=== PATIENT | female | born 1980 | race Caucasian/White ===

== ENCOUNTER 2017-12-20 14:21 | Emergency (ER) | payer MEDICARE, MEDICAID, SELFPAY ==
[2017-12-20 14:23] VITALS: BP 113/95; PULSE 20; RESP 62; TEMP 36.4; O2SAT 98; BMI 21.9
[2017-12-20 14:53] LABS: Amorphous Sediment Urine 1+; RBC Urine 1-5/HPF (0-5/HPF); Squamous Epithelial Cell Urine 5-10 /HPF; WBC Urine 5-10/HPF (0-5/HPF)
[2017-12-20 14:54] LABS: Bacteria Urine Many (>30); Culture Indicated Urine Specimen Cultured; Mucus Urine 1+ (Negative)
[2017-12-20 15:10] LABS: Add Manual Diff / Slide Review NO; Basophils Percent Auto 0.6 % (0-2); Eosinophils Percent Auto 1.8 % (2-4); Hematocrit 37.1 % (36-46); Hemoglobin 12.3 g/dL (12.0-16.0); Lymphocytes Percent Auto 19.1 % (25-40); Mean Corpuscular HGB Conc 33.2 % (30-36); Mean Corpuscular Hemoglobin 31.4 PG (26-34); Mean Corpuscular Volume 94.6 fL (80-100); Monocytes Percent Auto 8.2 % (3-14); Neutrophils Absolute Auto 4400 /uL (3000-5900); Neutrophils Percent Auto 70.3 % (50-75); Platelet Count 296 X10^3/uL (150-400); Red Blood Cell Count 3.93 X10^6/uL (4.0-5.2); Red Cell Distribution Width 12.7 % (11.6-14.8); White Blood Cell Count 6.2 X10^3/uL (4.5-11.0)
[2017-12-20 15:37] LABS: HCG Quantitative /Beta subunit 26.14 mIU/mL
[2017-12-20 15:48] LABS: Free T4, Direct Thyroxine 1.07 ng/dL (0.78-2.19)
[2017-12-20 16:02] LABS: Thyroid Stimulating Hormone 0.43 uIU/mL (0.47-4.68)
[2017-12-20 16:14] VITALS: BP 116/63; PULSE 66; RESP 16; O2SAT 100
--- NOTE | 2017-12-20 16:30 | ED.WEAKNESS ---
HPI - Weakness General Chief complaint: Weakness Stated complaint: MS RELAPSE History of Present Illness HPI Narrative: HPI 37-year-old female with a history of MS (DX age 19) presents for evaluation of poorly characterized weakness and mild subtle changes in cognition that have been taking place over 1+ weeks; notes recent dysuria and urinary frequency, had a miscarriage ~2 weeks ago. Patient denies cough, fevers, chills, chest pain, shortness of breath, headache, changes in vision or hearing, and had appropriate follow-up with the RN INFORMATICS regarding her miscarriage and is without any apparent complications. Patient's had no vaginal discharge or discomfort since her miscarriage. M/S/F/SocHx notable for: please see HPI; remainder reviewed with patient and in chart. ROS: Negative constitutional, eye, cardiovascular, pulmonary, GI, , MSK, skin, neurologic, psychiatric, endocrine unless noted in the HPI. Exam Gen: Pleasant, non-toxic appearing, resting comfortably. HEENT: NC, AT, PEERL, EOMI. Resp: Clear to auscultation bilaterally, normal work of breathing, no accessory muscle usage. Card: Regular rate and rhythm with no murmurs, rubs, or gallops, extremities warm and well perfused. GI: Non-tender to palpation throughout all quadrants, no focal tenderness at McBurney's point, negative Vallejo's sign, non-distended, no rebound or guarding. : No suprapubic tenderness to palpation. MSK: No visible deformities, strength and tone without visually appreciable deficit. Skin: Normal color with no visible lesions. Neuro: AO x 3, no facial asymmetry, vision and hearing WNL. Psych: Mood and affect appropriate. Labs / Imaging: UA - many bacteria, 5-10 squamous epithelial cells, 5-10 WBCs WBC 6.2, Hb 12.3, Na 139, K 3.6, TSH 0.43, free T4 1.07, hCG 26.14 MDM Previous chart, nursing note, labs, imaging, and vitals reviewed. A: 37-year-old female with a history of MS (DX age 19) presents for evaluation of poorly characterized weakness and mild subtle changes in cognition that have been taking place over 1+ weeks; notes recent dysuria and urinary frequency, had a miscarriage ~2 weeks ago. Evaluation: history is notable for dysuria increased urinary frequency with the onset and generally consistent with the patient's new mild subjective weakness and subjective subtle cognitive changes, patient notes a history of prior UTIs cousin similar symptoms. UA consistent with UTI. Keflex prescribed. Patient instructed to follow up with her PCP and/or neurologist in 2-3 days for further evaluation care as appropriate. History, exam, and labs without evidence of alternate concurrent medical process - specifically thyroid studies are within acceptable limits, hCG is appropriately down trended, the patient is without vaginal discharge, discomfort, suprapubic tenderness, she continues to take PO well, pass flatus and stool baseline, has no cough, recent infectious symptoms, chest pain, or other abnormalities. Impression: UTI (please reference below for remainder of encounter information) Related Data Previous Rx's Medication Instructions Recorded zolpidem 5 mg PO HS #5 tab 06/20/17 prednisone 10 mg PO SEE INSTRUCTIONS #24 tab 06/21/17 Allergies Allergy/AdvReac Type Severity Reaction Status Date / Time pomegranate [POMEGRANATE] Allergy Unknown Unverified 08/26/17 12:27 [facility] Social History Smoking Status: Never smoker Exam Initial Vital Signs Initial Vital Signs: Vital Signs Temperature 97.6 F 12/20/17 14:23 Pulse Rate 20 L 12/20/17 14:23 Respiratory Rate 62 H 12/20/17 14:23 Blood Pressure 113/95 H 12/20/17 14:23 Pulse Oximetry 98 12/20/17 14:23 Course Orders Ordered: ED Orders 12/20/17 14:30 Urine Culture Stat Urine Microscopic Stat 12/20/17 15:00 Complete Blood Count AUTO DIFF Stat Free T4 Free Thyroxine Stat HCG Quantitative Stat Thyroid Stimulating Hormone Stat 12/20/17 15:17 Urinalysis and Microscopic Stat Vital Signs - 8 hr 12/20/17 14:23 12/20/17 16:14 Temperature 97.6 F Pulse Rate 20 L 66 Respiratory Rate 62 H 16 Blood Pressure 113/95 H Blood Pressure [Left Arm] 116/63 Pulse Oximetry 98 100 MDM - Weakness Lab Data Result diagrams: 12/20/17 15:00 Lab Results 12/20/17 12/20/17 12/20/17 Range/Units 14:30 15:00 15:00 WBC 6.2 (4.5-11.0) X10^3/uL RBC 3.93 L (4.0-5.2) X10^6/uL Hgb 12.3 (12.0-16.0) g/dL Hct 37.1 (36-46) % MCV 94.6 (80-100) fL MCH 31.4 (26-34) PG MCHC 33.2 (30-36) % RDW 12.7 (11.6-14.8) % Plt Count 296 (150-400) X10^3/uL Neut % (Auto) 70.3 (50-75) % Lymph % (Auto) 19.1 L (25-40) % [place] % (Auto) 8.2 (3-14) % Eos % (Auto) 1.8 L (2-4) % Baso % (Auto) 0.6 (0-2) % Neut # (Auto) 4400 (5616-7916) /uL TSH (0.47-4.68) uIU/mL Free T4 (0.78-2.19) ng/dL HCG, Quant 26.14 mIU/mL Urine RBC 1-5/hpf (0-5/HPF) Urine WBC 5-10/hpf H (0-5/HPF) Ur Squamous Epith Cells 5-10 /hpf H Amorphous Sediment 1+ Urine Bacteria Many (>30) H (None) Urine Mucus 1+ H (Negative) Ur Culture Indicated? Specimen cultured Micro UA Comment Not Reportable 12/20/17 Range/Units 15:00 WBC (4.5-11.0) X10^3/uL RBC (4.0-5.2) X10^6/uL Hgb (12.0-16.0) g/dL Hct (36-46) % MCV (80-100) fL MCH (26-34) PG MCHC (30-36) % RDW (11.6-14.8) % Plt Count (150-400) X10^3/uL Neut % (Auto) (50-75) % Lymph % (Auto) (25-40) % [place] % (Auto) (3-14) % Eos % (Auto) (2-4) % Baso % (Auto) (0-2) % Neut # (Auto) (2273-1393) /uL TSH 0.43 L (0.47-4.68) uIU/mL Free T4 1.07 (0.78-2.19) ng/dL HCG, Quant mIU/mL Urine RBC (0-5/HPF) Urine WBC (0-5/HPF) Ur Squamous Epith Cells Amorphous Sediment Urine Bacteria (None) Urine Mucus (Negative) Ur Culture Indicated? Micro UA Comment Discharge Plan Departure Prescriptions: No Action zolpidem 5 MG tablet 5 mg PO HS Qty: 5 RF: 0 prednisone 10 MG tablet 10 mg PO SEE INSTRUCTIONS Qty: 24 RF: 0
[2017-12-20] MEDS: cephALEXin 250 MG CAPSULE 500 MG PO (16:40)
== END 2017-12-20 17:00 | disposition home or self-care (01) ==
PROVIDERS: Emergency Provider Emergency Medicine; PCP Nurse Practitioner Gerontology
DX: N39.0 Urinary tract infection, site not specified (principal)
CPT/HCPCS: 36591; 81003; 81015; 84439; 84443; 84702; 85025; 87077; 87086; 87186; 99282; 99283

== ENCOUNTER → 2018-01-12 08:47 | Outpatient (CLI) | payer MEDICARE, MEDICAID, SELFPAY ==
--- NOTE | 2018-01-12 | DI.MRI.S_ITS ---
PROCEDURE: MR CERVICAL SPINE WO/W CON INDICATIONS: MULTIPLE SCLEROSIS TECHNIQUE: Noncontrast sagittal T1 spin echo and T2 fast spin echo, sagittal STIR, sagittal PD fast spin echo, foraminal oblique sagittal T2 fast spin echo, axial gradient echo or T2 fast spin echo through the cervical spine. After the administration of contrast, sagittal and axial T1 spin echo with fat saturation through the cervical spine. COMPARISON: [facility], MR, MR THORACIC SPINE WO/W CON, 01/12/2018, 9:49. [facility], MR, MR HEAD/BRAIN WO/W CON, 01/12/2018, 9:09. [facility], MR, C-SPINE W&WO CONTRAST, 06/21/2013, 19:14. FINDINGS: Image quality: Excellent. Alignment and curvature: There is normal bony alignment. Marrow: Marrow demonstrates normal overall signal. Spinal cord: Visualized spinal cord is normal in size, without white matter lesions. However, there is a prominent lesion seen within the jayjay, as on series 3 image 8. No suspicious intramedullary enhancement. No cerebellar tonsillar herniation. Paraspinous soft tissues: No paravertebral masses or suspicious enhancement. C2-C3: Normal appearance. C3-C4: Normal appearance. C4-C5: Normal appearance. C5-C6: Minimal disc osteophyte complex can be seen. No significant neural foraminal or central canal narrowing are seen. C6-C7: No significant abnormality is seen. C7-T1: Normal appearance. IMPRESSION: No cervical spinal cord lesions are seen to suggest involvement with multiple sclerosis. No abnormal enhancement. Dictated by: Mc Grimes M.D. on 01/12/2018 at 11:42 Approved by: Mc Grimes M.D. on 01/12/2018 at 11:44
--- NOTE | 2018-01-12 | DI.MRI.S_ITS ---
PROCEDURE: MR HEAD/BRAIN WO/W CON INDICATIONS: MULTIPLE SCLEROSIS TECHNIQUE: Noncontrast sagittal and axial FLAIR, axial and coronal T2 fast spin echo, axial VIBE, axial gradient echo, axial diffusion and ADC through the brain. After the administration of contrast, axial and coronal VIBE with fat saturation through the brain. COMPARISON: [facility], MR, MR THORACIC SPINE WO/W CON, 01/12/2018, 9:49. [facility], MR, BRAIN W&WO CONTRAST, 06/21/2013, 18:58. [facility], MR, MR CERVICAL SPINE WO/W CON, 01/12/2018, 9:25. FINDINGS: Image quality: Excellent. CSF spaces: Ventricles are normal in size and shape. Basal cisterns are patent. No extra-axial fluid collections. Brain: Several prominent foci of abnormal T2-weighted hyperintensity can be seen within the periventricular and deep white matter. Several of the periventricular lesions demonstrate a perpendicular appearance to the lateral ventricles. There is involvement of the corpus callosum seen, as on series 2 image 16. There is a lesion seen within the left jayjay, as on series 4 image 6 series 2 image 14. These lesions have clearly progressed compared to the 2013 examination. There is enhancement seen of the lesion within the right peritrigonal region, as on series 13 image 13 and on series 14 image 17. No intracranial bleeds or mass effects. Jones-white matter interface appears intact. No abnormal intracranial enhancement. Diffusion weighted images show no acute ischemic insults. Brainstem appears normal. Normal intravascular flow voids are present. Skull and face: Calvarial marrow signal is normal. Orbits appear normal. Sinuses: Sinuses and mastoids are clear. IMPRESSION: Progression of multiple sclerosis lesions compared to 2014. One of these lesions demonstrate enhancement, which is consistent with active demyelination. Dictated by: Mc Grimes M.D. on 01/12/2018 at 11:06 Approved by: Mc Grimes M.D. on 01/12/2018 at 11:25
--- NOTE | 2018-01-12 | DI.MRI.S_ITS ---
PROCEDURE: MR THORACIC SPINE WO/W CON INDICATIONS: MULTIPLE SCLEROSIS TECHNIQUE: Noncontrast sagittal T1 spin echo and T2 fast spin echo, sagittal STIR, axial T1 and T2 fast spin echo through the thoracic spine. After the administration of contrast, axial and sagittal T1 spin echo with fat saturation through the thoracic spine. COMPARISON: [facility], MR, MR CERVICAL SPINE WO/W CON, 01/12/2018, 9:25. [facility], MR, MR HEAD/BRAIN WO/W CON, 01/12/2018, 9:09. [facility], MR, T-SPINE W&WO CONTRAST, 06/21/2013, 19:31. FINDINGS: Image quality: Excellent. Alignment and curvature: There is normal bony alignment. Marrow: Marrow is of normal overall signal. No acute vertebral body compression fractures. Spinal cord: Visualized spinal cord is of normal signal and size, without abnormal enhancement. Paraspinous soft tissues: No paravertebral masses or abnormal enhancement. Miscellaneous: At the T8-T9 level, there is a mild central disc protrusion, as on series 11 image 17 and on series 5 image 8. Minimal central canal narrowing is seen. This is similar to 2013. No significant neural foraminal narrowing. Minimal degenerative changes can be seen at other thoracic levels. IMPRESSION: No thoracic spinal cord white matter lesions are seen to suggest involvement with multiple sclerosis. No abnormal enhancement. Dictated by: Mc Grimes M.D. on 01/12/2018 at 11:44 Approved by: Mc Grimes M.D. on 01/12/2018 at 11:47
== END ==
PROVIDERS: PCP Nurse Practitioner Gerontology; Visit Provider Physician Assistant
DX: G35 Multiple sclerosis (principal)
CPT/HCPCS: 70553; 72156; 72157

== ENCOUNTER 2018-01-15 08:02 | Emergency (ER) | payer MEDICARE, MEDICAID, SELFPAY ==
[2018-01-15 08:08] VITALS: BP 114/63; PULSE 77; RESP 15; TEMP 36.5; O2SAT 99; BMI 21.9
--- NOTE | 2018-01-15 08:46 | ED.RECABL ---
HPI - Recheck/Abnormal Lab/Rx General Chief Complaint: Recheck/Abnormal Lab/Rx Stated Complaint: needs steroids, mri showed a brain lesion Time Seen by Provider: 01/15/18 08:13 Source: patient Mode of arrival: ambulatory Limitations: no limitations History of Present Illness HPI narrative: Patient is a 37-year-old female presenting with need for IV steroids. She has a history of multiple sclerosis she had MRI 01/04/2018 here at this hospital which does show an active lesion. She was instructed by her neurologist come to the ER for dose of IV steroids. She says she is supposed to get 3 days of IV infusions. She has fallen more over the last day she has overall been extremely tired and sleepy. Related Data Previous Rx's Medication Instructions Recorded zolpidem 5 mg PO HS #5 tab 06/20/17 prednisone 10 mg PO SEE INSTRUCTIONS #24 tab 06/21/17 cephalexin [Keflex] 500 mg PO QID #40 cap 12/20/17 Allergies Allergy/AdvReac Type Severity Reaction Status Date / Time pomegranate [POMEGRANATE] Allergy Unknown Verified 01/15/18 08:08 Review of Systems Review of Systems All systems reviewed & are unremarkable except as noted in HPI and below Constitutional Reports body ache(s), Denies chills, Reports fatigue, Denies fever(s), Denies lethargy and Reports weakness Cardiovascular Denies chest pain, Denies irregular heart rhythm, Denies lightheadedness, Denies palpitations, Denies dyspnea, Denies dyspnea on exertion and Denies orthopnea Respiratory Denies cough, Denies dyspnea, Denies dyspnea on exertion and Denies wheezing Gastrointestinal Gastrointestinal: Denies abdominal pain, Denies change in bowel habits, Denies diarrhea, Denies nausea and Denies vomiting Musculoskeletal Denies back pain, Denies muscle weakness, Denies numbness and Denies tingling Neurologic Reports as per HPI, Denies numbness, Denies tingling and Reports weakness Endocrine Reports fatigue and Denies palpitations Allergic/Immunologic Denies wheezing PFSH Medical History Multiple sclerosis (Acute) Social History Smoking Status: Never smoker Exam Initial Vital Signs Initial Vital Signs: Vital Signs Temperature 97.7 F 01/15/18 08:08 Pulse Rate 77 01/15/18 08:08 Respiratory Rate 15 01/15/18 08:08 Blood Pressure 114/63 01/15/18 08:08 Pulse Oximetry 99 01/15/18 08:08 GENERAL: Overall weak appearing female but no acute distress alert and oriented x3 HEENT: Head atraumatic,EOMI, pupils reactive, CARDIOVASCULAR: Regular rate and rhythm without murmurs, rubs or gallops. RESPIRATORY: Breath sounds equal bilaterally, no wheezes rales or rhonchi. ABDOMEN: Soft, nontender. Normoactive bowel sounds all 4 quadrants. No guarding or rebound. EXTREMITIES: Normal range of motion, no clubbing or edema. Neurovascularly intact NEUROLOGICAL: Alert and oriented x4.Normal gait and speech. Cranial nerves II through XII grossly intact. SKIN: Warm, dry, no laceration, no petechiae, no rashes or lesions. Block Machine Operator strength equal bilaterally Course Orders Ordered: ED Orders 01/15/18 09:15 Basic Metabolic Panel Stat Complete Blood Count AUTO DIFF Stat Discontinued Medications Methylprednisolone 1,000 mg/ (Sodium Chloride) 258 mls @ 258 mls/hr IV NOW ONE Stop: 01/15/18 10:14 Last Infusion: 01/15/18 10:36 Dose: 258 mls/hr Admin: 01/15/18 09:11 Dose: 258 mls/hr Vital Signs - 8 hr 01/15/18 08:08 01/15/18 10:27 01/15/18 11:31 Temperature 97.7 F 97.6 F Pulse Rate 77 67 78 Respiratory Rate 15 14 15 Blood Pressure 114/63 Blood Pressure [Right Arm] 102/77 102/77 Pulse Oximetry 99 99 MDM - Recheck/Abnormal Lab/Rx Lab Data Result diagrams: 01/15/18 09:15 01/15/18 09:15 Lab Results 01/15/18 01/15/18 Range/Units 09:15 09:15 WBC 5.8 (4.5-11.0) X10^3/uL RBC 4.24 (4.0-5.2) X10^6/uL Hgb 13.1 (12.0-16.0) g/dL Hct 39.2 (36-46) % MCV 92.5 (80-100) fL MCH 30.9 (26-34) PG MCHC 33.4 (30-36) % RDW 12.9 (11.6-14.8) % Plt Count 248 (150-400) X10^3/uL Neut % (Auto) 74.7 (50-75) % Lymph % (Auto) 16.7 L (25-40) % [place] % (Auto) 7.0 (3-14) % Eos % (Auto) 1.0 L (2-4) % Baso % (Auto) 0.6 (0-2) % Neut # (Auto) 4400 (9238-4709) /uL Sodium 143 (137-145) mmol/L Potassium 4.4 (3.4-5.1) mmol/L Chloride 105 (98-107) mmol/L Carbon Dioxide 28 (22-32) mmol/L BUN 14 (7-17) mg/dL Creatinine 0.80 (0.52-1.04) mg/dL Estimated GFR > 60.0 (>60) mL/min BUN/Creatinine Ratio 17.5 (6-22) Glucose 76 (70-100) mg/dL Calcium 9.5 (8.4-10.2) mg/dL Imaging Data MRI Brain: Radiologist's impression: PROCEDURE: MR HEAD/BRAIN WO/W CON INDICATIONS: MULTIPLE SCLEROSIS TECHNIQUE: Noncontrast sagittal and axial FLAIR, axial and coronal T2 fast spin echo, axial VIBE, axial gradient echo, axial diffusion and ADC through the brain. After the administration of contrast, axial and coronal VIBE with fat saturation through the brain. COMPARISON: [facility], MR, MR THORACIC SPINE WO/W CON, 01/12/2018, 9:49. [facility], MR, BRAIN W&WO CONTRAST, 06/21/2013, 18:58. [facility], MR, MR CERVICAL SPINE WO/W CON, 01/12/2018, 9:25. FINDINGS: Image quality: Excellent. CSF spaces: Ventricles are normal in size and shape. Basal cisterns are patent. No extra-axial fluid collections. Brain: Several prominent foci of abnormal T2-weighted hyperintensity can be seen within the periventricular and deep white matter. Several of the periventricular lesions demonstrate a perpendicular appearance to the lateral ventricles. There is involvement of the corpus callosum seen, as on series 2 image 16. There is a lesion seen within the left jayjay, as on series 4 image 6 series 2 image 14. These lesions have clearly progressed compared to the 2013 examination. There is enhancement seen of the lesion within the right peritrigonal region, as on series 13 image 13 and on series 14 image 17. No intracranial bleeds or mass effects. Jones-white matter interface appears intact. No abnormal intracranial enhancement. Diffusion weighted images show no acute ischemic insults. Brainstem appears normal. Normal intravascular flow voids are present. Skull and face: Calvarial marrow signal is normal. Orbits appear normal. Sinuses: Sinuses and mastoids are clear. IMPRESSION: Progression of multiple sclerosis lesions compared to 2014. One of these lesions demonstrate enhancement, which is consistent with active demyelination. Dictated by: Mc Grimes M.D. on 01/12/2018 at 11:06 [facility] Narrative Medical decision making narrative: Multiple attempts to call patient's neurologist Dr. Kelvin lainez. She is given 1 g of Solu-Medrol. She is strain feel little bit better. She will return tomorrow for repeat infusion. Unable to set out outpatient infusions at this time. Discharge Plan Departure Patient Disposition: Home Clinical Impression: Exacerbation of multiple sclerosis Discharge Date/Time: 01/15/18 11:33 Interventions: ED Discharge Assessment Last Done: 01/15/18 11:32 Instructions: DI for Multiple Sclerosis Activity Restrictions/Additional Instructions: *You have been diagnosed with multiple sclerosis *What to do: I hope to hear from a your neurologist sometime today. For now plan on returning tomorrow for repeat infusion *Continue to take medications as directed *Follow up with your primary care provider in 2-3 days, follow up with Neurology next week. Please call him today for further instructions and these have them call our emergency department *Return to ER if you should have any new, worsening or concerning symptoms Prescriptions: No Action zolpidem 5 MG tablet 5 mg PO HS Qty: 5 RF: 0 prednisone 10 MG tablet 10 mg PO SEE INSTRUCTIONS Qty: 24 RF: 0 cephalexin [Keflex] 500 mg capsule 500 mg PO QID Qty: 40 RF: 0 Referrals: Gayle Carter ARNP [Primary Care Provider] - Kelvin Lainez MD [Family Provider] -
[2018-01-15] MEDS: methylPREDNISolone 1,000 MG in SODIUM CHLORIDE 0.9% 250 ML 258 ML IV (09:11)
[2018-01-15 09:29] LABS: Add Manual Diff / Slide Review NO; Basophils Percent Auto 0.6 % (0-2); Hematocrit 39.2 % (36-46); Hemoglobin 13.1 g/dL (12.0-16.0); Lymphocytes Percent Auto 16.7 % (25-40); Mean Corpuscular HGB Conc 33.4 % (30-36); Mean Corpuscular Hemoglobin 30.9 PG (26-34); Mean Corpuscular Volume 92.5 fL (80-100); Neutrophils Absolute Auto 4400 /uL (3000-5900); Neutrophils Percent Auto 74.7 % (50-75); Platelet Count 248 X10^3/uL (150-400); Red Blood Cell Count 4.24 X10^6/uL (4.0-5.2); Red Cell Distribution Width 12.9 % (11.6-14.8); White Blood Cell Count 5.8 X10^3/uL (4.5-11.0)
[2018-01-15 09:42] LABS: BUN Creatinine Ratio 17.5 (6-22); Blood Urea Nitrogen 14 mg/dL (7-17); Calcium 9.5 mg/dL (8.4-10.2); Carbon Dioxide 28 mmol/L (22-32); Chloride 105 mmol/L (98-107); Estimated Glomerular Filt Rate > 60.0 mL/min (>60); Glucose 76 mg/dL (70-100); HEMOLYSIS 27 (0-50); Potassium 4.4 mmol/L (3.4-5.1); Sodium 143 mmol/L (137-145)
[2018-01-15 10:27] VITALS: BP 102/77; PULSE 67; RESP 14; O2SAT 99
[2018-01-15 11:31] VITALS: BP 102/77; PULSE 78; RESP 15; TEMP 36.4
== END 2018-01-15 11:33 | disposition home or self-care (01) ==
PROVIDERS: Emergency Provider Emergency Medicine; Family Provider Psychiatry & Neurology Neurology; PCP Nurse Practitioner Gerontology
DX: G35 Multiple sclerosis (principal)
CPT/HCPCS: 36591; 80048; 85025; 96365; 96366; 99283; 99284; J2930

== ENCOUNTER 2018-01-16 10:00 | Emergency (ER) | payer MEDICARE, MEDICAID, SELFPAY ==
[2018-01-16 10:06] VITALS: BP 112/73; PULSE 67; RESP 14; TEMP 36.3; O2SAT 100; BMI 22.7
--- NOTE | 2018-01-16 10:28 | ED_ITS ---
HPI - Weakness General Chief complaint: Weakness Stated complaint: NEEDS IV STEROIDS Time Seen by Provider: 01/16/18 10:25 Source: patient Mode of arrival: ambulatory Limitations: no limitations History of Present Illness HPI Narrative: Is a 7-year-old female who presents with overall weakness. She has a history of multiple sclerosis she is here for her 2nd dose of IV steroids. Which were started yesterday. She says that she is feeling better but still weak. She will come back tomorrow for his 3rd dose of IV steroids Complaint: generalized weakness Related Data Home Medications Medication Instructions Recorded Confirmed acyclovir 400 mg PO BID 01/16/18 01/16/18 meclizine 25 mg PO TID PRN 01/16/18 01/16/18 tamsulosin 0.4 mg PO BID 01/16/18 01/16/18 Allergies Allergy/AdvReac Type Severity Reaction Status Date / Time adhesive tape Allergy Mild Blister Verified 01/16/18 10:09 pomegranate [POMEGRANATE] Allergy Unknown Verified 01/16/18 10:09 Review of Systems Review of Systems GENERAL: Denies chills,fever HEENT: Denies throat pain RESPIRATORY: Denies dyspnea, cough, wheezing CARDIOVASCULAR: Denies chest pain, palpitations GASTROINTESTINAL: Denies nausea, vomiting MUSCULOSKELETAL: Denies extremity pain, injury SKIN: No rash, no laceration, no pruritus NEUROLOGIC: See HPI 8 point review of systems is negative except for those stated above and HPI PFSH Medical History Multiple sclerosis (Acute) Social History Smoking Status: Never smoker Exam Initial Vital Signs Initial Vital Signs: Vital Signs Temperature 97.3 F L 01/16/18 10:06 Pulse Rate 67 01/16/18 10:06 Respiratory Rate 14 01/16/18 10:06 Blood Pressure 112/73 01/16/18 10:06 Pulse Oximetry 100 01/16/18 10:06 GENERAL: Well-appearing, well-nourished and in no acute distress. CARDIOVASCULAR: peripheral pulses in tact, cap refill <2 sec RESPIRATORY: No respiratory distress, speaks in full sentences without difficulty EXTREMITIES: Normal range of motion, no clubbing or edema. Neurovascularly intact NEUROLOGICAL: Cranial nerves II through XII grossly intact. Normal gait and speech. SKIN: Warm, dry, no petechiae, no rashes or lesions. Course Orders Ordered: Discontinued Medications Methylprednisolone 1,000 mg/ (Sodium Chloride) 108 mls @ 108 mls/hr IV NOW ONE Stop: 01/16/18 11:59 Last Infusion: 01/16/18 12:23 Dose: 0 mls/hr Admin: 01/16/18 11:25 Dose: 108 mls/hr Vital Signs - 8 hr 01/16/18 11:30 01/16/18 12:24 Pulse Rate 69 67 Respiratory Rate 17 14 Blood Pressure [Right Arm] 118/73 124/70 Pulse Oximetry 100 100 MDM - Weakness Lab Data Urine Dip Bedside Urine Glucose Negative Bedside Urine Bilirubin - Negative Bedside Urine Ketone - Negative Urine Specific [place] 1.010 Bedside Urine Occult Blood - Negative Bedside Urine pH 6.5 Bedside Urine Protein - Negative Bedside Urine Urobilinogen - Negative Bedside Urine Nitrite - Negative Bedside Urine Leukocytes - Negative Esterase MDM Narrative Medical decision making narrative: Will return tomorrow for 3rd dose of IV steroids Discharge Plan Departure Patient Disposition: Home Clinical Impression: Exacerbation of multiple sclerosis Discharge Date/Time: 01/16/18 12:31 Interventions: ED Discharge Assessment Last Done: 01/16/18 12:30 Instructions: Multiple Sclerosis -- Adult Activity Restrictions/Additional Instructions: *You have been diagnosed with multiple sclerosis exacerbation *What to do: Return tomorrow for her 3rd and final dose of Solu-Medrol is come early in the morning (7am-8am) it seems to be busy this week *Continue to take medications as directed *Follow up with your primary care provider in 2-3 days *Return to ER if you should have any new, worsening or concerning symptoms Prescriptions: No Action acyclovir 400 mg tablet 400 mg PO BID RF: 0 tamsulosin 0.4 mg capsule 0.4 mg PO BID RF: 0 meclizine 25 mg tablet 25 mg PO TID PRN (Reason: Vertigo) RF: 0 Referrals: Gayle Carter ARNP [Primary Care Provider] - Kelvin Strickland MD [Family Provider] -
[2018-01-16] MEDS: METHYLPREDNISOLONE IV (11:25)
[2018-01-16] MEDS: SODIUM CHLORIDE 0.9% IV (11:25)
[2018-01-16 11:30] VITALS: BP 118/73; PULSE 69; RESP 17; O2SAT 100
[2018-01-16 12:24] VITALS: BP 124/70; PULSE 67; RESP 14; O2SAT 100
== END 2018-01-16 12:31 | disposition home or self-care (01) ==
PROVIDERS: Emergency Provider Emergency Medicine; Family Provider Psychiatry & Neurology Neurology; PCP Nurse Practitioner Gerontology
DX: G35 Multiple sclerosis (principal)
CPT/HCPCS: 81003; 96365; 99283; 99284; J2930

== ENCOUNTER 2018-01-17 08:01 | Emergency (ER) | payer MEDICARE, MEDICAID, SELFPAY ==
[2018-01-17 08:16] VITALS: BP 136/97; PULSE 68; RESP 18; TEMP 36.9; O2SAT 100; BMI 22.7
--- NOTE | 2018-01-17 08:44 | ED.RECABL ---
HPI - Recheck/Abnormal Lab/Rx General Chief Complaint: Recheck/Abnormal Lab/Rx Stated Complaint: told to come to ER for IV steroids Time Seen by Provider: 01/17/18 08:46 Source: patient, RN notes reviewed and other ( prior ED chart) Mode of arrival: ambulatory Limitations: no limitations History of Present Illness HPI narrative: this is a 37-year-old female comes with MS exacerbation. She was seen here 2 days prior and received a 1000 mg methylprednisolone. Patient states her symptoms are not worsening but not improving as quickly as they often do. She states that sometimes she will do 3 or 5 days of a 1000 mg. She has tried to contact her neurologist but has been unsuccessful over the weekend she states that she is having weakness and did fall yesterday while trying to get up. She is also having some joint pain and discomfort in her hips. She denies any other new exacerbations or other issues. Initial visit (ago): day(s) Initial visit for: other ( MS exacerbation) Related Data Home Medications Medication Instructions Recorded Confirmed acyclovir 400 mg PO BID 01/16/18 01/16/18 meclizine 25 mg PO TID PRN 01/16/18 01/16/18 tamsulosin 0.4 mg PO BID 01/16/18 01/16/18 Previous Rx's Medication Instructions Recorded oxycodone-acetaminophen [Percocet] 1 tab PO Q4-6H PRN #10 tab 01/17/18 Allergies Allergy/AdvReac Type Severity Reaction Status Date / Time adhesive tape Allergy Mild Blister Verified 01/16/18 10:09 pomegranate [POMEGRANATE] Allergy Unknown Verified 01/16/18 10:09 Review of Systems Review of Systems All systems reviewed & are unremarkable except as noted in HPI and below Constitutional Denies chills, Denies fever(s), Reports lethargy and Reports weakness Cardiovascular Denies chest pain and Denies dyspnea Respiratory Denies cough and Denies dyspnea Gastrointestinal Gastrointestinal: Reports diarrhea and Reports vomiting Neurologic Reports weakness [facility] Medical History Multiple sclerosis (Acute) Social History Smoking Status: Never smoker Exam Initial Vital Signs Initial Vital Signs: Vital Signs Temperature 98.5 F 01/17/18 08:16 Pulse Rate 68 01/17/18 08:16 Respiratory Rate 18 01/17/18 08:16 Blood Pressure 136/97 H 01/17/18 08:16 Pulse Oximetry 100 01/17/18 08:16 Const General: cooperative and well developed Nutritional Appearance: well nourished Orientation: alert, awake, oriented x3 and not confused Resp Effort & Inspection: normal respiratory effort, able to speak in complete sentences, no respiratory distress and no use of accessory muscles Auscultation: clear to auscultation bilaterally, no rales, no rhonchi and no wheezes Cardio Rate: regular rate Rhythm: regular rhythm Heart Sounds: no click, no gallops, no murmurs and no rubs Pulses: normal peripheral pulses GI Inspection: non-distended Palpation: soft, no hepatosplenomegaly, No guarding, No pulsatile mass and No tender Auscultation: normal bowel sounds Neuro General: alert, oriented x3, gait normal and no focal motor deficits Speech: speech normal Course Additional Information: plan for a 3rd dose of 1000 mg methylprednisolone. Patient has been able to return neurologist and will call us for consultation and further recommendations for care. Orders Ordered: Discontinued Medications Methylprednisolone 1,000 mg/ (Sodium Chloride) 258 mls @ 258 mls/hr IV NOW ONE Stop: 01/17/18 09:59 Last Infusion: 01/17/18 10:21 Dose: 0 mls/hr Admin: 01/17/18 09:18 Dose: 258 mls/hr Consultations Consultation #1: Spoke with Dr. Kelvin lainez with Neurology. He does recommend patient doing a 1000 mg IV methylprednisolone for 5 days total. Today is day 3. Of 5. Patient does not need to taper of steroids. For pain control if they normally give NSAIDs he does not have any specific recommendations. Patient is to follow up outpatient with the clinic. Time: 10:12 Vital Signs - 8 hr 01/17/18 08:16 Temperature 98.5 F Pulse Rate 68 Respiratory Rate 18 Blood Pressure 136/97 H Pulse Oximetry 100 Discharge Plan Departure Patient Disposition: Home Clinical Impression: Exacerbation of multiple sclerosis Discharge Date/Time: 01/17/18 10:34 Interventions: ED Discharge Assessment Last Done: 01/17/18 10:33 Instructions: Multiple Sclerosis -- Adult Activity Restrictions/Additional Instructions: return tomorrow morning /in 24 hr for recheck and additional doses of methylprednisolone. Will need to return for a total of 5 days infusion. Prescriptions: New oxycodone-acetaminophen [Percocet] 5-325 mg tablet 1 tab PO Q4-6H PRN (Reason: pain) Qty: 10 RF: 0 No Action acyclovir 400 mg tablet 400 mg PO BID RF: 0 tamsulosin 0.4 mg capsule 0.4 mg PO BID RF: 0 meclizine 25 mg tablet 25 mg PO TID PRN (Reason: Vertigo) RF: 0 Referrals: Gayle Carter ARNP [Primary Care Provider] - Kelvin Lainez MD [Family Provider] - (Follow-up with Dr. Lainez this week for recheck. Call Thursday for an appointment.)
[2018-01-17] MEDS: methylPREDNISolone 1,000 MG in SODIUM CHLORIDE 0.9% 250 ML 258 ML IV (09:18)
[2018-01-17 10:33] VITALS: BP 122/70; PULSE 70; RESP 14; O2SAT 99
== END 2018-01-17 10:34 | disposition home or self-care (01) ==
PROVIDERS: Emergency Provider Emergency Medicine; Family Provider Psychiatry & Neurology Neurology; PCP Nurse Practitioner Gerontology
DX: G35 Multiple sclerosis (principal)
CPT/HCPCS: 96365; 99283; 99284; J2930

== ENCOUNTER 2018-01-18 08:54 | Emergency (ER) | payer MEDICARE, MEDICAID, SELFPAY ==
[2018-01-18 09:13] VITALS: BP 122/75; PULSE 48; RESP 14; TEMP 36.6; O2SAT 100
[2018-01-18] MEDS: methylPREDNISolone 1,000 MG in SODIUM CHLORIDE 0.9% 250 ML 258 ML IV (09:45)
--- NOTE | 2018-01-18 10:09 | ED.RECABL ---
HPI - Recheck/Abnormal Lab/Rx General Chief Complaint: Recheck/Abnormal Lab/Rx Stated Complaint: needs to get steroids Time Seen by Provider: 01/18/18 10:09 Source: patient and family Limitations: no limitations History of Present Illness HPI narrative: this is a 37-year-old female who returns for her 4th dose of methylprednisolone 1000 mg for multiple sclerosis exacerbation. patient states she continues to be weak. She is not rapidly worsening. But has not noticed a significant improvement. No fevers. No vomiting. No new GI or urinary symptoms although she is having some urinary frequency. Patient is not having any new or different symptoms from her typical exacerbations. I did speak with her neurologist yesterday and plan is for 5 doses methylprednisolone over 5 days at 1000 mg. Patient will not have a taper afterwards but will follow up with Neurology and call tomorrow for an appointment. Initial visit (ago): day(s) (5) Related Data Home Medications Medication Instructions Recorded Confirmed acyclovir 400 mg PO BID 01/16/18 01/16/18 meclizine 25 mg PO TID PRN 01/16/18 01/16/18 tamsulosin 0.4 mg PO BID 01/16/18 01/16/18 Previous Rx's Medication Instructions Recorded oxycodone-acetaminophen [Percocet] 1 tab PO Q4-6H PRN #10 tab 01/17/18 Allergies Allergy/AdvReac Type Severity Reaction Status Date / Time adhesive tape Allergy Mild Blister Verified 01/18/18 09:18 pomegranate [POMEGRANATE] Allergy Unknown Verified 01/18/18 09:18 Review of Systems Review of Systems All systems reviewed & are unremarkable except as noted in HPI and below Constitutional Reports fatigue, Denies fever(s), Reports frequent falls and Reports weakness Cardiovascular Denies chest pain, Denies irregular heart rhythm, Denies lightheadedness, Denies palpitations, Denies dyspnea, Denies dyspnea on exertion and Denies orthopnea Respiratory Denies cough, Denies dyspnea, Denies dyspnea on exertion and Denies wheezing Gastrointestinal Gastrointestinal: Denies abdominal pain, Denies change in bowel habits, Denies diarrhea, Denies nausea and Denies vomiting Genitourinary Reports urinary urgency Comments: Slight vaginal bleeding. Has not had a menses for about 49 ease after a miscarriage. Musculoskeletal Denies numbness Neurologic Reports as per HPI, Denies confusion, Reports frequent falls, Denies focal weakness, Denies numbness, Denies sensory deficit and Reports weakness Psychiatric Denies confusion Endocrine Reports fatigue and Denies palpitations Allergic/Immunologic Denies wheezing [facility] Medical History Multiple sclerosis (Acute) Social History Smoking Status: Never smoker Exam Initial Vital Signs Initial Vital Signs: Vital Signs Temperature 97.8 F 01/18/18 09:13 Pulse Rate 48 L 01/18/18 09:13 Respiratory Rate 14 01/18/18 09:13 Blood Pressure 122/75 01/18/18 09:13 Pulse Oximetry 100 01/18/18 09:13 Const General: cooperative and well developed Nutritional Appearance: well nourished Orientation: alert, awake, oriented x3 and not confused HENMI Head: normal to inspection, normocephalic and atraumatic Ears: hearing grossly normal bilaterally Nose: external nose normal and nares normal Face and sinus: normal facial exam and face symmetric Mouth: moist mucous membranes Eyes General: appearance normal, both eyes and all related structures Chest Chest: normal inspection of the chest Resp Effort & Inspection: normal respiratory effort, able to speak in complete sentences, no respiratory distress and no use of accessory muscles Auscultation: clear to auscultation bilaterally, no rales, no rhonchi and no wheezes Cardio Rate: regular rate Rhythm: regular rhythm Heart Sounds: no click, no gallops, no murmurs and no rubs Pulses: normal peripheral pulses GI Inspection: non-distended Palpation: soft, no hepatosplenomegaly, No guarding, No pulsatile mass and No tender Auscultation: normal bowel sounds Neuro General: alert, awake, oriented x3, no focal motor deficits and CN's II-XI intact bilaterally Cranial Nerves: CN's II-XI intact bilaterally and PERRL Course Orders Ordered: Discontinued Medications Methylprednisolone 1,000 mg/ (Sodium Chloride) 258 mls @ 258 mls/hr IV NOW ONE Stop: 01/18/18 10:29 Last Infusion: 01/18/18 10:58 Dose: 0 mls/hr Admin: 01/18/18 09:45 Dose: 258 mls/hr Ondansetron HCl (Zofran Odt) 4 mg PO NOW ONE Stop: 01/18/18 10:54 Last Admin: 01/18/18 10:58 Dose: 4 mg Vital Signs - 8 hr 01/18/18 10:59 Pulse Rate 62 Respiratory Rate 14 Blood Pressure [Left Arm] 101/59 L Pulse Oximetry 100 MDM - Recheck/Abnormal Lab/Rx Lab Data Point of Care Testing Test Results Negative Urine Dip Bedside Urine Glucose Negative Bedside Urine Bilirubin - Negative Bedside Urine Ketone - Negative Urine Specific [place] 1.010 Bedside Urine Occult Blood - Negative Bedside Urine pH 7.5 Bedside Urine Protein - Negative Bedside Urine Urobilinogen - Negative Bedside Urine Nitrite - Negative Bedside Urine Leukocytes - Negative Esterase MDM Narrative Medical decision making narrative: patient's symptoms are not worsening but not majorly improving. She states that typically takes a couple days after the medications for her to really seen improvement in her symptoms. She is returning for day 5 of 5 tomorrow of methylprednisolone and has follow-up with Neurology this coming week. Discharge Plan Departure Patient Disposition: Home Clinical Impression: Exacerbation of multiple sclerosis Discharge Date/Time: 01/18/18 11:03 Interventions: ED Discharge Assessment Last Done: 01/18/18 11:00 Instructions: DI for Multiple Sclerosis Activity Restrictions/Additional Instructions: Return to the emergency department tomorrow for your final dose of methylprednisolone. Continue medications as prescribed. Follow up with Dr. Strickland your neurologist this week, call tomorrow for an appointment. Dr. Strickland is expecting to see you for follow up. Prescriptions: No Action oxycodone-acetaminophen [Percocet] 5-325 mg tablet 1 tab PO Q4-6H PRN (Reason: pain) Qty: 10 RF: 0 acyclovir 400 mg tablet 400 mg PO BID RF: 0 tamsulosin 0.4 mg capsule 0.4 mg PO BID RF: 0 meclizine 25 mg tablet 25 mg PO TID PRN (Reason: Vertigo) RF: 0 Referrals: Gayle Carter ARNP [Primary Care Provider] -
[2018-01-18] MEDS: ONDANSETRON 4 MG ODT PO (10:58)
[2018-01-18 10:59] VITALS: BP 101/59; PULSE 62; RESP 14; O2SAT 100
== END 2018-01-18 11:03 | disposition home or self-care (01) ==
PROVIDERS: Emergency Provider Emergency Medicine; Family Provider Psychiatry & Neurology Neurology; PCP Nurse Practitioner Gerontology
DX: G35 Multiple sclerosis (principal)
CPT/HCPCS: 81003; 81025; 96365; 99283; 99284; J2930

== ENCOUNTER 2018-01-19 08:37 | Emergency (ER) | payer MEDICARE, MEDICAID, SELFPAY ==
[2018-01-19 08:50] VITALS: BP 101/62; PULSE 60; RESP 12; TEMP 37.2; O2SAT 98
--- NOTE | 2018-01-19 09:10 | ED.RECABL ---
HPI - Recheck/Abnormal Lab/Rx General Chief Complaint: Recheck/Abnormal Lab/Rx Stated Complaint: STEROID INFUSION Time Seen by Provider: 01/19/18 09:10 Source: patient and old records reviewed Mode of arrival: ambulatory Limitations: no limitations History of Present Illness HPI narrative: Patient is a 37-year-old female presenting for her 5th dose of 1000 mg of methylprednisolone. They are trying to make an appointment at 3 speak with her neurologist they are having difficult time getting through. She overall says that she still extremely fatigued and tired but has more strength and more awake today. Related Data Home Medications Medication Instructions Recorded Confirmed acyclovir 400 mg PO TID 01/16/18 01/19/18 meclizine 25 mg PO TID PRN 01/16/18 01/19/18 tamsulosin 0.4 mg PO BID 01/16/18 01/19/18 ranitidine HCl 75 mg PO DAILY PRN 01/19/18 01/19/18 Previous Rx's Medication Instructions Recorded oxycodone-acetaminophen [Percocet] 1 tab PO Q4-6H PRN #10 tab 01/17/18 Allergies Allergy/AdvReac Type Severity Reaction Status Date / Time adhesive tape Allergy Mild Blister Verified 01/18/18 09:18 pomegranate [POMEGRANATE] Allergy Unknown Verified 01/18/18 09:18 Review of Systems Review of Systems GENERAL: Denies chills, fatigue, malaise, fever, sweats, travel HEENT: Denies sinus pain, ear pain, sore throat, difficulty swallowing, neck pain RESPIRATORY: Denies dyspnea, cough, wheezing, hemoptysis, sputum. CARDIOVASCULAR: Denies chest pain, palpitations, orthopnea, edema GASTROINTESTINAL: Denies nausea, vomiting, abdominal pain, diarrhea, constipation, melena. : Denies dysuria, frequency, incontinence, hematuria, urinary retention, flank pain. MUSCULOSKELETAL: Denies weakness, joint pain, or bony pain SKIN: No rash, no erythema, no pruritus NEUROLOGIC: See HPI PSYCHIATRIC: No concerning psychosocial issues. 12 point review of systems is negative except for those stated above and HPI All systems reviewed & are unremarkable except as noted in HPI and below PFSH Social History Smoking Status: Never smoker Exam Initial Vital Signs Initial Vital Signs: Vital Signs Temperature 98.9 F 01/19/18 08:50 Pulse Rate 60 01/19/18 08:50 Respiratory Rate 12 01/19/18 08:50 Blood Pressure 101/62 01/19/18 08:50 Pulse Oximetry 98 01/19/18 08:50 Const General: cooperative and well developed Nutritional Appearance: well nourished Orientation: alert, awake, oriented x3 and not confused Eyes General: appearance normal, both eyes and all related structures Neck Neck: normal visual inspection, full ROM and no meningeal signs Chest Chest: normal inspection of the chest Resp Effort & Inspection: normal respiratory effort, able to speak in complete sentences, no respiratory distress and no use of accessory muscles Auscultation: clear to auscultation bilaterally, no rales, no rhonchi and no wheezes Cardio Rate: regular rate Rhythm: regular rhythm Heart Sounds: no click, no gallops, no murmurs and no rubs Pulses: normal peripheral pulses Neuro General: alert, oriented x3, gait normal and no focal motor deficits Cranial Nerves: CN's II-XI intact bilaterally Cognition: normal cognition Speech: speech normal Gait: normal gait Course Orders Ordered: Discontinued Medications Methylprednisolone 1,000 mg/ (Sodium Chloride) 258 mls @ 258 mls/hr IV NOW ONE Stop: 01/19/18 10:29 Last Admin: 01/19/18 09:35 Dose: 258 mls/hr Vital Signs - 8 hr 01/19/18 08:50 Temperature 98.9 F Pulse Rate 60 Respiratory Rate 12 Blood Pressure 101/62 Pulse Oximetry 98 MDM - Recheck/Abnormal Lab/Rx MDM Narrative Medical decision making narrative: I have spoken with Dr. lainez when regards to follow-up, he said that they will get patient in this week. He is aware that she had an additional 2 more doses for a total of 5 days methylprednisolone. no discharge medications at this time Discharge Plan Departure Patient Disposition: Home Clinical Impression: Exacerbation of multiple sclerosis Discharge Date/Time: 01/19/18 10:49 Interventions: ED Discharge Assessment Last Done: 01/19/18 10:50 Instructions: DI for Multiple Sclerosis Activity Restrictions/Additional Instructions: *You have been diagnosed with multiple sclerosis *What to do: I have spoken with Dr. lainez who will follow up with you at this week. *Continue to take medications as directed *Follow up with your primary care provider in 2-3 days *Return to ER if you should have any new, worsening or concerning symptoms Prescriptions: No Action oxycodone-acetaminophen [Percocet] 5-325 mg tablet 1 tab PO Q4-6H PRN (Reason: pain) Qty: 10 RF: 0 acyclovir 400 mg tablet 400 mg PO TID RF: 0 tamsulosin 0.4 mg capsule 0.4 mg PO BID RF: 0 meclizine 25 mg tablet 25 mg PO TID PRN (Reason: Vertigo) RF: 0 ranitidine HCl 75 mg Tablet 75 mg PO DAILY PRN (Reason: Indigestion) RF: 0 Referrals: Gayle Carter ARNP [Primary Care Provider] - Kelvin Lainez MD [Family Provider] -
[2018-01-19] MEDS: methylPREDNISolone 1,000 MG in SODIUM CHLORIDE 0.9% 250 ML 258 ML IV (09:35)
[2018-01-19 10:08] VITALS: BP 110/64; PULSE 50; RESP 14; O2SAT 99
== END 2018-01-19 10:49 | disposition home or self-care (01) ==
PROVIDERS: Emergency Provider Emergency Medicine; Family Provider Psychiatry & Neurology Neurology; PCP Nurse Practitioner Gerontology
DX: G35 Multiple sclerosis (principal)
CPT/HCPCS: 96374; 99282; 99284; J2930

== ENCOUNTER 2018-04-04 09:39 | Inpatient (IN) | payer MEDICARE, MEDICAID, SELFPAY ==
[2018-04-04 09:51] VITALS: BP 109/75; PULSE 65; RESP 18; TEMP 36.2; O2SAT 100; BMI 24.3
--- NOTE | 2018-04-04 10:30 | ED.EXTPRO ---
HPI - Extremity Problem General Chief complaint: Extremity Problem,Nontraumatic Stated complaint: Weak legs since Th; unable to walk Time Seen by Provider: 04/04/18 10:29 Source: patient Mode of arrival: ambulatory Limitations: no limitations History of Present Illness HPI Narrative: Patient presents to the emergency department complaining her multiple sclerosis is flaring up. She states that for the last week she has noticed increased weakness in her legs, but it has been steadily progressing to the point that now, although she can move the legs weakly in the bed, she does not have the strength to stand up and walk without assistance. She states that this has happened before, with the last episode back in October, and that she did receive high-dose steroids at that time. Patient states that usually, the steroids have worked, but she states that she feels that she never entirely recovered from that episode. Patient any; no back pain. She states that she is able to control her bowels and bladder, but she feels as though she is not fully evacuating either one. patient is concerned also because she lives at home with her 2 children and no other adults. She does have a significant other who is accompanying her, but he does not live with her. No other complaints at this time. Related Data Home Medications Medication Instructions Recorded Confirmed acyclovir 400 mg PO TID 01/16/18 04/04/18 meclizine 25 mg PO TID PRN 01/16/18 04/04/18 tamsulosin 0.4 mg PO BID 01/16/18 04/04/18 ranitidine HCl 75 mg PO DAILY PRN 01/19/18 04/04/18 dimethyl fumarate [Tecfidera] 240 mg PO BID 04/04/18 04/04/18 paroxetine HCl [Paxil] 10 mg PO DAILY 04/04/18 04/04/18 Previous Rx's Medication Instructions Recorded oxycodone-acetaminophen [Percocet] 1 tab PO Q4-6H PRN #10 tab 01/17/18 Allergies Allergy/AdvReac Type Severity Reaction Status Date / Time adhesive tape Allergy Mild Blister Verified 04/04/18 09:55 pomegranate [POMEGRANATE] Allergy Unknown Verified 04/04/18 09:55 Review of Systems Review of Systems All systems reviewed & are unremarkable except as noted in HPI and below Constitutional Denies chills, Denies fever(s), Denies lethargy and Reports weakness ( Bilateral lower extremity) Eyes Denies change in vision, Denies eye discharge, Denies irritation and Denies loss of vision ENT Ears, Nose, Mouth, and Throat: Denies change in voice, Denies neck pain and Denies sore throat Cardiovascular Denies chest pain, Denies irregular heart rhythm, Denies lightheadedness, Denies palpitations, Denies dyspnea, Denies dyspnea on exertion and Denies orthopnea Respiratory Denies cough, Denies dyspnea, Denies dyspnea on exertion and Denies wheezing Gastrointestinal Gastrointestinal: Denies abdominal pain, Denies change in bowel habits, Denies diarrhea, Denies nausea and Denies vomiting Genitourinary Denies hematuria, Denies flank pain, Denies urinary incontinence and Denies urinary urgency Musculoskeletal Denies neck pain Integumentary/Breasts Denies pruritus, Denies erythema, Denies rash and Denies wounds Neurologic Denies confusion, Denies loss of vision and Reports weakness ( Bilateral lower extremity) Psychiatric Denies anxiety, Denies confusion, Denies depression, Denies homicidal ideation and Denies suicidal ideation Endocrine Denies palpitations Hematologic/Lymphatic Denies easy bruising Allergic/Immunologic Denies wheezing PFSH Medical History Multiple sclerosis (Acute) Family History Mother Hypertension Alcoholism Father Heart abnormality Social History household members: children Smoking Status: Former smoker Exam Initial Vital Signs Initial Vital Signs: Vital Signs Temperature 97.2 F L 04/04/18 09:51 Pulse Rate 65 04/04/18 09:51 Respiratory Rate 18 04/04/18 09:51 Blood Pressure 109/75 04/04/18 09:51 Pulse Oximetry 100 04/04/18 09:51 Const General: cooperative and well developed Nutritional Appearance: well nourished Orientation: alert, awake, oriented x3 and not confused [facility] Head: normocephalic and atraumatic Ears: external ears normal and TM's normal bilaterally Nose: external nose normal and No nasal discharge Face and sinus: sinuses nontender, face symmetric, no sinus tenderness and No dry mucous membranes Mouth: oral mucosae normal and moist mucous membranes Teeth and gingiva: dentition normal Throat: tonsils normal and uvula midline Eyes General: appearance normal, both eyes and all related structures Eyelids: eyelids normal Conjunctivae: conjunctivae normal Sclera: sclerae normal Pupils: PERRL EOM: EOM intact bilaterally Neck Neck: normal visual inspection, trachea midline, No lymphadenopathy, No midline deformity and No JVD Lymphatic: No lymphedema Chest Chest: normal inspection of the chest Resp Effort & Inspection: normal respiratory effort, able to speak in complete sentences, no respiratory distress and no use of accessory muscles Auscultation: clear to auscultation bilaterally, no rales, no rhonchi and no wheezes Cardio Rate: regular rate Rhythm: regular rhythm Heart Sounds: no click, no gallops, no murmurs and no rubs Pulses: normal peripheral pulses GI Inspection: non-distended Palpation: soft, no hepatosplenomegaly, No guarding, No pulsatile mass and No tender Auscultation: normal bowel sounds Back/Spine/Pelvis Back: No CVA tenderness Cervical Spine: cervical ROM normal and No pain with cervical ROM Thoracic/Lumbar Spine: thoracic and lumbar spine normal to inspection Skin General: no rashes or lesions noted, No jaundice and No petechiae Neuro General: alert, oriented x3, gait abnormal (Patient ambulates unsteadily, and requires assistance with ambulation. She is able to walk to the bathroom with assistance. She moves both legs and has equal, 4+ strength bilaterally. She has weakness the proximal muscles of her bilateral lower extremities.) and no focal motor deficits Speech: speech normal Sensory Exam: no sensory deficits noted Extrem General: full ROM, no clubbing, cyanosis or edema, no pedal edema and no calf tenderness Psych Appearance: well kempt Mental Status: mental status grossly normal Attitude: cooperative Thought Content: normal and suicidality Judgment: judgment good Course Course Narrative: Patient was worked up in the emergency department for her symptoms, and was started on high-dose steroids with a 1000 mg of Solu-Medrol. I spoke with Dr. Napeir, is a felt the patient should be admitted to the hospital for her 1st doses of the steroids, to be sure they were working properly. Patient had stated her preference to be admitted rather than go immediately to home dosing the steroids. Dr. Napier did admit the patient to his service. Orders Ordered: ED Orders 04/06/18 12:27 Consult to Speech Therapy Evaluate & Treat Acetaminophen (Tylenol) 650 mg PO Q6HR PRN PRN Reason: As Needed for Fever/Mild Pain Bisacodyl (Dulcolax) 10 mg MS DAILY PRN PRN Reason: Constipation Last Admin: 04/06/18 10:23 Dose: 10 mg Clonazepam (Klonopin) 1 mg PO BID PRN PRN Reason: Anxiety Last Admin: 04/06/18 10:20 Dose: 1 mg Admin: 04/05/18 18:35 Dose: 1 mg Admin: 04/05/18 12:38 Dose: 1 mg Docusate Sodium (Colace) 100 mg PO BID [facility] Last Admin: 04/06/18 10:21 Dose: 100 mg Admin: 04/05/18 20:37 Dose: 100 mg Admin: 04/05/18 12:38 Dose: 100 mg Admin: 04/04/18 20:24 Dose: 100 mg Docusate Sodium (Colace) 200 mg PO BID [facility] Enoxaparin Sodium (Lovenox) 40 mg SUBCUT DAILY [facility] Last Admin: 04/06/18 10:21 Dose: 40 mg Admin: 04/05/18 12:38 Dose: 40 mg Methylprednisolone 1,000 mg/ (Sodium Chloride) 258 mls @ 258 mls/hr IV 0900 [facility] Last Admin: 04/06/18 12:41 Dose: 258 mls/hr Magnesium Hydroxide (Milk Of Magnesia) 30 ml PO DAILY PRN PRN Reason: Constipation Last Admin: 04/04/18 20:24 Dose: 30 ml Magnesium Hydroxide (Milk Of Magnesia) 30 ml PO DAILY PRN PRN Reason: Constipation Meclizine HCl (Antivert) 25 mg PO TID PRN PRN Reason: Vertigo Melatonin (Melatonin) 6 mg PO BEDTIME [facility] Last Admin: 04/06/18 00:05 Dose: Not Given Ondansetron HCl (Zofran) 4 mg IV Q8HR PRN PRN Reason: Nausea And Vomiting Oxycodone/Acetaminophen (Percocet 5/325) 1 tab PO Q4H PRN PRN Reason: pain Paroxetine HCl (Paxil) 10 mg PO DAILY [facility] Last Admin: 04/06/18 10:24 Dose: 10 mg Admin: 04/05/18 12:38 Dose: 10 mg Admin: 04/04/18 21:22 Dose: 10 mg Ranitidine HCl (Zantac) 75 mg PO DAILY PRN PRN Reason: Indigestion Last Admin: 04/06/18 10:21 Dose: 75 mg Admin: 04/05/18 16:13 Dose: 75 mg Sennosides (Senna) 17.2 mg PO BEDTIME [facility] Last Admin: 04/05/18 20:37 Dose: 17.2 mg Admin: 04/04/18 20:24 Dose: 17.2 mg Sennosides (Senna) 17.2 mg PO BID [facility] Sodium Biphosphate/Sodium Phosphate (Fleet Enema) 1 each MS DAILY PRN PRN Reason: Constipation Sodium Chloride (Normal Saline 0.9% Flush) 10 ml IV PRN PRN PRN Reason: Flush Last Admin: 04/05/18 01:15 Dose: 10 ml Sodium Chloride (Normal Saline 0.9% Flush) 10 ml IV BID [facility] Last Admin: 04/06/18 12:26 Dose: 10 ml Admin: 04/05/18 20:37 Dose: 10 ml Admin: 04/05/18 12:38 Dose: 10 ml Zolpidem Tartrate (Ambien) 10 mg PO BEDTIME PRN PRN Reason: Sleep Last Admin: 04/05/18 20:37 Dose: 10 mg Discontinued Medications Sodium Chloride (Normal Saline 0.9%) 1,000 mls @ 1,000 mls/hr IV BOLUS ONE Stop: 04/04/18 11:59 Last Infusion: 04/04/18 13:56 Dose: 0 mls/hr Admin: 04/04/18 12:05 Dose: 1,000 mls/hr Methylprednisolone 1,000 mg/ (Sodium Chloride) 258 mls @ 258 mls/hr IV NOW ONE Stop: 04/04/18 12:44 Last Infusion: 04/04/18 13:56 Dose: 0 mls/hr Admin: 04/04/18 12:05 Dose: 258 mls/hr Methylprednisolone 1,000 mg/ (Sodium Chloride) 258 mls @ 258 mls/hr IV Q24H [facility]IN[facility] Last Infusion: 04/05/18 14:50 Dose: 0 mls/hr Admin: 04/05/18 13:42 Dose: 258 mls/hr Methylprednisolone 1,000 mg/ (Sodium Chloride) 258 mls @ 258 mls/hr IV Q24H [facility] Influenza Virus Vaccine (Flu Vaccine) 0.5 ml IM .ONCE ONE Stop: 04/04/18 15:58 Last Admin: 04/04/18 16:25 Dose: 0.5 ml Lorazepam (Ativan) 1 mg PO NOW ONE Stop: 04/04/18 13:56 Last Admin: 04/04/18 13:56 Dose: 1 mg Lorazepam (Ativan) 0.5 mg IV NOW ONE Stop: 04/05/18 00:36 Last Admin: 04/05/18 01:15 Dose: 0.5 mg Zolpidem Tartrate (Ambien) 5 mg PO BEDTIME PRN PRN Reason: Sleep Last Admin: 04/04/18 20:24 Dose: 5 mg Vital Signs - 8 hr 04/06/18 06:33 04/06/18 07:40 04/06/18 10:10 Temperature 98.2 F 98.5 F Pulse Rate 82 60 Respiratory Rate 16 18 Blood Pressure 138/96 H 146/98 H Pulse Oximetry 97 96 100 04/06/18 11:44 04/06/18 12:22 Temperature 97.7 F Pulse Rate 61 Respiratory Rate 18 Blood Pressure 109/70 Pulse Oximetry 100 100 MDM - Extremity (Nontraumatic) Medical Records Attestation: I reviewed the patient's medical records. Lab Data Attestation: I reviewed the patient's lab results. Result diagrams: 04/04/18 11:20 04/04/18 11:20 Lab Results 04/04/18 04/04/18 04/04/18 Range/Units 11:20 11:20 Unknown WBC 6.1 (4.5-11.0) X10^3/uL RBC 4.34 (4.0-5.2) X10^6/uL Hgb 13.5 (12.0-16.0) g/dL Hct 40.0 (36-46) % MCV 92.1 (80-100) fL MCH 31.2 (26-34) PG MCHC 33.9 (30-36) % RDW 13.7 (11.6-14.8) % Plt Count 262 (150-400) X10^3/uL Neut % (Auto) 65.1 (50-75) % Lymph % (Auto) 24.0 L (25-40) % [place] % (Auto) 9.0 (3-14) % Eos % (Auto) 1.0 L (2-4) % Baso % (Auto) 0.9 (0-2) % Neut # (Auto) 4000 (7627-4696) /uL ESR 7 (0-20) MM/HR Sodium 139 (137-145) mmol/L Potassium 4.2 (3.4-5.1) mmol/L Chloride 103 (98-107) mmol/L Carbon Dioxide 25 (22-32) mmol/L BUN 10 (7-17) mg/dL Creatinine 0.50 L (0.52-1.04) mg/dL Estimated GFR > 60.0 (>60) mL/min BUN/Creatinine Ratio 20.0 (6-22) Glucose 93 (70-100) mg/dL Calcium 9.5 (8.4-10.2) mg/dL Total Bilirubin 0.3 (0.2-1.3) mg/dL AST 24 (14-36) IU/L ALT 22 (9-52) IU/L Alkaline Phosphatase 60 (38-126) U/L C-Reactive Protein < 0.5 (<1.0) mg/dL Total Protein 7.5 (6.3-8.2) g/dL Albumin 4.6 (3.5-5.0) g/dL Globulin 2.9 (1.7-4.1) g/dL Albumin/Globulin Ratio 1.6 (1.0-2.8) Urine Color Yellow Urine Appearance Clear Urine pH 8.0 (4.5-8.0) Ur Specific [place] 1.015 (1.000-1.035) Urine Protein Negative (Negative) Urine Glucose (UA) Negative (Normal) g/dL Urine Ketones Negative (NEGATIVE) Urine Occult Blood Negative (Negative) Urine Nitrate Negative (Negative) Urine Bilirubin Negative (NEGATIVE) Urine Urobilinogen 0.2 (0.2) E.U./dL Ur Leukocyte Esterase Negative (NEGATIVE) Urine RBC 0-1/hpf (0-5/HPF) Urine WBC 0-1/hpf (0-5/HPF) Ur Squamous Epith Cells 5-10 /hpf H Urine Bacteria None seen (None) Ur Culture Indicated? Cult not indicated Micro UA Comment Not Reportable Discharge Plan Departure Patient Disposition: Admitted As Inpatient Clinical Impression: Exacerbation of multiple sclerosis Discharge Date/Time: 04/04/18 14:40 Interventions: ED Discharge Assessment Last Done: 04/04/18 14:38 Admit Date/Time: 04/04/18 14:08 Admit Provider: Ashanti Napier
[2018-04-04 12:04] LABS: Add Manual Diff / Slide Review NO; Basophils Percent Auto 0.9 % (0-2); Hemoglobin 13.5 g/dL (12.0-16.0); Mean Corpuscular HGB Conc 33.9 % (30-36); Mean Corpuscular Hemoglobin 31.2 PG (26-34); Mean Corpuscular Volume 92.1 fL (80-100); Neutrophils Absolute Auto 4000 /uL (3000-5900); Neutrophils Percent Auto 65.1 % (50-75); Platelet Count 262 X10^3/uL (150-400); Red Blood Cell Count 4.34 X10^6/uL (4.0-5.2); Red Cell Distribution Width 13.7 % (11.6-14.8); White Blood Cell Count 6.1 X10^3/uL (4.5-11.0)
[2018-04-04] MEDS: methylPREDNISolone 1,000 MG in SODIUM CHLORIDE 0.9% 250 ML 258 ML IV (12:05)
[2018-04-04] MEDS: SODIUM CHLORIDE 0.9% 1,000 ML 1000 ML IV (12:05)
[2018-04-04 12:11] LABS: Alanine Aminotransferase 22 IU/L (9-52); Albumin 4.6 g/dL (3.5-5.0); Albumin Globulin Ratio 1.6 (1.0-2.8); Alkaline Phosphatase 60 U/L (38-126); Aspartate Aminotransferase 24 IU/L (14-36); Bilirubin Total 0.3 mg/dL (0.2-1.3); Blood Urea Nitrogen 10 mg/dL (7-17); Calcium 9.5 mg/dL (8.4-10.2); Carbon Dioxide 25 mmol/L (22-32); Chloride 103 mmol/L (98-107); Estimated Glomerular Filt Rate > 60.0 mL/min (>60); Globulin 2.9 g/dL (1.7-4.1); Glucose 93 mg/dL (70-100); HEMOLYSIS 22 (0-50); Potassium 4.2 mmol/L (3.4-5.1); Sodium 139 mmol/L (137-145); Total Protein 7.5 g/dL (6.3-8.2)
[2018-04-04 12:19] LABS: C-Reactive Protein Quant < 0.5 mg/dL (<1.0)
[2018-04-04 12:21] LABS: Erythrocyte Sedimentation Rate 7 MM/HR (0-20)
[2018-04-04] MEDS: LORazepam 0.5 MG TABLET 1 MG PO (13:56)
[2018-04-04 14:21] LABS: Bacteria Urine None Seen
[2018-04-04 14:23] LABS: Appearance Urine UA CLEAR; Bilirubin Urine UA NEGATIVE (NEGATIVE); Color Urine UA YELLOW; Glucose Urine UA NEGATIVE (Normal); Ketones Urine UA NEGATIVE (NEGATIVE); Leukocyte Esterase Urine UA NEGATIVE (NEGATIVE); Nitrite Urine UA NEGATIVE (Negative); Occult Blood Urine UA NEGATIVE (Negative); Protein Urine UA NEGATIVE (Negative); Specific Gravity Urine UA 1.015 (1.000-1.035); Urobilinogen Urine UA 0.2 E.U./dL (0.2)
[2018-04-04 14:36] LABS: RBC Urine 0-1/HPF (0-5/HPF); WBC Urine 0-1/HPF (0-5/HPF)
[2018-04-04 14:37] LABS: Culture Indicated Urine Cult Not Indicated; Squamous Epithelial Cell Urine 5-10 /HPF
[2018-04-04 14:38] VITALS: BP 112/84; PULSE 80; RESP 18; O2SAT 100
[2018-04-04 14:45] VITALS: BP 111/79; PULSE 84; RESP 16; TEMP 36.6; O2SAT 98
[2018-04-04 15:42] VITALS: BMI 24.7
[2018-04-04 15:53] VITALS: BMI 24.7
--- NOTE | 2018-04-04 15:53 | PM.HP.1 ---
History of Present Illness Date Patient Seen: 04/04/18 Time Patient Seen: 15:57 Chief complaint: Weak legs since Th; unable to walk Narrative: This is a 36-year-old female who has had multiple sclerosis since the age of 19. An episode of mono seems to have brought it on. She follows with Dr. Strickland in [place]. The last 5 days she has had progressive weakness of both legs and of the right hand. This is similar to her previous flares. The last time she was on IV Solu-Medrol was for a flare back in October, treated with 5 days of Solu-Medrol. She is being admitted as she is not able to care for herself, with this severe leg weakness. She consistently responds to IV Solu-Medrol although the effect has been dropping. She normally takes Tecfidera for the multiple sclerosis. Other than the weakness the only complaint she has is of constipation. She lives at home with her and 2 children ages 9 and 13. Her primary care is with Gayle [facility] on [facility]. She has no past surgical or other past medical history. Patient History Medical History Multiple sclerosis (Acute) Family & Social History Safety & Behavioral: Feels Safe in Current Yes Environment Been Physically Hurt or No Threatened By a Person Tobacco & Substance use: Smoking Status Never smoker alcohol intake frequency holiday/special occasion Substance Use Type marijuana Meds Home Medications Medication Instructions Recorded Confirmed Type acyclovir 400 mg PO TID 01/16/18 01/19/18 History meclizine 25 mg PO TID PRN 01/16/18 01/19/18 History tamsulosin 0.4 mg PO BID 01/16/18 01/19/18 History oxycodone-acetaminophen [Percocet] 1 tab PO Q4-6H PRN #10 tab 01/17/18 01/19/18 Rx ranitidine HCl 75 mg PO DAILY PRN 01/19/18 01/19/18 History dimethyl fumarate [Tecfidera] 240 mg PO BID 04/04/18 04/04/18 History paroxetine HCl [Paxil] 10 mg PO DAILY 04/04/18 04/04/18 History Allergies Allergy/AdvReac Type Severity Reaction Status Date / Time adhesive tape Allergy Mild Blister Verified 04/04/18 09:55 pomegranate [POMEGRANATE] Allergy Unknown Verified 04/04/18 09:55 Review of Systems Review of Systems Positive for weakness and constipation. Negative for chest pain, shortness breath, nausea, vomiting, abdominal pain, coughing, fevers, chills, sweats, muscle aches, joint pain, seizures, rashes, new allergies, headaches, bleeding, dysuria, hematuria. All systems reviewed & are unremarkable except as noted in HPI and below Exam Vital Signs (past 8 hours): - 04/04/18 09:51 04/04/18 14:38 04/04/18 14:45 Temperature 97.2 F L 97.9 F Pulse Rate 65 80 84 Respiratory Rate 18 18 16 Blood Pressure 109/75 112/84 111/79 Pulse Oximetry 100 100 98 Oxygen Delivery Method Room Air Narrative Exam Narrative: She is alert and oriented x3 Pupils are equally round and responsive to light and accommodation. Extraocular muscles are intact without diplopia Throat looks normal, no lymph nodes are felt head, neck, supraclavicular area. There is no thyromegaly JVD is less 6 cm No carotid bruits are heard Heart is regular rate and rhythm without murmur Lungs are clear to auscultation bilaterally Abdomen is soft, bowel sounds positive, nontender, no organomegaly Extremities have no ankle edema Skin no rash or jaundice Neurological exam Babinski's are upgoing on the right and downgoing on the left. There is significant right leg weakness and substantially less left leg weakness. The right hand health companion strength is weak. Sensation is symmetrically intact. There is no tremor. She is not able to stand or walk. Cranial nerves 2-12 tested intact. Objective Labs Result Diagrams: 04/04/18 11:20 04/04/18 11:20 Labs: Laboratory Results - last 24 hr 04/04/18 04/04/18 04/04/18 11:20 11:20 Unknown WBC 6.1 RBC 4.34 Hgb 13.5 Hct 40.0 MCV 92.1 MCH 31.2 MCHC 33.9 RDW 13.7 Plt Count 262 Neut % (Auto) 65.1 Lymph % (Auto) 24.0 L [place] % (Auto) 9.0 Eos % (Auto) 1.0 L Baso % (Auto) 0.9 Neut # (Auto) 4000 ESR 7 Sodium 139 Potassium 4.2 Chloride 103 Carbon Dioxide 25 BUN 10 Creatinine 0.50 L Estimated GFR > 60.0 BUN/Creatinine Ratio 20.0 Glucose 93 Calcium 9.5 Total Bilirubin 0.3 AST 24 ALT 22 Alkaline Phosphatase 60 C-Reactive Protein < 0.5 Total Protein 7.5 Albumin 4.6 Globulin 2.9 Albumin/Globulin Ratio 1.6 Urine Color Yellow Urine Appearance Clear Urine pH 8.0 Ur Specific [place] 1.015 Urine Protein Negative Urine Glucose (UA) Negative Urine Ketones Negative Urine Occult Blood Negative Urine Nitrate Negative Urine Bilirubin Negative Urine Urobilinogen 0.2 Ur Leukocyte Esterase Negative Urine RBC 0-1/hpf Urine WBC 0-1/hpf Ur Squamous Epith Cells 5-10 /hpf H Urine Bacteria None seen Ur Culture Indicated? Cult not indicated Micro UA Comment Not Reportable Assessment & Plan Plan: Assessment/Plan Narrative: 1 - Multiple Sclerosis Flare - resume IV Solu-Medrol 1000 mg Q 24 hr x3 days. She has at times needed up to 5 days. - coordinate with her neurologist, Dr. Strickland. She indicates she is looking for a new neurologist. 2 - Bilateral Upper and Lower Extremity weakness - begin physical therapy and occupational therapy. - she usually responds to the Solu-Medrol and is hopeful that she will be able to go home within a few days. Her usual treatment interval is 3-5 days. 3 - Constipation - begin senna, bisacodyl, Colace as needed. Quality VTE Deep Vein Thrombosis/Pulmonary Embolism Present on Admission: No
[2018-04-04] MEDS: INFLUENZA VACCINE 0.5 ML SYRINGE IM (16:25)
[2018-04-04 16:35] VITALS: RESP 17
[2018-04-04 19:24] VITALS: BP 123/66; PULSE 95; RESP 16; TEMP 36.9; O2SAT 95
--- NOTE | 2018-04-04 19:44 | PC.NURSE ---
Addendum entered by Megan Waddell R.N. 04/04/18 21:30: pt with intermittent coordination issues to BUE. also c/o increased anxiety/restlessness despite PRN ambien. CUSTOMER SERVICER notified and home dose of paxil was started. pt noted to cough with thin liquids but still able to get pills down. states she may be starting to have issues with swallowing (reports history of needing speech therapy in the past). CUSTOMER SERVICER notified, pt to be NPO until speech eval completed tomorrow. Original Note: ADMISSION Ox3, pleasant and cooperative with care. BLE weakness and numbness, R>L. pt ambulating to BSC/BRP with 1PA and FWW, occasionally unsteady. pt reinforced to call staff for assistance for safety. denies pain but states feeling uncomfortable and restless. pt oriented to room. call light within reach. bed alarm for safety.
[2018-04-04] MEDS: DOCUSATE 100 MG CAPSULE PO (20:24)
[2018-04-04] MEDS: MAGNESIUM HYDROXIDE 30 ML UDC PO (20:24)
[2018-04-04] MEDS: ZOLPIDEM 5 MG TABLET PO (20:24)
[2018-04-04] MEDS: SENNOSIDES 8.6 MG TABLET 17.2 MG PO (20:24)
[2018-04-04] MEDS: PARoxetine 10 MG TABLET PO (21:22)
[2018-04-04 23:25] VITALS: BP 122/69; PULSE 88; RESP 16; TEMP 37.1; O2SAT 95
[2018-04-05] VITALS: O2SAT 98
--- NOTE | 2018-04-05 00:36 | PC.NURSE ---
Pt. C/O insomnia & anxiety, states the steroid makes awake & anxious. Hospitalist notified awaiting order, pt. informed that hospitalist aware of her complaint. Will monitor & implement order.
[2018-04-05] MEDS: SODIUM CHLORIDE 0.9% FLUSH 10 ML IV ×3 (01:15→20:37)
[2018-04-05] MEDS: LORazepam 2 MG/ML SYRINGE 0.5 MG IV (01:15)
[2018-04-05 04:20] VITALS: BP 118/77; PULSE 82; RESP 18; TEMP 36.8; O2SAT 97
[2018-04-05 10:45] VITALS: O2SAT 97
[2018-04-05] MEDS: clonazePAM 0.5 MG TABLET 1 MG PO ×2 (12:38→18:35)
[2018-04-05] MEDS: ENOXAPARIN 40 MG/0.4 ML SYRINGE SUBCUT (12:38)
[2018-04-05] MEDS: PARoxetine 10 MG TABLET PO (12:38)
[2018-04-05] MEDS: DOCUSATE 100 MG CAPSULE PO ×2 (12:38→20:37)
--- NOTE | 2018-04-05 13:08 | P.PN_ITS ---
Subjective Date Patient Seen: 04/05/18 Interval history: The patient reports she continues to feel weak. She had a very difficult night in that she was unable to sleep and had difficulty with restless legs. She is feeling somewhat anxious. The patient is hopeful that she will be able to be discharged home at that by Thanksgiving. Patient also wants to know if she can have outpatient infusions. She is still unable to ambulate independently. She does not feel constipated but has not had a bowel movement. Exam Vital Signs (past 8 hours): - 04/05/18 10:45 Pulse Oximetry 97 Oxygen Delivery Method Room Air Narrative Exam Narrative: Pleasant female in NAD Lungs: clear to auscultation CV: RRR nl Sl S2 Abd: soft/ non tender Ext: no edema Neuro: strenght 4+/5 bilateral legs Upper Extremity strength 5+/% Objective Labs Result Diagrams: 04/04/18 11:20 04/04/18 11:20 Labs: Laboratory Results - last 24 hr 04/04/18 Unknown Urine Color Yellow Urine Appearance Clear Urine pH 8.0 Ur Specific [place] 1.015 Urine Protein Negative Urine Glucose (UA) Negative Urine Ketones Negative Urine Occult Blood Negative Urine Nitrate Negative Urine Bilirubin Negative Urine Urobilinogen 0.2 Ur Leukocyte Esterase Negative Urine RBC 0-1/hpf Urine WBC 0-1/hpf Ur Squamous Epith Cells 5-10 /hpf H Urine Bacteria None seen Ur Culture Indicated? Cult not indicated Micro UA Comment Not Reportable Assessment & Plan (1) Exacerbation of multiple sclerosis: Problem details: Continue Solumedrol for five days Current visit: Yes Status: Acute (2) Insomnia: Problem details: increase ambien to 10 mg at night Current visit: No Status: Acute (3) Restless leg syndrome: Current visit: Yes Status: Acute (4) Constipation: Problem details: continue bowel program Current visit: Yes Status: Acute Plan: Assessment/Plan Narrative: PT consult Quality VTE Deep Vein Thrombosis/Pulmonary Embolism Present on Admission: No
--- NOTE | 2018-04-05 13:11 | ST.IPCSEOM ---
Care Team Visit Care Team Role Provider Type KALIE Chaparro Primary Care Provider Non-Staff Specialty: Medical Address: [address] [facility], [place], [address] Phone: Fax: Email: Kelvin Strickland MD Family Provider Non-Staff Specialty: Neurology Address: [address] , [place], [address] Email: Annie Wilson MD Emergency Provider Physician Specialty: Emergency Medicine Address: [address] [place] [address], [id number] Email: Ashanti Napier MD Admit Provider Physician Attending Provider Specialty: Medical Address: [address] [place] [address], [phone] Email: Current Diagnoses Restless legs syndrome (04/04/18) Multiple sclerosis (04/04/18) Insomnia, unspecified (04/04/18) Constipation, unspecified (04/04/18) Past Medical History (Last Reviewed 04/04/18 @ 15:55 by Ashanti Napier MD) Multiple sclerosis (Acute Medical) Speech-Language Pathology Swallow Evaluation SALES ENGAGEMENT MANAGER Clinical Swallow Evaluation Start: 04/05/18 12:53 Freq: Status: Active Protocol: Document 04/05/18 12:56 LNK (Rec: 04/05/18 13:11 [id number]) Clinical Swallow Evaluation Session Time Visit Start Time 11:30 Visit Stop Time 12:10 Total Visit Minutes 40 Visit Type Note Type Initial Evaluation Patient Information Identification Type Name ID Card History Per H&P: Pt is a 36-year-old female who has had multiple sclerosis since the age of 19. An episode of mono seems to have brought it on. She follows with Dr. Strickland in [place]. The last 5 days she has had progressive weakness of both legs and of the right hand. This is similar to her previous flares . The last time she was on IV Solu-Medrol was for a flare back in October, treated with 5 days of Solu-Medrol. She is being admitted as she is not able to care for herself, with this severe leg weakness. She lives at home with her and 2 children ages 9 and 13. Subjective Observations Pt in bed awake and alert. Boyfriend at bedside. Introduced self and explained the need for a swallow evaluation. Pt agrees to reposition for swallow evaluation. Evaluation Liquids Trialed Ice Chips Thin Solids Trialed Puree Dysphagia Advanced Mechanical Soft Regular Administration Type Tea Spoon Cup Single Sip Straw Self-Feeding Dependent Feeding Oral Impairment WFL Oral Strategies Upright at 90 degrees Oral Phase Comments Pt presented with oral structures intact, good dentition and muscle function for mastication WFL.. Diadochokenesis was mildly slower than normal; however, speech was articulate and intelligible at 100%. No s/s dysarthria. Mastication/ bolus formation/ bolus control WFL. Pt safely tolerated regular texture without difficulty or oral residue. Pharyngeal Impairment WFL Pharyngeal Strategies Sitting Upright (90 deg) Pharyngeal Phase Comments Pt presented with a prompt swallow, good hyolaryngeal elevation and forward excursion of hyoid bone. No wet voicing observed, no cough or choke observed. Pt safely tolerated thin liquids without s/sx aspiration with controlled sip and straw. Findings Dysphagia Type No oropharyngeal dysphagia observed at this time. Impressions Pt presented with oral and pharyngeal swallowing WFL. She demonstrated mild diadochokinesis for rapid speech. This did not impact her mastication or bolus formation/control. No cough choke, wet voicing were observed. Diet Recommendations Liquids Order Thin Diet Order Regular Medication Recommendations As Tolerated Comments Pt may need feeding assistance as she notes weakness in her arms Additional Dietary Needs 1:1 Supervision 1:1 Assistance Aspiration Precautions Recommended Precautions Upright at 90 Degrees Treatment Plan Appropriate for Therapy No: Swallowing is WFL at this time. Therapy Recommendations Discussed the effect of MS on swallowing re: roasterman. Noted things to be aware of and to notify her MD if she begins to notice difficulty with swallowing in the future. SALES ENGAGEMENT MANAGER Follow Up Not at this time Referrals/Other Recommended Referrals Primary Care Physician Neurology
--- NOTE | 2018-04-05 13:28 | CM.DANOTE ---
Patient is a 37 year old female who was admitted on 04/04/18 for M.S. leg weakness. Pt has [facility] and [facility] for insurance and her PCP is Dr. Gayle Carter on [facility]. EMR was reviewed. Per MD, pt has had multiple sclerosis since the age of 19 yrs and likely will need another 3-5 days before stable for d/c. Per ALLERGY NURSE, pt may currently need some assist with feeding due to arm weakness. PT/OT ordered and still pending. Per RN, pt did not sleep well last night. SW attempted bedside assessment and pt stated she was not feeling well and requested SW to come back. [facility] with her and two children. Patient has had similar medical needs in the past and typically discharges home with family once medically stable. Plan: SW to follow for PT/OT eval and recommendations and for pt to feel better before bedside assessment for d/c planning. Patient currently quite below baseline. RUFUS Angelo Discharge Planning/Care Management CM Discharge Assessment Start: 04/05/18 13:26 Freq: Status: Active Protocol: Document 04/05/18 13:26 BF (Rec: 04/05/18 13:28 BF [id number]) Discharge Planning Assessment Assigned Cruise Guide RUFUS Garcia Advance Directives? No History Provided By Patient Medical Record Has Patient been admitted in last 30 No days? Prior Living Arrangements Apartment/Condo Household Members spouse children Comment Lives with spouse and two children Independent with ADL's Yes Is patient alert and oriented? Yes Needs Assistance With Managing Medications Home Chores / Shopping Caregiver for Another Yes: 2 children at home Barriers to Discharge No Discharge Plan Home Transportation Arrangement Likely family can provide transport at d/c. Additional Comment Waiting for PT/OT eval and recommendations. Review Status In Process Please Provide Date Initial DC 04/05/18 Assessment Was Performed Next Review Type Continued Stay Review
[2018-04-05] MEDS: methylPREDNISolone 1,000 MG in SODIUM CHLORIDE 0.9% 250 ML 258 ML IV (13:42)
[2018-04-05 15:17] VITALS: BP 143/77; PULSE 88; RESP 18; TEMP 37.2; O2SAT 95
--- NOTE | 2018-04-05 15:56 | OT.IP.TRT ---
Current Diagnoses Restless legs syndrome (04/04/18) Multiple sclerosis (04/04/18) Insomnia, unspecified (04/04/18) Constipation, unspecified (04/04/18) Occupational Therapy Treatment Note M3 OT- IP Subjective and Pain Start: 04/05/18 15:44 Freq: Status: Active Protocol: Document 04/05/18 15:52 [facility] (Rec: 04/05/18 15:56 [facility] [id number]) OT- Subjective Occupational Therapy Visit Type Type Patient Refusal Notes Pt states too tired and wanting to wait to do OT eval tomorrow.
[2018-04-05 16:15] VITALS: O2SAT 98
[2018-04-05 19:35] VITALS: BP 136/76; PULSE 67; RESP 20; TEMP 36.6; O2SAT 95
[2018-04-05] MEDS: ZOLPIDEM 5 MG TABLET 10 MG PO (20:37)
[2018-04-05] MEDS: SENNOSIDES 8.6 MG TABLET 17.2 MG PO (20:37)
--- NOTE | 2018-04-05 22:55 | PC.NURSE ---
04/05 2322 pt alert and oriented, vss on ra, denies need for prn pain meds. Pt states to have some improvement with strength but minimal. Continues to need contact guard assist with FWW and gait belt. Had one episode of urinary incontinence which pt states as abnormal. Pt requested ambien at 2030 to help with sleep and by 2299 pt complaining of continued restlessness and jittery-ness, asking for additional medications to aid with sleep, PIPE INSPECTOR notified and melatonin ordered.
[2018-04-06] VITALS (12 sets, daily range): BP systolic 109–146; BP diastolic 70–98; PULSE 59–82; RESP 16–18; TEMP 36.4–36.9; O2SAT 92–100
--- NOTE | 2018-04-06 07:30 | PC.NURSE ---
Denies any MYERS & other discomfort this morning, was able to sleep since 0200. Reminded pt. to call for assistance., call light w/in reached & alarm activated.
[2018-04-06] MEDS: clonazePAM 0.5 MG TABLET 1 MG PO ×2 (10:20→17:44)
[2018-04-06] MEDS: ENOXAPARIN 40 MG/0.4 ML SYRINGE SUBCUT (10:21)
[2018-04-06] MEDS: DOCUSATE 100 MG CAPSULE PO ×2 (10:21→20:12)
[2018-04-06] MEDS: BISACODYL 10 MG SUPP PR (10:23)
[2018-04-06] MEDS: PARoxetine 10 MG TABLET PO (10:24)
--- NOTE | 2018-04-06 10:50 | PT.IPTN ---
Current Diagnoses Restless legs syndrome (04/04/18) Multiple sclerosis (04/04/18) Insomnia, unspecified (04/04/18) Constipation, unspecified (04/04/18) Physical Therapy Treatment Note M2 PT-IP Current Condition Start: 04/05/18 09:31 Freq: NEEDED Status: Active Protocol: Document 04/05/18 13:50 (Rec: 04/05/18 16:18 [id number]) Physical Therapy Current Condition Current Condition Evaluation Date 04/05/18 Treatment Diagnosis multiple sclerosis weakness; Generalized weakness; difficulty walking M3 PT-IP Subjective Start: 04/05/18 09:31 Freq: NEEDED Status: Active Protocol: Document 04/06/18 10:50 (Rec: 04/06/18 13:19 [id number]) Subjective Physical Therapy Visit Type Type Treatment Note Visit Start Time 10:50 Visit Stop Time 11:19 Total Visit Minutes 29 Number of MOTOR REBUILDER Visits 0 Physical Therapy Visit Comments Patient Comments Pt agreeable to mobilize with PT. Patient Goals Wants to be home with maximum independence. M4 PT-IP Mobility and Gait Start: 04/05/18 09:31 Freq: NEEDED Status: Active Protocol: Document 04/06/18 10:50 (Rec: 04/06/18 13:19 [id number]) PT-Bed Mobility Assessment Supine to Sit Supine to Sit Independent Sit to Supine Sit to Supine Independent Scooting Scooting to Edge of Bed Standby Assistance PT-Transfer Assessment Sit to and From Stand Sit to and from Stand Moderate Assistance Use of Upper Extremities Equipment Transfer Assistive Device Gait Belt Front Wheeled Walker Orthotic/Prosthetic Devices or Brace: No Transfers Transfer Destination Bed Transfer Technique Ambulates to/from bed Comments Mobility Comments Sit <> stand modA with cues and pt has LOB whe standing, requiring modA to recover and to steady walker. Gait Assessment Gait Gait Assistance Required: Moderate Assistance Distance (Feet) 70 Able to Maintain Weight Bearing Status Yes During Gait Assistive Devices Assistive Device Gait Belt Front Wheeled Walker Orthotic/Prosthetic Devices or Brace: No Gait Deviations General Gait Pattern Ataxic Decreased Stride Length Decreased Feet Clearance Flexed Trunk Narrow Based Gait Wide Based Gait Factors Limiting Gait Function Factors Limiting Gait Function Abnormal Tonal Influences Decreased Activity Tolerance Decreased Strength Incoordination Poor Balance Poor Safety Awareness Comments Gait Comments 70 ft. ambulation completed with modAx1 for fww management , steadying pt who is (+) for LOBx1 this session requiring modA to regain balance. She is also requiring PT to block RLE and occasionally assist advancing of RLE. Pt requiring max cues for foot clearance with swing phase RLE . Pt gait demonstrates significant variability in step width, length and foot clearance. She is also noted to have significant R drop foot. PT-Balance Assessment Sitting Balance and Reactions Static Sitting Balance Ability Good Dynamic Sitting Balance Ability Fair Standing Balance and Reactions Static Standing Balance Ability Poor Dynamic Standing Balance Ability Poor Device Used fww Functional Assessments Other Functional Tests Performed R foot DF 1/5. R foot eversion 1/5. (minimal contraction noted). Pt states she does have an orthosis for this. M5 PT-IP Objective Assessments Start: 04/05/18 09:31 Freq: NEEDED Status: Active Protocol: Document 04/05/18 13:50 (Rec: 04/05/18 16:18 [id number]) Orientation Orientation/Cognition Level of Alertness Alert Orientation Name Age Birthday Month Date Year Day of Week Place Situation Language Function Ability No Deficits Noted Safety Awareness Decreased Safety Awareness Strength Lower Extremity Strength Assessment Bilaterally Impaired Comments Strength Comments RLE 3/5. LLE 4/5 Other Assessments Other Other Assessments Post session BP 119/70 HR 93 M6 PT-IP Treatment Start: 04/05/18 09:31 Freq: NEEDED Status: Active Protocol: Document 04/06/18 10:50 (Rec: 04/06/18 13:19 [id number]) Physical Therapy Treatment Other Treatments Other Treatment Performed Pt education in pacing strategies as well as discussion regarding adaptive equipment for home that would improve her independence. M7 PT-IP Assessment and Plan Start: 04/05/18 09:31 Freq: NEEDED Status: Active Protocol: Document 04/06/18 10:50 (Rec: 04/06/18 13:19 [id number]) PT Summary Assessment and Plan Potential Rehabilitation Potential Good Summary Impairments Strength Balance Coordination Tone Bed Mobility Transfers Gait Activity Tolerance Progress Towards Goals Slow Progress due to Medical Issues Slow Progress due to Activity Tolerance Assessment Summary Pt able to ambulate 70 ft. with fww and mod Ax1 to block RLE and assist RLE during swing phase as well as (+) for LOB x3 this session, requiring modA to recover. She demonstrates significant impairments compared to her baseline mobilities and is a high risk for falls. She would benefit greatly from the high intensity rehabilitation offered at an inpatient rehab facility as she has potential to improve to modified independence with mobilities. Goals Bed Mobility Goal Independent Transfer Goal Contact Guard Assistance Cane Front Wheeled Walker Four Wheeled Walker Gait Goal Contact Guard Assistance Cane Front Wheel Walker Four Wheel Walker Gait Distance 150 Other Goals 150 ft ambulation CGA with least restrictive AD. Up/down 20 steps B rails minAx1. Frequency of Treatment Frequency Of Treatment Once a Day Treatment Plan Physical Therapy Treatment Plan Bed Mobility Training Transfer Training Gait Training Therapeutic Exercise Balance Retraining Discharge Planning Neuromuscular Re-ed Coordination Retraining Manual Therapy Recommendations To Nursing Amount of Assist Needed 1 Person Assist Discharge Recommendations PT Discharge Recommendations Acute Rehab Equipment Needed for Home Before fww or 4ww pending pt status Discharge at d/c
--- NOTE | 2018-04-06 11:39 | PM.PN.1 ---
Subjective Date Patient Seen: 04/06/18 Interval history: Patient still feels weak. She had urgency to urinate last night and fell trying to get up to the toilet. She notes the high dose steroids makes her feel anxious. She is still weak in the right arm and right leg. Despite this she would like to go home on Thanksgiving to be with her childrend. She feels like she is making slow but steady progress. She has still had no bm. Exam Vital Signs (past 8 hours): - 04/06/18 06:33 04/06/18 07:40 Temperature 98.2 F 98.5 F Pulse Rate 82 60 Respiratory Rate 16 18 Blood Pressure 138/96 H 146/98 H Pulse Oximetry 97 96 Oxygen Delivery Method Room Air Oxygen Flow Rate 0 Narrative Exam Narrative: Pleasant female in no acute distress Lungs: clear to auscultation CV: RRR nl Sl S2 Abd: mildly distended, non tender, no HSM, no palpable masses Ext: no edema Neuro: awake and alert, strenght is decreased in right arm /hand/leg Objective Labs Result Diagrams: 04/04/18 11:20 04/04/18 11:20 Assessment & Plan (1) Constipation: Problem details: continue bowel program Current visit: Yes Status: Acute (2) Restless leg syndrome: Problem details: consider requip Current visit: Yes Status: Acute (3) Exacerbation of multiple sclerosis: Problem details: Continue Solumedrol for five days Current visit: Yes Status: Acute (4) Insomnia: Problem details: increase ambien to 10 mg at night Current visit: No Status: Acute Quality VTE Deep Vein Thrombosis/Pulmonary Embolism Present on Admission: No
--- NOTE | 2018-04-06 12:16 | PT.IIE ---
Addendum entered and electronically signed by Ely Hyde PT 04/06/18 13:37: This session took place on 04/05/18. Original Note: Addendum entered and electronically signed by Ely Hyde, PT 04/06/18 12:38: I certify I directly supervised and guided this session. Mario Alberto Hyde, DPT Original Note: Current Diagnoses Restless legs syndrome (04/04/18) Multiple sclerosis (04/04/18) Insomnia, unspecified (04/04/18) Constipation, unspecified (04/04/18) Medical History (Last Reviewed 04/04/18 @ 15:55 by Ashanti Napier MD) Multiple sclerosis (Acute) Physical Therapy Inpatient Evaluation/Re-Eval M1 PT/OT-IP Prior Functional Status Start: 04/05/18 15:44 Freq: NEEDED Status: Active Protocol: Document 04/05/18 13:50 (Rec: 04/05/18 16:18 [id number]) Medical Review Prior Functional Status Medical History Reviewed Yes Communication No deficits noted. Mobility and Gait Pt previously modified independent with ambulation, using furniture occasionally to cruise along. She has caregivers 5X/wk for risk control officer, laundry and meals. Activities of Daily Living and IADL's She states able to bathe herself independently, but this is getting progressively more difficulty. Prior Functional Level (Other details) Has had a few near falls in the past few months. Social History Household Members children Living Arrangements Apartment/Condo Number of Floors (Floors) One Floor Number of Stairs To Enter/Railing? 20 steps B rails to enter 2nd floor apartment. Once inside apartment is all one floor. Home Environment Standard Height Toilet Tub/Shower Home Equipment Straight Cane Employment Status Unemployed Additional Social History Comment Pt is on disability and living in income based housing. Her fiance does not plan to move in with her until June. Daughter 13 y/o and son 9 y/o. No 24/7 assist avaliable at this time. M2 PT-IP Current Condition Start: 04/05/18 09:31 Freq: NEEDED Status: Active Protocol: Document 04/05/18 13:50 (Rec: 04/05/18 16:18 [id number]) Physical Therapy Current Condition Current Condition Evaluation Date 04/05/18 Treatment Diagnosis multiple sclerosis weakness; Generalized weakness; difficulty walking M3 PT-IP Subjective Start: 04/05/18 09:31 Freq: NEEDED Status: Active Protocol: Document 04/05/18 13:50 (Rec: 04/05/18 16:18 [id number]) Subjective Physical Therapy Visit Type Type Initial Evaluation Visit Start Time 13:50 Visit Stop Time 14:29 Total Visit Minutes 49 Number of GEOINT ANALYST Visits 0 Physical Therapy Visit Comments Patient Comments Pt agreeable to mobilize with PT. Patient Goals Plans to d/c home as independently as possible. M4 PT-IP Mobility and Gait Start: 04/05/18 09:31 Freq: NEEDED Status: Active Protocol: Document 04/05/18 13:50 (Rec: 04/05/18 16:18 [id number]) PT-Bed Mobility Assessment Supine to Sit Supine to Sit Independent Sit to Supine Sit to Supine Independent Scooting Scooting to Edge of Bed Standby Assistance PT-Transfer Assessment Sit to and From Stand Sit to and from Stand Minimal Assistance Use of Upper Extremities Equipment Transfer Assistive Device Gait Belt Front Wheeled Walker Orthotic/Prosthetic Devices or Brace: No Transfers Transfer Destination Bed Transfer Technique Ambulates to/from bed Comments Mobility Comments Supine <> sit indep with no cues. Sit <> stand with fww is minAx1 for steadying. Gait Assessment Gait Gait Assistance Required: Minimum Assistance Distance (Feet) 60 Able to Maintain Weight Bearing Status Yes During Gait Assistive Devices Assistive Device Gait Belt Front Wheeled Walker Orthotic/Prosthetic Devices or Brace: No Gait Deviations General Gait Pattern Ataxic Decreased Stride Length Decreased Feet Clearance Flexed Trunk Narrow Based Gait Wide Based Gait Factors Limiting Gait Function Factors Limiting Gait Function Abnormal Tonal Influences Decreased Activity Tolerance Decreased Strength Incoordination Poor Balance Poor Safety Awareness Comments Gait Comments 60 ft ambulation completed with fww and Golden for steadying as well as occasional need to block RLE and occasional fww management. Gait demonstrates significant variability in step length, step width and foot clearance. Pt able to increase foot clearance with cues. PT-Balance Assessment Sitting Balance and Reactions Static Sitting Balance Ability Good Dynamic Sitting Balance Ability Fair Standing Balance and Reactions Static Standing Balance Ability Fair Dynamic Standing Balance Ability Poor Device Used fww M5 PT-IP Objective Assessments Start: 04/05/18 09:31 Freq: NEEDED Status: Active Protocol: Document 04/05/18 13:50 (Rec: 04/05/18 16:18 [id number]) Orientation Orientation/Cognition Level of Alertness Alert Orientation Name Age Birthday Month Date Year Day of Week Place Situation Language Function Ability No Deficits Noted Safety Awareness Decreased Safety Awareness Strength Lower Extremity Strength Assessment Bilaterally Impaired Comments Strength Comments RLE 3/5. LLE 4/5 Other Assessments Other Other Assessments Post session BP 119/70 HR 93 M6 PT-IP Treatment Start: 04/05/18 09:31 Freq: NEEDED Status: Active Protocol: Document 04/05/18 13:50 (Rec: 04/05/18 16:18 [id number]) Physical Therapy Treatment Exercises Exercises Ankle Pumps Quad Sets Heel Slides Other Treatments Other Treatment Performed Ankle pumps X20 Quad sets X10 5 sec holds Heel slides X10 Supine bridges X5, 5 sec holds . M7 PT-IP Assessment and Plan Start: 04/05/18 09:31 Freq: NEEDED Status: Active Protocol: Document 04/05/18 13:50 (Rec: 04/05/18 16:18 [id number]) PT Summary Assessment and Plan Potential Rehabilitation Potential Fair Status of Condition at Evaluation Evolving Summary Impairments Strength Balance Coordination Tone Bed Mobility Transfers Gait Activity Tolerance Progress Towards Goals Slow Progress due to Medical Issues Slow Progress due to Activity Tolerance Assessment Summary Pt with multiple sclerosis weakness episode presents today with decreased activity tolerance and difficulty walking. She was able to walk 60 ft. with fww minAx1. She is a high risk for falls evidenced by significant variability in step width, low clearance foot steps and R leg buckling. At this time she is not safe for d/c home due to high level of need for assist, decreased functional status and mobilities compared to PLOF, high risk for falls and lack of 24/7 assist. She would benefit from inpatient rehabilitation; it is my opinion that she would tolerate 3hrs or greater per day of intensive rehab to maximize her mobilities and regain independent status needed to go home safely. Goals Bed Mobility Goal Independent Transfer Goal Contact Guard Assistance Cane Front Wheeled Walker Four Wheeled Walker Gait Goal Contact Guard Assistance Cane Front Wheel Walker Four Wheel Walker Gait Distance 150 Other Goals 150 ft ambulation CGA with least restrictive AD. Up/down 20 steps B rails minAx1. Frequency of Treatment Frequency Of Treatment Once a Day Treatment Plan Physical Therapy Treatment Plan Bed Mobility Training Transfer Training Gait Training Therapeutic Exercise Balance Retraining Discharge Planning Neuromuscular Re-ed Coordination Retraining Manual Therapy Recommendations To Nursing Amount of Assist Needed 1 Person Assist Discharge Recommendations PT Discharge Recommendations Acute Rehab Equipment Needed for Home Before fww or 4ww pending pt status Discharge at d/c
--- NOTE | 2018-04-06 12:20 | OT.IP.EVAL ---
Current Diagnoses Restless legs syndrome (04/04/18) Multiple sclerosis (04/04/18) Insomnia, unspecified (04/04/18) Constipation, unspecified (04/04/18) Past Medical History (Last Reviewed 04/06/18 @ 13:46 by Annie Wilson MD) Multiple sclerosis (Acute) Occupational Therapy Inpatient Evaluation/Re-Eval M1 PT/OT-IP Prior Functional Status Start: 04/05/18 15:44 Freq: NEEDED Status: Active Protocol: Document 04/06/18 12:20 PJM (Rec: 04/06/18 14:36 PJM [id number]) Medical Review Prior Functional Status Medical History Reviewed Yes Diet/Fluid Consistency Regular Communication Mother reports occasional word substitutions that pt is unaware of. Mobility and Gait Pt previously modified independent with ambulation, using furniture occasionally to cruise along. She has caregivers 5X/wk, 3 hrs/day for flagger, laundry and meals. Activities of Daily Living and IADL's Pt states she is independent in all self care. She bathes sitting in bottom of bathtub, but this is getting progressively more difficult, especially to transfer out of tub. Prior Functional Level (Other details) Has had a few near falls in the past few months. Pt's s.o. does not live with her, but has been staying with her for last several days to help due to increasing weakness. Pt's caregiver is there when 13 yr old daughter gets home from school at 1430 and s.o there at 1600 when 9 yr old gets home. Pt's parents live 1 mile away and mother can assist with children PRN before and after school. Mother also assists with many meals. Social History Household Members children Living Arrangements Apartment/Condo Number of Floors (Floors) One Floor Number of Stairs To Enter/Railing? 20 steps B rails to enter 2nd floor apartment. Once inside apartment is all one floor. Home Environment Standard Height Toilet Tub/Shower Home Equipment Straight Cane Employment Status Unemployed Additional Social History Comment Pt is on disability and living in income based housing. Her fiance does not plan to move in with her until June. Daughter 13 y/o and son 9 y/o. No 24/7 assist available at this time. M2 OT-IP Current Condition Start: 11/19/18 15:44 Freq: Status: Active Protocol: Document 04/06/18 12:20 PJM (Rec: 04/06/18 14:36 PJ [id number]) Occupational Therapy Current Condition Current Condition Evaluation Date 04/06/18 Treatment Diagnosis decreased self care/mobility due to second MS exacerbation in 2 months Post Operative Precautions Other Precautions fall risk, pt fell last night trying to get up to bathroom; avoid over fatigue, pt on high dose steroids x 5 days M3 OT- IP Subjective and Pain Start: 04/05/18 15:44 Freq: Status: Active Protocol: Document 04/06/18 12:20 PJM (Rec: 04/06/18 14:36 [facility] [id number]) OT- Subjective Occupational Therapy Visit Type Type Initial Evaluation Visit Start Time 11:30 Visit Stop Time 12:20 Total Visit Minutes 50 Occupational Therapy Visit Comments Patient Comments I feel like I have dementia, I have been trouble figuring out how to pay my bills at home. I can't think straight even when I am off the steroids. Patient/Caregiver Goals to get strong enough to do 20 stairs as needed to access her apartment and be able to do some cooking OT Pain Assessment Pain When Pain Assessed After Treatment Pain Present Pain Present Denied Pain M4 OT- IP ADL's Start: 04/05/18 15:44 Freq: Status: Active Protocol: Document 04/06/18 12:20 PJM (Rec: 04/06/18 14:36 [facility] [id number]) OT [id number] General Evaluation Self-Feeding Ability Minimal Assistance Areas Needing Assistance Cutting Food Opening Containers Comments OT Self-Feeding Comments Pt/mother educated to use weaker, uncoordinated R (dominant) hand for finger foods, but use L hand for drinks and utensil use at present until RUE improves. Encouraged pt to feed self as much as possible rather than having mother feed her. OT ADL-Grooming General Evaluation Grooming Ability Standby Assistance Areas Needing Assistance Face Washing OT ADL-Oral Care Comments Oral Care Comments did not occur this session OT ADL-Dressing General Eval Upper Body Dressing Ability Moderate Assistance Lower Body Dressing Ability Maximum Assistance Areas Needing Assistance Pull-Over Shirt Underpants/Brief Pants/Shorts Socks Shoes Comments OT Dressing Comments Provided education to pt/ mother re: best clothing options for rehab. Mother will bring in pt's R AFO and shoes tomorrow. OT ADL-Toileting Comments OT Toileting Comments did not occur this session OT ADL-Bathing Bathing Type Bathing Type Sponge Bath Comments OT Bathing Comments to be assessed as activity tolerance improves, max assist with sponge bath at present M5 OT- IP IADL's Start: 04/05/18 15:44 Freq: Status: Active Protocol: Document 04/06/18 12:20 PJM (Rec: 04/06/18 14:36 [facility] [id number]) OT-Instrumental Activities of Daily Living Deficits IADL Deficits Identified Deficits Home Safety Awareness Awareness of Need for Assistance at Home Good Awareness Medication Management Medication Management Comments to be assessed Money Management Money Management Caregiver Provides Assistance Money Management Comments pt reports difficulty recalling methods/sequence for bill paying at home Meal Preparation Meal Preparation Caregiver Provides Assist Meal Preparation Comments mother reports that she frequently brings meals to pt/ children Reducing Machine Operator Reducing Machine Operator Caregiver Provides Assist Reducing Machine Operator Comments Pt has caregiver assist with laundry, cleaning, grocery shopping. Driving Driving Caregiver Provides Assist M6 OT- IP Functional Cognition Start: 04/05/18 15:44 Freq: Status: Active Protocol: Document 04/06/18 12:20 PJM (Rec: 04/06/18 14:36 [facility] NR) Cognitive Factors Limiting Selfcare Function Cognitive Ability Level of Alertness Alert Patient Orientation Name Place Situation Attention Span Ability Capable of Focused Attention Capable of Sustained Attention Ability to Follow Commands Able to Follow One Step Commands Problem Solving Ability Needs Assist to Identify Solutions Cognitive Comments Cognitive Assessment Comments Pt reporting deficits in attention/concentration, problem solving at home even when off steroids. Requested S.T. consult from and will further assess functional cognition as it relates to IADLS. OT- Vision and Hearing OT- Hearing Assessment OT- Hearing Assessment WFL OT- Vision Assessment Visual Acuity WFL Glasses All The Time Visual Attentiveness WFL M7 OT- IP Mobility and Balance Start: 04/05/18 15:44 Freq: Status: Active Protocol: Document 04/06/18 12:20 PJM (Rec: 04/06/18 14:36 [facility] [id number]) OT-Transfer Assessment Comments Mobility Comments did not occur this session due to fatigue as pt just completed P.T. OT- Gait Assessment Comments Gait Ability Comments see P.T. notes OT- Balance Assessment Comments Other Balance Tests/Deviations/Treatment see P.T. notes : M8 OT- IP Objective Assessments Start: 04/05/18 15:44 Freq: Status: Active Protocol: Document 04/06/18 12:20 PJM (Rec: 04/06/18 14:36 PJ [id number]) OT Gross Range of Motion Upper Extremity Range of Motion Assessment Right Impaired ROM Impairments RUE end ranges of shoulder AROM limited by weakness and instability with min ataxia noted. OT Strength Upper Extremity Strength Assessment Right Impaired Shoulder R 3-/5 L 4+/5 WFL Elbow R 3+/5 L 4+/5 WFL Wrist R 3+/5 L 5/5 Hand R 3+/5 L 4+/5 WFL Hand Communications Clerk Strength Hand Dominance Right Comments Strength Comments Pt using L hand dominantly ~ 75% of the time due R side weakness. OT- Coordination Assessment Upper Extremity Finger to Nose Test Bilateral UE Impaired Finger Tapping Test Bilateral UE Impaired Comments Coordination Comments LUE has mildly slowed gross and fine motor RORY's. RUE has significantly slowed gross and fine fine motor RORY's with min ataxia noted OT-Muscle Tone Assessment Muscle Tone WNL No Muscle Tone Location Right Type of Tone Hypotonicity Severity of Tone Mild Manifestation of Tone Ataxia OT Sensation Assessment Comments Summary Comments RUE has impaired light touch sensation in forearm and absent light sensation in hand. Pt does detect deep pressure in hand. LUE has impaired light touch in hand only. M9 OT- IP Assessment and Plan Start: 04/05/18 15:44 Freq: Status: Active Protocol: Document 04/06/18 12:20 PJM (Rec: 04/06/18 14:36 PJ [id number]) OT Summary Assessment and Plan Potential Rehabilitation Potential Good Analytic Complexity at Evaluation Moderate Summary OT Impairments Strength Balance Coordination Sensation Tone Functional Cognition Functional Mobility Self-Feeding Grooming Dressing Toileting Bathing Toilet Transfers Shower Transfers Assessment Summary Pt seen for moderate complexity evaluation due to current medical condition. Pt is far below her baseline level of function after second MS exacerbation in 2 months and pt states she did not fully recover from last episode. Pt currently has significant performance deficits in all functional mobility and self care care including eating , grooming, dressing, bathing and toileting. She is using her dominant R hand for functional tasks only 25 % of the time due to RUE/hand weakness, sensory deficits and incoordination. She also reports cognitive deficits since her last exacerbation which have not resolved and are interfering with functional IADLS such as bill paying. Note pt needs to be able to do 20 stairs to return to her 2nd floor apartment and is the single parent of 2 children ages 9 and 13. Strongly recommend acute in pt rehab facility at discharge. Goals Self-Feeding Goal Independent Grooming Goal Standby Assistance Dressing Goal Minimal Assistance Toileting Goal Standby Assistance Bathing Goal Minimal Assistance Toilet Transfer Goal Standby Assistance Shower Transfer Goal Contact Guard Assistance Patient/Caregiver Education Goal Demonstrate Energy Conservation and Pacing Caregiver Independent Assisting Patient OT-Other Goals -Eating to be done with dominant R hand. -Grooming to be done standing or seated at sink. -Pt to use R hand 75+% of the time for self care tasks. -Pt to verbalize understanding of 3 energy conservation and pacing techniques she can use at home. Days to Meet Goals 10 Frequency of Treatment Frequency Of Treatment Once a Day Treatment Plan OT Treatment Plan ADL Training Functional Cognition Training Functional Mobility Therapeutic Exercises Patient/Family Education Discharge Planning Discharge Recommendations OT Discharge Recommendations Acute Rehab Home Equipment Needs transfer tub seat, toilet safety frame
[2018-04-06] MEDS: SODIUM CHLORIDE 0.9% FLUSH 10 ML IV ×2 (12:26→20:13)
[2018-04-06] MEDS: methylPREDNISolone 1,000 MG in SODIUM CHLORIDE 0.9% 250 ML 258 ML IV (12:41)
--- NOTE | 2018-04-06 13:43 | ED_ITS ---
HPI - Extremity Problem General Chief complaint: Extremity Problem,Nontraumatic Stated complaint: Weak legs since Th; unable to walk Time Seen by Provider: 04/04/18 10:29 Source: patient Mode of arrival: ambulatory Limitations: no limitations History of Present Illness HPI Narrative: Patient presents to the emergency department complaining her multiple sclerosis is flaring up. She states that for the last week she has noticed increased weakness in her legs, but it has been steadily progressing to the point that now, although she can move the legs weakly in the bed, she does not have the strength to stand up and walk without assistance. She states that this has happened before, with the last episode back in October, and that she did receive high-dose steroids at that time. Patient states that usually, the steroids have worked, but she states that she feels that she never entirely recovered from that episode. Patient any; no back pain. She states that she is able to control her bowels and bladder, but she feels as though she is not fully evacuating either one. patient is concerned also because she lives at home with her 2 children and no other adults. She does have a significant other who is accompanying her, but he does not live with her. No other complaints at this time. Related Data Home Medications Medication Instructions Recorded Confirmed acyclovir 400 mg PO TID 01/16/18 04/04/18 meclizine 25 mg PO TID PRN 01/16/18 04/04/18 tamsulosin 0.4 mg PO BID 01/16/18 04/04/18 ranitidine HCl 75 mg PO DAILY PRN 01/19/18 04/04/18 dimethyl fumarate [Tecfidera] 240 mg PO BID 04/04/18 04/04/18 paroxetine HCl [Paxil] 10 mg PO DAILY 04/04/18 04/04/18 Previous Rx's Medication Instructions Recorded oxycodone-acetaminophen [Percocet] 1 tab PO Q4-6H PRN #10 tab 01/17/18 Allergies Allergy/AdvReac Type Severity Reaction Status Date / Time adhesive tape Allergy Mild Blister Verified 04/04/18 09:55 pomegranate [POMEGRANATE] Allergy Unknown Verified 04/04/18 09:55 Review of Systems Review of Systems All systems reviewed & are unremarkable except as noted in HPI and below Constitutional Denies chills, Denies fever(s), Denies lethargy and Reports weakness ( Bilateral lower extremity) Eyes Denies change in vision, Denies eye discharge, Denies irritation and Denies loss of vision ENT Ears, Nose, Mouth, and Throat: Denies change in voice, Denies neck pain and Denies sore throat Cardiovascular Denies chest pain, Denies irregular heart rhythm, Denies lightheadedness, Denies palpitations, Denies dyspnea, Denies dyspnea on exertion and Denies orthopnea Respiratory Denies cough, Denies dyspnea, Denies dyspnea on exertion and Denies wheezing Gastrointestinal Gastrointestinal: Denies abdominal pain, Denies change in bowel habits, Denies diarrhea, Denies nausea and Denies vomiting Genitourinary Denies hematuria, Denies flank pain, Denies urinary incontinence and Denies urinary urgency Musculoskeletal Denies neck pain Integumentary/Breasts Denies pruritus, Denies erythema, Denies rash and Denies wounds Neurologic Denies confusion, Denies loss of vision and Reports weakness ( Bilateral lower extremity) Psychiatric Denies anxiety, Denies confusion, Denies depression, Denies homicidal ideation and Denies suicidal ideation Endocrine Denies palpitations Hematologic/Lymphatic Denies easy bruising Allergic/Immunologic Denies wheezing PFSH Medical History Multiple sclerosis (Acute) Family History Mother Hypertension Alcoholism Father Heart abnormality Social History household members: children Smoking Status: Former smoker Exam Initial Vital Signs Initial Vital Signs: Vital Signs Temperature 97.2 F L 04/04/18 09:51 Pulse Rate 65 04/04/18 09:51 Respiratory Rate 18 04/04/18 09:51 Blood Pressure 109/75 04/04/18 09:51 Pulse Oximetry 100 04/04/18 09:51 Const General: cooperative and well developed Nutritional Appearance: well nourished Orientation: alert, awake, oriented x3 and not confused [facility] Head: normocephalic and atraumatic Ears: external ears normal and TM's normal bilaterally Nose: external nose normal and No nasal discharge Face and sinus: sinuses nontender, face symmetric, no sinus tenderness and No dry mucous membranes Mouth: oral mucosae normal and moist mucous membranes Teeth and gingiva: dentition normal Throat: tonsils normal and uvula midline Eyes General: appearance normal, both eyes and all related structures Eyelids: eyelids normal Conjunctivae: conjunctivae normal Sclera: sclerae normal Pupils: PERRL EOM: EOM intact bilaterally Neck Neck: normal visual inspection, trachea midline, No lymphadenopathy, No midline deformity and No JVD Lymphatic: No lymphedema Chest Chest: normal inspection of the chest Resp Effort & Inspection: normal respiratory effort, able to speak in complete sentences, no respiratory distress and no use of accessory muscles Auscultation: clear to auscultation bilaterally, no rales, no rhonchi and no wheezes Cardio Rate: regular rate Rhythm: regular rhythm Heart Sounds: no click, no gallops, no murmurs and no rubs Pulses: normal peripheral pulses GI Inspection: non-distended Palpation: soft, no hepatosplenomegaly, No guarding, No pulsatile mass and No tender Auscultation: normal bowel sounds Back/Spine/Pelvis Back: No CVA tenderness Cervical Spine: cervical ROM normal and No pain with cervical ROM Thoracic/Lumbar Spine: thoracic and lumbar spine normal to inspection Skin General: no rashes or lesions noted, No jaundice and No petechiae Neuro General: alert, oriented x3, gait abnormal (Patient ambulates unsteadily, and requires assistance with ambulation. She is able to walk to the bathroom with assistance. She moves both legs and has equal, 4+ strength bilaterally. She has weakness the proximal muscles of her bilateral lower extremities.) and no focal motor deficits Speech: speech normal Sensory Exam: no sensory deficits noted Extrem General: full ROM, no clubbing, cyanosis or edema, no pedal edema and no calf tenderness Psych Appearance: well kempt Mental Status: mental status grossly normal Attitude: cooperative Thought Content: normal and suicidality Judgment: judgment good Course Course Narrative: Patient was worked up in the emergency department for her symptoms, and was started on high-dose steroids with a 1000 mg of Solu-Medrol. I spoke with Dr. Napier, is a felt the patient should be admitted to the hospital for her 1st doses of the steroids, to be sure they were working properly. Patient had stated her preference to be admitted rather than go immediately to home dosing the steroids. Dr. Napier did admit the patient to his service. Orders Ordered: ED Orders 04/06/18 12:27 Consult to Speech Therapy Evaluate & Treat Acetaminophen (Tylenol) 650 mg PO Q6HR PRN PRN Reason: As Needed for Fever/Mild Pain Bisacodyl (Dulcolax) 10 mg SD DAILY PRN PRN Reason: Constipation Last Admin: 04/06/18 10:23 Dose: 10 mg Clonazepam (Klonopin) 1 mg PO BID PRN PRN Reason: Anxiety Last Admin: 04/06/18 10:20 Dose: 1 mg Admin: 04/05/18 18:35 Dose: 1 mg Admin: 04/05/18 12:38 Dose: 1 mg Docusate Sodium (Colace) 100 mg PO BID [facility] Last Admin: 04/06/18 10:21 Dose: 100 mg Admin: 04/05/18 20:37 Dose: 100 mg Admin: 04/05/18 12:38 Dose: 100 mg Admin: 04/04/18 20:24 Dose: 100 mg Docusate Sodium (Colace) 200 mg PO BID [facility] Enoxaparin Sodium (Lovenox) 40 mg SUBCUT DAILY [facility] Last Admin: 04/06/18 10:21 Dose: 40 mg Admin: 04/05/18 12:38 Dose: 40 mg Methylprednisolone 1,000 mg/ (Sodium Chloride) 258 mls @ 258 mls/hr IV 0900 [facility] Last Admin: 04/06/18 12:41 Dose: 258 mls/hr Magnesium Hydroxide (Milk Of Magnesia) 30 ml PO DAILY PRN PRN Reason: Constipation Last Admin: 04/04/18 20:24 Dose: 30 ml Magnesium Hydroxide (Milk Of Magnesia) 30 ml PO DAILY PRN PRN Reason: Constipation Meclizine HCl (Antivert) 25 mg PO TID PRN PRN Reason: Vertigo Melatonin (Melatonin) 6 mg PO BEDTIME [facility] Last Admin: 04/06/18 00:05 Dose: Not Given Ondansetron HCl (Zofran) 4 mg IV Q8HR PRN PRN Reason: Nausea And Vomiting Oxycodone/Acetaminophen (Percocet 5/325) 1 tab PO Q4H PRN PRN Reason: pain Paroxetine HCl (Paxil) 10 mg PO DAILY [facility] Last Admin: 04/06/18 10:24 Dose: 10 mg Admin: 04/05/18 12:38 Dose: 10 mg Admin: 04/04/18 21:22 Dose: 10 mg Ranitidine HCl (Zantac) 75 mg PO DAILY PRN PRN Reason: Indigestion Last Admin: 04/06/18 10:21 Dose: 75 mg Admin: 04/05/18 16:13 Dose: 75 mg Sennosides (Senna) 17.2 mg PO BEDTIME [facility] Last Admin: 04/05/18 20:37 Dose: 17.2 mg Admin: 04/04/18 20:24 Dose: 17.2 mg Sennosides (Senna) 17.2 mg PO BID [facility] Sodium Biphosphate/Sodium Phosphate (Fleet Enema) 1 each SD DAILY PRN PRN Reason: Constipation Sodium Chloride (Normal Saline 0.9% Flush) 10 ml IV PRN PRN PRN Reason: Flush Last Admin: 04/05/18 01:15 Dose: 10 ml Sodium Chloride (Normal Saline 0.9% Flush) 10 ml IV BID [facility] Last Admin: 04/06/18 12:26 Dose: 10 ml Admin: 04/05/18 20:37 Dose: 10 ml Admin: 04/05/18 12:38 Dose: 10 ml Zolpidem Tartrate (Ambien) 10 mg PO BEDTIME PRN PRN Reason: Sleep Last Admin: 04/05/18 20:37 Dose: 10 mg Discontinued Medications Sodium Chloride (Normal Saline 0.9%) 1,000 mls @ 1,000 mls/hr IV BOLUS ONE Stop: 04/04/18 11:59 Last Infusion: 04/04/18 13:56 Dose: 0 mls/hr Admin: 04/04/18 12:05 Dose: 1,000 mls/hr Methylprednisolone 1,000 mg/ (Sodium Chloride) 258 mls @ 258 mls/hr IV NOW ONE Stop: 04/04/18 12:44 Last Infusion: 04/04/18 13:56 Dose: 0 mls/hr Admin: 04/04/18 12:05 Dose: 258 mls/hr Methylprednisolone 1,000 mg/ (Sodium Chloride) 258 mls @ 258 mls/hr IV Q24H [facility] Last Infusion: 04/05/18 14:50 Dose: 0 mls/hr Admin: 04/05/18 13:42 Dose: 258 mls/hr Methylprednisolone 1,000 mg/ (Sodium Chloride) 258 mls @ 258 mls/hr IV Q24H [facility] Influenza Virus Vaccine (Flu Vaccine) 0.5 ml IM .ONCE ONE Stop: 04/04/18 15:58 Last Admin: 04/04/18 16:25 Dose: 0.5 ml Lorazepam (Ativan) 1 mg PO NOW ONE Stop: 04/04/18 13:56 Last Admin: 04/04/18 13:56 Dose: 1 mg Lorazepam (Ativan) 0.5 mg IV NOW ONE Stop: 04/05/18 00:36 Last Admin: 04/05/18 01:15 Dose: 0.5 mg Zolpidem Tartrate (Ambien) 5 mg PO BEDTIME PRN PRN Reason: Sleep Last Admin: 04/04/18 20:24 Dose: 5 mg Vital Signs - 8 hr 04/06/18 06:33 04/06/18 07:40 04/06/18 10:10 Temperature 98.2 F 98.5 F Pulse Rate 82 60 Respiratory Rate 16 18 Blood Pressure 138/96 H 146/98 H Pulse Oximetry 97 96 100 04/06/18 11:44 04/06/18 12:22 Temperature 97.7 F Pulse Rate 61 Respiratory Rate 18 Blood Pressure 109/70 Pulse Oximetry 100 100 MDM - Extremity (Nontraumatic) Medical Records Attestation: I reviewed the patient's medical records. Lab Data Attestation: I reviewed the patient's lab results. Result diagrams: 04/04/18 11:20 04/04/18 11:20 Lab Results 04/04/18 04/04/18 04/04/18 Range/Units 11:20 11:20 Unknown WBC 6.1 (4.5-11.0) X10^3/uL RBC 4.34 (4.0-5.2) X10^6/uL Hgb 13.5 (12.0-16.0) g/dL Hct 40.0 (36-46) % MCV 92.1 (80-100) fL MCH 31.2 (26-34) PG MCHC 33.9 (30-36) % RDW 13.7 (11.6-14.8) % Plt Count 262 (150-400) X10^3/uL Neut % (Auto) 65.1 (50-75) % Lymph % (Auto) 24.0 L (25-40) % [place]anner % (Auto) 9.0 (3-14) % Eos % (Auto) 1.0 L (2-4) % Baso % (Auto) 0.9 (0-2) % Neut # (Auto) 4000 (6513-8201) /uL ESR 7 (0-20) MM/HR Sodium 139 (137-145) mmol/L Potassium 4.2 (3.4-5.1) mmol/L Chloride 103 (98-107) mmol/L Carbon Dioxide 25 (22-32) mmol/L BUN 10 (7-17) mg/dL Creatinine 0.50 L (0.52-1.04) mg/dL Estimated GFR > 60.0 (>60) mL/min BUN/Creatinine Ratio 20.0 (6-22) Glucose 93 (70-100) mg/dL Calcium 9.5 (8.4-10.2) mg/dL Total Bilirubin 0.3 (0.2-1.3) mg/dL AST 24 (14-36) IU/L ALT 22 (9-52) IU/L Alkaline Phosphatase 60 (38-126) U/L C-Reactive Protein < 0.5 (<1.0) mg/dL Total Protein 7.5 (6.3-8.2) g/dL Albumin 4.6 (3.5-5.0) g/dL Globulin 2.9 (1.7-4.1) g/dL Albumin/Globulin Ratio 1.6 (1.0-2.8) Urine Color Yellow Urine Appearance Clear Urine pH 8.0 (4.5-8.0) Ur Specific [place] 1.015 (1.000-1.035) Urine Protein Negative (Negative) Urine Glucose (UA) Negative (Normal) g/dL Urine Ketones Negative (NEGATIVE) Urine Occult Blood Negative (Negative) Urine Nitrate Negative (Negative) Urine Bilirubin Negative (NEGATIVE) Urine Urobilinogen 0.2 (0.2) E.U./dL Ur Leukocyte Esterase Negative (NEGATIVE) Urine RBC 0-1/hpf (0-5/HPF) Urine WBC 0-1/hpf (0-5/HPF) Ur Squamous Epith Cells 5-10 /hpf H Urine Bacteria None seen (None) Ur Culture Indicated? Cult not indicated Micro UA Comment Not Reportable Discharge Plan Departure Patient Disposition: Admitted As Inpatient Clinical Impression: Exacerbation of multiple sclerosis Discharge Date/Time: 04/04/18 14:40 Interventions: ED Discharge Assessment Last Done: 04/04/18 14:38 Admit Date/Time: 04/04/18 14:08 Admit Provider: Ashanti Napier
[2018-04-06] MEDS: OXYCODONE/ACETAMINOPHEN 5/325 TABLET 1 TAB PO (16:06)
--- NOTE | 2018-04-06 16:41 | ST.IPIE ---
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 An episode of mono seems to have brought it on. She follows with Dr. Strickland in [place]. The last 5 days she has had progressive weakness of both legs and of the right hand. This is similar to her previous flares . The last time she was on IV Solu-Medrol was for a flare back in October, treated with 5 days of Solu-Medrol. She is being admitted as she is not able to care for herself, with this severe leg weakness. She lives at home with her 2 children ages 9 and 13. She no longer works or drives. She has a in-home caregiver Thursday - Thursday from -12 to assist with laundry, dishes, food prep and house cleaning. She also receives outpatient PT at [facility] in [place]. She complains of mild word-finding, forgetfulness and occasional slurred speech . - Informal Assessment Receptive Language Normal Yes Expressive Language Normal Yes Articulation Normal Yes Recommendations Further speech evaluation is warranted. Evaluation today limited to cognition only due to time constraints. Formal Assessment Standardized Test Cognitive Linguistic Quick Test + Administration Complete Results Attention - Mild impairment Memory - Within normal limits Executive functions - Mild impairment Language - Within normal limits Visuospatial skills - Mild impairment Composite Severity rating - Mild impairment - Cognition Cognitive Assessment Cognitive Assessment Adilene presents with a mild cognitive impairment in the areas of attention, executive functions and visuospatial skills which makes it difficult for her to complete ADLs efficiently and effectively. In addition to this, she has difficulty with fine motor skills for writing and cooking. For example, it takes her 3 days to pay her bills each month (by phone) due to cognitive and physical impairments which results in increased frustration. She also has difficulty following a recipe when cooking for her family. She would benefit from intensive cognitive skills training in an inpatient rehab setting to improve her ability to plan and follow steps during bill pay and cooking to reduce frustration. If inpatient rehab is not a viable option, outpatient or home health speech therapy is recommended to address cognitive impairments. - Memory - Treatment Goals Short Term Goals Adilene will complete mental manipulation tasks with 80% accuracy. Adilene will participate in a speech evaluation. Adilene will complete divided attention tasks requiring only one redirection. Total Time Full Evaluation Time 45
[2018-04-06] MEDS: ZOLPIDEM 5 MG TABLET 10 MG PO (20:12)
[2018-04-06] MEDS: SENNOSIDES 8.6 MG TABLET 17.2 MG PO (20:12)
[2018-04-06] MEDS: MELATONIN 3 MG TABLET 6 MG PO (20:57)
--- NOTE | 2018-04-06 21:32 | PC.NURSE ---
Patient is alert and oriented x3, vitals stable, and pain was down to a 3 after last dose of percacet at 1600. Next dose of clonazapam can be given tomorrow at 10am. Patient wants to be up by 10am tomorrow morning to get ready for her kids and boyfriend to visit. Patient also walked for a short distance today using a walker and stopped early because of exhaustion. Sleeping soundly now.
--- NOTE | 2018-04-06 22:52 | PC.NURSE ---
04/06 2253; pt continues with weakness to BLE and RUE, despite having strength in LUE states to have some deficits to spacial awareness as when she tries to pour sugar into cup unable keep hand above cup and spills out of cup unintentionally. Otherwise treatment plan continues of IV steroids, PT/OT, bed alarm present and pt reminded of safety precautions.
[2018-04-07] VITALS (7 sets, daily range): BP systolic 126–142; BP diastolic 78–90; PULSE 52–66; RESP 16–20; TEMP 36.4–37.1; O2SAT 94–100
[2018-04-07] MEDS: clonazePAM 0.5 MG TABLET 1 MG PO ×2 (08:52→21:27)
[2018-04-07] MEDS: DOCUSATE 100 MG CAPSULE 200 MG PO ×2 (09:54→21:28)
[2018-04-07] MEDS: ENOXAPARIN 40 MG/0.4 ML SYRINGE SUBCUT (09:55)
[2018-04-07] MEDS: methylPREDNISolone 1,000 MG in SODIUM CHLORIDE 0.9% 250 ML 258 ML IV (09:55)
[2018-04-07] MEDS: SENNOSIDES 8.6 MG TABLET 17.2 MG PO ×2 (09:56→21:28)
[2018-04-07] MEDS: PARoxetine 10 MG TABLET PO (09:56)
[2018-04-07] MEDS: SODIUM CHLORIDE 0.9% FLUSH 10 ML IV ×2 (09:57→21:28)
--- NOTE | 2018-04-07 10:29 | CM.DPC ---
Referral faxed to [facility] rehab per Miriam
--- NOTE | 2018-04-07 11:17 | CM.DANOTE ---
DCP/continued: Received verbal referral from therapy that acute care rehab is current d/c recommendation. Patient evaluated by all 3 therapies and all are in agreement that more aggressive treatment would be best option for this 37yr old female with h/o MS. Met with patient and patient's mother/Luiza at bedside explained role. Patient in agreement that acute inpatient rehab is the best option for her if she is accepted. Patient in agreement for CM team to make referral to [facility]. MD updated. Patient requiring 5 more days of IV steriods as well as therapy. VENETIAN BLIND ASSEMBLER asked CHERY/Milana to fax clinicals to [facility] attn: Julius # [phone]. Left vm with Julius requesting review for as soon as possible. P: Pending. Awaiting call back from [facility] on whether or not they can accept. If not additional options include home with HH vs. SNF. Patient does not feel like she is strong enough to go home. RUFUS Mancia Discharge Planning/Care Management CM Discharge Assessment Start: 04/05/18 13:26 Freq: Status: Active Protocol: Document 04/05/18 13:26 BF (Rec: 04/05/18 13:28 BF [id number]) Discharge Planning Assessment Assigned Sales Training Representative Brooke, MSW Advance Directives? No History Provided By Patient Medical Record Has Patient been admitted in last 30 No days? Prior Living Arrangements Apartment/Condo Household Members spouse children Comment Lives with spouse and two children Independent with ADL's Yes Is patient alert and oriented? Yes Needs Assistance With Managing Medications Home Chores / Shopping Caregiver for Another Yes: 2 children at home Barriers to Discharge No Discharge Plan Home Transportation Arrangement Likely family can provide transport at d/c. Additional Comment Waiting for PT/OT eval and recommendations. Review Status In Process Please Provide Date Initial DC 04/05/18 Assessment Was Performed Next Review Type Continued Stay Review Document 04/07/18 11:16 KJS (Rec: 04/07/18 11:16 KJS [id number]) Discharge Planning Assessment Assigned Sales Training RepresentativeRUFUS Galarza Advance Directives? No History Provided By Patient Medical Record Has Patient been admitted in last 30 No days? Prior Living Arrangements Apartment/Condo Household Members children Comment Lives with spouse and two children Independent with ADL's Yes Is patient alert and oriented? Yes Needs Assistance With Managing Medications Home Chores / Shopping Caregiver for Another Yes: 2 children at home Barriers to Discharge No Discharge Plan Home Transportation Arrangement Likely family can provide transport at d/c. Additional Comment Waiting for PT/OT eval and recommendations. Review Status In Process Please Provide Date Initial DC 04/05/18 Assessment Was Performed Next Review Type Continued Stay Review
--- NOTE | 2018-04-07 11:34 | CM.DPC ---
Clinicals faxed to Rayna @ [facility] [phone] maria teresa Pineda
--- NOTE | 2018-04-07 12:21 | PT.IPTN ---
Current Diagnoses Restless legs syndrome (04/04/18) Multiple sclerosis (04/04/18) Insomnia, unspecified (04/04/18) Constipation, unspecified (04/04/18) Physical Therapy Treatment Note M2 PT-IP Current Condition Start: 04/05/18 09:31 Freq: NEEDED Status: Active Protocol: Document 04/05/18 13:50 (Rec: 04/05/18 16:18 [id number]) Physical Therapy Current Condition Current Condition Evaluation Date 04/05/18 Treatment Diagnosis multiple sclerosis weakness; Generalized weakness; difficulty walking M3 PT-IP Subjective Start: 04/05/18 09:31 Freq: NEEDED Status: Active Protocol: Document 04/07/18 12:08 SA (Rec: 04/07/18 12:21 SA [id number]) Subjective Physical Therapy Visit Type Type Treatment Note Visit Start Time 11:34 Visit Stop Time 12:01 Total Visit Minutes 27 Number of HEEL ATTACHER Visits 1 Physical Therapy Visit Comments Patient Comments Pt with family present and agreeable to have PT in late morning prior to shower with OT. Patient Goals Wants to be home with maximum independence. Therapy Pain Assessment Pain When Pain Assessed At Rest Pain Present Pain Present Denied Pain M4 PT-IP Mobility and Gait Start: 04/05/18 09:31 Freq: NEEDED Status: Active Protocol: Document 04/07/18 12:08 SA (Rec: 04/07/18 12:21 SA [id number]) PT-Bed Mobility Assessment Supine to Sit Supine to Sit Independent Sit to Supine Sit to Supine Independent Scooting Scooting to Edge of Bed Standby Assistance PT-Transfer Assessment Sit to and From Stand Sit to and from Stand Minimal Assistance Use of Upper Extremities Equipment Transfer Assistive Device Gait Belt Front Wheeled Walker Orthotic/Prosthetic Devices or Brace: No Transfers Transfer Destination Chair Transfer Technique Stand Step Pivot Transfer Ability Level of Assist Minimal Assistance Comments Mobility Comments Pt presents with poor awareness and control of RLE, cues for UE use/support during mobility and safety with use of FWW. Gait Assessment Gait Gait Assistance Required: Minimum Assistance Distance (Feet) 53 Able to Maintain Weight Bearing Status Yes During Gait Assistive Devices Assistive Device Gait Belt Front Wheeled Walker Orthotic/Prosthetic Devices or Brace: Yes Gait Deviations General Gait Pattern Ataxic Decreased Stride Length Decreased Feet Clearance Flexed Trunk Narrow Based Gait Wide Based Gait Factors Limiting Gait Function Factors Limiting Gait Function Abnormal Tonal Influences Decreased Activity Tolerance Decreased Strength Incoordination Poor Balance Poor Safety Awareness Comments Gait Comments Pt with improved WBing ability when usng R AFO. Education regarding the regular use of AFO for increased safety and quality of gait. Pt admits to being hesitant to use AFO as it looks weird PT-Balance Assessment Balance Tests Austin Balance Test Score Query Text:Score Comments Other Balance Tests/Deviations/Treatment 2 minute walk test at 53 feet : with use of FWW and WC follow, R AFO donned suring test. Functional Assessments Functional Tests 2 Minute Walk Test 53 feet Other Functional Tests Performed Continue to use AFO for WBing activity. M5 PT-IP Objective Assessments Start: 04/05/18 09:31 Freq: NEEDED Status: Active Protocol: Document 04/05/18 13:50 (Rec: 04/05/18 16:18 [id number]) Orientation Orientation/Cognition Level of Alertness Alert Orientation Name Age Birthday Month Date Year Day of Week Place Situation Language Function Ability No Deficits Noted Safety Awareness Decreased Safety Awareness Strength Lower Extremity Strength Assessment Bilaterally Impaired Comments Strength Comments RLE 3/5. LLE 4/5 Other Assessments Other Other Assessments Post session BP 119/70 HR 93 M6 PT-IP Treatment Start: 04/05/18 09:31 Freq: NEEDED Status: Active Protocol: Document 04/07/18 12:08 (Rec: 04/07/18 12:21 [id number]) Physical Therapy Treatment Other Treatments Other Treatment Performed Pt educated on safety with ambulation and use of FWW and UEs during transfers to reduce risk of falls. Pt easily distracted during mobility tasks. M7 PT-IP Assessment and Plan Start: 04/05/18 09:31 Freq: NEEDED Status: Active Protocol: Document 04/07/18 12:08 (Rec: 04/07/18 12:21 [id number]) PT Summary Assessment and Plan Potential Rehabilitation Potential Good Summary Impairments Strength Balance Coordination Tone Bed Mobility Transfers Gait Activity Tolerance Goals Bed Mobility Goal Independent Frequency of Treatment Frequency Of Treatment Once a Day Recommendations To Nursing Amount of Assist Needed 1 Person Assist Discharge Recommendations PT Discharge Recommendations Acute Rehab Equipment Needed for Home Before FWW Discharge
--- NOTE | 2018-04-07 12:40 | OT.IP.TRT ---
Current Diagnoses Restless legs syndrome (04/04/18) Multiple sclerosis (04/04/18) Insomnia, unspecified (04/04/18) Constipation, unspecified (04/04/18) Occupational Therapy Treatment Note M2 OT-IP Current Condition Start: 04/05/18 15:44 Freq: Status: Active Protocol: Document 04/06/18 12:20 PJM (Rec: 04/06/18 14:36 PJM [id number]) Occupational Therapy Current Condition Current Condition Evaluation Date 04/06/18 Treatment Diagnosis decreased self care/mobility due to second MS exacerbation in 2 months Post Operative Precautions Other Precautions fall risk, pt fell last night trying to get up to bathroom; avoid over fatigue, pt on high dose steroids x 5 days M3 OT- IP Subjective and Pain Start: 04/05/18 15:44 Freq: Status: Active Protocol: Document 04/07/18 12:40 PJM (Rec: 04/07/18 16:29 PJM [id number]) OT- Subjective Occupational Therapy Visit Type Type Treatment Note Visit Start Time 11:30 Visit Stop Time 12:40 Total Visit Minutes 70 Notes Pt's mother, toby, 2 children here this session. Occupational Therapy Visit Comments Patient Comments I feel like I am weaker today . Patient/Caregiver Goals get stronger and be independent at home OT Pain Assessment Pain When Pain Assessed After Treatment Pain Present Pain Present Denied Pain M4 OT- IP ADL's Start: 04/05/18 15:44 Freq: Status: Active Protocol: Document 04/07/18 12:40 PJM (Rec: 04/07/18 16:29 PJM [id number]) OT [id number] General Evaluation Self-Feeding Ability Standby Assistance Comments OT Self-Feeding Comments Pt needs assistance with set up. Pt using L non dominant hand to feed self today. Rue/ hand too weak to use functional for eating this session. OT ADL-Grooming General Evaluation Grooming Ability Standby Assistance Moderate Assistance Areas Needing Assistance Combing/Brushing Hair Face Washing Comments OT Grooming Comments SBA for face washing, mod assist to reach back and R side of head for hair care OT ADL-Oral Care Comments Oral Care Comments did not occur this session OT ADL-Dressing General Eval Upper Body Dressing Ability Moderate Assistance Lower Body Dressing Ability Moderate Assistance Areas Needing Assistance Retrieving/Set-up of Clothing Pull-Over Shirt Underpants/Brief Pants/Shorts Socks Shoes Comments OT Dressing Comments total assist with R AFO OT ADL-Toileting General Evaluation Toileting Ability Standby Assistance Moderate Assistance Areas Needing Assistance Manage Clothing Perform Perineal Hygiene Devices Toileting Assistive Devices Commode Comments OT Toileting Comments SBA for pericare with L hand seated on BSC, mod assist with clothing management to get brief and pants up and down OT ADL-Bathing General Evaluation Bathing Ability Maximal Assistance Areas Needing Assistance Retrieving/Setting Up Items Wash/Dry Back Wash/Dry Perineal Area Wash/Dry Lower Extremities Devices Bathing Equipment Hand Held Shower Sprayer Shower Chair with Arms Grab Bars Comments OT Bathing Comments Pt needs total assist to wash hair, then max assist with bathing due to decreased RUE function and decreased balance wwith heavy use of grab bars when standing for lucinda area bathing. M6 OT- IP Functional Cognition Start: 04/05/18 15:44 Freq: Status: Active Protocol: Document 04/07/18 12:40 PJM (Rec: 04/07/18 16:29 PJM [id number]) Cognitive Factors Limiting Selfcare Function Cognitive Ability Level of Alertness Alert Patient Orientation Name Age Birthday Month Date Year Day of Week Place Situation Attention Span Ability Capable of Focused Attention Ability to Follow Commands Able to Follow One Step Commands Problem Solving Ability Needs Assist to Identify Solutions Executive Function Ability Unable to Filter Distractions Unable to Organize Plans Cognitive Comments Cognitive Assessment Comments Pt presents with decreased attention/concentration with significant difficulty filtering distractions. OT- Vision and Hearing OT- Vision Assessment Visual Acuity WFL Glasses All The Time Vision Assessment Comments Pt denies any blurred or double vision with this exacerbation. M7 OT- IP Mobility and Balance Start: 04/05/18 15:44 Freq: Status: Active Protocol: Document 04/07/18 12:40 PJM (Rec: 04/07/18 16:29 PJM [id number]) OT- Bed Mobility Assessment Rolling Type of Rolling Roll to Right Level of Assistance Standby Assistance Supine to Sit Supine to Sit Assist Standby Assistance Head of Bed Elevated Bedrails Sit to Supine Sit to Supine Assist Standby Assistance Scooting Scooting to Edge of Bed Standby Assistance OT-Transfer Assessment Sit to and From Stand Sit to and from Stand Minimal Assistance Transfers Transfer Ability Minimal Assistance Moderate Assistance Technique Transfer Destination Bedside Commode Shower Stall Transfer Technique Stand Step Pivot Devices Transfer Assistive Devices Gait Belt Front Wheeled Walker Comments Mobility Comments Pt needs min assist for transfer, mod assist to step over 1 threshold on shower stall with max verbal cues for technique with FWW. OT- Gait Assessment Gait Gait Assistance Required: Minimum Assistance Distance (Feet) 53 Assistive Devices Assistive Device Gait Belt Front Wheeled Walker Comments Gait Ability Comments see P.T. notes for details OT- Balance Assessment Sitting Balance and Reactions Static Sitting Balance Ability Good Dynamic Sitting Balance Ability Fair Standing Balance and Reactions Static Standing Balance Ability Fair Dynamic Standing Balance Ability Poor M8 OT- IP Objective Assessments Start: 04/05/18 15:44 Freq: Status: Active Protocol: Document 04/07/18 12:40 PJM (Rec: 04/07/18 16:29 PJM [id number]) OT Gross Range of Motion Upper Extremity Range of Motion Assessment Right Impaired OT Strength Upper Extremity Strength Assessment Right Impaired Shoulder R 2+/5 Elbow R 3-/5 Wrist R 3-/5 Hand R 3/5 Hand Crate Builder Strength Hand Dominance Right Comments Strength Comments RUE weaker today with pt having more trouble keeping it on handle of FWW. Pt unable to push off arm of chair with RUE today. OT- Coordination Assessment Comments Coordination Comments Pt not using R hand functionally today due to increased proximal weakness in shoulder and elbow. OT-Muscle Tone Assessment Muscle Tone WNL No Muscle Tone Location Right Type of Tone Hypotonicity Comments Muscle Tone Comments RUE remains hypotonic M9 OT- IP Assessment and Plan Start: 04/05/18 15:44 Freq: Status: Active Protocol: Document 04/07/18 12:40 PJM (Rec: 04/07/18 16:29 PJM [id number]) OT Summary Assessment and Plan Potential Rehabilitation Potential Good Summary OT Impairments Strength Balance Coordination Sensation Tone Functional Cognition Functional Mobility Self-Feeding Grooming Dressing Toileting Bathing Toilet Transfers Shower Transfers Progress Towards Goals Progressing Toward Goals Assessment Summary Despite RUE being weaker today, pt demonstrating increased participation in functional mobility, showering, dressing, grooming and toileting. Pt using non dominant L hand for all functional tasks. Good effort and participation with all tasks and pt very motivated to increase independence. Pt remains highly distractable and benefits from quieter environment. Will provide cognitive screening test. Pt is excellent candidate for acute in pt rehab services from OT standpoint. Goals Self-Feeding Goal Independent Grooming Goal Standby Assistance Dressing Goal Minimal Assistance Toileting Goal Standby Assistance Bathing Goal Minimal Assistance Toilet Transfer Goal Standby Assistance Shower Transfer Goal Contact Guard Assistance Patient/Caregiver Education Goal Demonstrate Energy Conservation and Pacing Caregiver Independent Assisting Patient OT-Other Goals Eating to be done with dominant R hand. Grooming to be done standing or seated at sink. Pt to use R hand 75+% of the time for self care tasks. Pt to verbalize understanding of 3 energy conservation and pacing techniques she can use at home. Days to Meet Goals 10 Frequency of Treatment Frequency Of Treatment Once a Day Treatment Plan OT Treatment Plan ADL Training Functional Cognition Training Functional Mobility Therapeutic Exercises Patient/Family Education Discharge Planning Discharge Recommendations OT Discharge Recommendations Acute Rehab Home Equipment Needs to be determined in next rehab setting pending progress
--- NOTE | 2018-04-07 14:15 | P.PN_ITS ---
Subjective Date Patient Seen: 04/07/18 Time Patient Seen: 14:07 Interval history: Follow-up on multiple sclerosis flare up Patient seen at bedside. States that steroid IV helps her throughout the day, however in the morning patient feels very weak and sleepy. No overnight events , no fevers/chills/nausea/vomiting. Patient is agreeable to acute rehab services, as recommended by therapy. Exam Vital Signs (past 8 hours): - 04/07/18 07:00 04/07/18 09:12 04/07/18 11:00 Temperature 97.9 F 98.7 F Pulse Rate 61 66 Respiratory Rate 16 17 Blood Pressure 142/88 H 126/78 Pulse Oximetry 97 97 100 Oxygen Delivery Method Room Air Oxygen Flow Rate 0 Narrative Exam Narrative: General: No acute distress, AAO x3 HEENT: PERRLA bilaterally Neck: Supple, no LAD CV: Regular rate rhythm, no murmurs or gallops Respiratory: CTA bilaterally no wheezing or crackles GI: Positive bowel sounds, no tenderness to palpation, no organomegaly Musculoskeletal: Normal range of motion Neuro: Right-sided weakness, stable Skin: No bruising or lesions Psych: Mood is appropriate Objective Labs Result Diagrams: 04/04/18 11:20 04/04/18 11:20 Assessment & Plan Plan: Assessment/Plan Narrative: 1. Exacerbation of multiple sclerosis -slightly improving -continue methylprednisolone 1000 mg daily today and tomorrow -PT/OT on board, recommend acute rehab, to which patient is amenable to. Pending placement to rehab -will switch clonazepam 2 bedtime only, as patient is too sleepy in the morning -will start patient on Dextroamphetamine 5 mg p.o. q.a.m. -will continue patient's home medications Tecfidera 2. Constipation -continue bowel regimen docusate, Bisocodyl and Senna 3. Restless leg syndrome - Stable - Monitor for now 4. Insomnia - Continue Clonazepam at Bedtime PRN Quality VTE Deep Vein Thrombosis/Pulmonary Embolism Present on Admission: No
--- NOTE | 2018-04-07 15:42 | PT.IPTN ---
Current Diagnoses Restless legs syndrome (04/04/18) Multiple sclerosis (04/04/18) Insomnia, unspecified (04/04/18) Constipation, unspecified (04/04/18) Physical Therapy Treatment Note M2 PT-IP Current Condition Start: 04/05/18 09:31 Freq: NEEDED Status: Active Protocol: Document 04/05/18 13:50 (Rec: 04/05/18 16:18 [id number]) Physical Therapy Current Condition Current Condition Evaluation Date 04/05/18 Treatment Diagnosis multiple sclerosis weakness; Generalized weakness; difficulty walking M3 PT-IP Subjective Start: 04/05/18 09:31 Freq: NEEDED Status: Active Protocol: Document 04/07/18 12:08 SA (Rec: 04/07/18 12:21 SA [id number]) Subjective Physical Therapy Visit Type Type Treatment Note Visit Start Time 11:34 Visit Stop Time 12:01 Total Visit Minutes 27 Number of ROLL OVER LOADER Visits 1 Physical Therapy Visit Comments Patient Comments Pt with family present and agreeable to have PT in late morning prior to shower with OT. Patient Goals Wants to be home with maximum independence. Therapy Pain Assessment Pain When Pain Assessed At Rest Pain Present Pain Present Denied Pain M4 PT-IP Mobility and Gait Start: 04/05/18 09:31 Freq: NEEDED Status: Active Protocol: Document 04/07/18 12:08 SA (Rec: 04/07/18 12:21 SA [id number]) PT-Bed Mobility Assessment Supine to Sit Supine to Sit Independent Sit to Supine Sit to Supine Independent Scooting Scooting to Edge of Bed Standby Assistance PT-Transfer Assessment Sit to and From Stand Sit to and from Stand Minimal Assistance Use of Upper Extremities Equipment Transfer Assistive Device Gait Belt Front Wheeled Walker Orthotic/Prosthetic Devices or Brace: No Transfers Transfer Destination Chair Transfer Technique Stand Step Pivot Transfer Ability Level of Assist Minimal Assistance Comments Mobility Comments Pt presents with poor awareness and control of RLE, cues for UE use/support during mobility and safety with use of FWW. Pt easily distracted, needs cues to focus on task and for safety awareness. Gait Assessment Gait Gait Assistance Required: Moderate Assistance Distance (Feet) 53 Able to Maintain Weight Bearing Status Yes During Gait Assistive Devices Assistive Device Gait Belt Front Wheeled Walker Orthotic/Prosthetic Devices or Brace: Yes Gait Deviations General Gait Pattern Ataxic Decreased Stride Length Decreased Feet Clearance Flexed Trunk Narrow Based Gait Wide Based Gait Factors Limiting Gait Function Factors Limiting Gait Function Abnormal Tonal Influences Decreased Activity Tolerance Decreased Strength Incoordination Poor Balance Poor Safety Awareness Comments Gait Comments Pt with improved WBing ability when usng R AFO. Education regarding the regular use of AFO for increased safety and quality of gait. Pt admits to being hesitant to use AFO as it looks wierd PT-Balance Assessment Balance Tests Austin Balance Test Score 56 which relates to a high Query Text:Score risk of fall. Comments Other Balance Tests/Deviations/Treatment 2 minute walk test at 53 feet : with use of FWW and WC follow, R AFO donned during test. Mean score for her age group for this test is 182 feet. Pt demonstrated fatigue and decreased R foot clearance by end of test. Functional Assessments Functional Tests 2 Minute Walk Test 53 feet Other Functional Tests Performed Continue to use AFO for WBing activity. M5 PT-IP Objective Assessments Start: 04/05/18 09:31 Freq: NEEDED Status: Active Protocol: Document 04/05/18 13:50 (Rec: 04/05/18 16:18 [id number]) Orientation Orientation/Cognition Level of Alertness Alert Orientation Name Age Birthday Month Date Year Day of Week Place Situation Language Function Ability No Deficits Noted Safety Awareness Decreased Safety Awareness Strength Lower Extremity Strength Assessment Bilaterally Impaired Comments Strength Comments RLE 3/5. LLE 4/5 Other Assessments Other Other Assessments Post session BP 119/70 HR 93 M6 PT-IP Treatment Start: 04/05/18 09:31 Freq: NEEDED Status: Active Protocol: Document 04/07/18 12:08 (Rec: 04/07/18 12:21 [id number]) Physical Therapy Treatment Other Treatments Other Treatment Performed Pt educated on safety with ambualtion and use of FWW and UEs during transfers to reduce risk of falls. Pt easily distracted during mobility tasks. M7 PT-IP Assessment and Plan Start: 04/05/18 09:31 Freq: NEEDED Status: Active Protocol: Document 04/07/18 12:08 (Rec: 04/07/18 12:21 [id number]) PT Summary Assessment and Plan Potential Rehabilitation Potential Good Summary Impairments Strength Balance Coordination Tone Bed Mobility Transfers Gait Activity Tolerance Goals Bed Mobility Goal Independent Frequency of Treatment Frequency Of Treatment Once a Day Recommendations To Nursing Amount of Assist Needed 1 Person Assist Discharge Recommendations PT Discharge Recommendations Acute Rehab Equipment Needed for Home Before FWW Discharge
--- NOTE | 2018-04-07 15:47 | CM.DPC ---
DCP/continued: Reviewed chart. discussed case in AM rounds. Per MD, patient requiring approximately 2-3 more days of IV steroids prior to d/c. notified that referral made to [facility] in [place]. Per MD, patient accepted at inpatient rehab she can discharge anytime. Multiple attempts today to reach someone at [facility]. Finally, spoke with Pricilla chris# [phone] she reports that they have received fax and are currently reviewing information. Currently, [facility] inpatient [facility]hab does not have bed on or Thursday of this week. Possible earliest bed available on 04-10. Met with patient to update her on plan. Patient aware that [facility] currently reviewing for admit, HEAD PUMPER requested [facility] call HEAD PUMPER line with whether or not patient candidate for their facility. Patient provided with Medicare SNF list for second choice. P: Pending. Anticipate SNF vs. Inpatient Acute Rehab. RUFUS Mancia Discharge Planning/Care Management CM Discharge Assessment Start: 04/05/18 13:26 Freq: Status: Active Protocol: Document 04/05/18 13:26 BF (Rec: 04/05/18 13:28 BF [id number]) Discharge Planning Assessment Assigned Tile Classifier Brooke, MSW Advance Directives? No History Provided By Patient Medical Record Has Patient been admitted in last 30 No days? Prior Living Arrangements Apartment/Condo Household Members spouse children Comment Lives with spouse and two children Independent with ADL's Yes Is patient alert and oriented? Yes Needs Assistance With Managing Medications Home Chores / Shopping Caregiver for Another Yes: 2 children at home Barriers to Discharge No Discharge Plan Home Transportation Arrangement Likely family can provide transport at d/c. Additional Comment Waiting for PT/OT eval and recommendations. Review Status In Process Please Provide Date Initial DC 04/05/18 Assessment Was Performed Next Review Type Continued Stay Review Document 04/07/18 11:16 KJS (Rec: 04/07/18 11:16 KJS [id number]) Discharge Planning Assessment Assigned Tile ClassifierRUFUS Galarza Advance Directives? No History Provided By Patient Medical Record Has Patient been admitted in last 30 No days? Prior Living Arrangements Apartment/Condo Household Members children Comment Lives with spouse and two children Independent with ADL's Yes Is patient alert and oriented? Yes Needs Assistance With Managing Medications Home Chores / Shopping Caregiver for Another Yes: 2 children at home Barriers to Discharge No Discharge Plan Home Transportation Arrangement Likely family can provide transport at d/c. Additional Comment Waiting for PT/OT eval and recommendations. Review Status In Process Please Provide Date Initial DC 04/05/18 Assessment Was Performed Next Review Type Continued Stay Review Document 04/07/18 15:45 KJS (Rec: 04/07/18 15:46 KJS [id number]) Discharge Planning Assessment Assigned Tile Classifier RUFUS Garcia Advance Directives? No History Provided By Patient Medical Record Has Patient been admitted in last 30 No days? Prior Living Arrangements Apartment/Condo Household Members children Comment Lives with spouse and two children Independent with ADL's Yes Is patient alert and oriented? Yes Needs Assistance With Managing Medications Home Chores / Shopping Caregiver for Another Yes: 2 children at home Barriers to Discharge No Discharge Plan Home Transportation Arrangement Likely family can provide transport at d/c. Additional Comment Waiting for PT/OT eval and recommendations. Review Status In Process Please Provide Date Initial DC 04/05/18 Assessment Was Performed Next Review Type Continued Stay Review
[2018-04-07] MEDS: OXYCODONE/ACETAMINOPHEN 5/325 TABLET 1 TAB PO (16:11)
--- NOTE | 2018-04-07 17:10 | ST.IPTN ---
Care Team Visit Care Team Role Provider Type KALIE Chaparro Primary Care Provider Non-Staff Address: [address] [facility], [place], [address] Phone: Fax: Kelvin Strickland MD Family Provider Non-Staff Address: [address] , [place], [address] Annie Wilson MD Emergency Provider Physician Address: [address] [place] [address], [id number] [address] Matty Napier MD Admit Provider Physician Attending Provider Address: [address] [place] [address], [phone] ASSISTANT PROFESSOR OF FORESTRY Treatment Note ASSISTANT PROFESSOR OF FORESTRY Treatment Note Start: 04/05/18 12:53 Freq: Status: Active Protocol: Document 04/07/18 16:47 KENNETH (Rec: 04/07/18 17:08 [id number]) Speech Pathology Treatment Note Session Time Visit Start Time 16:00 Visit Stop Time 16:45 Total Visit Minutes 45 Setting Treatment Setting Acute Care Visit Type Note Type Treatment Note Next Note Type Next Note Type Treatment Note General Information General Information 36-year-old female with MS recently exaccerbated and being treated with steroids. Pt is anticipating dc preferably to inpatient rehab, otherwise SNF. Pt passed bedside swallow evaluation yesterday and is tolerating regular diet and thin liquids. Cognitive evaluation was also administered yesterday with results indicating mild impairment in areas of attention, executive function, and visuospatial skills. Per pt report, family sometimes has difficulty understanding the pt's speech, which they describe as sounding slurred, as if she were drunk. Subjective Identification Type Name ID Card Identification Reconciled With Medical Record Observations/Patient Presentation The pt was awake sitting up in bed. She had just received steroid medication prior to start of session. She c/o soreness at a tooth on her upper left side, which she thought may be abscessed. She stated that she avoids chewing on the left side but is able to choose soft foods from the hospital menu and declined offer to modify diet to mechanical soft to ease mastication. The pt exhibited clear speech without symptoms of dysarthria . She reported symptoms typically occur in the morning or evening when she is most tired, as noted by her family and boyfriend. She stated that she is unaware of symptoms that others notice. The pt also expressed concern that she is unable to sing as she used to, impacted by difficulty with respiratory endurance. She stated that she doesn't have the gumption to sing. She expressed an interest in possibly resuming singing lessons that she has had in past, which was encouraged by this ASSISTANT PROFESSOR OF FORESTRY. Chief Complaint(s) Speech Cognitive Rehab Expectation/Goals: Patient Goals To improve cognitive function, speech articulation, and breath support Patient Knowledge/Awareness of ASSISTANT PROFESSOR OF FORESTRY Role Excellent in Treatment Objective Short Term Goals Adilene will complete mental manipulation tasks with 80% accuracy. Adilene will participate in a speech evaluation. Adilene will complete divided attention tasks requiring only one redirection. Principal Investigator Goals Adilene will use speech strategies when exhibiting symptoms of dysarthria to increase speech intelligibility. Adilene will demonstrate understanding of HEP tasks to increase cognitive communication skills. Treatment Activities Education provided to pt RE role of Speech Pathology in rehabilitation process. HEP tasks were provided to her in form of written information ( dysarthria communication strategies) and cognitive exercises (mental manipulation , attention, etc.). The pt verbalized understanding and completed examples of each task with 100% accuracy. She exhibited greatest challenge in repeating word lists of 4 items in an alternative sequence. Feedback was provided in strategies to aid in task completion. Trained pt in oral motor and respiratory muscle stregth exercises. The pt returned demonstration and verbalized understanding. Exercise instructions were provided in writing. Assessment Patient Response to Treatment Good Rehab Potential Excellent Impairments Identified Cognitive-Linguistic Skills Dysarthria Dysphagia Assessment of Improvement During the session, the pt presented with motor speech WNL. She was responsive to recommended strategies to increase speech intelligibility at times when she is fatigued and dysarthria symptoms may appear. She was also receptive to training in oral motor exercises and cognitive linguistic exercises and demonstrated ability to perform all. She completed mental manipulation tasks of 3 components with ease but required extended time and occasional repetition with tasks of 4 components. The pt is an excellent candidate for inpatient rehab, which is highly recommended. Reviewed with Patient Goals Progress Being Made Home Exercise Program Patient/Caregiver Understanding Excellent Plan Therapeutic Contents Client Education Cognitive-Linguistic Training Home Exercise Program Intelligibility Oral Motor Training Swallowing/Feeding Provided Patient/Caregiver Instruction Home Exercise Program Plan of Care Questions/Concerns Therapy Recommendations Continue with Current Program Recommended Exercises/ Activities
[2018-04-07] MEDS: TECFIDERA 240MG 1 EACH PO (21:27)
[2018-04-07] MEDS: MELATONIN 3 MG TABLET 6 MG PO (21:28)
[2018-04-08] VITALS (8 sets, daily range): BP systolic 126–149; BP diastolic 64–84; PULSE 45–58; RESP 15–18; TEMP 36.7–37.2; O2SAT 93–98
[2018-04-08 05:51] LABS: Add Manual Diff / Slide Review NO; Basophils Percent Auto 0.4 % (0-2); Hemoglobin 13.3 g/dL (12.0-16.0); Lymphocytes Percent Auto 13.9 % (25-40); Mean Corpuscular HGB Conc 33.2 % (30-36); Mean Corpuscular Volume 93.4 fL (80-100); Monocytes Percent Auto 10.2 % (3-14); Neutrophils Absolute Auto 11200 /uL (3000-5900); Neutrophils Percent Auto 75.5 % (50-75); Platelet Count 313 X10^3/uL (150-400); Red Blood Cell Count 4.28 X10^6/uL (4.0-5.2); Red Cell Distribution Width 13.7 % (11.6-14.8); White Blood Cell Count 14.8 X10^3/uL (4.5-11.0)
[2018-04-08 06:00] LABS: Blood Urea Nitrogen 14 mg/dL (7-17); Calcium 9.4 mg/dL (8.4-10.2); Carbon Dioxide 28 mmol/L (22-32); Chloride 102 mmol/L (98-107); Estimated Glomerular Filt Rate > 60.0 mL/min (>60); Glucose 93 mg/dL (70-100); HEMOLYSIS < 15 (0-50); Potassium 4.3 mmol/L (3.4-5.1); Sodium 142 mmol/L (137-145)
[2018-04-08] MEDS: SENNOSIDES 8.6 MG TABLET 17.2 MG PO (09:35)
[2018-04-08] MEDS: PARoxetine 10 MG TABLET PO (09:35)
[2018-04-08] MEDS: DOCUSATE 100 MG CAPSULE 200 MG PO ×2 (09:35→20:27)
[2018-04-08] MEDS: TECFIDERA 240MG 1 EACH PO ×2 (09:35→20:28)
[2018-04-08] MEDS: ENOXAPARIN 40 MG/0.4 ML SYRINGE SUBCUT (09:35)
[2018-04-08] MEDS: DEXTROAMPHETAMINE 5 MG TABLET PO (09:42)
[2018-04-08] MEDS: SODIUM CHLORIDE 0.9% FLUSH 10 ML IV ×2 (09:42→20:28)
[2018-04-08] MEDS: methylPREDNISolone 1,000 MG in SODIUM CHLORIDE 0.9% 250 ML 258 ML IV (09:54)
--- NOTE | 2018-04-08 11:29 | PM.PN.1 ---
Subjective Date Patient Seen: 04/08/18 Time Patient Seen: 11:30 Interval history: Follow-up on multiple sclerosis exacerbation Patient seen at bedside. She says she is feeling weak today still. This morning she is complaining of gum swelling and pain in the left upper region. Patient states she has had multiple episodes of abscess formation in that region, treated with antibiotics in the past. No other overnight events. Patient is more alert with initiation of dextroamphetamine 5 mg p.o. daily. Exam Vital Signs (past 8 hours): - 04/08/18 05:56 04/08/18 07:30 Temperature 98.5 F 98.0 F Pulse Rate 48 L 45 L Respiratory Rate 18 16 Blood Pressure 134/82 134/74 Pulse Oximetry 97 98 Oxygen Delivery Method Room Air Oxygen Flow Rate 0 Narrative Exam Narrative: General: No acute distress, AAO x3 HEENT: PERRLA bilaterally. Swelling noted near L upper 2nd molar tooth, but no erythema or drainage Neck: Supple, no LAD CV: Regular rate rhythm, no murmurs or gallops Respiratory: CTA bilaterally no wheezing or crackles GI: Positive bowel sounds, no tenderness to palpation, no organomegaly Musculoskeletal: Normal range of motion Neuro: Right-sided weakness, stable Skin: No bruising or lesions Psych: Mood is appropriate Objective Labs Result Diagrams: 04/08/18 05:24 04/08/18 05:24 Labs: Laboratory Results - last 24 hr 04/08/18 04/08/18 05:24 05:24 WBC 14.8 H RBC 4.28 Hgb 13.3 Hct 40.0 MCV 93.4 MCH 31.0 MCHC 33.2 RDW 13.7 Plt Count 313 Neut % (Auto) 75.5 H Lymph % (Auto) 13.9 L [place] % (Auto) 10.2 Eos % (Auto) 0.0 L Baso % (Auto) 0.4 Neut # (Auto) 03900 H Sodium 142 Potassium 4.3 Chloride 102 Carbon Dioxide 28 BUN 14 Creatinine 0.70 Estimated GFR > 60.0 BUN/Creatinine Ratio 20.0 Glucose 93 Calcium 9.4 Assessment & Plan Plan: Assessment/Plan Narrative: 1. Exacerbation of multiple sclerosis -slightly improving -continue methylprednisolone 1000 mg daily. Last dose today -PT/OT on board, recommend acute rehab, to which patient is amenable to. Pending placement to rehab -will continue patient's home medications Tecfidera 2. L upper gum abscess - Will start Augmentin 875-125mg PO BID x7 days - Monitor for improvment 3. Constipation -continue bowel regimen docusate, Bisocodyl and Senna 4. Restless leg syndrome - Stable - Monitor for now 5. Insomnia - Continue Clonazepam at Bedtime PRN Quality VTE Deep Vein Thrombosis/Pulmonary Embolism Present on Admission: No
[2018-04-08] MEDS: AMOXICILLIN/CLAV 875/125 MG 1 TAB PO ×2 (11:33→20:27)
--- NOTE | 2018-04-08 11:35 | P.PN_ITS ---
Subjective Date Patient Seen: 04/08/18 Time Patient Seen: 11:30 Interval history: Follow-up on multiple sclerosis exacerbation Patient seen at bedside. She says she is feeling weak today still. This morning she is complaining of gum swelling and pain in the left upper region. Patient states she has had multiple episodes of abscess formation in that region , treated with antibiotics in the past. No other overnight events. Patient is more alert with initiation of dextroamphetamine 5 mg p.o. daily. Exam Vital Signs (past 8 hours): - 04/08/18 05:56 04/08/18 07:30 Temperature 98.5 F 98.0 F Pulse Rate 48 L 45 L Respiratory Rate 18 16 Blood Pressure 134/82 134/74 Pulse Oximetry 97 98 Oxygen Delivery Method Room Air Oxygen Flow Rate 0 Narrative Exam Narrative: General: No acute distress, AAO x3 HEENT: PERRLA bilaterally. Swelling noted near L upper 2nd molar tooth, but no erythema or drainage Neck: Supple, no LAD CV: Regular rate rhythm, no murmurs or gallops Respiratory: CTA bilaterally no wheezing or crackles GI: Positive bowel sounds, no tenderness to palpation, no organomegaly Musculoskeletal: Normal range of motion Neuro: Right-sided weakness, stable Skin: No bruising or lesions Psych: Mood is appropriate Objective Labs Result Diagrams: 04/08/18 05:24 04/08/18 05:24 Labs: Laboratory Results - last 24 hr 04/08/18 04/08/18 05:24 05:24 WBC 14.8 H RBC 4.28 Hgb 13.3 Hct 40.0 MCV 93.4 MCH 31.0 MCHC 33.2 RDW 13.7 Plt Count 313 Neut % (Auto) 75.5 H Lymph % (Auto) 13.9 L [place] % (Auto) 10.2 Eos % (Auto) 0.0 L Baso % (Auto) 0.4 Neut # (Auto) 77604 H Sodium 142 Potassium 4.3 Chloride 102 Carbon Dioxide 28 BUN 14 Creatinine 0.70 Estimated GFR > 60.0 BUN/Creatinine Ratio 20.0 Glucose 93 Calcium 9.4 Assessment & Plan Plan: Assessment/Plan Narrative: 1. Exacerbation of multiple sclerosis -slightly improving -continue methylprednisolone 1000 mg daily. Last dose today -PT/OT on board, recommend acute rehab, to which patient is amenable to. Pending placement to rehab -will continue patient's home medications Tecfidera 2. L upper gum abscess - Will start Augmentin 875-125mg PO BID x7 days - Monitor for improvment 3. Constipation -continue bowel regimen docusate, Bisocodyl and Senna 4. Restless leg syndrome - Stable - Monitor for now 5. Insomnia - Continue Clonazepam at Bedtime PRN Quality VTE Deep Vein Thrombosis/Pulmonary Embolism Present on Admission: No
--- NOTE | 2018-04-08 12:03 | PT.IPTN ---
Current Diagnoses Restless legs syndrome (04/04/18) Multiple sclerosis (04/04/18) Insomnia, unspecified (04/04/18) Constipation, unspecified (04/04/18) Physical Therapy Treatment Note M2 PT-IP Current Condition Start: 04/05/18 09:31 Freq: NEEDED Status: Active Protocol: Document 04/05/18 13:50 (Rec: 04/05/18 16:18 [id number]) Physical Therapy Current Condition Current Condition Evaluation Date 04/05/18 Treatment Diagnosis multiple sclerosis weakness; Generalized weakness; difficulty walking M3 PT-IP Subjective Start: 04/05/18 09:31 Freq: NEEDED Status: Active Protocol: Document 04/08/18 10:30 AMB (Rec: 04/08/18 12:03 AMB [id number]) Subjective Physical Therapy Visit Type Type Treatment Note Visit Start Time 10:30 Visit Stop Time 11:05 Total Visit Minutes 35 Number of SYSTEMS SOFTWARE ENGINEER Visits 0 Physical Therapy Visit Comments Patient Comments Pt with fiance present. States she feels weaker today. Worried that she is getting worse. Therapy Pain Assessment Pain When Pain Assessed At Rest Pain Present Pain Present Denied Pain M4 PT-IP Mobility and Gait Start: 04/05/18 09:31 Freq: NEEDED Status: Active Protocol: Document 04/08/18 10:30 AMB (Rec: 04/08/18 12:03 AMB [id number]) PT-Bed Mobility Assessment Supine to Sit Supine to Sit Independent Sit to Supine Sit to Supine Independent PT-Transfer Assessment Sit to and From Stand Sit to and from Stand Contact Guard Assistance Use of Upper Extremities Equipment Transfer Assistive Device Gait Belt Front Wheeled Walker Orthotic/Prosthetic Devices or Brace: No Transfers Transfer Destination Bedside Commode Transfer Technique Stand Pivot Transfer Ability Level of Assist Contact Guard Assistance Gait Assessment Gait Gait Assistance Required: Minimum Assistance Distance (Feet) 30 Able to Maintain Weight Bearing Status Yes During Gait Gait Deviations General Gait Pattern Ataxic Decreased Stride Length Decreased Feet Clearance Flexed Trunk Narrow Based Gait Wide Based Gait Factors Limiting Gait Function Factors Limiting Gait Function Abnormal Tonal Influences Decreased Activity Tolerance Decreased Strength Incoordination Poor Balance Poor Safety Awareness Comments Gait Comments Continues to need R AFO, but even with AFO has difficulty advancing R LE with fatigue. Reduced light tight sensation in feet bilaterally, although pt reports reduced proprioception only in the left. M5 PT-IP Objective Assessments Start: 04/05/18 09:31 Freq: NEEDED Status: Active Protocol: Document 04/05/18 13:50 (Rec: 04/05/18 16:18 [id number]) Orientation Orientation/Cognition Level of Alertness Alert Orientation Name Age Birthday Month Date Year Day of Week Place Situation Language Function Ability No Deficits Noted Safety Awareness Decreased Safety Awareness Strength Lower Extremity Strength Assessment Bilaterally Impaired Comments Strength Comments RLE 3/5. LLE 4/5 Other Assessments Other Other Assessments Post session BP 119/70 HR 93 M6 PT-IP Treatment Start: 04/05/18 09:31 Freq: NEEDED Status: Active Protocol: Document 04/08/18 10:30 AMB (Rec: 04/08/18 12:03 AMB [id number]) Physical Therapy Treatment Exercises Exercises Ankle Pumps Quad Sets Heel Slides Other Treatments Other Treatment Performed Pt educated in options for exercise if she is getting more fatigue. M7 PT-IP Assessment and Plan Start: 04/05/18 09:31 Freq: NEEDED Status: Active Protocol: Document 04/08/18 10:30 AMB (Rec: 04/08/18 12:03 AMB [id number]) PT Summary Assessment and Plan Summary Assessment Summary Pt with more fatigue today, but was able to tolerate gait without a LOB (did not walk as far). Continue to encourage to wear AFO. Also encouraged pt in energy conservation as needed. Goals Bed Mobility Goal Independent Transfer Goal Contact Guard Assistance Cane Front Wheeled Walker Four Wheeled Walker Gait Goal Contact Guard Assistance Cane Front Wheel Walker Four Wheel Walker Gait Distance 150 Other Goals 150 ft ambulation CGA with least restrictive AD. Up/down 20 steps B rails minAx1. Frequency of Treatment Frequency Of Treatment Once a Day Treatment Plan Physical Therapy Treatment Plan Bed Mobility Training Transfer Training Gait Training Therapeutic Exercise Balance Retraining Discharge Planning Neuromuscular Re-ed Coordination Retraining Manual Therapy Other Recommendations and Next Treatment Progress gait/ balance/ HEP Focus Recommendations To Nursing Amount of Assist Needed 1 Person Assist Discharge Recommendations PT Discharge Recommendations Acute Rehab Equipment Needed for Home Before FWW Discharge
[2018-04-08] MEDS: BISACODYL 10 MG SUPP PR (14:10)
--- NOTE | 2018-04-08 14:35 | PC.NURSE ---
CAREER DEVELOPMENT COUNSELOR note: pt had small white round mucus like sediment in BSC.
[2018-04-08] MEDS: OXYCODONE/ACETAMINOPHEN 5/325 TABLET 1 TAB PO (17:42)
[2018-04-08] MEDS: clonazePAM 0.5 MG TABLET 1 MG PO (20:27)
[2018-04-08] MEDS: MELATONIN 3 MG TABLET 6 MG PO (20:28)
[2018-04-09 00:16] VITALS: BP 143/82; PULSE 51; RESP 16; TEMP 36.6; O2SAT 97
[2018-04-09 00:17] VITALS: O2SAT 97
[2018-04-09 05:41] LABS: Add Manual Diff / Slide Review NO; Basophils Percent Auto 0.1 % (0-2); Hemoglobin 13.8 g/dL (12.0-16.0); Lymphocytes Percent Auto 16.7 % (25-40); Mean Corpuscular HGB Conc 32.9 % (30-36); Mean Corpuscular Hemoglobin 30.5 PG (26-34); Mean Corpuscular Volume 92.8 fL (80-100); Monocytes Percent Auto 12.6 % (3-14); Neutrophils Absolute Auto 10000 /uL (3000-5900); Neutrophils Percent Auto 70.6 % (50-75); Platelet Count 324 X10^3/uL (150-400); Red Blood Cell Count 4.53 X10^6/uL (4.0-5.2); Red Cell Distribution Width 13.8 % (11.6-14.8); White Blood Cell Count 14.2 X10^3/uL (4.5-11.0)
[2018-04-09 05:47] LABS: BUN Creatinine Ratio 22.9 (6-22); Blood Urea Nitrogen 16 mg/dL (7-17); Calcium 9.2 mg/dL (8.4-10.2); Carbon Dioxide 29 mmol/L (22-32); Chloride 101 mmol/L (98-107); Estimated Glomerular Filt Rate > 60.0 mL/min (>60); Glucose 97 mg/dL (70-100); HEMOLYSIS < 15 (0-50); Potassium 3.8 mmol/L (3.4-5.1); Sodium 140 mmol/L (137-145)
[2018-04-09 05:57] VITALS: BP 144/75; PULSE 55; RESP 16; TEMP 37.1; O2SAT 97
[2018-04-09 09:00] VITALS: BP 127/72; PULSE 54; RESP 16; TEMP 36.7; O2SAT 96
[2018-04-09] MEDS: TECFIDERA 240MG 1 EACH PO (09:28)
[2018-04-09] MEDS: DEXTROAMPHETAMINE 5 MG TABLET PO (09:28)
[2018-04-09] MEDS: PARoxetine 10 MG TABLET PO (09:28)
[2018-04-09] MEDS: DOCUSATE 100 MG CAPSULE 200 MG PO (09:29)
[2018-04-09] MEDS: ENOXAPARIN 40 MG/0.4 ML SYRINGE SUBCUT (09:29)
[2018-04-09] MEDS: AMOXICILLIN/CLAV 875/125 MG 1 TAB PO (09:29)
[2018-04-09] MEDS: SENNOSIDES 8.6 MG TABLET 17.2 MG PO (09:31)
[2018-04-09] MEDS: SODIUM CHLORIDE 0.9% FLUSH 10 ML IV (09:32)
--- NOTE | 2018-04-09 11:22 | OT.IP.TRT ---
Current Diagnoses Restless legs syndrome (04/04/18) Multiple sclerosis (04/04/18) Insomnia, unspecified (04/04/18) Constipation, unspecified (04/04/18) Occupational Therapy Treatment Note M2 OT-IP Current Condition Start: 04/05/18 15:44 Freq: Status: Active Protocol: Document 04/06/18 12:20 PJM (Rec: 04/06/18 14:36 PJM [id number]) Occupational Therapy Current Condition Current Condition Evaluation Date 04/06/18 Treatment Diagnosis decreased self care/mobility due to second MS exacerbation in 2 months Post Operative Precautions Other Precautions fall risk, pt fell last night trying to get up to bathroom; avoid over fatigue, pt on high dose steroids x 5 days M3 OT- IP Subjective and Pain Start: 04/05/18 15:44 Freq: Status: Active Protocol: Document 04/09/18 11:22 PJM (Rec: 04/09/18 11:43 PJ [id number]) OT- Subjective Occupational Therapy Visit Type Type Treatment Note Visit Start Time 10:41 Visit Stop Time 11:20 Total Visit Minutes 39 Notes Pt's mother observing this session. Occupational Therapy Visit Comments Patient Comments I really need to have a bowel movement. Patient/Caregiver Goals to get back to being independent in her own apartment OT Pain Assessment Pain When Pain Assessed After Treatment Pain Present Pain Present Denied Pain M4 OT- IP ADL's Start: 04/05/18 15:44 Freq: Status: Active Protocol: Document 04/09/18 11:22 PJM (Rec: 04/09/18 11:43 PJ [id number]) OT ADL-Grooming General Evaluation Grooming Ability Minimal Assistance Areas Needing Assistance Applying Deodorant Combing/Brushing Hair Comments OT Grooming Comments Pt min assist applying deodorant under L arm with weaker R hand. Min assist to brush hair on R side seated in chair. OT ADL-Dressing General Eval Upper Body Dressing Ability Moderate Assistance Lower Body Dressing Ability Moderate Assistance Areas Needing Assistance Retrieving/Set-up of Clothing Pull-Over Shirt Underpants/Brief Pants/Shorts Socks Shoes Comments OT Dressing Comments Pt needs mod assist to don shirt to pull down front and back, and to pull on L sleeve with weaker R hand, due to tight fit. Pt needs mod assist with socks to start over toe, and total assist with R AFO. Pt SBA to get pants over feet today, then mod assist to pull them over hips while standing with FWW. OT ADL-Bathing Bathing Type Bathing Type Shower General Evaluation Bathing Ability Moderate Assistance Areas Needing Assistance Retrieving/Setting Up Items Wash/Dry Back Wash/Dry Perineal Area Wash/Dry Lower Extremities Devices Bathing Equipment Hand Held Shower Sprayer Shower Chair without Arms Grab Bars Comments OT Bathing Comments Pt able to to wash hair today, but still needs assist to rinse.Pt able to do more bathing and beginning to use R hand to assist with bathing L UE. M6 OT- IP Functional Cognition Start: 04/05/18 15:44 Freq: Status: Active Protocol: Document 04/09/18 11:22 PJ (Rec: 04/09/18 11:43 [facility] [id number]) Cognitive Factors Limiting Selfcare Function Cognitive Ability Level of Alertness Drowsy Patient Orientation Name Age Birthday Month Date Year Day of Week Place Situation Attention Span Ability Capable of Focused Attention Ability to Follow Commands Able to Follow One Step Commands Problem Solving Ability Needs Assist to Identify Solutions Executive Function Ability Unable to Filter Distractions Unable to Organize Plans Cognitive Comments Cognitive Assessment Comments Pt still distractable and does better in lower stim environment. M7 OT- IP Mobility and Balance Start: 04/05/18 15:44 Freq: Status: Active Protocol: Document 04/09/18 11:22 PJ (Rec: 04/09/18 11:43 [facility] [id number]) OT-Transfer Assessment Sit to and From Stand Sit to and from Stand Contact Guard Assistance Transfers Transfer Ability Minimal Assistance Technique Transfer Destination Chair Shower Stall Devices Transfer Assistive Devices Gait Belt Front Wheeled Walker Comments Mobility Comments Pt still needs close CGA to min assist with mobility and transfers with mod verbal cues for technique. Pt does best pushing off chair ar with stronger LUE and needs verbal cuses and min assist to control descent to chair when fatigued. OT- Gait Assessment Gait Gait Assistance Required: Contact Guard Assist Distance (Feet) 20 Assistive Devices Assistive Device Gait Belt Front Wheeled Walker Comments Gait Ability Comments Pt needs CGA, does much better with R AFO in place. OT- Balance Assessment Sitting Balance and Reactions Static Sitting Balance Ability Good Dynamic Sitting Balance Ability Fair Standing Balance and Reactions Static Standing Balance Ability Fair Dynamic Standing Balance Ability Poor M8 OT- IP Objective Assessments Start: 04/05/18 15:44 Freq: Status: Active Protocol: Document 04/09/18 11:22 PJ (Rec: 04/09/18 11:43 [facility] [id number]) OT Strength Upper Extremity Strength Shoulder R 3-/5 Elbow R 3/5 Wrist R 3+/5 Hand R 3+/5 Hand Health And Wellness Coordinator Strength Hand Dominance Right Comments Strength Comments Pt making good daily progress with better strength in RUE today compared to last session on 04/07. OT- Coordination Assessment Upper Extremity Finger to Nose Test Right UE Impaired Finger Tapping Test Right UE Impaired Comments Coordination Comments Pt able to use R hand as assist with self care tasks about 20% of the time with mod verbal cues to initiate this. Mild RUE gross motor ataxia noted. OT-Muscle Tone Assessment Muscle Tone WNL No Muscle Tone Location Right Type of Tone Hypotonicity Manifestation of Tone Ataxia Comments Muscle Tone Comments above comments re: RUE OT Sensation Assessment Comments Summary Comments Pt continues to have numbness in R hand in glove distribution and in L fingertips. Edema Edema Absent M9 OT- IP Assessment and Plan Start: 04/05/18 15:44 Freq: Status: Active Protocol: Document 04/09/18 11:22 PJ (Rec: 04/09/18 11:43 [facility] [id number]) OT Summary Assessment and Plan Potential Rehabilitation Potential Excellent Summary Assessment Summary Pt making good daily progress with increasing independence today with seated shower and upper/lower body dressing. Pt able to use R hand as assist with self care tasks about 20% of the time with mod verbal cues to initiate this. Mild RUE gross motor ataxia noted. Pt continues to have decreased attention/concentration and needs verbal cues to redirect to task at times. Per S.T. evjohn pt does had min cog deficits and would benefit from further speech therapy. Frequency of Treatment Frequency Of Treatment Once a Day Treatment Plan OT Treatment Plan ADL Training Functional Cognition Training Functional Mobility Therapeutic Exercises Patient/Family Education Discharge Planning Discharge Recommendations OT Discharge Recommendations Acute Rehab Home Equipment Needs to be determined in next rehab setting pending progress
--- NOTE | 2018-04-09 11:46 | P.DS_ITS ---
History of Present Illness Date Patient Seen: 04/09/18 Time Patient Seen: 11:45 Chief complaint: Weak legs since Th; unable to walk Narrative: 36-year-old female who has had multiple sclerosis since the age of 19. An episode of mono seems to have brought it on. She follows with Dr. Strickland in [place]. The last 5 days she has had progressive weakness of both legs and of the right hand. This is similar to her previous flares. The last time she was on IV Solu-Medrol was for a flare back in October, treated with 5 days of Solu-Medrol. She is being admitted as she is not able to care for herself, with this severe leg weakness. She consistently responds to IV Solu- Medrol although the effect has been dropping. She normally takes Tecfidera for the multiple sclerosis. Other than the weakness the only complaint she has is of constipation. She lives at home with her and 2 children ages 9 and 13. Her primary care is with [facility]. She has no past surgical or other past medical history. Discharge Providers Date of admission: 04/04/18 14:08 Primary care physician: KALIE Chaparro Consults: 04/04/18 15:46 Consult to Occupational Therapy Evaluate & Treat Comment: Physician Instructions: Evaluate and treat Consult to Physical Therapy Evaluate & Treat Comment: Physician Instructions: Evaluate and Treat 04/04/18 16:12 Consult to Plant Maintenance Worker Routine Comment: Would like to be set up with a walker for home 04/04/18 22:50 Consult to Speech Therapy Evaluate & Treat Comment: concern for dysphagia Physician Instructions: Evaluate and treat 04/05/18 13:08 Consult to Physical Therapy Evaluate & Treat Comment: Physician Instructions: Evaluate and Treat 04/06/18 12:27 Consult to Speech Therapy Evaluate & Treat Comment: Physician Instructions: Evaluate and treat Discharge provider: Stacie Deleon MD Discharge Date: 04/09/18 Summary Hospital Course: Patient was admitted for acute exacerbation of multiple sclerosis. She was started on IV Solu-Medrol 1000 mg Q 24 hr, and received total of 5 doses. After every infusion, patient weakness would improve and she would get stronger, however on the next day prior to 2nd dose of infusion patient was back to being very weak. Nevertheless, over the 5 day course she did note mild improvement in her symptoms. Patient also complained of constipation on admission, for which she was started on senna by socket ill and Colace regimen. Patient was seen by PT/OT who recommended acute inpatient rehab , and patient was accepted at [facility] rehab. On 07/07/2017 patient brought to my attention of swelling and tenderness near her left upper molar tooth region. Patient was started on Augmentin p.o. b.i.d. 7 day course for a tooth abscess. Patient will be going to [facility] acute rehab today, with instructions to follow up with her neurologist regarding continuation of her multiple sclerosis home medication regimen as well as addition other therapy, given patient's weak response to steroids. She is also to follow up with her dentist regarding the tooth abscess. Status at Discharge Functional status at discharge: wheelchair bound Overall status at discharge: patient is not back to baseline Time Spent with Patient Less than 30 minutes Exam Vital Signs (past 8 hours): - 04/09/18 05:57 04/09/18 09:00 Temperature 98.8 F 98.1 F Pulse Rate 55 L 54 L Respiratory Rate 16 16 Blood Pressure 144/75 H 127/72 Pulse Oximetry 97 96 Oxygen Delivery Method Room Air Oxygen Flow Rate 0 Narrative Exam Narrative: General: No acute distress, AAO x3 HEENT: PERRLA bilaterally. Swelling noted near L upper 2nd molar tooth, but no erythema or drainage Neck: Supple, no LAD CV: Regular rate rhythm, no murmurs or gallops Respiratory: CTA bilaterally no wheezing or crackles GI: Positive bowel sounds, no tenderness to palpation, no organomegaly Musculoskeletal: Normal range of motion Neuro: Right-sided weakness, stable Skin: No bruising or lesions Psych: Mood is appropriate Objective Labs Result Diagrams: 04/09/18 05:18 04/09/18 05:18 Labs: Laboratory Results - last 24 hr 04/09/18 04/09/18 05:18 05:18 WBC 14.2 H RBC 4.53 Hgb 13.8 Hct 42.0 MCV 92.8 MCH 30.5 MCHC 32.9 RDW 13.8 Plt Count 324 Neut % (Auto) 70.6 Lymph % (Auto) 16.7 L [place] % (Auto) 12.6 Eos % (Auto) 0.0 L Baso % (Auto) 0.1 Neut # (Auto) 52446 H Sodium 140 Potassium 3.8 Chloride 101 Carbon Dioxide 29 BUN 16 Creatinine 0.70 Estimated GFR > 60.0 BUN/Creatinine Ratio 22.9 H Glucose 97 Calcium 9.2 Discharge Plan Discharge Plan Other facility: [facility] Transportation: Private vehicle Discharge comment: Follow up with Dentist within 7 days of discharge from [facility] Follow up with Neurology within 7 days of discharge from [facility] I certify the postop hospital fpc care is medically necessary on a continuing basis for any conditions for which he/ she received care during this hospitalization.: Yes The receiving facility has agreed to accept transfer and provide medical treatment.: Yes Discharge Med Rec/Prescriptions Prescriptions: New sennosides [senna] 8.6 mg Tablet 17.2 mg PO BID Qty: 30 RF: 0 dextroamphetamine 5 mg Tablet 5 mg PO DAILY Qty: 30 RF: 0 clonazepam 0.5 mg Tablet 1 mg PO BEDTIME Qty: 30 RF: 0 melatonin 3 mg Tablet 6 mg PO BEDTIME Qty: 10 RF: 0 bisacodyl 10 mg Suppository 10 mg MO DAILY PRN (Reason: Constipation) Qty: 2 RF: 0 docusate sodium 100 mg Capsule 200 mg PO BID Qty: 30 RF: 0 zolpidem 5 mg Tablet 10 mg PO BEDTIME PRN (Reason: Sleep) Qty: 10 RF: 0 amoxicillin-pot clavulanate [Augmentin] 875-125 mg Tablet 1 tab PO BID Qty: 13 RF: 0 Continue tamsulosin 0.4 mg capsule 0.4 mg PO BID RF: 0 meclizine 25 mg tablet 25 mg PO TID PRN (Reason: Vertigo) RF: 0 ranitidine HCl 75 mg Tablet 75 mg PO DAILY PRN (Reason: Indigestion) RF: 0 paroxetine HCl [Paxil] 10 mg Tablet 10 mg PO DAILY RF: 0 dimethyl fumarate [Tecfidera] 240 mg Capsule,Delayed Release(Dr/Ec) 240 mg PO BID RF: 0 oxycodone-acetaminophen [Percocet] 5-325 mg tablet 1 tab PO Q4-6H PRN (Reason: pain) Qty: 10 RF: 0 Discontinued acyclovir 400 mg tablet 400 mg PO TID RF: 0 Discharge Orders: Discharge (Order); Ordered 11/23/18 Ordered By: Stacie Deleon Provider Discharge Instructions Diet: Diet as Tolerated and Regular Liquid consistency: Normal/Thin Food texture: Regular [facility] Rehab type: Physical therapy and Occupational therapy Discharge Data Primary Care Provider: [facility] Attending Provider: Ashanti Napier Admit Date/Time: 04/04/18 14:08 Quality VTE Deep Vein Thrombosis/Pulmonary Embolism Present on Admission: No
--- NOTE | 2018-04-09 12:03 | CM.DPC ---
Addendum entered by RUFUS Angelo 04/09/18 15:02: ADD: SW received a call from [facility] admissions stating that they had mistakenly received the pt's d/c packet rather than another patient's correct packet that they were accepting and [facility] returned Adilene Pierce's d/c packet to [facility] motor vehicle clerk. IBETH called pt and her mother who were enroute to [facility] and SW updated them on the mix up of discharge packets and apologized profusely and pt's mother stated that she would be willing to return the d/c packet in their possession to [facility] this evening on her way home to [place]. SW called [facility] and updated that the correct d/c packet would arrive this evening and they were agreeable to [facility] staff dropping off the packet to their facility this evening. IBETH called [facility] admissions and updated on the unfortunately mix up and they confirmed that they can still accept the pt to their facility and already had the faxed documents that they need and requested though that [facility] send the correct d/c packet to their facility at [address] [place] [id number] via expedited mail on Thursday04/12/18. IBETH updated motor vehicle clerk who confirms that she has the pt's packet in her possession and will help ensure that the packet is mailed expedited on Thursday and will complete a QMM. IBETH left message for CM Life Skills Coordinator Katy to follow up to confirm d/c packet gets mailed if help is needed. RUFUS Angelo Original Note: DCP Discharge to Inpt Rehab Per MD, pt is medically stable to d/c to Acute Inpt Rehab for intensive therapy today without the need for further IV steroid treatment and can d/c on oral abx. IBETH called [facility] ([phone]) admissions and confirmed that they reviewed the previously faxed clinicals and they are requesting updated clinicals from yesterday and today if available for final Physician review. [facility] called back stating they can accept the pt and have an opening today that they were not anticipating. IBETH met bedside with pt, mom, and PT and discussed [facility] acceptance for [facility] and both pt and mom very appreciative and glad and agreeable to d/c to Inpt Rehab today. Per PT, pt would be safe for transfer into private vehicle for transport and pt and mom very agreeable with this mode of transport and do not have concerns. CC Milana faxed requested d/c summary, med rec, and scripts to [facility] to both the admissions fax ([phone]) and the RN fax ([phone]) to review. No PASRR needed since not SNF. SW provided RN with updated information on d/c and RN to RN line #[phone] to call report. RN calling hospital pharmacy to request pt's MS med to be brought up to the pt's room for discharge. PT to be available to assist with transfer to pt's mom's vehicle. IBETH called [facility] and left message for admissions updating on pt d/c to Inpt Rehab now and that SNF bed not needed at this time. Plan: Patient to d/c to [facility] today via mom POV around 1330. Radha Rajput MSW
--- NOTE | 2018-04-09 12:15 | CM.DPC ---
D/C packet faxed to [facility] per Radha
[2018-04-09 12:30] VITALS: O2SAT 97
[2018-04-09 12:46] VITALS: BP 118/74; PULSE 84; RESP 16; TEMP 36.9; O2SAT 98
--- NOTE | 2018-04-09 12:52 | PC.NURSE ---
Pt up in hallway with PT. Arrangements made for her to transfer today to Rehab facilty. Report called to RN at facility. Pt will be assisted into private vehicle and her mother will drive her there.IV has been removed.
--- NOTE | 2018-04-09 12:59 | PT.IPTN ---
Current Diagnoses Restless legs syndrome (04/04/18) Multiple sclerosis (04/04/18) Insomnia, unspecified (04/04/18) Constipation, unspecified (04/04/18) Physical Therapy Treatment Note M2 PT-IP Current Condition Start: 04/05/18 09:31 Freq: NEEDED Status: Active Protocol: Document 04/05/18 13:50 (Rec: 04/05/18 16:18 [id number]) Physical Therapy Current Condition Current Condition Evaluation Date 04/05/18 Treatment Diagnosis multiple sclerosis weakness; Generalized weakness; difficulty walking M3 PT-IP Subjective Start: 04/05/18 09:31 Freq: NEEDED Status: Active Protocol: Document 04/09/18 11:12 LJ (Rec: 04/09/18 12:59 LJ [id number]) Subjective Physical Therapy Visit Type Type Treatment Note Visit Start Time 11:12 Visit Stop Time 11:54 Total Visit Minutes 42 Notes Pt finishing personal care with OT after showering. Physical Therapy Visit Comments Patient Comments Pt states she is fatigued but willing to try to ambulate in hallway. M4 PT-IP Mobility and Gait Start: 04/05/18 09:31 Freq: NEEDED Status: Active Protocol: Document 04/09/18 11:12 LJ (Rec: 04/09/18 12:59 LJ [id number]) PT-Transfer Assessment Sit to and From Stand Sit to and from Stand Contact Guard Assistance Use of Upper Extremities Equipment Transfer Assistive Device Gait Belt Front Wheeled Walker Transfers Transfer Destination Chair Wheelchair Transfer Technique Forward/Backward Scoot Transfer Ability Level of Assist Contact Guard Assistance Comments Mobility Comments Pt able to perform sit<>stand with min cues from WC to chair . Lacks control with descent into chair. Poor awareness of RUE,RLE. Uses LUE for transfers. RLE unable to contract glutes. Gait Assessment Gait Gait Assistance Required: Contact Guard Assist Distance (Feet) 70 Able to Maintain Weight Bearing Status Yes During Gait Assistive Devices Assistive Device Gait Belt Front Wheeled Walker Orthotic/Prosthetic Devices or Brace: No Gait Deviations General Gait Pattern Ataxic Decreased Stride Length Decreased Feet Clearance Flexed Trunk Narrow Based Gait Wide Based Gait Factors Limiting Gait Function Factors Limiting Gait Function Abnormal Tonal Influences Decreased Activity Tolerance Decreased Strength Incoordination Poor Balance Poor Safety Awareness Comments Gait Comments Pt using AFO RLE during ambulation. Mother following with WC. Pt requires CGA. M5 PT-IP Objective Assessments Start: 04/05/18 09:31 Freq: NEEDED Status: Active Protocol: Document 04/05/18 13:50 (Rec: 04/05/18 16:18 [id number]) Orientation Orientation/Cognition Level of Alertness Alert Orientation Name Age Birthday Month Date Year Day of Week Place Situation Language Function Ability No Deficits Noted Safety Awareness Decreased Safety Awareness Strength Lower Extremity Strength Assessment Bilaterally Impaired Comments Strength Comments RLE 3/5. LLE 4/5 Other Assessments Other Other Assessments Post session BP 119/70 HR 93 M6 PT-IP Treatment Start: 04/05/18 09:31 Freq: NEEDED Status: Active Protocol: Document 04/09/18 11:12 LJ (Rec: 04/09/18 12:59 LJ [id number]) Physical Therapy Treatment Education Education Provided Safety Other Treatments Other Treatment Performed Pt educated in muscle sequencing for transfers. Practiced sit<>stand x 2 using mm sequencing pattern. Seated partial sit ups, TKEs, HS curls, glute squeezes. M7 PT-IP Assessment and Plan Start: 04/05/18 09:31 Freq: NEEDED Status: Active Protocol: Document 04/09/18 11:12 LJ (Rec: 04/09/18 12:59 LJ [id number]) PT Summary Assessment and Plan Summary Impairments Strength Balance Coordination Tone Bed Mobility Transfers Gait Activity Tolerance Assessment Summary Pt less fatigued than yesterday even after having shower. Able to increase ambulation distance. Demonstrated better transfers with implementing muscle sequencing. CM in room discussing pt d/c to acute rehab. PT will assist with car transfer when needed. Goals Bed Mobility Goal Independent Transfer Goal Contact Guard Assistance Cane Front Wheeled Walker Four Wheeled Walker Gait Goal Contact Guard Assistance Cane Front Wheel Walker Four Wheel Walker Gait Distance 150 Other Goals 150 ft ambulation CGA with least restrictive AD. Up/down 20 steps B rails minAx1. Frequency of Treatment Frequency Of Treatment Once a Day Treatment Plan Physical Therapy Treatment Plan Bed Mobility Training Transfer Training Gait Training Therapeutic Exercise Balance Retraining Discharge Planning Neuromuscular Re-ed Coordination Retraining Manual Therapy Other Recommendations and Next Treatment Progress gait/ balance/ HEP Focus Recommendations To Nursing Amount of Assist Needed 2 Person Assist Discharge Recommendations PT Discharge Recommendations Acute Rehab Equipment Needed for Home Before FWW Discharge
== END 2018-04-09 13:35 | disposition other institution (70) | DRG 60 ==
LOC: ED 09:51 → AC 14:09
PROVIDERS: Internal Medicine; Admitting Provider Family Medicine; Emergency Provider Emergency Medicine; Family Provider Psychiatry & Neurology Neurology; PCP Nurse Practitioner Gerontology; Visit Provider Family Medicine
DX: G35 Multiple sclerosis (principal); R53.1 Weakness; K59.00 Constipation, unspecified; G25.81 Restless legs syndrome; G47.00 Insomnia, unspecified; K04.7 Periapical abscess without sinus
CPT/HCPCS: 36415; 36591; 80048; 80053; 81001; 85025; 85651; 86140; 90471; 90656; 92610; 96125; 96365; 96367; 96375; 97110; 97112; 97116; 97162; 97166; 97530; 97535; 99283; 99284; J1650; J2060; J2930; Q2038

== ENCOUNTER → 2018-06-08 18:56 | Outpatient (CLI) | payer MEDICARE, MEDICAID, SELFPAY ==
--- NOTE | 2018-06-08 19:12 | DI.MRI.S_ITS ---
PROCEDURE: MR HEAD/BRAIN WO/W CON INDICATIONS: MS TECHNIQUE: Noncontrast sagittal and axial FLAIR, axial and coronal T2 fast spin echo, axial VIBE, axial gradient echo, axial diffusion and ADC through the brain. After the administration of contrast, axial and coronal VIBE with fat saturation through the brain. COMPARISON: [facility], , MR HEAD/BRAIN WO/W CON, 01/12/2018, 9:09. FINDINGS: Image quality: Excellent. CSF spaces: Ventricles are normal in size and shape. Basal cisterns are patent. No extra-axial fluid collections. Brain: No intracranial bleeds or mass effects. Jones-white matter interface appears intact. Since 01/12/18, there is redemonstration of multiple bilateral severe white matter lesions and signal changes. There is interval development of left periventricular lesion measuring 2.3 x 1.0 cm on image 15 series 7. Additional right jayjay lesion is again noted, grossly unchanged One of the right periventricular lesions adjacent to the atrium appears decreased in size (image 15 series 7) and is less conspicuous. No associated enhancement. Diffusion weighted images show no acute ischemic insults. Normal intravascular flow voids are present. Skull and face: Calvarial marrow signal is normal. Orbits appear normal. Sinuses: Sinuses and mastoids are clear. IMPRESSION: Progressive demyelination since 01/12/18, in particular involving the left periventricular white matter. However, no associated enhancement is identified. Remaining lesions appear grossly unchanged except for less conspicuous appearance of right periventricular demyelination as above Dictated by: Julius Lindo M.D. on 06/09/2018 at 8:13 Approved by: Julius Lindo M.D. on 06/09/2018 at 8:19
--- NOTE | 2018-06-08 19:12 | DI.MRI.S_ITS ---
PROCEDURE: MR THORACIC SPINE WO/W CON INDICATIONS: Multiple sclerosis TECHNIQUE: Noncontrast sagittal T1 spin echo and T2 fast spin echo, sagittal STIR, axial T1 and T2 fast spin echo through the thoracic spine. After the administration of contrast, axial and sagittal T1 spin echo with fat saturation through the thoracic spine. COMPARISON: [facility], MR, MR THORACIC SPINE WO/W CON, 01/12/2018, 9:49. [facility], MR, THORACIC SPINE W&W/O CONTRAS, 02/09/2014, 14:59. FINDINGS: Image quality: Excellent. Alignment and curvature: There is normal bony alignment. Marrow: Marrow is of normal overall signal. No acute vertebral body compression fractures. Minimal degenerative changes of the thoracic spine have not significantly progressed. Scattered small posterior disc bulges are evident. No disc protrusions or extrusions are evident. Spinal cord: Visualized spinal cord is of normal signal and size, without abnormal enhancement. Paraspinous soft tissues: No paravertebral masses or abnormal enhancement. Miscellaneous: Central canal and foramina appear widely patent at all scanned levels. IMPRESSION: 1. No thoracic cord lesions are evident. 2. Mild degenerative changes of the thoracic spine. No disc protrusions or extrusions. Dictated by: Pelon De Oliveira M.D. on 06/09/2018 at 9:57 Approved by: Pelon De Oliveira M.D. on 06/09/2018 at 10:00
--- NOTE | 2018-06-08 19:12 | DI.MRI.S_ITS ---
PROCEDURE: MR CERVICAL SPINE WO/W CON INDICATIONS: MS TECHNIQUE: Noncontrast sagittal T1 spin echo and T2 fast spin echo, sagittal STIR, sagittal PD fast spin echo, foraminal oblique sagittal T2 fast spin echo, axial gradient echo or T2 fast spin echo through the cervical spine. After the administration of contrast, sagittal and axial T1 spin echo with fat saturation through the cervical spine. COMPARISON: [facility], MR, MR HEAD/BRAIN WO/W CON, 06/08/2018, 19:36. [facility], MR, CERVICAL SPINE W&W/O CONTRAST, 02/09/2014, 14:59. [facility], MR, MR CERVICAL SPINE WO/W CON, 01/12/2018, 9:25. FINDINGS: Image quality: Motion is present on multiple sequences, limiting areas of evaluation. Alignment and curvature: There is normal bony alignment. Marrow: Marrow demonstrates normal overall signal. Spinal cord: Visualized spinal cord is normal in size, without white matter lesions. No suspicious intramedullary enhancement. No cerebellar tonsillar herniation. Paraspinous soft tissues: No paravertebral masses or suspicious enhancement. C2-C5: No disc bulge, spinal stenosis or foraminal narrowing. C5-C6: Minimal disc bulge without spinal stenosis or foraminal narrowing. C6-T1: No disc bulge, spinal stenosis or foraminal narrowing. IMPRESSION: 1. Stable interval exam demonstrating no visualized abnormal signal within the cervical cord. Dictated by: Nuzhat Mauro M.D. on 06/09/2018 at 12:59 Approved by: Nuzhat Mauro M.D. on 06/09/2018 at 13:02
== END ==
PROVIDERS: Family Provider Psychiatry & Neurology Neurology; PCP Nurse Practitioner Gerontology; Visit Provider Physician Assistant
DX: G35 Multiple sclerosis (principal); M51.34 Other intervertebral disc degeneration, thoracic region
CPT/HCPCS: 70553; 72156; 72157; A9579

== ENCOUNTER 2018-06-10 01:54 | Emergency (ER) | payer MEDICARE, MEDICAID, SELFPAY ==
[2018-06-10 02:00] VITALS: BP 147/90; PULSE 84; RESP 18; TEMP 36.2; O2SAT 98; BMI 24.1
--- NOTE | 2018-06-10 02:08 | ED.PSYCH ---
HPI - Psych General Chief Complaint: Psychiatric Symptoms Stated Complaint: mom states delusional x five days Time Seen by Provider: 06/10/18 02:08 Source: family (Her Mother) Mode of arrival: ambulatory Limitations: altered mental status History of Present Illness HPI Narrative: The patient has MS and is managed by Neurology, Dr. Strickland, in [place], [place]. About a month ago she was admitted here with an MS evaluation, she received high doses of Solu-Medrol. Following hospitalization, motor deficits seem to improve. Over the past 4 days she has developed insomnia. She has urinary incontinence. She has been talking to her mom about , she is convinced she is . She talks about her . She talks about wanting to have a baby. She is coherent knows she is in this town, she cannot define the hospital. She cannot defined date, month or year. She is verbal, she is compliant to a degree. She is not aggressive and is not angry. She is somewhat demanding on the way she thinks, what she wants. She has no fever, no cough or congestion. Appetite is normal. There is no nausea or vomiting. She has no diarrhea. She was seen in clinic 2 days ago a urine sample was checked. There is no call back that would indicate a UTI. She is wearing a diaper due to incontinence now. She is verbally intact, but not her memory. She moves all extremities on command, there is no focal motor deficits. She has no psychiatric history. Although not on the med list after she arrived, her mom did mention Adderall. Multiple conversations revealed that the patient carries Adderall in her purse, all other medications are capped at home. She is apparently obtained an Adderall dose from a friend or someone else. Her mom has no clue of how much Adderall she has used. She apparently does have another prescription. The behavior of her caring this 1 medication and self administering it is concerning. She is obtained at least 1 additional dose. With the neurologic changes, and now psychiatric changes, MRIs of the brain, C-spine and T-spine were obtained. MRI of the brain revealed progressive demyelination since 01/12/18, in particular involving the left periventricular white matter. There were no acute findings in the C-spine or T-spine. Related Data Home Medications Medication Instructions Recorded Confirmed meclizine 25 mg PO TID PRN 01/16/18 04/04/18 tamsulosin 0.4 mg PO BID 01/16/18 04/04/18 ranitidine HCl 75 mg PO DAILY PRN 01/19/18 04/04/18 dimethyl fumarate [Tecfidera] 240 mg PO BID 04/04/18 04/04/18 paroxetine HCl [Paxil] 10 mg PO DAILY 04/04/18 04/04/18 Previous Rx's Medication Instructions Recorded amoxicillin-pot clavulanate 1 tab PO BID #13 tab 04/09/18 [Augmentin] bisacodyl 10 mg MI DAILY PRN #2 ea 04/09/18 clonazepam 1 mg PO BEDTIME #30 tab 04/09/18 dextroamphetamine 5 mg PO DAILY #30 tab 04/09/18 docusate sodium 200 mg PO BID #30 cap 04/09/18 melatonin 6 mg PO BEDTIME #10 tab 04/09/18 oxycodone-acetaminophen [Percocet] 1 tab PO Q4-6H PRN #10 tab 04/09/18 sennosides [senna] 17.2 mg PO BID #30 tab 04/09/18 zolpidem 10 mg PO BEDTIME PRN #10 tab 04/09/18 divalproex [Depakote] 250 mg PO BID #60 tab 06/10/18 quetiapine [Seroquel] 12.5 mg PO BID #30 tab 06/10/18 Allergies Allergy/AdvReac Type Severity Reaction Status Date / Time adhesive tape Allergy Mild Blister Verified 04/04/18 09:55 pomegranate [POMEGRANATE] Allergy Unknown Verified 04/04/18 09:55 Review of Systems Review of Systems ROS Unobtainable: All systems reviewed & are unremarkable except as noted in HPI and below Constitutional Denies chills, Denies fever(s), Denies lethargy and Denies weakness ENT Ears, Nose, Mouth, and Throat: Denies change in voice, Denies vertigo, Denies dizziness, Denies neck pain and Denies sore throat Cardiovascular Denies chest pain and Denies lightheadedness Respiratory Denies cough and Denies wheezing Gastrointestinal Gastrointestinal: Denies abdominal pain, Reports change in bowel habits, Denies diarrhea, Denies nausea and Denies vomiting Genitourinary Denies hematuria (She is on her menstrual cycle), Denies flank pain, Reports urinary incontinence and Denies urinary urgency Musculoskeletal Denies back pain, Denies myalgias and Denies neck pain Integumentary/Breasts Denies pruritus, Denies erythema, Denies rash and Denies wounds Neurologic Denies confusion, Denies vertigo, Denies dizziness and Denies weakness Psychiatric Denies confusion, Denies auditory hallucinations, Reports mood swings, Reports paranoia, Denies visual hallucinations, Reports hallucinations, Denies homicidal ideation and Denies suicidal ideation Hematologic/Lymphatic Denies easy bleeding Allergic/Immunologic Denies wheezing [facility] Medical History Multiple sclerosis (Acute) Surgical History No pertinent past surgical history (Acute) Family History Mother Hypertension Alcoholism Father Heart abnormality Social History household members: children Smoking Status: Former smoker Exam Initial Vital Signs Initial Vital Signs: Vital Signs Temperature 97.2 F L 06/10/18 02:00 Pulse Rate 84 06/10/18 02:00 Respiratory Rate 18 06/10/18 02:00 Blood Pressure 147/90 H 06/10/18 02:00 Pulse Oximetry 98 06/10/18 02:00 Const General: cooperative and well developed Nutritional Appearance: well nourished Orientation: alert, awake, oriented x3 and confused Limitations: no physical limitations [facility] Head: normal to inspection, normocephalic and atraumatic Face and sinus: face symmetric Mouth: oral mucosae normal and moist mucous membranes Throat: posterior oropharynx normal, tonsils normal and uvula midline Eyes Conjunctivae: conjunctivae normal Sclera: sclerae normal Pupils: PERRL EOM: EOM intact bilaterally Neck Neck: supple and No anterior neck swelling Resp Effort & Inspection: normal respiratory effort, able to speak in complete sentences, no respiratory distress and no use of accessory muscles Auscultation: clear to auscultation bilaterally, no rales, no rhonchi and no wheezes Cardio Rate: regular rate Rhythm: regular rhythm Heart Sounds: no click, no gallops, no murmurs and no rubs Pulses: normal peripheral pulses GI Inspection: non-distended Palpation: soft, no hepatosplenomegaly, No guarding, No pulsatile mass and No tender Auscultation: normal bowel sounds Back/Spine/Pelvis Back: No CVA tenderness Skin General: no rashes or lesions noted Neuro General: alert, awake, oriented (Person. Disoriented to time and place.), confused and other (Verbal and compliant with management. Normal gait.) Motor: muscle tone normal throughout and strength 5/5 throughout Extrem General: full ROM and no pedal edema Psych Appearance: disheveled Speech and Movement: speech and movement normal Mood: manic mood and paranoid Affect: labile affect, No hostile and euphoric affect Attitude: establishes eye contact and answers questions Thought Process: flight of ideas Thought Content: hallucinations, no homicidality and obsessions (With ) Judgment: poor Course Orders Ordered: ED Orders 06/10/18 03:00 C-Reactive Protein Quant Stat Complete Blood Count AUTO DIFF Stat Comprehensive Metabolic Panel Stat Lactate (Lactic Acid) Stat 06/10/18 03:05 Urinalysis and Microscopic Stat Discontinued Medications Divalproex Sodium (Depakote) 250 mg PO NOW ONE Stop: 06/10/18 04:26 Last Admin: 06/10/18 04:35 Dose: 250 mg Valproic Acid 500 mg/ Dextrose 55 mls @ 55 mls/hr IV NOW ONE Stop: 06/10/18 04:42 Last Admin: 06/10/18 05:29 Dose: 55 mls/hr Olanzapine (Zyprexa Zydis) 10 mg PO NOW ONE Stop: 06/10/18 02:45 Last Admin: 06/10/18 02:48 Dose: 10 mg Olanzapine (Zyprexa Zydis) 10 mg PO BEDTIME [facility] Last Admin: 06/10/18 04:33 Dose: 10 mg Vital Signs - 8 hr 06/10/18 02:00 06/10/18 03:25 06/10/18 05:40 Temperature 97.2 F L Pulse Rate 84 88 90 Respiratory Rate 18 20 20 Blood Pressure 147/90 H Blood Pressure [Left Arm] 122/78 129/73 Pulse Oximetry 98 98 06/10/18 06:49 Temperature Pulse Rate 80 Respiratory Rate 18 Blood Pressure 130/80 Blood Pressure [Left Arm] Pulse Oximetry 98 MDM - Psych Lab Data Result diagrams: 06/10/18 03:00 06/10/18 03:00 Lab Results 06/10/18 06/10/18 06/10/18 Range/Units 03:00 03:00 03:00 WBC 7.0 (4.5-11.0) X10^3/uL RBC 4.09 (4.0-5.2) X10^6/uL Hgb 12.7 (12.0-16.0) g/dL Hct 38.1 (36-46) % MCV 93.2 (80-100) fL MCH 31.1 (26-34) PG MCHC 33.4 (30-36) % RDW 13.2 (11.6-14.8) % Plt Count 277 (150-400) X10^3/uL Neut % (Auto) 70.1 (50-75) % Lymph % (Auto) 18.9 L (25-40) % [place] % (Auto) 9.2 (3-14) % Eos % (Auto) 1.0 L (2-4) % Baso % (Auto) 0.8 (0-2) % Neut # (Auto) 4900 (1966-9978) /uL Lymph # (Auto) 1300 (8468-7528) /uL [place] # (Auto) 600 (0-900) /uL Eos # (Auto) 100 (0-450) /uL Baso # (Auto) 100 (0-100) /uL Sodium 141 (137-145) mmol/L Potassium 4.3 (3.4-5.1) mmol/L Chloride 104 (98-107) mmol/L Carbon Dioxide 24 (22-32) mmol/L BUN 16 (7-17) mg/dL Creatinine 0.60 (0.52-1.04) mg/dL Estimated GFR > 60.0 (>60) mL/min BUN/Creatinine Ratio 26.7 H (6-22) Glucose 94 (70-100) mg/dL Lactate 1.5 (0.7-2.1) mmol/L Calcium 9.0 (8.4-10.2) mg/dL Total Bilirubin < 0.1 L (0.2-1.3) mg/dL AST 17 (14-36) IU/L ALT 22 (9-52) IU/L Alkaline Phosphatase 73 (38-126) U/L C-Reactive Protein 1.6 H (<1.0) mg/dL Total Protein 7.6 (6.3-8.2) g/dL Albumin 4.6 (3.5-5.0) g/dL Globulin 3.0 (1.7-4.1) g/dL Albumin/Globulin Ratio 1.5 (1.0-2.8) Urine Color Urine Appearance Urine pH (4.5-8.0) Ur Specific [place] (1.000-1.035) Urine Protein (Negative) Urine Glucose (UA) (Negative) g/dL Urine Ketones (NEGATIVE) Urine Occult Blood (Negative) Urine Nitrate (Negative) Urine Bilirubin (NEGATIVE) Urine Urobilinogen (0.2) E.U./dL Ur Leukocyte Esterase (NEGATIVE) Urine RBC (0-5/HPF) Urine WBC (0-5/HPF) Ur Squamous Epith Cells Urine Bacteria (None) Ur Culture Indicated? 06/10/18 Range/Units 03:05 WBC (4.5-11.0) X10^3/uL RBC (4.0-5.2) X10^6/uL Hgb (12.0-16.0) g/dL Hct (36-46) % MCV (80-100) fL MCH (26-34) PG MCHC (30-36) % RDW (11.6-14.8) % Plt Count (150-400) X10^3/uL Neut % (Auto) (50-75) % Lymph % (Auto) (25-40) % [place] % (Auto) (3-14) % Eos % (Auto) (2-4) % Baso % (Auto) (0-2) % Neut # (Auto) (3271-4811) /uL Lymph # (Auto) (9020-0851) /uL [place] # (Auto) (0-900) /uL Eos # (Auto) (0-450) /uL Baso # (Auto) (0-100) /uL Sodium (137-145) mmol/L Potassium (3.4-5.1) mmol/L Chloride (98-107) mmol/L Carbon Dioxide (22-32) mmol/L BUN (7-17) mg/dL Creatinine (0.52-1.04) mg/dL Estimated GFR (>60) mL/min BUN/Creatinine Ratio (6-22) Glucose (70-100) mg/dL Lactate (0.7-2.1) mmol/L Calcium (8.4-10.2) mg/dL Total Bilirubin (0.2-1.3) mg/dL AST (14-36) IU/L ALT (9-52) IU/L Alkaline Phosphatase (38-126) U/L C-Reactive Protein (<1.0) mg/dL Total Protein (6.3-8.2) g/dL Albumin (3.5-5.0) g/dL Globulin (1.7-4.1) g/dL Albumin/Globulin Ratio (1.0-2.8) Urine Color Yellow Urine Appearance Clear Urine pH 7.0 (4.5-8.0) Ur Specific [place] <=1.005 (1.000-1.035) Urine Protein Negative (Negative) Urine Glucose (UA) Negative (Negative) g/dL Urine Ketones Negative (NEGATIVE) Urine Occult Blood 2+ H (Negative) Urine Nitrate Negative (Negative) Urine Bilirubin Negative (NEGATIVE) Urine Urobilinogen 0.2 (0.2) E.U./dL Ur Leukocyte Esterase Negative (NEGATIVE) Urine RBC None seen (0-5/HPF) Urine WBC None seen (0-5/HPF) Ur Squamous Epith Cells 0-1 /hpf Urine Bacteria None seen (None) Ur Culture Indicated? Cult not indicated MDM Narrative Medical decision making narrative: I discussed the patient with Neurology, Dr. Strickland. He is the patient's neurologist. Patient's presentation was reviewed. She has no acute illness. Her medications were discussed. Her MRI finding was discussed. He is aware of her Adderall use. He was concerned about her manic behavior, in conjunction with the use of an amphetamine. He recommend the combination use of an antipsychotic medication like Seroquel, as well as Depakote. INR is started on Zyprexa for the night. She will be prescribed Zyprexa in follow-up. After an initial dose of Depakote was ordered, Dr. Strickland called back requesting IV Valproic acid, 1000 mg. The patient already received the initial dose of Depakote. Instead of the 1000 mg bolus she was given 500 mg. With the combination medications she has become sleepy, she remains compliant with care. Interestingly, incontinence of urine has ceased. She is clearly improved. Additional conversation occurred between myself and the patient's mother as noted in HPI regarding the patient's use of Adderall. Laterally are the current Roth suggestive of louise and psychosis that could be associated with a stimulant, the patient's behavior of caring the medication with her at all time is concerning for abuse potential. Again, she did obtain a dose of medication from someone else, the medication was not prescribed to her. She will be discharged on Seroquel and Depakote. Discharge Plan Departure Patient Disposition: Home Clinical Impression: Acute psychosis, Multiple sclerosis Discharge Date/Time: 06/10/18 06:50 Interventions: ED Discharge Assessment Last Done: 06/10/18 06:49 Instructions: Psychosis Activity Restrictions/Additional Instructions: I discussed the situation with Dr. Strickland, her neurologist. He is recommend that the Adderall be stopped. Instead Seroquel 2 times daily as prescribed and Depakote 2 times daily as prescribed. Would recommend following up with Dr. Strickland. Call for an appointment. Prescriptions: New quetiapine [Seroquel] 25 mg tablet 12.5 mg PO BID Qty: 30 RF: 0 divalproex [Depakote] 250 mg tablet,delayed release (DR/EC) 250 mg PO BID Qty: 60 RF: 0 No Action tamsulosin 0.4 mg capsule 0.4 mg PO BID RF: 0 meclizine 25 mg tablet 25 mg PO TID PRN (Reason: Vertigo) RF: 0 ranitidine HCl 75 mg Tablet 75 mg PO DAILY PRN (Reason: Indigestion) RF: 0 paroxetine HCl [Paxil] 10 mg Tablet 10 mg PO DAILY RF: 0 dimethyl fumarate [Tecfidera] 240 mg Capsule,Delayed Release(Dr/Ec) 240 mg PO BID RF: 0 sennosides [senna] 8.6 mg Tablet 17.2 mg PO BID Qty: 30 RF: 0 dextroamphetamine 5 mg Tablet 5 mg PO DAILY Qty: 30 RF: 0 clonazepam 0.5 mg Tablet 1 mg PO BEDTIME Qty: 30 RF: 0 melatonin 3 mg Tablet 6 mg PO BEDTIME Qty: 10 RF: 0 bisacodyl 10 mg Suppository 10 mg MI DAILY PRN (Reason: Constipation) Qty: 2 RF: 0 docusate sodium 100 mg Capsule 200 mg PO BID Qty: 30 RF: 0 zolpidem 5 mg Tablet 10 mg PO BEDTIME PRN (Reason: Sleep) Qty: 10 RF: 0 amoxicillin-pot clavulanate [Augmentin] 875-125 mg Tablet 1 tab PO BID Qty: 13 RF: 0 oxycodone-acetaminophen [Percocet] 5-325 mg tablet 1 tab PO Q4-6H PRN (Reason: pain) Qty: 10 RF: 0 Referrals: Gayle Carter ARNP [Primary Care Provider] - Kelvin Strickland MD [Family Provider] -
[2018-06-10] MEDS: OLANZapine ODT 10 MG TAB PO ×2 (02:48→04:33)
[2018-06-10 03:19] LABS: Add Manual Diff / Slide Review NO; Basophils Absolute Auto 100 /uL (0-100); Basophils Percent Auto 0.8 % (0-2); Eosinophils Absolute Auto 100 /uL (0-450); Hematocrit 38.1 % (36-46); Hemoglobin 12.7 g/dL (12.0-16.0); Lymphocytes Absolute Auto 1300 /uL (1100-4500); Lymphocytes Percent Auto 18.9 % (25-40); Mean Corpuscular HGB Conc 33.4 % (30-36); Mean Corpuscular Hemoglobin 31.1 PG (26-34); Mean Corpuscular Volume 93.2 fL (80-100); Monocytes Absolute Auto 600 /uL (0-900); Monocytes Percent Auto 9.2 % (3-14); Neutrophils Absolute Auto 4900 /uL (1500-7000); Neutrophils Percent Auto 70.1 % (50-75); Platelet Count 277 X10^3/uL (150-400); Red Blood Cell Count 4.09 X10^6/uL (4.0-5.2); Red Cell Distribution Width 13.2 % (11.6-14.8)
[2018-06-10 03:25] VITALS: BP 122/78; PULSE 88; RESP 20
[2018-06-10 03:25] LABS: Lactate (Lactic Acid) 1.5 mmol/L (0.7-2.1)
[2018-06-10 03:25] LABS: Bacteria Urine None Seen; RBC Urine None Seen (0-5/HPF); WBC Urine None Seen (0-5/HPF)
[2018-06-10 03:28] LABS: Alanine Aminotransferase 22 IU/L (9-52); Albumin 4.6 g/dL (3.5-5.0); Albumin Globulin Ratio 1.5 (1.0-2.8); Alkaline Phosphatase 73 U/L (38-126); Aspartate Aminotransferase 17 IU/L (14-36); BUN Creatinine Ratio 26.7 (6-22); Blood Urea Nitrogen 16 mg/dL (7-17); C-Reactive Protein Quant 1.6 mg/dL (<1.0); Carbon Dioxide 24 mmol/L (22-32); Chloride 104 mmol/L (98-107); Estimated Glomerular Filt Rate > 60.0 mL/min (>60); Glucose 94 mg/dL (70-100); HEMOLYSIS < 15 (0-50); Potassium 4.3 mmol/L (3.4-5.1); Sodium 141 mmol/L (137-145); Total Protein 7.6 g/dL (6.3-8.2)
[2018-06-10 03:29] LABS: Appearance Urine UA CLEAR; Bilirubin Urine UA NEGATIVE (NEGATIVE); Color Urine UA YELLOW; Glucose Urine UA NEGATIVE (Negative); Ketones Urine UA NEGATIVE (NEGATIVE); Leukocyte Esterase Urine UA NEGATIVE (NEGATIVE); Nitrite Urine UA NEGATIVE (Negative); Occult Blood Urine UA 2+ (Negative); Protein Urine UA NEGATIVE (Negative); Specific Gravity Urine UA <=1.005 (1.000-1.035); Urobilinogen Urine UA 0.2 E.U./dL (0.2)
[2018-06-10 03:31] LABS: Bilirubin Total < 0.1 mg/dL (0.2-1.3)
[2018-06-10 03:46] LABS: Culture Indicated Urine Cult Not Indicated; Squamous Epithelial Cell Urine 0-1 /HPF
[2018-06-10] MEDS: DIVALPROEX DR 250 MG TABLET PO (04:35)
[2018-06-10] MEDS: VALPROIC ACID 500 MG in DEXTROSE 5 % IN WATER 50 ML 55 ML IV (05:29)
[2018-06-10 05:40] VITALS: BP 129/73; PULSE 90; RESP 20; O2SAT 98
--- NOTE | 2018-06-10 05:42 | PC.NURSE ---
DR Rico's therapy was to help her sleep after 4 days of insomnia,The decision was made not to awaken her frequently if she relaxed for her vital signs.
[2018-06-10 06:49] VITALS: BP 130/80; PULSE 80; RESP 18; O2SAT 98
--- NOTE | 2018-06-10 06:51 | PC.NURSE ---
She aroused easily,assisted to wheel chair,her mother was given discharge instructions.she was able to sleep here after medications given.
== END 2018-06-10 06:50 | disposition home or self-care (01) ==
PROVIDERS: Emergency Provider Emergency Medicine; Family Provider Psychiatry & Neurology Neurology; PCP Nurse Practitioner Gerontology
DX: F23 Brief psychotic disorder (principal); G35 Multiple sclerosis
CPT/HCPCS: 36415; 80053; 81001; 83605; 85025; 86140; 96365; 99282; 99284

== ENCOUNTER 2019-06-08 19:28 | Emergency (ER) | payer MEDICARE, MEDICAID, SELFPAY ==
[2019-06-08 19:49] VITALS: BP 107/63; PULSE 80; RESP 18; TEMP 36.6; O2SAT 100
[2019-06-08 20:30] VITALS: BP 108/65; PULSE 66; RESP 12; O2SAT 98
[2019-06-08 22:00] VITALS: BP 104/66; PULSE 78; RESP 17; O2SAT 98
[2019-06-08 22:43] VITALS: BP 113/59; PULSE 71; RESP 13; O2SAT 100
--- NOTE | 2019-06-08 23:16 | ED.NEUROSD ---
HPI - Neuro Symptoms/Deficit General Chief Complaint: Neuro Symptoms/Deficit Stated Complaint: difficulty remembering things, heavy legs, speech Time Seen by Provider: 06/08/19 23:09 Source: patient Mode of arrival: Ambulatory Limitations: no limitations History of Present Illness HPI Narrative: 38-year-old woman with multiple sclerosis followed by Dr. Kelvin Lainez, on Tecfidera. She presents with I couple of days of increasing difficulty controlling her legs as well as feeling more confused and having some speech in fluency with language issues. She is also concerned that her memory is being affected. She was treated with Solu-Medrol, 1 g IV daily for 3 days, in March for an MS flare at that time. Last imaging was almost exactly a year ago with MRI of the brain cervical and thoracic spine done. She denies fever, cough, cold, flu, chest pain, shortness of breath, increasing edema, abdominal pain Related Data Home Medications Medication Instructions Recorded Confirmed meclizine 25 mg PO TID PRN 01/16/18 04/04/18 tamsulosin 0.4 mg PO BID 01/16/18 04/04/18 ranitidine HCl 75 mg PO DAILY PRN 01/19/18 04/04/18 dimethyl fumarate [Tecfidera] 240 mg PO BID 04/04/18 04/04/18 paroxetine HCl [Paxil] 10 mg PO DAILY 04/04/18 04/04/18 Previous Rx's Medication Instructions Recorded amoxicillin-pot clavulanate 1 tab PO BID #13 tab 04/09/18 [Augmentin] bisacodyl 10 mg SD DAILY PRN #2 ea 04/09/18 clonazepam 1 mg PO BEDTIME #30 tab 04/09/18 dextroamphetamine 5 mg PO DAILY #30 tab 04/09/18 docusate sodium 200 mg PO BID #30 cap 04/09/18 melatonin 6 mg PO BEDTIME #10 tab 04/09/18 oxycodone-acetaminophen [Percocet] 1 tab PO Q4-6H PRN #10 tab 04/09/18 sennosides [senna] 17.2 mg PO BID #30 tab 04/09/18 zolpidem 10 mg PO BEDTIME PRN #10 tab 04/09/18 divalproex [Depakote] 250 mg PO BID #60 tab 01/24/19 quetiapine [Seroquel] 12.5 mg PO BID #30 tab 06/10/18 Allergies Allergy/AdvReac Type Severity Reaction Status Date / Time adhesive tape Allergy Mild Blister Verified 04/04/18 09:55 pomegranate [POMEGRANATE] Allergy Unknown Verified 04/04/18 09:55 Review of Systems Review of Systems Narrative: All systems reviewed and are unremarkable except as noted in HPI and below Patient History Medical History Multiple sclerosis (Acute) Surgical History No pertinent past surgical history (Acute) Family History Mother Hypertension Alcoholism Father Heart abnormality Social History household members: children Smoking Status: Former smoker Smoking Status: Former smoker alcohol intake frequency: holidays/special occasions only Substance Use Type: marijuana Exam Narrative Exam Narrative: General: Healthy appearing, in no acute distress. Able to give her history with slight fluency and cognitive dysfunction. Well-nourished well-developed HEENT: Moist mucous membranes, normal sclera with reactive pupils, Neck: No JVD, supple Respiratory: Lungs are clear to auscultation, no wheezing no rales no rhonchi. Full and symmetrical air movement Cardiac: Regular rate and rhythm no murmurs no bruits Abdomen: Soft nontender good bowel tones, no flank pain Skin: Warm and dry, no rashes Neurologic: Grossly neurologically intact with no obvious asymmetries or abnormalities. Hyperreflexic patellar reflexes 3+ bilaterally with 2 beats of clonus bilaterally. Brachial reflexes similarly hyper-reflexic at 3+. Extremities: No trauma, well perfused Psych: Cooperative, appropriate insight and affect Initial Vital Signs Initial Vital Signs: Vital Signs Temperature 97.9 F 06/08/19 19:49 Pulse Rate 80 06/08/19 19:49 Respiratory Rate 18 06/08/19 19:49 Blood Pressure 107/63 06/08/19 19:49 Pulse Oximetry 100 06/08/19 19:49 Course Vital Signs Vital signs: Vital Signs - 8 hr 06/08/19 19:49 06/08/19 20:30 06/08/19 22:00 Temperature 97.9 F Pulse Rate 80 66 78 Respiratory Rate 18 12 17 Blood Pressure 107/63 Blood Pressure [Right Arm] 108/65 104/66 Pulse Oximetry 100 98 98 06/08/19 22:43 Temperature Pulse Rate 71 Respiratory Rate 13 Blood Pressure Blood Pressure [Right Arm] 113/59 L Pulse Oximetry 100 [facility] - Neuro Symptoms/Deficit Medical Records Attestation: I reviewed the patient's medical records. [facility] Narrative Medical decision making narrative: 11:[address] Garcia, micromatic hone operator for Dr Lainze. Reviewed care. Together we agreed that it would be safe for Adilene to go home and Dr. lainez will contact her by phone tomorrow to arrange for outpatient follow-up to determine if additional imaging or medications are appropriate. Discharge Plan Departure Patient Disposition: Home Clinical Impression: Exacerbation of multiple sclerosis Discharge Date/Time: 06/08/19 23:30 Activity Restrictions/Additional Instructions: Thank you for coming in today Your story and your exam do not suggest that you've had an acute stroke. I do believe that this is your MS causing problems. I've spoken with Dr. Medina, neurologist on-call for Dr. Lainez. We both agree that it is safe for you to go home this evening without any blood work or imaging. She will talk with Dr. Lainez tomorrow. He will contact you tomorrow to figure out next appropriate outpatient course of action. This may include additional imaging and he may again discuss bolus steroid dosing. Please continue your Tecfidera. It is safe to go home If you have worsening symptoms or concerns please feel free to return to the emergency room. I wish you the very best. Prescriptions: No Action quetiapine [Seroquel] 25 mg tablet 12.5 mg PO BID Qty: 30 RF: 0 divalproex [Depakote] 250 mg tablet,delayed release (DR/EC) 250 mg PO BID Qty: 60 RF: 0 tamsulosin 0.4 mg capsule 0.4 mg PO BID RF: 0 meclizine 25 mg tablet 25 mg PO TID PRN (Reason: Vertigo) RF: 0 ranitidine HCl 75 mg Tablet 75 mg PO DAILY PRN (Reason: Indigestion) RF: 0 paroxetine HCl [Paxil] 10 mg Tablet 10 mg PO DAILY RF: 0 dimethyl fumarate [Tecfidera] 240 mg Capsule,Delayed Release(Dr/Ec) 240 mg PO BID RF: 0 sennosides [senna] 8.6 mg Tablet 17.2 mg PO BID Qty: 30 RF: 0 dextroamphetamine 5 mg Tablet 5 mg PO DAILY Qty: 30 RF: 0 clonazepam 0.5 mg Tablet 1 mg PO BEDTIME Qty: 30 RF: 0 melatonin 3 mg Tablet 6 mg PO BEDTIME Qty: 10 RF: 0 bisacodyl 10 mg Suppository 10 mg SD DAILY PRN (Reason: Constipation) Qty: 2 RF: 0 docusate sodium 100 mg Capsule 200 mg PO BID Qty: 30 RF: 0 zolpidem 5 mg Tablet 10 mg PO BEDTIME PRN (Reason: Sleep) Qty: 10 RF: 0 amoxicillin-pot clavulanate [Augmentin] 875-125 mg Tablet 1 tab PO BID Qty: 13 RF: 0 oxycodone-acetaminophen [Percocet] 5-325 mg tablet 1 tab PO Q4-6H PRN (Reason: pain) Qty: 10 RF: 0 Referrals: Gayle Carter ARNP [Primary Care Provider] -
== END 2019-06-08 23:30 | disposition home or self-care (01) ==
PROVIDERS: Emergency Provider Emergency Medicine; Family Provider Psychiatry & Neurology Neurology; PCP Nurse Practitioner Gerontology
DX: G35 Multiple sclerosis (principal)
CPT/HCPCS: 99282

== ENCOUNTER 2019-06-20 11:13 | Emergency (ER) | payer MEDICARE, MEDICAID, SELFPAY ==
[2019-06-20 11:21] VITALS: BMI 21.1
[2019-06-20 12:52] VITALS: BP 118/71; PULSE 76; RESP 18; TEMP 36.8; O2SAT 98
--- NOTE | 2019-06-20 13:08 | ED.BACK ---
HPI - Back Pain/Injury General Chief Complaint: Back Pain/Injury Stated Complaint: ms episode Time Seen by Provider: 06/20/19 13:04 Source: patient Mode of arrival: Ambulatory Limitations: no limitations History of Present Illness HPI Narrative: 38-year-old female with a history of MS. Is followed by neurology. Is on medications for this here for evaluation of 24-48 hours of dizziness when she lays down that is causing nausea and vomiting and also muscle spasms in her back and lower extremities. Yesterday also had double vision but not today. No headaches. Also complaining of memory issues with this is not seem to be new. Has not tried anything for her symptoms. Has not been on steroids since April. Attempted to contact her neurologist today but was unable to. Related Data Home Medications Medication Instructions Recorded Confirmed meclizine 25 mg PO TID PRN 01/16/18 04/04/18 tamsulosin 0.4 mg PO BID 01/16/18 04/04/18 ranitidine HCl 75 mg PO DAILY PRN 01/19/18 04/04/18 dimethyl fumarate [Tecfidera] 240 mg PO BID 04/04/18 04/04/18 paroxetine HCl [Paxil] 10 mg PO DAILY 04/04/18 04/04/18 dextroamphetamine-amphetamine 5 mg PO BID 06/20/19 06/20/19 sertraline 150 mg PO DAILY 06/20/19 06/20/19 sumatriptan succinate 100 mg PO PRN PRN 06/20/19 06/20/19 Previous Rx's Medication Instructions Recorded bisacodyl 10 mg ND DAILY PRN #2 ea 04/09/18 clonazepam 1 mg PO BEDTIME #30 tab 04/09/18 docusate sodium 200 mg PO BID #30 cap 04/09/18 melatonin 6 mg PO BEDTIME #10 tab 04/09/18 oxycodone-acetaminophen [Percocet] 1 tab PO Q4-6H PRN #10 tab 04/09/18 sennosides [senna] 17.2 mg PO BID #30 tab 04/09/18 zolpidem 10 mg PO BEDTIME PRN #10 tab 04/09/18 divalproex [Depakote] 250 mg PO BID #60 tab 06/10/18 quetiapine [Seroquel] 12.5 mg PO BID #30 tab 06/10/18 lorazepam [Ativan] 1 mg PO BID PRN #7 tab 06/20/19 Allergies Allergy/AdvReac Type Severity Reaction Status Date / Time adhesive tape Allergy Mild Blister Verified 06/20/19 11:21 pomegranate [POMEGRANATE] Allergy Unknown Verified 06/20/19 11:21 Review of Systems Constitutional Constitutional: Reports fatigue, Denies fever(s) and Denies increased appetite ENT Ears, Nose, Mouth, and Throat: Reports vertigo, Reports dizziness, Denies sinus pressure and Denies sore throat Cardiovascular Cardiovascular: Denies chest pain and Denies dyspnea Respiratory Respiratory: Denies cough and Denies dyspnea Gastrointestinal Gastrointestinal: Denies abdominal pain, Denies nausea and Denies vomiting Genitourinary Genitourinary: Denies dysuria Musculoskeletal Musculoskeletal: Reports muscle cramps Integumentary/Breasts Skin/Breast: Denies rash Neurologic Neurologic: Reports vertigo and Reports dizziness Comments: Memory issues Endocrine Endocrine: Reports fatigue Hematologic/Lymphatic Hematologic/Lymphatic: Denies easy bleeding and Denies easy bruising Patient History Medical History Multiple sclerosis (Acute) Social History household members: children Smoking Status: Former smoker Smoking Status: Former smoker alcohol intake frequency: holidays/special occasions only Substance Use Type: marijuana Exam Initial Vital Signs Initial Vital Signs: Vital Signs Temperature 98.3 F 06/20/19 12:52 Pulse Rate 76 06/20/19 12:52 Respiratory Rate 18 06/20/19 12:52 Blood Pressure 118/71 06/20/19 12:52 Pulse Oximetry 98 06/20/19 12:52 Const General: cooperative, comfortable and well developed Limitations: mental status not altered HENMT Head: normal to inspection and normocephalic Resp Effort & Inspection: normal respiratory effort Cardio Rate: regular rate Skin Lesions: no lesions Rashes: no rashes Neuro General: alert, awake and oriented x3 Cognition: normal cognition Speech: speech normal Extrem General: normal to inspection and No edema Psych Appearance: grossly normal and well kempt Course Vital Signs Vital signs: Vital Signs - 8 hr 06/20/19 12:52 06/20/19 14:19 Temperature 98.3 F Pulse Rate 76 74 Respiratory Rate 18 14 Blood Pressure [Right Arm] 118/71 117/73 Pulse Oximetry 98 99 MDM - Back Pain/Injury MDM Narrative Medical decision making narrative: Upon further questioning patient does have several symptoms but the main reason she is here is for the muscle spasms that she is having. I did discuss the case with her neurologist. She has no signs of serotonin syndrome. He states he did just switch her depression medications. Patient would like to avoid steroids. Plan OB is to send her home with symptom treatment to include muscle relaxers and if her symptoms do not improve or worsen she is going to contact her primary provider about a follow-up potentially starting steroids. Patient did ambulate here in the ER. She was given return precautions and follow-up instructions. She expressed understanding and agreement this plan. Discharge Plan Departure Patient Disposition: Home Clinical Impression: Muscle spasm Discharge Date/Time: 06/20/19 14:23 Activity Restrictions/Additional Instructions: Continue all of your medications as directed. If your symptoms worsen please contact your neurologist office for follow-up. Prescriptions: New lorazepam [Ativan] 1 mg tablet 1 mg PO BID PRN (Reason: anxiety) Qty: 7 RF: 0 No Action quetiapine [Seroquel] 25 mg tablet 12.5 mg PO BID Qty: 30 RF: 0 divalproex [Depakote] 250 mg tablet,delayed release (DR/EC) 250 mg PO BID Qty: 60 RF: 0 tamsulosin 0.4 mg capsule 0.4 mg PO BID RF: 0 meclizine 25 mg tablet 25 mg PO TID PRN (Reason: Vertigo) RF: 0 ranitidine HCl 75 mg Tablet 75 mg PO DAILY PRN (Reason: Indigestion) RF: 0 paroxetine HCl [Paxil] 10 mg Tablet 10 mg PO DAILY RF: 0 dimethyl fumarate [Tecfidera] 240 mg Capsule,Delayed Release(Dr/Ec) 240 mg PO BID RF: 0 sennosides [senna] 8.6 mg Tablet 17.2 mg PO BID Qty: 30 RF: 0 clonazepam 0.5 mg Tablet 1 mg PO BEDTIME Qty: 30 RF: 0 melatonin 3 mg Tablet 6 mg PO BEDTIME Qty: 10 RF: 0 bisacodyl 10 mg Suppository 10 mg ND DAILY PRN (Reason: Constipation) Qty: 2 RF: 0 docusate sodium 100 mg Capsule 200 mg PO BID Qty: 30 RF: 0 zolpidem 5 mg Tablet 10 mg PO BEDTIME PRN (Reason: Sleep) Qty: 10 RF: 0 oxycodone-acetaminophen [Percocet] 5-325 mg tablet 1 tab PO Q4-6H PRN (Reason: pain) Qty: 10 RF: 0 sumatriptan succinate 100 mg tablet 100 mg PO PRN PRN (Reason: Migraine Headache) RF: 0 sertraline 100 mg tablet 150 mg PO DAILY RF: 0 dextroamphetamine-amphetamine 5 mg tablet 5 mg PO BID RF: 0 Referrals: Gayle Carter ARNP [Primary Care Provider] -
[2019-06-20 14:19] VITALS: BP 117/73; PULSE 74; RESP 14; O2SAT 99
== END 2019-06-20 14:23 | disposition home or self-care (01) ==
PROVIDERS: Emergency Provider Emergency Medicine; Family Provider Psychiatry & Neurology Neurology; PCP Nurse Practitioner Gerontology
DX: M62.830 Muscle spasm of back (principal); R11.2 Nausea with vomiting, unspecified
CPT/HCPCS: 99281; 99283

== ENCOUNTER 2019-10-10 13:45 | Emergency (ER) | payer MEDICARE, MEDICAID, SELFPAY ==
[2019-10-10 13:50] VITALS: BP 131/63; PULSE 71; RESP 16; TEMP 36.5; O2SAT 100
[2019-10-10 14:13] LABS: Add Manual Diff / Slide Review NO; Basophils Absolute Auto 100 /uL (0-100); Basophils Percent Auto 0.9 % (0-2); Eosinophils Absolute Auto 0 /uL (0-450); Eosinophils Percent Auto 0.5 % (2-4); Hematocrit 39.4 % (36-46); Hemoglobin 13.3 g/dL (12.0-16.0); Lymphocytes Absolute Auto 1200 /uL (1100-4500); Lymphocytes Percent Auto 17.3 % (25-40); Mean Corpuscular HGB Conc 33.8 % (30-36); Mean Corpuscular Hemoglobin 31.5 PG (26-34); Mean Corpuscular Volume 93.3 fL (80-100); Monocytes Absolute Auto 400 /uL (0-900); Monocytes Percent Auto 5.9 % (3-14); Neutrophils Absolute Auto 5100 /uL (1500-7000); Neutrophils Percent Auto 75.4 % (50-75); Platelet Count 293 X10^3/uL (150-400); Red Blood Cell Count 4.22 X10^6/uL (4.0-5.2); Red Cell Distribution Width 12.9 % (11.6-14.8); White Blood Cell Count 6.8 X10^3/uL (4.5-11.0)
[2019-10-10 14:27] LABS: Alanine Aminotransferase 11 IU/L (<35); Albumin 4.6 g/dL (3.5-5.0); Albumin Globulin Ratio 1.5 (1.0-2.8); Alkaline Phosphatase 104 U/L (38-126); Aspartate Aminotransferase 18 IU/L (14-36); Bilirubin Total 0.2 mg/dL (0.2-1.3); Blood Urea Nitrogen 12 mg/dL (7-17); Calcium 9.5 mg/dL (8.4-10.2); Carbon Dioxide 27 mmol/L (22-32); Chloride 102 mmol/L (98-107); Estimated Glomerular Filt Rate > 60.0 mL/min (>60); Globulin 3.1 g/dL (1.7-4.1); Glucose 91 mg/dL (70-100); HEMOLYSIS 16 (0-50); Potassium 3.8 mmol/L (3.4-5.1); Sodium 139 mmol/L (137-145); Total Protein 7.7 g/dL (6.3-8.2)
--- NOTE | 2019-10-10 14:28 | ED_ITS ---
HPI - Weakness General Chief complaint: Weakness Stated complaint: MS EXAB Time Seen by Provider: 10/10/19 13:45 Source: patient and family Mode of arrival: Wheelchair Limitations: no limitations History of Present Illness HPI Narrative: 38F former smoker with history of MS, managed by Dr. lainez at [facility], presents with generalized weakness and forgetfulness worsening over the past few days but present for the past few weeks. She states that they made a change in her MS medications in mid to end of July and symptoms have been gradually worsening since then. She denies any focal findings. She has no blurred vision or trouble with speech. She denies any numbness or tingling but states that she has become weak to the point that it she has a hard time bathing. MD Complaint: generalized weakness Onset (ago): week(s) Duration: constant Location: generalized Migration: none Severity: moderate Relieving factors: none Exacerbating factors: none Context: new medication Related Data Home Medications Medication Instructions Recorded Confirmed meclizine 25 mg PO TID PRN 01/16/18 04/04/18 tamsulosin 0.4 mg PO BID 01/16/18 04/04/18 ranitidine HCl 75 mg PO DAILY PRN 01/19/18 04/04/18 paroxetine HCl [Paxil] 10 mg PO DAILY 04/04/18 04/04/18 dextroamphetamine-amphetamine 5 mg PO BID 06/20/19 06/20/19 sertraline 150 mg PO DAILY 06/20/19 06/20/19 sumatriptan succinate 100 mg PO PRN PRN 06/20/19 06/20/19 ocrelizumab [Ocrevus] mg IV 10/10/19 Previous Rx's Medication Instructions Recorded bisacodyl 10 mg GA DAILY PRN #2 ea 04/09/18 clonazepam 1 mg PO BEDTIME #30 tab 04/09/18 docusate sodium 200 mg PO BID #30 cap 04/09/18 melatonin 6 mg PO BEDTIME #10 tab 04/09/18 oxycodone-acetaminophen [Percocet] 1 tab PO Q4-6H PRN #10 tab 04/09/18 sennosides [senna] 17.2 mg PO BID #30 tab 04/09/18 zolpidem 10 mg PO BEDTIME PRN #10 tab 04/09/18 divalproex [Depakote] 250 mg PO BID #60 tab 06/10/18 quetiapine [Seroquel] 12.5 mg PO BID #30 tab 06/10/18 lorazepam [Ativan] 1 mg PO BID PRN #7 tab 06/20/19 Allergies Allergy/AdvReac Type Severity Reaction Status Date / Time adhesive tape Allergy Mild Blister Verified 10/10/19 13:54 pomegranate [POMEGRANATE] Allergy Unknown Verified 10/10/19 13:54 Review of Systems Constitutional Constitutional: Denies chills, Denies fatigue, Denies fever(s), Denies frequent falls, Denies lethargy and Reports weakness Eyes Eyes: Denies change in vision, Denies eye discharge, Denies irritation and Denies loss of vision ENT Ears, Nose, Mouth, and Throat: Denies change in voice, Denies dizziness, Denies neck pain, Denies sore throat and Denies throat swelling Cardiovascular Cardiovascular: Denies chest pain, Denies irregular heart rhythm, Denies lightheadedness, Denies palpitations, Denies dyspnea, Denies dyspnea on exertion and Denies orthopnea Respiratory Respiratory: Denies cough, Denies dyspnea, Denies dyspnea on exertion and Denies wheezing Gastrointestinal Gastrointestinal: Denies abdominal pain, Denies change in bowel habits, Denies diarrhea, Denies nausea and Denies vomiting Genitourinary Genitourinary: Denies hematuria, Denies flank pain, Denies urinary incontinence and Denies urinary urgency Musculoskeletal Musculoskeletal: Denies back pain, Denies muscle weakness, Denies neck pain, Denies numbness and Denies tingling Integumentary/Breasts Skin/Breast: Denies pruritus, Denies erythema, Denies rash and Denies wounds Neurologic Neurologic: Denies behavioral changes, Reports confusion, Denies dizziness, De nies frequent falls, Denies loss of vision, Denies numbness, Denies tingling and Reports weakness Psychiatric Psychiatric: Denies anxiety, Denies behavioral changes, Reports confusion, Denies depression, Denies homicidal ideation and Denies suicidal ideation Endocrine Endocrine: Denies fatigue, Denies flushing and Denies palpitations Hematologic/Lymphatic Hematologic/Lymphatic: Denies easy bruising Allergic/Immunologic Allergic/Immunologic: Denies urticaria, Denies throat swelling and Denies wheezing Patient History Medical History Multiple sclerosis (Acute) Surgical History No pertinent past surgical history (Acute) Family History Mother Hypertension Alcoholism Father Heart abnormality Social History household members: children Smoking Status: Former smoker Smoking Status: Former smoker alcohol intake frequency: holidays/special occasions only Substance Use Type: marijuana Exam Narrative Exam Narrative: GENERAL: [38] year old patient appears stated age. Well- nourished, well-developed patient, in mild distress. GCS 15 HEAD: Atraumatic. Normocephalic. EYES: Pupils equal round and reactive. Extraocular motions intact. No scleral icterus. No injection or drainage. ENT: Nose without bleeding, purulent drainage. Throat without erythema, tonsillar hypertrophy or exudate. Airway patent. NECK: Trachea midline. Non tender CARDIOVASCULAR: Regular rate and rhythm without murmurs, gallops, or rubs. RESPIRATORY: Clear to auscultation. Breath sounds equal bilaterally. No wheezes, rales, or rhonchi. GASTROINTESTINAL: Abdomen soft, non-tender, nondistended. EXTREMITIES: No edema or joint tenderness. BACK: Nontender without deformity or crepitance. No flank tenderness. NEURO: AOx3. No measurable numbness or tingling. No measurable weakness SKIN: No rash or erythema of visible areas Initial Vital Signs Initial Vital Signs: Vital Signs Temperature 97.7 F 10/10/19 13:50 Pulse Rate 71 10/10/19 13:50 Respiratory Rate 16 10/10/19 13:50 Blood Pressure 131/63 10/10/19 13:50 Pulse Oximetry 100 10/10/19 13:50 Course Orders Ordered: Discontinued Medications Methylprednisolone 1,000 mg/ (Sodium Chloride) 258 mls @ 258 mls/hr IV NOW ONE Stop: 10/10/19 14:59 Last Infusion: 10/10/19 15:57 Dose: 0 mls/hr Documented by: Admin: 10/10/19 14:31 Dose: 258 mls/hr Documented by: KBARNHA Methylprednisolone 1,000 mg/ (Sodium Chloride) 258 mls @ 258 mls/hr IV NOW ONE Stop: 10/10/19 14:17 Last Admin: 10/10/19 14:34 Dose: Not Given Documented by: GISELL Consultations Consultation #1: call to Dr. Lainez, his partner returns call. On board with solu-medrol as given and suggests patient go home, call office in am to arrange for infusion clinic Time: 14:25 Vital Signs Vital signs: Vital Signs - 8 hr 10/10/19 13:50 10/10/19 14:49 10/10/19 15:43 Temperature 97.7 F Pulse Rate 71 62 73 Respiratory Rate 16 16 17 Blood Pressure 131/63 Blood Pressure [Right Arm] 108/66 114/66 Pulse Oximetry 100 99 99 MDM - Weakness Lab Data Result diagrams: 10/10/19 14:00 10/10/19 14:00 Labs: Lab Results 10/10/19 10/10/19 Range/Units 14:00 14:00 WBC 6.8 (4.5-11.0) X10^3/uL RBC 4.22 (4.0-5.2) X10^6/uL Hgb 13.3 (12.0-16.0) g/dL Hct 39.4 (36-46) % MCV 93.3 (80-100) fL MCH 31.5 (26-34) PG MCHC 33.8 (30-36) % RDW 12.9 (11.6-14.8) % Plt Count 293 (150-400) X10^3/uL Neut % (Auto) 75.4 H (50-75) % Lymph % (Auto) 17.3 L (25-40) % Burt % (Auto) 5.9 (3-14) % Eos % (Auto) 0.5 L (2-4) % Baso % (Auto) 0.9 (0-2) % Neut # (Auto) 5100 (4596-5310) /uL Lymph # (Auto) 1200 (9729-2629) /uL Burt # (Auto) 400 (0-900) /uL Eos # (Auto) 0 (0-450) /uL Baso # (Auto) 100 (0-100) /uL Sodium 139 (137-145) mmol/L Potassium 3.8 (3.4-5.1) mmol/L Chloride 102 (98-107) mmol/L Carbon Dioxide 27 (22-32) mmol/L BUN 12 (7-17) mg/dL Creatinine 0.60 (0.52-1.04) mg/dL Estimated GFR > 60.0 (>60) mL/min BUN/Creatinine Ratio 20.0 (6-22) Glucose 91 (70-100) mg/dL Calcium 9.5 (8.4-10.2) mg/dL Total Bilirubin 0.2 (0.2-1.3) mg/dL AST 18 (14-36) IU/L ALT 11 (<35) IU/L Alkaline Phosphatase 104 (38-126) U/L C-Reactive Protein < 0.5 (<1.0) mg/dL Total Protein 7.7 (6.3-8.2) g/dL Albumin 4.6 (3.5-5.0) g/dL Globulin 3.1 (1.7-4.1) g/dL Albumin/Globulin Ratio 1.5 (1.0-2.8) Point of Care Testing Test Results Negative Urine Dip Bedside Urine Glucose Negative Bedside Urine Bilirubin - Negative Bedside Urine Ketone - Negative Urine Specific [place] 1.010 Bedside Urine Occult Blood - Negative Bedside Urine pH 7.5 Bedside Urine Protein - Negative Bedside Urine Urobilinogen - Negative Bedside Urine Nitrite - Negative Bedside Urine Leukocytes - Negative Esterase Discharge Plan Departure Patient Disposition: Home Clinical Impression: Exacerbation of multiple sclerosis Discharge Date/Time: 10/10/19 16:20 Instructions: DI for Multiple Sclerosis Activity Restrictions/Additional Instructions: *You have been diagnosed with [exacerbation of multiple sclerosis] *What to do: *Take medications as directed *Follow up with your Neurology office, call in the morning. Let them know you were seen in the Emergency Department and that we ask that you be seen in [facility]. I spoke with Dr. Lainez's partner and she wanted you to call the office and they can help you get set up with the Infusion Clinic for ongoing doses of steroid. *Return to ER if you should have any new, worsening or concerning symptoms Prescriptions: No Action quetiapine [Seroquel] 25 mg tablet 12.5 mg PO BID Qty: 30 RF: 0 divalproex [Depakote] 250 mg tablet,delayed release (DR/EC) 250 mg PO BID Qty: 60 RF: 0 tamsulosin 0.4 mg capsule 0.4 mg PO BID RF: 0 meclizine 25 mg tablet 25 mg PO TID PRN (Reason: Vertigo) RF: 0 ranitidine HCl 75 mg Tablet 75 mg PO DAILY PRN (Reason: Indigestion) RF: 0 paroxetine HCl [Paxil] 10 mg Tablet 10 mg PO DAILY RF: 0 sennosides [senna] 8.6 mg Tablet 17.2 mg PO BID Qty: 30 RF: 0 clonazepam 0.5 mg Tablet 1 mg PO BEDTIME Qty: 30 RF: 0 melatonin 3 mg Tablet 6 mg PO BEDTIME Qty: 10 RF: 0 bisacodyl 10 mg Suppository 10 mg GA DAILY PRN (Reason: Constipation) Qty: 2 RF: 0 docusate sodium 100 mg Capsule 200 mg PO BID Qty: 30 RF: 0 zolpidem 5 mg Tablet 10 mg PO BEDTIME PRN (Reason: Sleep) Qty: 10 RF: 0 oxycodone-acetaminophen [Percocet] 5-325 mg tablet 1 tab PO Q4-6H PRN (Reason: pain) Qty: 10 RF: 0 sumatriptan succinate 100 mg tablet 100 mg PO PRN PRN (Reason: Migraine Headache) RF: 0 sertraline 100 mg tablet 150 mg PO DAILY RF: 0 dextroamphetamine-amphetamine 5 mg tablet 5 mg PO BID RF: 0 lorazepam [Ativan] 1 mg tablet 1 mg PO BID PRN (Reason: anxiety) Qty: 7 RF: 0 Ocrevus 30 mg/mL solution IV RF: 0 Referrals: Gayle Carter ARNP [Primary Care Provider] -
[2019-10-10 14:29] LABS: C-Reactive Protein Quant < 0.5 mg/dL (<1.0)
[2019-10-10] MEDS: methylPREDNISolone 1,000 MG in SODIUM CHLORIDE 0.9% 250 ML 258 ML IV (14:31)
[2019-10-10 14:49] VITALS: BP 108/66; PULSE 62; RESP 16; O2SAT 99
[2019-10-10 15:43] VITALS: BP 114/66; PULSE 73; RESP 17; O2SAT 99
== END 2019-10-10 16:20 | disposition home or self-care (01) ==
PROVIDERS: Emergency Provider Emergency Medicine; Family Provider Psychiatry & Neurology Neurology; PCP Nurse Practitioner Gerontology
DX: G35 Multiple sclerosis (principal)
CPT/HCPCS: 36415; 80053; 81003; 81025; 85025; 86140; 96365; 99284; J2930

== ENCOUNTER 2020-10-05 16:18 | Emergency (ER) | payer MEDICARE, MEDICAID, SELFPAY ==
[2020-10-05 16:18] VITALS: BP 127/74; PULSE 93; RESP 16; TEMP 36.1; O2SAT 100; BMI 19.5
[2020-10-05 16:24] VITALS: BP 127/74
[2020-10-05 16:25] VITALS: PULSE 92; O2SAT 100
[2020-10-05 16:30] VITALS: BP 119/68; PULSE 92; O2SAT 100
[2020-10-05 17:14] LABS: Alanine Aminotransferase 13 IU/L (<35); Albumin 4.5 g/dL (3.5-5.0); Albumin Globulin Ratio 1.5 (1.0-2.8); Alkaline Phosphatase 63 U/L (38-126); Aspartate Aminotransferase 21 IU/L (14-36); BUN Creatinine Ratio 15.9 (6-22); Bilirubin Total 0.2 mg/dL (0.2-1.3); Blood Urea Nitrogen 10 mg/dL (7-17); Calcium 9.6 mg/dL (8.4-10.2); Carbon Dioxide 25 mmol/L (22-32); Chloride 101 mmol/L (98-107); Estimated Glomerular Filt Rate > 60.0 mL/min (>60); Globulin 3.1 g/dL (1.7-4.1); Glucose 126 mg/dL (70-100); HEMOLYSIS < 15 (0-50); Potassium 3.7 mmol/L (3.4-5.1); Sodium 135 mmol/L (137-145); Total Protein 7.6 g/dL (6.3-8.2)
[2020-10-05 17:15] LABS: Add Manual Diff / Slide Review NO; Basophils Absolute Auto 0 /uL (0-100); Basophils Percent Auto 0.2 % (0-2); Eosinophils Absolute Auto 0 /uL (0-450); Eosinophils Percent Auto 0.2 % (2-4); Hematocrit 38.2 % (36-46); Hemoglobin 12.5 g/dL (12.0-16.0); Lymphocytes Absolute Auto 1200 /uL (1100-4500); Lymphocytes Percent Auto 7.5 % (25-40); Mean Corpuscular HGB Conc 32.7 % (30-36); Mean Corpuscular Hemoglobin 30.1 PG (26-34); Mean Corpuscular Volume 91.9 fL (80-100); Monocytes Absolute Auto 700 /uL (0-900); Monocytes Percent Auto 4.5 % (3-14); Neutrophils Absolute Auto 13500 /uL (1500-7000); Neutrophils Percent Auto 87.6 % (50-75); Platelet Count 362 X10^3/uL (150-400); Red Blood Cell Count 4.15 X10^6/uL (4.0-5.2); Red Cell Distribution Width 13.4 % (11.6-14.8); White Blood Cell Count 15.4 X10^3/uL (4.5-11.0)
--- NOTE | 2020-10-05 17:39 | ED_ITS ---
HPI - Weakness General Chief complaint: Dizziness Stated complaint: states MS Time Seen by Provider: 10/05/20 17:13 Source: patient Mode of arrival: Ambulatory Limitations: no limitations History of Present Illness HPI Narrative: Patient is a 39-year-old female with history of multiple sclerosis presenting with increasing weakness and fatigue today. She says that she has been extremely tired today. She woke up and ate breakfast and then went back to bed woke up any to bed. She then had episode of double vision. She feels like her legs are getting weak and she has an ascending weakness which is similar to her prior MS flares. She does take medication every 6 months which usually helps control it however prior a year ago she had an MS flare. MD Complaint: generalized weakness Onset (ago): hour(s) Related Data Home Medications Medication Instructions Recorded Confirmed meclizine 25 mg PO TID PRN 01/16/18 04/04/18 tamsulosin 0.4 mg PO BID 01/16/18 04/04/18 ranitidine HCl 75 mg PO DAILY PRN 01/19/18 04/04/18 paroxetine HCl [Paxil] 10 mg PO DAILY 04/04/18 04/04/18 dextroamphetamine-amphetamine 5 mg PO BID 06/20/19 06/20/19 sertraline 150 mg PO DAILY 06/20/19 06/20/19 sumatriptan succinate 100 mg PO PRN PRN 06/20/19 06/20/19 ocrelizumab [Ocrevus] mg IV 10/10/19 Previous Rx's Medication Instructions Recorded bisacodyl 10 mg [place] DAILY PRN #2 ea 04/09/18 clonazepam 1 mg PO BEDTIME #30 tab 04/09/18 docusate sodium 200 mg PO BID #30 cap 04/09/18 melatonin 6 mg PO BEDTIME #10 tab 04/09/18 oxycodone-acetaminophen [Percocet] 1 tab PO Q4-6H PRN #10 tab 04/09/18 sennosides [senna] 17.2 mg PO BID #30 tab 04/09/18 zolpidem 10 mg PO BEDTIME PRN #10 tab 04/09/18 divalproex [Depakote] 250 mg PO BID #60 tab 06/10/18 quetiapine [Seroquel] 12.5 mg PO BID #30 tab 06/10/18 lorazepam [Ativan] 1 mg PO BID PRN #7 tab 06/20/19 cephalexin 500 mg PO BID 7 Days #14 cap 10/05/20 Allergies Allergy/AdvReac Type Severity Reaction Status Date / Time adhesive tape Allergy Mild Blister Verified 10/05/20 16:30 pomegranate [POMEGRANATE] Allergy Unknown Verified 10/05/20 16:30 Review of Systems Review of Systems ROS Unobtainable: All systems reviewed & are unremarkable except as noted in HPI and below Constitutional Constitutional: Denies chills, Reports fatigue, Denies fever(s), Denies frequent falls and Denies headache(s) Eyes Eyes: Reports diplopia, Denies eye discharge and Denies dry eyes ENT Ears, Nose, Mouth, and Throat: Denies vertigo, Denies dizziness and Denies headache(s) Cardiovascular Cardiovascular: Denies chest pain, Denies irregular heart rhythm, Denies li ghtheadedness, Denies palpitations, Denies dyspnea, Denies dyspnea on exertion and Denies orthopnea Respiratory Respiratory: Denies cough, Denies dyspnea, Denies dyspnea on exertion and Denies wheezing Gastrointestinal Gastrointestinal: Denies abdominal pain, Denies change in bowel habits, Denies diarrhea, Denies nausea and Denies vomiting Musculoskeletal Musculoskeletal: Reports as per HPI and Reports myalgias Integumentary/Breasts Skin/Breast: Denies pruritus, Denies erythema, Denies rash and Denies wounds Neurologic Neurologic: Denies vertigo, Denies dizziness, Denies frequent falls and Denies headache(s) Endocrine Endocrine: Reports fatigue and Denies palpitations Allergic/Immunologic Allergic/Immunologic: Denies wheezing Patient History Medical History (Updated 10/05/20 @ 19:32 by Taina Bajwa DO) Multiple sclerosis Surgical History No pertinent past surgical history Family History Mother Hypertension Alcoholism Father Heart abnormality Social History household members: children Smoking Status: Former smoker Smoking Status: Former smoker alcohol intake frequency: holidays/special occasions only Substance Use Type: marijuana Exam Initial Vital Signs Initial Vital Signs: Vital Signs Temperature 97.0 F L 10/05/20 16:18 Pulse Rate 93 H 10/05/20 16:18 Respiratory Rate 16 10/05/20 16:18 Blood Pressure 127/74 10/05/20 16:18 Pulse Oximetry 100 10/05/20 16:18 GENERAL: Alert young 39-year-old female and in no acute distress. HEENT: Head atraumatic,EOMI, pupils reactive, face symmetric, moist mucous membranes CARDIOVASCULAR: Regular rate and rhythm without murmurs, rubs or gallops. RESPIRATORY: Breath sounds equal bilaterally, no wheezes rales or rhonchi. ABDOMEN: Soft, nontender. Normoactive bowel sounds all 4 quadrants. No guarding or rebound. EXTREMITIES: Normal range of motion, no clubbing or edema. Neurovascularly intact NEUROLOGICAL: Alert and oriented x4.Normal gait and speech. Cranial nerves II through XII grossly intact. Bilateral lower extremity weakness SKIN: Warm, dry, no laceration, no petechiae, no rashes or lesions. Course Orders Ordered: ED Orders 10/05/20 16:28 Complete Blood Count AUTO DIFF Stat Comprehensive Metabolic Panel Stat Test Serum,Qual Stat Thyroid Stimulating Hormone Stat Vitamin B12 Stat Vitamin D 25 Hydroxy (D3) Stat 10/05/20 17:00 EKG-12 Lead Stat 10/05/20 17:52 Thyroid Antibody Panel Stat Thyroid Peroxidase Antibodies Stat 10/05/20 18:10 Urine Culture Stat Urine Microscopic Stat Discontinued Medications Sodium Chloride (Normal Saline 0.9%) 1,000 mls @ 150 mls/hr IV CONT SRINIVAS Last Infusion: 10/05/20 19:36 Dose: 0 mls/hr Documented by: Admin: 10/05/20 17:40 Dose: 150 mls/hr Documented by: [email or web address] Vital Signs Vital signs: Vital Signs - 8 hr 10/05/20 16:18 10/05/20 16:24 10/05/20 16:25 Temperature 97.0 F L Pulse Rate 93 H 92 H Respiratory Rate 16 Blood Pressure 127/74 127/74 Pulse Oximetry 100 100 10/05/20 16:30 10/05/20 19:09 Temperature Pulse Rate 92 H 85 Respiratory Rate 16 Blood Pressure 119/68 147/70 H Pulse Oximetry 100 96 MDM - Weakness Lab Data Attestation: I reviewed the patient's lab results. Result diagrams: 10/05/20 16:28 10/05/20 16:28 Labs: Lab Results 10/05/20 10/05/20 10/05/20 Range/Units 16:28 16:28 16:28 WBC 15.4 H (4.5-11.0) X10^3/uL RBC 4.15 (4.0-5.2) X10^6/uL Hgb 12.5 (12.0-16.0) g/dL Hct 38.2 (36-46) % MCV 91.9 (80-100) fL MCH 30.1 (26-34) PG MCHC 32.7 (30-36) % RDW 13.4 (11.6-14.8) % Plt Count 362 (150-400) X10^3/uL Neut % (Auto) 87.6 H (50-75) % Lymph % (Auto) 7.5 L (25-40) % [place] % (Auto) 4.5 (3-14) % Eos % (Auto) 0.2 L (2-4) % Baso % (Auto) 0.2 (0-2) % Neut # (Auto) 73408 H (9266-7669) /uL Lymph # (Auto) 1200 (0749-5078) /uL [place] # (Auto) 700 (0-900) /uL Eos # (Auto) 0 (0-450) /uL Baso # (Auto) 0 (0-100) /uL Sodium 135 L (137-145) mmol/L Potassium 3.7 (3.4-5.1) mmol/L Chloride 101 (98-107) mmol/L Carbon Dioxide 25 (22-32) mmol/L BUN 10 (7-17) mg/dL Creatinine 0.63 (0.52-1.04) mg/dL Estimated GFR > 60.0 (>60) mL/min BUN/Creatinine Ratio 15.9 (6-22) Glucose 126 H (70-100) mg/dL Calcium 9.6 (8.4-10.2) mg/dL Total Bilirubin 0.2 (0.2-1.3) mg/dL AST 21 (14-36) IU/L ALT 13 (<35) IU/L Alkaline Phosphatase 63 (38-126) U/L Total Protein 7.6 (6.3-8.2) g/dL Albumin 4.5 (3.5-5.0) g/dL Globulin 3.1 (1.7-4.1) g/dL Albumin/Globulin Ratio 1.5 (1.0-2.8) Vitamin B12 (239-931) pg/mL 25-OH Vitamin D Total (30.0-100.0) ng/mL TSH (0.47-4.68) uIU/mL Serum , Qual Negative (Negative) Urine RBC (0-5/HPF) Urine WBC (0-5/HPF) Ur Squamous Epith Cells (0-5/HPF) Urine Bacteria (None) Ur Culture Indicated? Micro UA Comment 10/05/20 10/05/20 10/05/20 Range/Units 16:28 16:28 16:28 WBC (4.5-11.0) X10^3/uL RBC (4.0-5.2) X10^6/uL Hgb (12.0-16.0) g/dL Hct (36-46) % MCV (80-100) fL MCH (26-34) PG MCHC (30-36) % RDW (11.6-14.8) % Plt Count (150-400) X10^3/uL Neut % (Auto) (50-75) % Lymph % (Auto) (25-40) % [place] % (Auto) (3-14) % Eos % (Auto) (2-4) % Baso % (Auto) (0-2) % Neut # (Auto) (2544-7458) /uL Lymph # (Auto) (8360-4135) /uL [place] # (Auto) (0-900) /uL Eos # (Auto) (0-450) /uL Baso # (Auto) (0-100) /uL Sodium (137-145) mmol/L Potassium (3.4-5.1) mmol/L Chloride (98-107) mmol/L Carbon Dioxide (22-32) mmol/L BUN (7-17) mg/dL Creatinine (0.52-1.04) mg/dL Estimated GFR (>60) mL/min BUN/Creatinine Ratio (6-22) Glucose (70-100) mg/dL Calcium (8.4-10.2) mg/dL Total Bilirubin (0.2-1.3) mg/dL AST (14-36) IU/L ALT (<35) IU/L Alkaline Phosphatase (38-126) U/L Total Protein (6.3-8.2) g/dL Albumin (3.5-5.0) g/dL Globulin (1.7-4.1) g/dL Albumin/Globulin Ratio (1.0-2.8) Vitamin B12 983 H (239-931) pg/mL 25-OH Vitamin D Total 67.3 (30.0-100.0) ng/mL TSH 1.39 (0.47-4.68) uIU/mL Serum , Qual (Negative) Urine RBC (0-5/HPF) Urine WBC (0-5/HPF) Ur Squamous Epith Cells (0-5/HPF) Urine Bacteria (None) Ur Culture Indicated? Micro UA Comment 10/05/20 Range/Units 18:10 WBC (4.5-11.0) X10^3/uL RBC (4.0-5.2) X10^6/uL Hgb (12.0-16.0) g/dL Hct (36-46) % MCV (80-100) fL MCH (26-34) PG MCHC (30-36) % RDW (11.6-14.8) % Plt Count (150-400) X10^3/uL Neut % (Auto) (50-75) % Lymph % (Auto) (25-40) % [place] % (Auto) (3-14) % Eos % (Auto) (2-4) % Baso % (Auto) (0-2) % Neut # (Auto) (9310-3079) /uL Lymph # (Auto) (3120-4401) /uL [place] # (Auto) (0-900) /uL Eos # (Auto) (0-450) /uL Baso # (Auto) (0-100) /uL Sodium (137-145) mmol/L Potassium (3.4-5.1) mmol/L Chloride (98-107) mmol/L Carbon Dioxide (22-32) mmol/L BUN (7-17) mg/dL Creatinine (0.52-1.04) mg/dL Estimated GFR (>60) mL/min BUN/Creatinine Ratio (6-22) Glucose (70-100) mg/dL Calcium (8.4-10.2) mg/dL Total Bilirubin (0.2-1.3) mg/dL AST (14-36) IU/L ALT (<35) IU/L Alkaline Phosphatase (38-126) U/L Total Protein (6.3-8.2) g/dL Albumin (3.5-5.0) g/dL Globulin (1.7-4.1) g/dL Albumin/Globulin Ratio (1.0-2.8) Vitamin B12 (239-931) pg/mL 25-OH Vitamin D Total (30.0-100.0) ng/mL TSH (0.47-4.68) uIU/mL Serum , Qual (Negative) Urine RBC 1-5/hpf (0-5/HPF) Urine WBC 1-5/hpf (0-5/HPF) Ur Squamous Epith Cells 1-5 /hpf (0-5/HPF) Urine Bacteria Few (2-10) H (None) Ur Culture Indicated? Specimen cultured Micro UA Comment Teresa esterase + Point of Care Testing Test Results Negative Urine Dip Bedside Urine Glucose Negative Bedside Urine Bilirubin - Negative Bedside Urine Ketone - Negative Urine Specific [place] 1.020 Bedside Urine Occult Blood - Negative Bedside Urine pH 6.0 Bedside Urine Protein - Negative Bedside Urine Urobilinogen - Negative Bedside Urine Nitrite - Negative Bedside Urine Leukocytes + 70 Esterase ECG Data Attestation: I personally reviewed and interpreted this ECG as follows: Interpretation: Normal sinus rhythm rate 83 p.r. interval 128 rest [address] changes [facility] Narrative Medical decision making narrative: [id number]-Dr. Carrillo, neurology updated on patient's symptoms test results. At this time the strongly advised against IV steroids. Patient is on medication that she really should not have bake through some of and S. Recommend checking B12 vitamin-D thyroid and thyroid antibodies. Also be sure that there is no infection she does have mild leukocytosis. Urine is still pending. Discussed Neurology results with patient she is wanting steroids. I have exp lained that it is not recommended. She understands and agrees. She denies any UTI symptoms urine still pending. She states that she takes B12 vitamin daily. Patient does have leukocytes in her urine with leukocytosis, head she states that she cannot tell if she has symptoms of UTI at this time with her extreme fatigue and weakness I will treat her with Keflex and wait for her urine culture and sensitivity to return Discharge Plan Departure Patient Disposition: Home Clinical Impression: UTI (urinary tract infection) Qualifiers: Urinary tract infection type: acute cystitis Hematuria presence: without hematuria Qualified Code(s): N30.00 - Acute cystitis without hematuria Instructions: DI for Urinary Tract Infection (UTI) Activity Restrictions/Additional Instructions: *You have been diagnosed with UTI *What to do: You are found to have a mild UTI which is likely contributing to your increased fatigue and weakness. At this time neurology does not recommend steroids. You have had some additional blood work added is which will be forwarded to your neurologist *Continue to take medications as directed Keflex 500 mg twice a day for her 5 days--> SENT TO [facility] IN [place] *Follow up with your primary care provider in 2-3 days *Return to ER if you should have increasing weakness, fatigue, confusion or any new, worsening or concerning symptoms Prescriptions: New cephalexin 500 mg capsule 500 mg PO BID 7 Days Qty: 14 RF: 0 No Action quetiapine [Seroquel] 25 mg tablet 12.5 mg PO BID Qty: 30 RF: 0 divalproex [Depakote] 250 mg tablet,delayed release (DR/EC) 250 mg PO BID Qty: 60 RF: 0 tamsulosin 0.4 mg capsule 0.4 mg PO BID RF: 0 meclizine 25 mg tablet 25 mg PO TID PRN (Reason: Vertigo) RF: 0 ranitidine HCl 75 mg Tablet 75 mg PO DAILY PRN (Reason: Indigestion) RF: 0 paroxetine HCl [Paxil] 10 mg Tablet 10 mg PO DAILY RF: 0 sennosides [senna] 8.6 mg Tablet 17.2 mg PO BID Qty: 30 RF: 0 clonazepam 0.5 mg Tablet 1 mg PO BEDTIME Qty: 30 RF: 0 melatonin 3 mg Tablet 6 mg PO BEDTIME Qty: 10 RF: 0 bisacodyl 10 mg Suppository 10 mg AK DAILY PRN (Reason: Constipation) Qty: 2 RF: 0 docusate sodium 100 mg Capsule 200 mg PO BID Qty: 30 RF: 0 zolpidem 5 mg Tablet 10 mg PO BEDTIME PRN (Reason: Sleep) Qty: 10 RF: 0 oxycodone-acetaminophen [Percocet] 5-325 mg tablet 1 tab PO Q4-6H PRN (Reason: pain) Qty: 10 RF: 0 sumatriptan succinate 100 mg tablet 100 mg PO PRN PRN (Reason: Migraine Headache) RF: 0 sertraline 100 mg tablet 150 mg PO DAILY RF: 0 dextroamphetamine-amphetamine 5 mg tablet 5 mg PO BID RF: 0 lorazepam [Ativan] 1 mg tablet 1 mg PO BID PRN (Reason: anxiety) Qty: 7 RF: 0 Ocrevus 30 mg/mL solution IV RF: 0 Referrals: Gayle Carter ARNP [Primary Care Provider] - Kelvin Strickland MD [Family Provider] -
[2020-10-05] MEDS: SODIUM CHLORIDE 0.9% 1,000 ML 150 ML IV (17:40)
[2020-10-05 17:51] LABS: Pregnancy Test Serum,Qual Negative (Negative)
[2020-10-05 18:52] LABS: Thyroid Stimulating Hormone 1.39 uIU/mL (0.47-4.68)
[2020-10-05 19:09] VITALS: BP 117/82; BP 147/70; PULSE 68; PULSE 85; RESP 16; O2SAT 96; O2SAT 99
[2020-10-05 19:11] LABS: Vitamin B12 983 pg/mL (239-931)
[2020-10-05 19:21] LABS: Bacteria Urine Few (2-10); Culture Indicated Urine Specimen Cultured; RBC Urine 1-5/HPF (0-5/HPF); Squamous Epithelial Cell Urine 1-5 /HPF (0-5/HPF); Urine Comments LEU ESTERASE +; WBC Urine 1-5/HPF (0-5/HPF)
[2020-10-05 19:41] LABS: Vitamin D 25 Hydroxy (D3) 67.3 ng/mL (30.0-100.0)
[2020-10-07 22:06] LABS: Anti Thyroglobulin Antibody <1.0 IU/mL (0.0-0.9); Thyroid Peroxidase Antibodies <9 IU/mL (0-34)
== END 2020-10-05 19:40 | disposition home or self-care (01) ==
PROVIDERS: Emergency Provider Emergency Medicine; Family Provider Psychiatry & Neurology Neurology; PCP Nurse Practitioner Gerontology
DX: N30.00 Acute cystitis without hematuria (principal)
CPT/HCPCS: 36415; 80053; 81003; 81015; 81025; 82306; 82607; 84443; 84703; 85025; 86376; 86800; 87077; 87086; 87186; 93005; 93010; 96360; 96361; 99284

== ENCOUNTER 2020-12-14 11:46 | Emergency (ER) | payer MEDICARE, MEDICAID, SELFPAY ==
[2020-12-14 12:01] VITALS: BP 120/61; PULSE 87; RESP 18; TEMP 36.8; O2SAT 100; BMI 20.7
--- NOTE | 2020-12-14 12:24 | ED.RECABL ---
HPI - Recheck/Abnormal Lab/Rx General Chief Complaint: Recheck/Abnormal Lab/Rx Stated Complaint: Steroid Injection, Not Better, Vision Issues, Conf Time Seen by Provider: 12/14/20 11:51 Source: patient and family Mode of arrival: Ambulatory History of Present Illness HPI narrative: 40-year-old female nonsmoker with history of MS presents with of her ID of symptoms thought to be related to an MS exacerbation over the past week or so. Patient complains of blurring of her vision weakness of bilateral upper and lower extremities resulting in difficulty with ambulation, widespread numbness and tingling. She has no chest pain or shortness of breath. She has some nausea but denies any vomiting. She has had no fever or chills. Her symptoms had started about a week ago when she had urinary tract infection type symptoms and once her UTI had been treated and cleared and her symptoms did not improve she saw her neurologist (Dr. lainez at [facility]) and was scheduled for outpatient infusions of Solu-Medrol. She has had 3 days of 1000 mg of Solu-Medrol and has very little if any improvement in her symptoms. She called her neurologist and was encouraged to present here for evaluation. Related Data Home Medications Medication Instructions Recorded Confirmed meclizine 25 mg tablet 25 mg PO TID PRN 01/16/18 04/04/18 tamsulosin 0.4 mg capsule 0.4 mg PO BID 01/16/18 04/04/18 ranitidine HCl 75 mg tablet 75 mg PO DAILY PRN 01/19/18 04/04/18 paroxetine HCl 10 mg tablet (Paxil) 10 mg PO DAILY 04/04/18 04/04/18 dextroamphetamine-amphetamine 5 mg 5 mg PO BID 06/20/19 06/20/19 tablet sertraline 100 mg tablet 150 mg PO DAILY 06/20/19 06/20/19 sumatriptan succinate 100 mg tablet 100 mg PO PRN PRN 06/20/19 06/20/19 ocrelizumab 30 mg/mL intravenous mg IV 10/10/19 solution (Ocrevus) Previous Rx's Medication Instructions Recorded bisacodyl 10 mg rectal suppository 10 mg MS DAILY PRN #2 ea 04/09/18 clonazepam 0.5 mg tablet 1 mg PO BEDTIME #30 tab 11/23/18 docusate sodium 100 mg capsule 200 mg PO BID #30 cap 04/09/18 melatonin 3 mg tablet 6 mg PO BEDTIME #10 tab 04/09/18 oxycodone-acetaminophen 5 mg-325 1 tab PO Q4-6H PRN #10 tab 04/09/18 mg tablet (Percocet) sennosides 8.6 mg tablet (senna) 17.2 mg PO BID #30 tab 04/09/18 zolpidem 5 mg tablet 10 mg PO BEDTIME PRN #10 tab 04/09/18 divalproex 250 mg tablet,delayed 250 mg PO BID #60 tab 06/10/18 release (Depakote) quetiapine 25 mg tablet (Seroquel) 12.5 mg PO BID #30 tab 06/10/18 lorazepam 1 mg tablet (Ativan) 1 mg PO BID PRN #7 tab 06/20/19 Allergies Allergy/AdvReac Type Severity Reaction Status Date / Time adhesive tape Allergy Mild Blister Verified 12/14/20 12:04 pomegranate [POMEGRANATE] Allergy Unknown Verified 12/14/20 12:04 Review of Systems Review of Systems Narrative: GENERAL: See HPI HEENT: Denies sinus pain, ear pain, sore throat, difficulty swallowing, dizziness. RESPIRATORY: Denies dyspnea, cough, wheezing, hemoptysis, sputum. CARDIOVASCULAR: Denies chest pain, palpitations, orthopnea, edema, GASTROINTESTINAL: Denies nausea, vomiting, abdominal pain, diarrhea, constipation, melena. : Denies dysuria, frequency, incontinence, hematuria, urinary retention. MUSCULOSKELETAL: denies weakness, joint pain, or bony pain SKIN: Denies rash, skin lesions, or other NEUROLOGIC: See HPI PSYCHIATRIC: No concerning psychosocial issues. 12 point review of systems is negative except for those stated above Patient History Medical History Multiple sclerosis Surgical History No pertinent past surgical history Family History Mother Hypertension Alcoholism Father Heart abnormality Social History household members: children Smoking Status: Former smoker Smoking Status: Former smoker alcohol intake frequency: holidays/special occasions only Substance Use Type: marijuana Exam Narrative Exam Narrative: GENERAL: [40] year old patient appears stated age. Well-developed patient, in mild distress. Anxious HEAD: Atraumatic. Normocephalic. EYES: Pupils equal round and reactive. Extraocular motions intact. No scleral icterus. No injection or drainage. ENT: Nose without bleeding, purulent drainage. Throat without erythema, tonsillar hypertrophy or exudate. Airway patent. NECK: Trachea midline. Non tender CARDIOVASCULAR: Regular rate and rhythm without murmurs, gallops, or rubs. RESPIRATORY: Clear to auscultation. Breath sounds equal bilaterally. No wheezes, rales, or rhonchi. GASTROINTESTINAL: Abdomen soft, non-tender, nondistended. EXTREMITIES: No edema or joint tenderness. BACK: Nontender without deformity or crepitance. No flank tenderness. NEURO: AOx3. 4/4 strength in bilateral lower extremities, widespread mild numbness, no focal findings SKIN: No rash or erythema of visible areas Initial Vital Signs Initial Vital Signs: Vital Signs Temperature 98.3 F 12/14/20 12:01 Pulse Rate 87 12/14/20 12:01 Respiratory Rate 18 12/14/20 12:01 Blood Pressure 120/61 12/14/20 12:01 Pulse Oximetry 100 12/14/20 12:01 Course Orders Ordered: Discontinued Medications Methylprednisolone 1,000 mg/ (Sodium Chloride) 258 mls @ 258 mls/hr IV NOW ONE Stop: 12/14/20 14:54 Last Infusion: 12/14/20 16:45 Dose: 0 mls/hr Documented by: [email or web address] Admin: 12/14/20 15:37 Dose: 258 mls/hr Documented by: JERMAINE Lorazepam (Lorazepam 2 Mg/Ml Inj) 1 mg IV NOW ONE Stop: 12/14/20 13:32 Last Admin: 12/14/20 13:35 Dose: 1 mg Documented by: JERMAINE Vital Signs Vital signs: Vital Signs - 8 hr 12/14/20 12:01 12/14/20 14:20 Temperature 98.3 F Pulse Rate 87 68 Respiratory Rate 18 16 Blood Pressure 120/61 124/63 Pulse Oximetry 100 100 MDM - Recheck/Abnormal Lab/Rx Lab Data Result diagrams: 12/14/20 12:54 12/14/20 12:54 Labs: Lab Results 12/14/20 12/14/20 12/14/20 Range/Units 12:08 12:54 12:54 WBC 20.8 H (4.5-11.0) X10^3/uL RBC 4.11 (4.0-5.2) X10^6/uL Hgb 12.2 (12.0-16.0) g/dL Hct 37.7 (36-46) % MCV 91.8 (80-100) fL MCH 29.6 (26-34) PG MCHC 32.3 (30-36) % RDW 14.3 (11.6-14.8) % Plt Count 354 (150-400) X10^3/uL Neut % (Auto) 85.4 H (50-75) % Lymph % (Auto) 7.5 L (25-40) % [place] % (Auto) 6.9 (3-14) % Eos % (Auto) 0.0 L (2-4) % Baso % (Auto) 0.2 (0-2) % Neut # (Auto) 16968 H (5756-8672) /uL Lymph # (Auto) 1600 (7576-8255) /uL [place] # (Auto) 1400 H (0-900) /uL Eos # (Auto) 0 (0-450) /uL Baso # (Auto) 0 (0-100) /uL Sodium 139 (137-145) mmol/L Potassium 3.9 (3.4-5.1) mmol/L Chloride 104 (98-107) mmol/L Carbon Dioxide 28 (22-32) mmol/L BUN 14 (7-17) mg/dL Creatinine 0.59 (0.52-1.04) mg/dL Estimated GFR > 60.0 (>60) mL/min BUN/Creatinine Ratio 23.7 H (6-22) Glucose 100 (70-100) mg/dL Calcium 9.5 (8.4-10.2) mg/dL Magnesium 2.3 (1.6-2.3) mg/dL Total Bilirubin < 0.1 L (0.2-1.3) mg/dL AST 16 (14-36) IU/L ALT 11 (<35) IU/L Alkaline Phosphatase 55 (38-126) U/L Total Protein 6.8 (6.3-8.2) g/dL Albumin 4.0 (3.5-5.0) g/dL Globulin 2.8 (1.7-4.1) g/dL Albumin/Globulin Ratio 1.4 (1.0-2.8) Urine RBC None seen (0-5/HPF) Urine WBC 0-1/hpf (0-5/HPF) Urine Bacteria None seen (None) Ur Culture Indicated? Culture not indicate SARS-CoV-2 (PCR) (Negative) 12/14/20 Range/Units 13:49 WBC (4.5-11.0) X10^3/uL RBC (4.0-5.2) X10^6/uL Hgb (12.0-16.0) g/dL Hct (36-46) % MCV (80-100) fL MCH (26-34) PG MCHC (30-36) % RDW (11.6-14.8) % Plt Count (150-400) X10^3/uL Neut % (Auto) (50-75) % Lymph % (Auto) (25-40) % [place] % (Auto) (3-14) % Eos % (Auto) (2-4) % Baso % (Auto) (0-2) % Neut # (Auto) (0530-7651) /uL Lymph # (Auto) (9115-1415) /uL [place] # (Auto) (0-900) /uL Eos # (Auto) (0-450) /uL Baso # (Auto) (0-100) /uL Sodium (137-145) mmol/L Potassium (3.4-5.1) mmol/L Chloride (98-107) mmol/L Carbon Dioxide (22-32) mmol/L BUN (7-17) mg/dL Creatinine (0.52-1.04) mg/dL Estimated GFR (>60) mL/min BUN/Creatinine Ratio (6-22) Glucose (70-100) mg/dL Calcium (8.4-10.2) mg/dL Magnesium (1.6-2.3) mg/dL Total Bilirubin (0.2-1.3) mg/dL AST (14-36) IU/L ALT (<35) IU/L Alkaline Phosphatase (38-126) U/L Total Protein (6.3-8.2) g/dL Albumin (3.5-5.0) g/dL Globulin (1.7-4.1) g/dL Albumin/Globulin Ratio (1.0-2.8) Urine RBC (0-5/HPF) Urine WBC (0-5/HPF) Urine Bacteria (None) Ur Culture Indicated? SARS-CoV-2 (PCR) Negative (Negative) Point of Care Testing Test Results Negative Urine Dip Bedside Urine Glucose Negative Bedside Urine Bilirubin - Negative Bedside Urine Ketone - Negative Urine Specific [place] 1.010 Bedside Urine Occult Blood - Negative Bedside Urine pH 6.0 Bedside Urine Protein - Negative Bedside Urine Urobilinogen - Negative Bedside Urine Nitrite - Negative Bedside Urine Leukocytes + 70 Esterase Imaging Data Brain MRI: Radiologist's Impression: [address] [address]Nvshtlar Resonance ReportSigned Patient: Adilene Pierce CMR#: [id number]: [id number]:[id number]/Sex: 40 / FDate of Service: 12/14/20Loc: EDAccession Number: [id number] Procedure: MR head/brain wo con Ordering Provider: Russel Da Silva D.O. PROCEDURE: MR HEAD/BRAIN WO CON INDICATIONS: multiple neuro symptoms, has MS, per neurology TECHNIQUE: Noncontrast axial T1 spin echo, axial T2 fast spin echo, sagittal and axial FLAIR, coronal T2 fast spin echo, axial gradient echo, axial diffusion and ADC through the brain. COMPARISON: [facility], MR, MR MS BRAIN WITH/WITHOUT CONTRAST, 12/05/2019, 12:26. FINDINGS: Image quality: Excellent. CSF Spaces: Basal cisterns are patent. No extra-axial fluid collections. Ventricles are normal in size and shape. Brain: Multiple T2/FLAIR hyperintense lesions in the cerebral hemispheric white matter are overall unchanged in number, size, and distribution when compared with 12/05/2019 examination. There is no new lesion or definitively enlarging lesion identified. There is suspected lesion in the right midbrain near the superior cerebellar peduncle on series 7, image 8, similar to the prior study. No other infratentorial lesion identified definitively. No abnormal intracranial susceptibility or restricted diffusion. The major intracranial vascular flow-related signal voids are maintained. Skull and face: Calvarium has normal marrow signal. Orbits appear normal. Sinuses: Sinuses and mastoids are clear. IMPRESSION: Multiple white matter lesions consistent with multiple sclerosis are unchanged from 12/05/2019 examination. Dictated by: Ernesto Barth M.D. on 12/14/2020 at 14:39 Approved by: Ernesto Barth M.D. on 12/14/2020 at 14:42 [facility] Narrative Medical decision making narrative: Patient with widespread neurologic symptoms thought to be related to MS exacerbation. MRI is unchanged, labs are very reassuring and there is no evidence of electrolyte abnormality or underlying infection. Her elevated white blood cell count is thought to be most likely related to high-dose steroids over the past few days. I have discussed the case with on-call Neurology at [facility] who recommends an additional 2 days of Solu-Medrol 1000 mg and if no improvement a Medrol Dosepak with close follow-up with her neurologist to discuss other options such as IVIG moving forward. She will come back to see me tomorrow in the emergency department for another round of Solu-Medrol as the infusion clinic is not open. Discharge Plan Departure Patient Disposition: Home Clinical Impression: Exacerbation of multiple sclerosis Instructions: DI for Multiple Sclerosis Activity Restrictions/Additional Instructions: *You have been diagnosed with [exacerbation of multiple sclerosis] *What to do: Please return tomorrow for another dose of Solu-Medrol 1000 mg, the infusion clinic is not open *Return to Emergency Department if you should have any new, worsening or concerning symptoms, such as [fever greater than 101 F, shaking chills, worsening pain, persistent vomiting or other bothersome symptoms] Prescriptions: No Action quetiapine [Seroquel] 25 mg tablet 12.5 mg PO BID Qty: 30 RF: 0 divalproex [Depakote] 250 mg tablet,delayed release (DR/EC) 250 mg PO BID Qty: 60 RF: 0 tamsulosin 0.4 mg capsule 0.4 mg PO BID RF: 0 meclizine 25 mg tablet 25 mg PO TID PRN (Reason: Vertigo) RF: 0 ranitidine HCl 75 mg Tablet 75 mg PO DAILY PRN (Reason: Indigestion) RF: 0 paroxetine HCl [Paxil] 10 mg Tablet 10 mg PO DAILY RF: 0 sennosides [senna] 8.6 mg Tablet 17.2 mg PO BID Qty: 30 RF: 0 clonazepam 0.5 mg Tablet 1 mg PO BEDTIME Qty: 30 RF: 0 melatonin 3 mg Tablet 6 mg PO BEDTIME Qty: 10 RF: 0 bisacodyl 10 mg Suppository 10 mg MS DAILY PRN (Reason: Constipation) Qty: 2 RF: 0 docusate sodium 100 mg Capsule 200 mg PO BID Qty: 30 RF: 0 zolpidem 5 mg Tablet 10 mg PO BEDTIME PRN (Reason: Sleep) Qty: 10 RF: 0 oxycodone-acetaminophen [Percocet] 5-325 mg tablet 1 tab PO Q4-6H PRN (Reason: pain) Qty: 10 RF: 0 sumatriptan succinate 100 mg tablet 100 mg PO PRN PRN (Reason: Migraine Headache) RF: 0 sertraline 100 mg tablet 150 mg PO DAILY RF: 0 dextroamphetamine-amphetamine 5 mg tablet 5 mg PO BID RF: 0 lorazepam [Ativan] 1 mg tablet 1 mg PO BID PRN (Reason: anxiety) Qty: 7 RF: 0 Ocrevus 30 mg/mL solution IV RF: 0
[2020-12-14 12:32] LABS: Bacteria Urine None Seen; RBC Urine None Seen (0-5/HPF)
--- NOTE | 2020-12-14 12:35 | DI.MRI.S_ITS ---
PROCEDURE: MR HEAD/BRAIN WO CON INDICATIONS: multiple neuro symptoms, has MS, per neurology TECHNIQUE: Noncontrast axial T1 spin echo, axial T2 fast spin echo, sagittal and axial FLAIR, coronal T2 fast spin echo, axial gradient echo, axial diffusion and ADC through the brain. COMPARISON: [facility], MR, MR MS BRAIN WITH/WITHOUT CONTRAST, 12/05/2019, 12:26. FINDINGS: Image quality: Excellent. CSF Spaces: Basal cisterns are patent. No extra-axial fluid collections. Ventricles are normal in size and shape. Brain: Multiple T2/FLAIR hyperintense lesions in the cerebral hemispheric white matter are overall unchanged in number, size, and distribution when compared with 12/05/2019 examination. There is no new lesion or definitively enlarging lesion identified. There is suspected lesion in the right midbrain near the superior cerebellar peduncle on series 7, image 8, similar to the prior study. No other infratentorial lesion identified definitively. No abnormal intracranial susceptibility or restricted diffusion. The major intracranial vascular flow-related signal voids are maintained. Skull and face: Calvarium has normal marrow signal. Orbits appear normal. Sinuses: Sinuses and mastoids are clear. IMPRESSION: Multiple white matter lesions consistent with multiple sclerosis are unchanged from 12/05/2019 examination. Dictated by: Ernesto Barth M.D. on 12/14/2020 at 14:39 Approved by: Ernesto Barth M.D. on 12/14/2020 at 14:42
[2020-12-14 12:47] LABS: WBC Urine 0-1/HPF (0-5/HPF)
[2020-12-14 13:12] LABS: Alanine Aminotransferase 11 IU/L (<35); Albumin Globulin Ratio 1.4 (1.0-2.8); Alkaline Phosphatase 55 U/L (38-126); Aspartate Aminotransferase 16 IU/L (14-36); BUN Creatinine Ratio 23.7 (6-22); Bilirubin Total < 0.1 mg/dL (0.2-1.3); Blood Urea Nitrogen 14 mg/dL (7-17); Calcium 9.5 mg/dL (8.4-10.2); Carbon Dioxide 28 mmol/L (22-32); Chloride 104 mmol/L (98-107); Estimated Glomerular Filt Rate > 60.0 mL/min (>60); Globulin 2.8 g/dL (1.7-4.1); Glucose 100 mg/dL (70-100); HEMOLYSIS < 15 (0-50); Magnesium 2.3 mg/dL (1.6-2.3); Potassium 3.9 mmol/L (3.4-5.1); Sodium 139 mmol/L (137-145); Total Protein 6.8 g/dL (6.3-8.2)
[2020-12-14 13:14] LABS: Add Manual Diff / Slide Review NO; Basophils Absolute Auto 0 /uL (0-100); Basophils Percent Auto 0.2 % (0-2); Eosinophils Absolute Auto 0 /uL (0-450); Hematocrit 37.7 % (36-46); Hemoglobin 12.2 g/dL (12.0-16.0); Lymphocytes Absolute Auto 1600 /uL (1100-4500); Lymphocytes Percent Auto 7.5 % (25-40); Mean Corpuscular HGB Conc 32.3 % (30-36); Mean Corpuscular Hemoglobin 29.6 PG (26-34); Mean Corpuscular Volume 91.8 fL (80-100); Monocytes Absolute Auto 1400 /uL (0-900); Monocytes Percent Auto 6.9 % (3-14); Neutrophils Absolute Auto 17800 /uL (1500-7000); Neutrophils Percent Auto 85.4 % (50-75); Platelet Count 354 X10^3/uL (150-400); Red Blood Cell Count 4.11 X10^6/uL (4.0-5.2); Red Cell Distribution Width 14.3 % (11.6-14.8); White Blood Cell Count 20.8 X10^3/uL (4.5-11.0)
[2020-12-14] MEDS: LORazepam 2 MG/ML INJ 1 MG IV (13:35)
[2020-12-14 14:20] VITALS: BP 124/63; PULSE 68; RESP 16; O2SAT 100
[2020-12-14 15:13] LABS: COVID19 - ADMIT (NP swab/PCR) Negative (Negative)
[2020-12-14] MEDS: methylPREDNISolone 1,000 MG in SODIUM CHLORIDE 0.9% 250 ML 258 ML IV (15:37)
[2020-12-14 15:41] VITALS: BP 127/72; PULSE 67; RESP 18; O2SAT 99
[2020-12-14 16:44] VITALS: BP 130/66; PULSE 69; RESP 16; O2SAT 100
--- NOTE | 2020-12-15 08:23 | ED_ITS ---
HPI - Recheck/Abnormal Lab/Rx General Chief Complaint: Recheck/Abnormal Lab/Rx Stated Complaint: Steroid Injection, Not Better, Vision Issues, Conf Time Seen by Provider: 12/14/20 11:51 Source: patient and family Mode of arrival: Ambulatory History of Present Illness HPI narrative: 40-year-old female nonsmoker with history of MS presents with of her ID of symptoms thought to be related to an MS exacerbation over the past week or so. PShe is here as directed Patient complains of blurring of her vision weakness of bilateral upper and lower extremities resulting in difficulty with ambulation, widespread numbness and tingling. She has no chest pain or shortness of breath. She has some nausea but denies any vomiting. She has had no fever or chills. Her symptoms had started about a week ago when she had urinary tract infection type symptoms and once her UTI had been treated and cleared and her symptoms did not improve she saw her neurologist (Dr. lainez at [facility]) and was scheduled for outpatient infusions of Solu-Medrol. She has had 3 days of 1000 mg of Solu-Medrol and has very little if any improvement in her symptoms. She called her neurologist and was encouraged to present here for evaluation. Related Data Home Medications Medication Instructions Recorded Confirmed meclizine 25 mg tablet 25 mg PO TID PRN 01/16/18 04/04/18 tamsulosin 0.4 mg capsule 0.4 mg PO BID 01/16/18 04/04/18 ranitidine HCl 75 mg tablet 75 mg PO DAILY PRN 01/19/18 04/04/18 paroxetine HCl 10 mg tablet (Paxil) 10 mg PO DAILY 04/04/18 04/04/18 dextroamphetamine-amphetamine 5 mg 5 mg PO BID 06/20/19 06/20/19 tablet sertraline 100 mg tablet 150 mg PO DAILY 06/20/19 06/20/19 sumatriptan succinate 100 mg tablet 100 mg PO PRN PRN 06/20/19 06/20/19 ocrelizumab 30 mg/mL intravenous mg IV 10/10/19 solution (Ocrevus) Previous Rx's Medication Instructions Recorded bisacodyl 10 mg rectal suppository 10 mg GA DAILY PRN #2 ea 04/09/18 clonazepam 0.5 mg tablet 1 mg PO BEDTIME #30 tab 04/09/18 docusate sodium 100 mg capsule 200 mg PO BID #30 cap 04/09/18 melatonin 3 mg tablet 6 mg PO BEDTIME #10 tab 04/09/18 oxycodone-acetaminophen 5 mg-325 1 tab PO Q4-6H PRN #10 tab 04/09/18 mg tablet (Percocet) sennosides 8.6 mg tablet (senna) 17.2 mg PO BID #30 tab 04/09/18 zolpidem 5 mg tablet 10 mg PO BEDTIME PRN #10 tab 04/09/18 divalproex 250 mg tablet,delayed 250 mg PO BID #60 tab 06/10/18 release (Depakote) quetiapine 25 mg tablet (Seroquel) 12.5 mg PO BID #30 tab 06/10/18 lorazepam 1 mg tablet (Ativan) 1 mg PO BID PRN #7 tab 06/20/19 Allergies Allergy/AdvReac Type Severity Reaction Status Date / Time adhesive tape Allergy Mild Blister Verified 12/14/20 12:04 pomegranate [POMEGRANATE] Allergy Unknown Verified 12/14/20 12:04 Review of Systems Review of Systems Narrative: GENERAL: Denies chills, fatigue, malaise, fever, sweats. HEENT: Denies sinus pain, ear pain, sore throat, difficulty swallowing, dizziness. RESPIRATORY: Denies dyspnea, cough, wheezing, hemoptysis, sputum. CARDIOVASCULAR: Denies chest pain, palpitations, orthopnea, edema, GASTROINTESTINAL: Denies nausea, vomiting, abdominal pain, diarrhea, constipation, melena. : Denies dysuria, frequency, incontinence, hematuria, urinary retention. MUSCULOSKELETAL: denies weakness, joint pain, or bony pain SKIN: Denies rash, skin lesions, or other NEUROLOGIC: See HPI. PSYCHIATRIC: No concerning psychosocial issues. 12 point review of systems is negative except for those stated above Patient History Medical History Multiple sclerosis Surgical History No pertinent past surgical history Family History Mother Hypertension Alcoholism Father Heart abnormality Social History household members: children Smoking Status: Former smoker Smoking Status: Former smoker alcohol intake frequency: 0-2 drinks per day Substance Use Type: marijuana Exam Narrative Exam Narrative: GENERAL: [40] year old patient appears stated age. Well- developed patient, in mild distress. HEAD: Atraumatic. Normocephalic. EYES: Pupils equal round and reactive. Extraocular motions intact. No scleral icterus. No injection or drainage. ENT: Nose without bleeding, purulent drainage. Throat without erythema, tonsillar hypertrophy or exudate. Airway patent. NECK: Trachea midline. Non tender CARDIOVASCULAR: Regular rate and rhythm without murmurs, gallops, or rubs. RESPIRATORY: Clear to auscultation. Breath sounds equal bilaterally. No wheezes, rales, or rhonchi. GASTROINTESTINAL: Abdomen soft, non-tender, nondistended. EXTREMITIES: No edema or joint tenderness. BACK: Nontender without deformity or crepitance. No flank tenderness. NEURO: AOx3. For out of 5 muscle strength bilateral lower extremities, widespread numbness and tingling SKIN: No rash or erythema of visible areas Initial Vital Signs Initial Vital Signs: Vital Signs Temperature 98.3 F 12/14/20 12:01 Pulse Rate 87 12/14/20 12:01 Respiratory Rate 18 12/14/20 12:01 Blood Pressure 120/61 12/14/20 12:01 Pulse Oximetry 100 12/14/20 12:01 Course Orders Ordered: Discontinued Medications Methylprednisolone 1,000 mg/ (Sodium Chloride) 258 mls @ 258 mls/hr IV NOW ONE Stop: 12/14/20 14:54 Last Infusion: 12/14/20 16:45 Dose: 0 mls/hr Documented by: Admin: 12/14/20 15:37 Dose: 258 mls/hr Documented by: JERMAINE Lorazepam (Lorazepam 2 Mg/Ml Inj) 1 mg IV NOW ONE Stop: 12/14/20 13:32 Last Admin: 12/14/20 13:35 Dose: 1 mg Documented by: JERMAINE MDM - Recheck/Abnormal Lab/Rx Lab Data Result diagrams: 12/14/20 12:54 12/14/20 12:54 Labs: Lab Results 12/14/20 12/14/20 12/14/20 Range/Units 12:08 12:54 12:54 WBC 20.8 H (4.5-11.0) X10^3/uL RBC 4.11 (4.0-5.2) X10^6/uL Hgb 12.2 (12.0-16.0) g/dL Hct 37.7 (36-46) % MCV 91.8 (80-100) fL MCH 29.6 (26-34) PG MCHC 32.3 (30-36) % RDW 14.3 (11.6-14.8) % Plt Count 354 (150-400) X10^3/uL Neut % (Auto) 85.4 H (50-75) % Lymph % (Auto) 7.5 L (25-40) % [place] % (Auto) 6.9 (3-14) % Eos % (Auto) 0.0 L (2-4) % Baso % (Auto) 0.2 (0-2) % Neut # (Auto) 81783 H (8018-9026) /uL Lymph # (Auto) 1600 (3399-7397) /uL [place] # (Auto) 1400 H (0-900) /uL Eos # (Auto) 0 (0-450) /uL Baso # (Auto) 0 (0-100) /uL Sodium 139 (137-145) mmol/L Potassium 3.9 (3.4-5.1) mmol/L Chloride 104 (98-107) mmol/L Carbon Dioxide 28 (22-32) mmol/L BUN 14 (7-17) mg/dL Creatinine 0.59 (0.52-1.04) mg/dL Estimated GFR > 60.0 (>60) mL/min BUN/Creatinine Ratio 23.7 H (6-22) Glucose 100 (70-100) mg/dL Calcium 9.5 (8.4-10.2) mg/dL Magnesium 2.3 (1.6-2.3) mg/dL Total Bilirubin < 0.1 L (0.2-1.3) mg/dL AST 16 (14-36) IU/L ALT 11 (<35) IU/L Alkaline Phosphatase 55 (38-126) U/L Total Protein 6.8 (6.3-8.2) g/dL Albumin 4.0 (3.5-5.0) g/dL Globulin 2.8 (1.7-4.1) g/dL Albumin/Globulin Ratio 1.4 (1.0-2.8) Urine RBC None seen (0-5/HPF) Urine WBC 0-1/hpf (0-5/HPF) Urine Bacteria None seen (None) Ur Culture Indicated? Culture not indicate SARS-CoV-2 (PCR) (Negative) 12/14/20 Range/Units 13:49 WBC (4.5-11.0) X10^3/uL RBC (4.0-5.2) X10^6/uL Hgb (12.0-16.0) g/dL Hct (36-46) % MCV (80-100) fL MCH (26-34) PG MCHC (30-36) % RDW (11.6-14.8) % Plt Count (150-400) X10^3/uL Neut % (Auto) (50-75) % Lymph % (Auto) (25-40) % [place] % (Auto) (3-14) % Eos % (Auto) (2-4) % Baso % (Auto) (0-2) % Neut # (Auto) (3673-1126) /uL Lymph # (Auto) (1795-1663) /uL [place] # (Auto) (0-900) /uL Eos # (Auto) (0-450) /uL Baso # (Auto) (0-100) /uL Sodium (137-145) mmol/L Potassium (3.4-5.1) mmol/L Chloride (98-107) mmol/L Carbon Dioxide (22-32) mmol/L BUN (7-17) mg/dL Creatinine (0.52-1.04) mg/dL Estimated GFR (>60) mL/min BUN/Creatinine Ratio (6-22) Glucose (70-100) mg/dL Calcium (8.4-10.2) mg/dL Magnesium (1.6-2.3) mg/dL Total Bilirubin (0.2-1.3) mg/dL AST (14-36) IU/L ALT (<35) IU/L Alkaline Phosphatase (38-126) U/L Total Protein (6.3-8.2) g/dL Albumin (3.5-5.0) g/dL Globulin (1.7-4.1) g/dL Albumin/Globulin Ratio (1.0-2.8) Urine RBC (0-5/HPF) Urine WBC (0-5/HPF) Urine Bacteria (None) Ur Culture Indicated? SARS-CoV-2 (PCR) Negative (Negative) Point of Care Testing Test Results Negative Urine Dip Bedside Urine Glucose Negative Bedside Urine Bilirubin - Negative Bedside Urine Ketone - Negative Urine Specific [place] 1.010 Bedside Urine Occult Blood - Negative Bedside Urine pH 6.0 Bedside Urine Protein - Negative Bedside Urine Urobilinogen - Negative Bedside Urine Nitrite - Negative Bedside Urine Leukocytes + 70 Esterase Discharge Plan Departure Patient Disposition: Home Clinical Impression: Exacerbation of multiple sclerosis Instructions: DI for Multiple Sclerosis Activity Restrictions/Additional Instructions: *You have been diagnosed with [exacerbation of multiple sclerosis] *What to do: Please return tomorrow for another dose of Solu-Medrol 1000 mg, the infusion clinic is not open *Return to Emergency Department if you should have any new, worsening or concerning symptoms, such as [fever greater than 101 F, shaking chills, wo rsening pain, persistent vomiting or other bothersome symptoms] Prescriptions: No Action quetiapine [Seroquel] 25 mg tablet 12.5 mg PO BID Qty: 30 RF: 0 divalproex [Depakote] 250 mg tablet,delayed release (DR/EC) 250 mg PO BID Qty: 60 RF: 0 tamsulosin 0.4 mg capsule 0.4 mg PO BID RF: 0 meclizine 25 mg tablet 25 mg PO TID PRN (Reason: Vertigo) RF: 0 ranitidine HCl 75 mg Tablet 75 mg PO DAILY PRN (Reason: Indigestion) RF: 0 paroxetine HCl [Paxil] 10 mg Tablet 10 mg PO DAILY RF: 0 sennosides [senna] 8.6 mg Tablet 17.2 mg PO BID Qty: 30 RF: 0 clonazepam 0.5 mg Tablet 1 mg PO BEDTIME Qty: 30 RF: 0 melatonin 3 mg Tablet 6 mg PO BEDTIME Qty: 10 RF: 0 bisacodyl 10 mg Suppository 10 mg GA DAILY PRN (Reason: Constipation) Qty: 2 RF: 0 docusate sodium 100 mg Capsule 200 mg PO BID Qty: 30 RF: 0 zolpidem 5 mg Tablet 10 mg PO BEDTIME PRN (Reason: Sleep) Qty: 10 RF: 0 oxycodone-acetaminophen [Percocet] 5-325 mg tablet 1 tab PO Q4-6H PRN (Reason: pain) Qty: 10 RF: 0 sumatriptan succinate 100 mg tablet 100 mg PO PRN PRN (Reason: Migraine Headache) RF: 0 sertraline 100 mg tablet 150 mg PO DAILY RF: 0 dextroamphetamine-amphetamine 5 mg tablet 5 mg PO BID RF: 0 lorazepam [Ativan] 1 mg tablet 1 mg PO BID PRN (Reason: anxiety) Qty: 7 RF: 0 Ocrevus 30 mg/mL solution IV RF: 0
--- NOTE | 2020-12-15 08:25 | ED_ITS ---
HPI - Recheck/Abnormal Lab/Rx General Chief Complaint: Recheck/Abnormal Lab/Rx Stated Complaint: Steroid Injection, Not Better, Vision Issues, Conf Time Seen by Provider: 12/14/20 11:51 Source: patient and family Mode of arrival: Ambulatory History of Present Illness HPI narrative: 40-year-old female nonsmoker with history of MS presents with of her ID of symptoms thought to be related to an MS exacerbation over the past week or so. Patient was seen and evaluated yesterday and had reassuring labs and MRI. After discussion with neurologist he recommended additional 2 days of Solu-Medrol. She is here as directed Patient complains of blurring of her vision weakness of bilateral upper and lower extremities resulting in difficulty with ambulation, widespread numbness and tingling. She has no chest pain or shortness of breath. She has some nausea but denies any vomiting. She has had no fever or chills. Her symptoms had started about a week ago when she had urinary tract infection type symptoms and once her UTI had been treated and cleared and her symptoms did not improve she saw her neurologist (Dr. lainez at [facility]) and was scheduled for outpatient infusions of Solu-Medrol. She has had 3 days of 1000 mg of Solu-Medrol and has very little if any improvement in her symptoms. She called her neurologist and was encouraged to present here for evaluation. Related Data Home Medications Medication Instructions Recorded Confirmed meclizine 25 mg tablet 25 mg PO TID PRN 01/16/18 04/04/18 tamsulosin 0.4 mg capsule 0.4 mg PO BID 01/16/18 04/04/18 ranitidine HCl 75 mg tablet 75 mg PO DAILY PRN 01/19/18 04/04/18 paroxetine HCl 10 mg tablet (Paxil) 10 mg PO DAILY 04/04/18 04/04/18 dextroamphetamine-amphetamine 5 mg 5 mg PO BID 06/20/19 06/20/19 tablet sertraline 100 mg tablet 150 mg PO DAILY 06/20/19 06/20/19 sumatriptan succinate 100 mg tablet 100 mg PO PRN PRN 06/20/19 06/20/19 ocrelizumab 30 mg/mL intravenous mg IV 10/10/19 solution (Ocrevus) Previous Rx's Medication Instructions Recorded bisacodyl 10 mg rectal suppository 10 mg [place] DAILY PRN #2 ea 04/09/18 clonazepam 0.5 mg tablet 1 mg PO BEDTIME #30 tab 04/09/18 docusate sodium 100 mg capsule 200 mg PO BID #30 cap 04/09/18 melatonin 3 mg tablet 6 mg PO BEDTIME #10 tab 04/09/18 oxycodone-acetaminophen 5 mg-325 1 tab PO Q4-6H PRN #10 tab 04/09/18 mg tablet (Percocet) sennosides 8.6 mg tablet (senna) 17.2 mg PO BID #30 tab 04/09/18 zolpidem 5 mg tablet 10 mg PO BEDTIME PRN #10 tab 04/09/18 divalproex 250 mg tablet,delayed 250 mg PO BID #60 tab 06/10/18 release (Depakote) quetiapine 25 mg tablet (Seroquel) 12.5 mg PO BID #30 tab 06/10/18 lorazepam 1 mg tablet (Ativan) 1 mg PO BID PRN #7 tab 06/20/19 Allergies Allergy/AdvReac Type Severity Reaction Status Date / Time adhesive tape Allergy Mild Blister Verified 12/14/20 12:04 pomegranate [POMEGRANATE] Allergy Unknown Verified 12/14/20 12:04 Review of Systems Review of Systems Narrative: GENERAL: Denies chills, fatigue, malaise, fever, sweats. HEENT: Denies sinus pain, ear pain, sore throat, difficulty swallowing, di zziness. RESPIRATORY: Denies dyspnea, cough, wheezing, hemoptysis, sputum. CARDIOVASCULAR: Denies chest pain, palpitations, orthopnea, edema, GASTROINTESTINAL: Denies nausea, vomiting, abdominal pain, diarrhea, constipation, melena. : Denies dysuria, frequency, incontinence, hematuria, urinary retention. MUSCULOSKELETAL: denies weakness, joint pain, or bony pain SKIN: Denies rash, skin lesions, or other NEUROLOGIC: See HPI PSYCHIATRIC: No concerning psychosocial issues. 12 point review of systems is negative except for those stated above Patient History Medical History Multiple sclerosis Surgical History No pertinent past surgical history Family History Mother Hypertension Alcoholism Father Heart abnormality Social History household members: children Smoking Status: Former smoker Smoking Status: Former smoker alcohol intake frequency: 0-2 drinks per day Substance Use Type: marijuana Exam Narrative Exam Narrative: GENERAL: 40[] year old patient appears stated age. Well- developed patient, in mild distress. HEAD: Atraumatic. Normocephalic. EYES: Pupils equal round and reactive. Extraocular motions intact. No scleral icterus. No injection or drainage. ENT: Nose without bleeding, purulent drainage. Throat without erythema, tonsillar hypertrophy or exudate. Airway patent. NECK: Trachea midline. Non tender CARDIOVASCULAR: Regular rate and rhythm without murmurs, gallops, or rubs. RESPIRATORY: Clear to auscultation. Breath sounds equal bilaterally. No wheezes, rales, or rhonchi. GASTROINTESTINAL: Abdomen soft, non-tender, nondistended. EXTREMITIES: No edema or joint tenderness. BACK: Nontender without deformity or crepitance. No flank tenderness. NEURO: AOx3. 4/5 muscle strength bilateral lower extremities, visible difficulty with ambulation, widespread numbness and tingling, no obvious focal neurologic findings SKIN: No rash or erythema of visible areas Initial Vital Signs Initial Vital Signs: Vital Signs Temperature 98.3 F 12/14/20 12:01 Pulse Rate 87 12/14/20 12:01 Respiratory Rate 18 12/14/20 12:01 Blood Pressure 120/61 12/14/20 12:01 Pulse Oximetry 100 12/14/20 12:01 Course Orders Ordered: Discontinued Medications Methylprednisolone 1,000 mg/ (Sodium Chloride) 258 mls @ 258 mls/hr IV NOW ONE Stop: 12/14/20 14:54 Last Infusion: 12/14/20 16:45 Dose: 0 mls/hr Documented by: Admin: 12/14/20 15:37 Dose: 258 mls/hr Documented by: JERMAINE Lorazepam (Lorazepam 2 Mg/Ml Inj) 1 mg IV NOW ONE Stop: 12/14/20 13:32 Last Admin: 12/14/20 13:35 Dose: 1 mg Documented by: JERMAINE Consultations Consultation #1: Discussed with on-call Neurology at [facility]. After reviewing patient's history, physical, labs and MRI findings he recommends an additional 2 days of Solu-Medrol and if needed a Medrol Dosepak with close follow-up with Dr Jayce lainez for possible IVIG if needed MDM - Recheck/Abnormal Lab/Rx Lab Data Result diagrams: 12/14/20 12:54 12/14/20 12:54 Labs: Lab Results 12/14/20 12/14/20 12/14/20 Range/Units 12:08 12:54 12:54 WBC 20.8 H (4.5-11.0) X10^3/uL RBC 4.11 (4.0-5.2) X10^6/uL Hgb 12.2 (12.0-16.0) g/dL Hct 37.7 (36-46) % MCV 91.8 (80-100) fL MCH 29.6 (26-34) PG MCHC 32.3 (30-36) % RDW 14.3 (11.6-14.8) % Plt Count 354 (150-400) X10^3/uL Neut % (Auto) 85.4 H (50-75) % Lymph % (Auto) 7.5 L (25-40) % [place] % (Auto) 6.9 (3-14) % Eos % (Auto) 0.0 L (2-4) % Baso % (Auto) 0.2 (0-2) % Neut # (Auto) 12416 H (5500-7810) /uL Lymph # (Auto) 1600 (1068-6845) /uL [place] # (Auto) 1400 H (0-900) /uL Eos # (Auto) 0 (0-450) /uL Baso # (Auto) 0 (0-100) /uL Sodium 139 (137-145) mmol/L Potassium 3.9 (3.4-5.1) mmol/L Chloride 104 (98-107) mmol/L Carbon Dioxide 28 (22-32) mmol/L BUN 14 (7-17) mg/dL Creatinine 0.59 (0.52-1.04) mg/dL Estimated GFR > 60.0 (>60) mL/min BUN/Creatinine Ratio 23.7 H (6-22) Glucose 100 (70-100) mg/dL Calcium 9.5 (8.4-10.2) mg/dL Magnesium 2.3 (1.6-2.3) mg/dL Total Bilirubin < 0.1 L (0.2-1.3) mg/dL AST 16 (14-36) IU/L ALT 11 (<35) IU/L Alkaline Phosphatase 55 (38-126) U/L Total Protein 6.8 (6.3-8.2) g/dL Albumin 4.0 (3.5-5.0) g/dL Globulin 2.8 (1.7-4.1) g/dL Albumin/Globulin Ratio 1.4 (1.0-2.8) Urine RBC None seen (0-5/HPF) Urine WBC 0-1/hpf (0-5/HPF) Urine Bacteria None seen (None) Ur Culture Indicated? Culture not indicate SARS-CoV-2 (PCR) (Negative) 12/14/20 Range/Units 13:49 WBC (4.5-11.0) X10^3/uL RBC (4.0-5.2) X10^6/uL Hgb (12.0-16.0) g/dL Hct (36-46) % MCV (80-100) fL MCH (26-34) PG MCHC (30-36) % RDW (11.6-14.8) % Plt Count (150-400) X10^3/uL Neut % (Auto) (50-75) % Lymph % (Auto) (25-40) % [place] % (Auto) (3-14) % Eos % (Auto) (2-4) % Baso % (Auto) (0-2) % Neut # (Auto) (6764-6041) /uL Lymph # (Auto) (3504-2080) /uL [place] # (Auto) (0-900) /uL Eos # (Auto) (0-450) /uL Baso # (Auto) (0-100) /uL Sodium (137-145) mmol/L Potassium (3.4-5.1) mmol/L Chloride (98-107) mmol/L Carbon Dioxide (22-32) mmol/L BUN (7-17) mg/dL Creatinine (0.52-1.04) mg/dL Estimated GFR (>60) mL/min BUN/Creatinine Ratio (6-22) Glucose (70-100) mg/dL Calcium (8.4-10.2) mg/dL Magnesium (1.6-2.3) mg/dL Total Bilirubin (0.2-1.3) mg/dL AST (14-36) IU/L ALT (<35) IU/L Alkaline Phosphatase (38-126) U/L Total Protein (6.3-8.2) g/dL Albumin (3.5-5.0) g/dL Globulin (1.7-4.1) g/dL Albumin/Globulin Ratio (1.0-2.8) Urine RBC (0-5/HPF) Urine WBC (0-5/HPF) Urine Bacteria (None) Ur Culture Indicated? SARS-CoV-2 (PCR) Negative (Negative) Point of Care Testing Test Results Negative Urine Dip Bedside Urine Glucose Negative Bedside Urine Bilirubin - Negative Bedside Urine Ketone - Negative Urine Specific [place] 1.010 Bedside Urine Occult Blood - Negative Bedside Urine pH 6.0 Bedside Urine Protein - Negative Bedside Urine Urobilinogen - Negative Bedside Urine Nitrite - Negative Bedside Urine Leukocytes + 70 Esterase MDM Narrative Medical decision making narrative: Patient with multiple neurologic symptoms thought to be related to MS exacerbation. She has reassuring labs, no electro lyte disturbances or urinary tract infection. Her elevated white count is thought to be related to high-dose steroids. MRI is unchanged and after discussion with neurologist he shares the opinion that she is likely having an MS exacerbation. Recommends additional 2 days of Solu-Medrol, possible Medrol Dosepak and close follow-up. Patient will come to see me tomorrow as the IV infusion clinic is not open on the weekends Discharge Plan Departure Patient Disposition: Home Clinical Impression: Exacerbation of multiple sclerosis Instructions: DI for Multiple Sclerosis Activity Restrictions/Additional Instructions: *You have been diagnosed with [exacerbation of multiple sclerosis] *What to do: Please return tomorrow for another dose of Solu-Medrol 1000 mg, the infusion clinic is not open *Return to Emergency Department if you should have any new, worsening or concerning symptoms, such as [fever greater than 101 F, shaking chills, worsening pain, persistent vomiting or other bothersome symptoms] Prescriptions: No Action quetiapine [Seroquel] 25 mg tablet 12.5 mg PO BID Qty: 30 RF: 0 divalproex [Depakote] 250 mg tablet,delayed release (DR/EC) 250 mg PO BID Qty: 60 RF: 0 tamsulosin 0.4 mg capsule 0.4 mg PO BID RF: 0 meclizine 25 mg tablet 25 mg PO TID PRN (Reason: Vertigo) RF: 0 ranitidine HCl 75 mg Tablet 75 mg PO DAILY PRN (Reason: Indigestion) RF: 0 paroxetine HCl [Paxil] 10 mg Tablet 10 mg PO DAILY RF: 0 sennosides [senna] 8.6 mg Tablet 17.2 mg PO BID Qty: 30 RF: 0 clonazepam 0.5 mg Tablet 1 mg PO BEDTIME Qty: 30 RF: 0 melatonin 3 mg Tablet 6 mg PO BEDTIME Qty: 10 RF: 0 bisacodyl 10 mg Suppository 10 mg [place] DAILY PRN (Reason: Constipation) Qty: 2 RF: 0 docusate sodium 100 mg Capsule 200 mg PO BID Qty: 30 RF: 0 zolpidem 5 mg Tablet 10 mg PO BEDTIME PRN (Reason: Sleep) Qty: 10 RF: 0 oxycodone-acetaminophen [Percocet] 5-325 mg tablet 1 tab PO Q4-6H PRN (Reason: pain) Qty: 10 RF: 0 sumatriptan succinate 100 mg tablet 100 mg PO PRN PRN (Reason: Migraine Headache) RF: 0 sertraline 100 mg tablet 150 mg PO DAILY RF: 0 dextroamphetamine-amphetamine 5 mg tablet 5 mg PO BID RF: 0 lorazepam [Ativan] 1 mg tablet 1 mg PO BID PRN (Reason: anxiety) Qty: 7 RF: 0 Ocrevus 30 mg/mL solution IV RF: 0
== END 2020-12-14 16:55 | disposition home or self-care (01) ==
PROVIDERS: Emergency Provider Emergency Medicine; Family Provider Psychiatry & Neurology Neurology
DX: G35 Multiple sclerosis (principal); R11.0 Nausea; Z20.822 Contact with and (suspected) exposure to COVID-19
CPT/HCPCS: 36415; 70551; 80053; 81003; 81015; 81025; 83735; 85025; 87086; 87635; 96365; 96375; 99284; C9803; J2060; J2930

== ENCOUNTER 2020-12-15 07:54 | Emergency (ER) | payer MEDICARE, MEDICAID, SELFPAY ==
[2020-12-15 08:00] VITALS: BP 132/75; PULSE 60; RESP 13; TEMP 36.9; O2SAT 97
--- NOTE | 2020-12-15 08:29 | ED.NEUROSD ---
HPI - Neuro Symptoms/Deficit General Chief Complaint: Neuro Symptoms/Deficit Stated Complaint: MS-ENT BY Time Seen by Provider: 12/15/20 07:57 Source: patient Mode of arrival: Ambulatory History of Present Illness HPI Narrative: HPI narrative: 40-year-old female nonsmoker with history of MS presents with of her ID of symptoms thought to be related to an MS exacerbation over the past week or so. Patient was seen and evaluated yesterday and had reassuring labs and MRI. After discussion with neurologist he recommended additional 2 days of Solu-Medrol. She is here as directed Patient complains of blurring of her vision weakness of bilateral upper and lower extremities resulting in difficulty with ambulation, widespread numbness and tingling. She has no chest pain or shortness of breath. She has some nausea but denies any vomiting. She has had no fever or chills. Her symptoms had started about a week ago when she had urinary tract infection type symptoms and once her UTI had been treated and cleared and her symptoms did not improve she saw her neurologist (Dr. lainez at [facility]) and was scheduled for outpatient infusions of Solu-Medrol. She has had 3 days of 1000 mg of Solu-Medrol and has very little if any improvement in her symptoms. She called her neurologist and was encouraged to present here for evaluation. On Anticoagulants: No Related Data Home Medications Medication Instructions Recorded Confirmed meclizine 25 mg tablet 25 mg PO TID PRN 01/16/18 04/04/18 tamsulosin 0.4 mg capsule 0.4 mg PO BID 01/16/18 04/04/18 ranitidine HCl 75 mg tablet 75 mg PO DAILY PRN 01/19/18 04/04/18 paroxetine HCl 10 mg tablet (Paxil) 10 mg PO DAILY 04/04/18 04/04/18 dextroamphetamine-amphetamine 5 mg 5 mg PO BID 06/20/19 06/20/19 tablet sertraline 100 mg tablet 150 mg PO DAILY 06/20/19 06/20/19 sumatriptan succinate 100 mg tablet 100 mg PO PRN PRN 06/20/19 06/20/19 ocrelizumab 30 mg/mL intravenous mg IV 10/10/19 solution (Ocrevus) Previous Rx's Medication Instructions Recorded bisacodyl 10 mg rectal suppository 10 mg [place] DAILY PRN #2 ea 04/09/18 clonazepam 0.5 mg tablet 1 mg PO BEDTIME #30 tab 04/09/18 docusate sodium 100 mg capsule 200 mg PO BID #30 cap 04/09/18 melatonin 3 mg tablet 6 mg PO BEDTIME #10 tab 04/09/18 oxycodone-acetaminophen 5 mg-325 1 tab PO Q4-6H PRN #10 tab 04/09/18 mg tablet (Percocet) sennosides 8.6 mg tablet (senna) 17.2 mg PO BID #30 tab 04/09/18 zolpidem 5 mg tablet 10 mg PO BEDTIME PRN #10 tab 04/09/18 divalproex 250 mg tablet,delayed 250 mg PO BID #60 tab 06/10/18 release (Depakote) quetiapine 25 mg tablet (Seroquel) 12.5 mg PO BID #30 tab 06/10/18 lorazepam 1 mg tablet (Ativan) 1 mg PO BID PRN #7 tab 06/20/19 methylprednisolone 4 mg tablets in See Rx Instructions .ROUTE 12/15/20 a dose pack (Medrol (Esteban)) .COMPLEX #21 ea Allergies Allergy/AdvReac Type Severity Reaction Status Date / Time adhesive tape Allergy Mild Blister Verified 12/14/20 12:04 pomegranate [POMEGRANATE] Allergy Unknown Verified 12/14/20 12:04 Review of Systems Review of Systems Narrative: GENERAL: Denies chills, fatigue, malaise, fever, sweats. HEENT: Denies sinus pain, ear pain, sore throat, difficulty swallowing, dizziness. RESPIRATORY: Denies dyspnea, cough, wheezing, hemoptysis, sputum. CARDIOVASCULAR: Denies chest pain, palpitations, orthopnea, edema, GASTROINTESTINAL: Denies nausea, vomiting, abdominal pain, diarrhea, constipation, melena. : Denies dysuria, frequency, incontinence, hematuria, urinary retention. MUSCULOSKELETAL: denies weakness, joint pain, or bony pain SKIN: Denies rash, skin lesions, or other NEUROLOGIC: See HP. PSYCHIATRIC: No concerning psychosocial issues. 12 point review of systems is negative except for those stated above Hematologic/Lymphatic On Anticoagulants: No Patient History Medical History (Updated 12/15/20 @ 08:57 by Russel Da Silva DO) Multiple sclerosis Surgical History No pertinent past surgical history Family History Mother Hypertension Alcoholism Father Heart abnormality Social History household members: children Smoking Status: Former smoker Smoking Status: Former smoker alcohol intake frequency: 0-2 drinks per day Substance Use Type: marijuana Exam Narrative Exam Narrative: GENERAL: [40] year old patient appears stated age. Well-developed patient, in mild distress. HEAD: Atraumatic. Normocephalic. EYES: Pupils equal round and reactive. Extraocular motions intact. No scleral icterus. No injection or drainage. ENT: Nose without bleeding, purulent drainage. Throat without erythema, tonsillar hypertrophy or exudate. Airway patent. NECK: Trachea midline. Non tender CARDIOVASCULAR: Regular rate and rhythm without murmurs, gallops, or rubs. RESPIRATORY: Clear to auscultation. Breath sounds equal bilaterally. No wheezes, rales, or rhonchi. GASTROINTESTINAL: Abdomen soft, non-tender, nondistended. EXTREMITIES: No edema or joint tenderness. BACK: Nontender without deformity or crepitance. No flank tenderness. NEURO: AOx3. No obvious focal findings, for of 5 strength bilateral lower extremities, reflexes intact, widespread numbness and tingling SKIN: No rash or erythema of visible areas Initial Vital Signs Initial Vital Signs: Vital Signs Temperature 98.5 F 12/15/20 08:00 Pulse Rate 60 12/15/20 08:00 Respiratory Rate 13 12/15/20 08:00 Blood Pressure 132/75 12/15/20 08:00 Pulse Oximetry 97 12/15/20 08:00 Course Orders Ordered: Discontinued Medications Methylprednisolone 1,000 mg/ (Sodium Chloride) 258 mls @ 258 mls/hr IV NOW ONE Stop: 12/15/20 07:58 Last Infusion: 12/15/20 10:07 Dose: 0 mls/hr Documented by: Admin: 12/15/20 09:02 Dose: 258 mls/hr Documented by: ANTONETTE Vital Signs Vital signs: Vital Signs - 8 hr 12/15/20 08:00 12/15/20 10:27 Temperature 98.5 F Pulse Rate 60 76 Respiratory Rate 13 20 Blood Pressure 132/75 124/73 Pulse Oximetry 97 98 Discharge Plan Departure Patient Disposition: Home Clinical Impression: Exacerbation of multiple sclerosis Instructions: DI for Multiple Sclerosis Activity Restrictions/Additional Instructions: *You have been diagnosed with [exacerbation of multiple sclerosis] *What to do: *Please continue to take your regular medications as directed. [x ] New medication prescriptions sent to your pharmacy: [[facility] in [place]] [ ] New medication written as a paper prescription [ ] No new medications given * please contact Dr. Lainez's office Thursday and let them know you were seen in the emergency department twice over the course of the weekend and we need you to be seen in follow-up. I will try to electronically transmit the records if possible. *Return to Emergency Department if you should have any new, worsening or concerning symptoms, such as [fever greater than 101 F, shaking chills, worsening pain, persistent vomiting or other bothersome symptoms] Prescriptions: New methylprednisolone [Medrol (Esteban)] 4 mg tablets,dose pack See Rx Instructions .ROUTE .COMPLEX Qty: 21 RF: 0 No Action quetiapine [Seroquel] 25 mg tablet 12.5 mg PO BID Qty: 30 RF: 0 divalproex [Depakote] 250 mg tablet,delayed release (DR/EC) 250 mg PO BID Qty: 60 RF: 0 tamsulosin 0.4 mg capsule 0.4 mg PO BID RF: 0 meclizine 25 mg tablet 25 mg PO TID PRN (Reason: Vertigo) RF: 0 ranitidine HCl 75 mg Tablet 75 mg PO DAILY PRN (Reason: Indigestion) RF: 0 paroxetine HCl [Paxil] 10 mg Tablet 10 mg PO DAILY RF: 0 sennosides [senna] 8.6 mg Tablet 17.2 mg PO BID Qty: 30 RF: 0 clonazepam 0.5 mg Tablet 1 mg PO BEDTIME Qty: 30 RF: 0 melatonin 3 mg Tablet 6 mg PO BEDTIME Qty: 10 RF: 0 bisacodyl 10 mg Suppository 10 mg [place] DAILY PRN (Reason: Constipation) Qty: 2 RF: 0 docusate sodium 100 mg Capsule 200 mg PO BID Qty: 30 RF: 0 zolpidem 5 mg Tablet 10 mg PO BEDTIME PRN (Reason: Sleep) Qty: 10 RF: 0 oxycodone-acetaminophen [Percocet] 5-325 mg tablet 1 tab PO Q4-6H PRN (Reason: pain) Qty: 10 RF: 0 sumatriptan succinate 100 mg tablet 100 mg PO PRN PRN (Reason: Migraine Headache) RF: 0 sertraline 100 mg tablet 150 mg PO DAILY RF: 0 dextroamphetamine-amphetamine 5 mg tablet 5 mg PO BID RF: 0 lorazepam [Ativan] 1 mg tablet 1 mg PO BID PRN (Reason: anxiety) Qty: 7 RF: 0 Ocrevus 30 mg/mL solution IV RF: 0 Referrals: Kelvin Lainez MD [Family Provider] -
[2020-12-15] MEDS: methylPREDNISolone 1,000 MG in SODIUM CHLORIDE 0.9% 250 ML 258 ML IV (09:02)
[2020-12-15 10:27] VITALS: BP 124/73; PULSE 76; RESP 20; O2SAT 98
== END 2020-12-15 10:29 | disposition home or self-care (01) ==
PROVIDERS: Emergency Provider Emergency Medicine; Family Provider Psychiatry & Neurology Neurology
DX: G35 Multiple sclerosis (principal); H53.8 Other visual disturbances
CPT/HCPCS: 96365; 99283; 99284; J2930

== ENCOUNTER 2022-02-14 10:36 | Emergency (ER) | payer MEDICARE, MEDICAID, SELFPAY ==
[2022-02-14] VITALS (11 sets, daily range): BP systolic 99–123; BP diastolic 54–66; PULSE 63–85; RESP 15–16; TEMP 36.2; O2SAT 98–100; BMI 21.1
--- NOTE | 2022-02-14 14:40 | ED.HA ---
HPI - Headache <Marbin Ramos PA-C - Last Filed: 02/14/22 16:54> General Chief Complaint: Headache Stated Complaint: sent by neurologist for steroids infussion Time Seen by Provider: 02/14/22 12:25 Mode of arrival: Ambulatory History of Present Illness HPI Narrative: Patient is a [age]-year-old female who presents to the emergency room today with complaint of migraine headache. Patient states the migraine headache started on Thursday of this week. States that she went to the walk-in clinic at [place] yesterday and she received Benadryl and prednisone to not relieve the headache. States that she has been seing by Dr. Kelvin lainez, her neurologist for her chronic multiple sclerosis. States she has follow-up appointment scheduled with Dr. Lainez to receive her next Ocrevus treatment on February 26. States that she called his office this morning and he suggested she report to the emergency room to receive 1 1000 mg of Solu-Medrol to help with her headache and to prepare her for her Ocrevus treatment on February 26. Patient also states she has had this type of headache before that was relieved with IV fluids. I contacted Dr. espinal office to confirm that this was okay. Patient also admits to having a urinary tract infection about a week ago and states she has completed the medications. Related Data Home Medications Medication Instructions Recorded Confirmed meclizine 25 mg tablet 25 mg PO TID PRN Vertigo 01/16/18 04/04/18 tamsulosin 0.4 mg capsule 0.4 mg PO BID 01/16/18 04/04/18 ranitidine HCl 75 mg tablet 75 mg PO DAILY PRN Indigestion 01/19/18 04/04/18 paroxetine HCl 10 mg tablet (Paxil) 10 mg PO DAILY 04/04/18 04/04/18 dextroamphetamine-amphetamine 5 mg 5 mg PO BID 06/20/19 06/20/19 tablet sertraline 100 mg tablet 150 mg PO DAILY 06/20/19 06/20/19 sumatriptan succinate 100 mg tablet 100 mg PO PRN PRN Migraine Headache 06/20/19 06/20/19 ocrelizumab 30 mg/mL intravenous mg IV 10/10/19 solution (Ocrevus) Previous Rx's Medication Instructions Recorded bisacodyl 10 mg rectal suppository 10 mg [place] DAILY PRN Constipation #2 04/09/18 ea clonazepam 0.5 mg tablet 1 mg PO BEDTIME #30 tabs 04/09/18 docusate sodium 100 mg capsule 200 mg PO BID #30 caps 04/09/18 melatonin 3 mg tablet 6 mg PO BEDTIME #10 tabs 04/09/18 oxycodone-acetaminophen 5 mg-325 1 tab PO Q4-6H PRN pain #10 tabs 04/09/18 mg tablet (Percocet) sennosides 8.6 mg tablet (senna) 17.2 mg PO BID #30 tabs 04/09/18 zolpidem 5 mg tablet 10 mg PO BEDTIME PRN Sleep #10 tabs 04/09/18 divalproex 250 mg tablet,delayed 250 mg PO BID #60 tabs 06/10/18 release (Depakote) quetiapine 25 mg tablet (Seroquel) 12.5 mg PO BID #30 tabs 06/10/18 lorazepam 1 mg tablet (Ativan) 1 mg PO BID PRN anxiety #7 tabs 06/20/19 methylprednisolone 4 mg tablets in See Rx Instructions PO .COMPLEX 12/15/20 a dose pack (Medrol (Esteban)) #21 ea Allergies Allergy/AdvReac Type Severity Reaction Status Date / Time adhesive tape Allergy Mild Blister Verified 02/14/22 10:42 pomegranate [POMEGRANATE] Allergy Unknown Verified 02/14/22 10:42 Review of Systems <Marbin Ramos PA-C - Last Filed: 02/14/22 16:54> Review of Systems Narrative: R.O.S.: General: No fever, chills or fatigue. Cardiovascular: No chest pain or palpitations Respiratory: No S.O.B. HEENT: No congestion, ear pain, rhinorrhea, sore throat or tinnitus Gastrointestinal: No nausea or vomiting : No urinary concerns Skin: No rash or associated abnormalities Musculoskeletal: No pain in muscles or joints, no limitation of range of motion, no paresthesia or numbness. ?? Neurological: Patient alert awake alert and oriented with complaint of headache Patient History <Marbin Ramos PA-C - Last Filed: 02/14/22 16:54> Medical History (Updated 02/14/22 @ 16:53 by Marbin Ramos PA-C) Multiple sclerosis Surgical History No pertinent past surgical history Family History Mother Hypertension Alcoholism Father Heart abnormality Social History household members: children Smoking Status: Former smoker Smoking Status: Former smoker alcohol intake frequency: 0-2 drinks per day Substance Use Type: marijuana Exam <Marbin Ramos PA-C - Last Filed: 02/14/22 16:54> Narrative Exam Narrative: Physical Exam: ? General: normal appearance, well developed, well nourished, alert, and awake. Not in acute distress. ? Head: Normocephalic, no lesions. Chest: Lungs CTAB, no rales, rhonchi or wheezes. ?? Heart: RRR, no murmurs, rubs or gallops. Eyes: PERRLA, EOM's full, conjunctivae clear. ? Neuro: Physiological, no localizing findings, CN3-12 intact. ?? Extremities: Warm, well perfused, FROM, no deformities, no edema. ?? Skin: Normal, no rashes, no lesions noted. ?? PSYCHIATRIC: The mood is good, no blunted affect. Speech is clear. Thought process is linear, thought content is appropriate. The voice is without significant inflection. Gastrointestinal: Soft; NT; ND; Pos BS with Neg. rebound tenderness. No scars or major deformities noted on Visual Inspection. Initial Vital Signs Initial Vital Signs: Vital Signs Temperature 97.1 F L 02/14/22 10:42 Pulse Rate 85 02/14/22 10:42 Respiratory Rate 15 02/14/22 10:42 Blood Pressure 120/65 02/14/22 10:42 Pulse Oximetry 100 02/14/22 10:42 Oxygen Delivery Method 02/14/22 10:42 <Jak De Jesus MD - Last Filed: 02/17/22 11:11> Initial Vital Signs Initial Vital Signs: Vital Signs Temperature 97.1 F L 02/14/22 10:42 Pulse Rate 85 02/14/22 10:42 Respiratory Rate 15 02/14/22 10:42 Blood Pressure 120/65 02/14/22 10:42 Pulse Oximetry 100 02/14/22 10:42 Oxygen Delivery Method 02/14/22 10:42 Course <Marbin Ramos PA-C - Last Filed: 02/14/22 16:54> Orders Ordered: Discontinued Medications Methylprednisolone 1,000 mg/ (Sodium Chloride) 258 mls @ 258 mls/hr IV NOW ONE Stop: 02/14/22 14:39 Last Infusion: 02/14/22 16:30 Dose: 0 mls/hr Documented By: Admin: 02/14/22 15:30 Dose: 258 mls/hr Documented By: [facility] Sodium Chloride (Normal Saline 0.9%) 1,000 mls @ 1,000 mls/hr IV BOLUS ONE Stop: 02/14/22 15:37 Last Infusion: 02/14/22 16:59 Dose: 0 mls/hr Documented By: Admin: 02/14/22 15:06 Dose: 1,000 mls/hr Documented By: [facility] Ketorolac Tromethamine (Ketorolac 30 Mg/Ml Vial) 30 mg IV NOW ONE Stop: 02/14/22 14:52 Last Admin: 02/14/22 15:02 Dose: 30 mg Documented By: [facility] Vital Signs Vital signs: Vital Signs - 8 hr 02/14/22 10:42 02/14/22 13:38 02/14/22 13:39 Temperature 97.1 F L Pulse Rate 85 63 Respiratory Rate 15 Blood Pressure 120/65 123/66 Pulse Oximetry 100 100 Oxygen Delivery Method Room Air Room Air 02/14/22 13:39 02/14/22 14:05 02/14/22 14:30 Temperature Pulse Rate 64 67 Respiratory Rate Blood Pressure Pulse Oximetry 100 99 99 Oxygen Delivery Method Room Air 02/14/22 15:00 02/14/22 15:03 02/14/22 15:03 Temperature Pulse Rate 69 66 Respiratory Rate Blood Pressure 115/56 L Pulse Oximetry 99 99 Oxygen Delivery Method <Jak De Jesus MD - Last Filed: 02/17/22 11:11> Orders Ordered: Discontinued Medications Methylprednisolone 1,000 mg/ (Sodium Chloride) 258 mls @ 258 mls/hr IV NOW ONE Stop: 02/14/22 14:39 Last Infusion: 02/14/22 16:30 Dose: 0 mls/hr Documented By: Admin: 02/14/22 15:30 Dose: 258 mls/hr Documented By: [facility] Sodium Chloride (Normal Saline 0.9%) 1,000 mls @ 1,000 mls/hr IV BOLUS ONE Stop: 02/14/22 15:37 Last Infusion: 02/14/22 16:59 Dose: 0 mls/hr Documented By: Admin: 02/14/22 15:06 Dose: 1,000 mls/hr Documented By: [facility] Ketorolac Tromethamine (Ketorolac 30 Mg/Ml Vial) 30 mg IV NOW ONE Stop: 02/14/22 14:52 Last Admin: 02/14/22 15:02 Dose: 30 mg Documented By: [facility] Vital Signs Vital signs: Vital Signs - 8 hr 02/14/22 10:42 02/14/22 13:38 02/14/22 13:39 Temperature 97.1 F L Pulse Rate 85 63 Respiratory Rate 15 Blood Pressure 120/65 123/66 Pulse Oximetry 100 100 Oxygen Delivery Method Room Air Room Air 02/14/22 13:39 02/14/22 14:05 02/14/22 14:30 Temperature Pulse Rate 64 67 Respiratory Rate Blood Pressure Pulse Oximetry 100 99 99 Oxygen Delivery Method Room Air 02/14/22 15:00 02/14/22 15:03 02/14/22 15:03 Temperature Pulse Rate 69 66 Respiratory Rate Blood Pressure 115/56 L Pulse Oximetry 99 99 Oxygen Delivery Method MDM - Headache <Marbin Ramos PA-C - Last Filed: 02/14/22 16:54> Lab Data Labs: Lab Results 02/14/22 Range/Units 15:01 Urine RBC 0-1/hpf (0-5/HPF) Urine WBC 10-30/hpf H (0-5/HPF) Ur Squamous Epith Cells 5-10 /hpf H (0-5/HPF) Calcium Oxalate Crystal Few H Urine Bacteria Occasional (0-1) (None) Ur Culture Indicated? Specimen cultured Urine Dip Bedside Urine Glucose Negative Bedside Urine Bilirubin - Negative Bedside Urine Ketone - Negative Urine Specific [place] 1.025 Bedside Urine Occult Blood - Negative Bedside Urine pH 6.0 Bedside Urine Protein +/- 15 Bedside Urine Urobilinogen - Negative Bedside Urine Nitrite - Negative Bedside Urine Leukocytes ++ 125 Esterase MDM Narrative Medical decision making narrative: Patient is a 41-year-old female presents emergency room today complaining of migraine headache. Overall states she has a chronic history of multiple sclerosis and seasonal neurologist Dr. Lainez with that. Patient has had dissected migraine in the past that has been relieved with normal saline IV. I contacted Dr. Lainez he called back and agrees with the 1000 mg of Solu-Medrol and also suggested given the patient 30 mg of Toradol at the same time. These medications were administered to the patient. Patient states she feels a lot better after receiving the Solu-Medrol and normal saline. Patient states she is okay with leaving the emergency room now on following up with her neurologist. <Jak De Jesus MD - Last Filed: 02/17/22 11:11> Lab Data Labs: Lab Results 02/14/22 Range/Units 15:01 Urine RBC 0-1/hpf (0-5/HPF) Urine WBC 10-30/hpf H (0-5/HPF) Ur Squamous Epith Cells 5-10 /hpf H (0-5/HPF) Calcium Oxalate Crystal Few H Urine Bacteria Occasional (0-1) (None) Ur Culture Indicated? Specimen cultured Urine Dip Bedside Urine Glucose Negative Bedside Urine Bilirubin - Negative Bedside Urine Ketone - Negative Urine Specific [place] Mark 1.025 Bedside Urine Occult Blood - Negative Bedside Urine pH 6.0 Bedside Urine Protein +/- 15 Bedside Urine Urobilinogen - Negative Bedside Urine Nitrite - Negative Bedside Urine Leukocytes ++ 125 Esterase Discharge Plan Departure Patient Disposition: Home Clinical Impression: Migraine Instructions: DI for Migraine Activity Restrictions/Additional Instructions: *You have been diagnosed with migraine headaches secondary to exacerbation of your multiple sclerosis. We have administered Solu-Medrol as recommended by your doctor and suggested follow-up with your neurologist for any other related concerns. I also suggest she return to the emergency room should any emergent concerns arise. [ ] *What to do: *Please continue to take your regular medications as directed. [ ] New medication prescriptions sent to your pharmacy: [ ] [ ] New medication written as a paper prescription [x] No new medications given *Please follow up with your primary care provider in 2-3 days, call for an appointment. Let them know you were seen in the Emergency Department and that we ask that you be seen in follow up. We will electronically transmit a record of today's note if your PCP is in our system *If you do not have a primary care provider please contact the [facility] Resource line at [phone]. They will ask some questions about your medical history and help get you set up with a doctor in the community. *Return to Emergency Department if you should have any new, worsening or concerning symptoms, such as [fever greater than 101 F, shaking chills, worsening pain, persistent vomiting or other bothersome symptoms] Prescriptions: No Action quetiapine [Seroquel] 25 mg tablet 12.5 mg PO BID Qty: 30 0RF divalproex [Depakote] 250 mg tablet,delayed release (DR/EC) 250 mg PO BID Qty: 60 0RF methylprednisolone [Medrol (Esteban)] 4 mg tablets,dose pack See Rx Instructions .ROUTE .COMPLEX Qty: 21 0RF Rx Instructions: orally per package directions tamsulosin 0.4 mg capsule 0.4 mg PO BID meclizine 25 mg tablet 25 mg PO TID PRN (Reason: Vertigo) Label Comments: TK 1/2 TO 1 T PO UP TO Q 8 H PRF VERTIGO ranitidine HCl 75 mg Tablet 75 mg PO DAILY PRN (Reason: Indigestion) paroxetine HCl [Paxil] 10 mg Tablet 10 mg PO DAILY sennosides [senna] 8.6 mg Tablet 17.2 mg PO BID Qty: 30 0RF clonazepam 0.5 mg Tablet 1 mg PO BEDTIME Qty: 30 0RF melatonin 3 mg Tablet 6 mg PO BEDTIME Qty: 10 0RF bisacodyl 10 mg Suppository 10 mg [place] DAILY PRN (Reason: Constipation) Qty: 2 0RF docusate sodium 100 mg Capsule 200 mg PO BID Qty: 30 0RF zolpidem 5 mg Tablet 10 mg PO BEDTIME PRN (Reason: Sleep) Qty: 10 0RF oxycodone-acetaminophen [Percocet] 5-325 mg tablet 1 tab PO Q4-6H PRN (Reason: pain) Qty: 10 0RF sumatriptan succinate 100 mg tablet 100 mg PO PRN PRN (Reason: Migraine Headache) sertraline 100 mg tablet 150 mg PO DAILY dextroamphetamine-amphetamine 5 mg tablet 5 mg PO BID Label Comments: TK 1 T PO BID lorazepam [Ativan] 1 mg tablet 1 mg PO BID PRN (Reason: anxiety) Qty: 7 0RF Ocrevus 30 mg/mL solution IV Referrals: Marleni Wise PA-C [Primary Care Provider] - Visit Report Forms: Patient Portal/API <Jak De Jesus MD - Last Filed: 02/17/22 11:11> Cosign ED Attending Cosmakennaature Attestation: I was immediately available in the department for consultation. This documentation has been reviewed and I agree with assessment and plan. Supervised by Jak De Jesus MD
[2022-02-14] MEDS: KETOROLAC 30 MG/ML VIAL IV (15:02)
[2022-02-14] MEDS: SODIUM CHLORIDE 0.9% 1,000 ML 1000 ML IV (15:06)
[2022-02-14] MEDS: methylPREDNISolone 1,000 MG in SODIUM CHLORIDE 0.9% 250 ML 258 MG IV (15:30)
[2022-02-14 15:48] LABS: Bacteria Urine Occasional (0-1); Calcium Oxalate Crystals Urine Few; Culture Indicated Urine Specimen Cultured; RBC Urine 0-1/HPF (0-5/HPF); Squamous Epithelial Cell Urine 5-10 /HPF (0-5/HPF); WBC Urine 10-30/HPF (0-5/HPF)
== END 2022-02-14 17:04 | disposition home or self-care (01) ==
PROVIDERS: Emergency Provider Physician Assistant; Family Provider Psychiatry & Neurology Neurology; PCP Physician Assistant
DX: G43.909 Migraine, unspecified, not intractable, without status migrainosus (principal); G35 Multiple sclerosis
CPT/HCPCS: 36415; 81003; 81015; 87086; 96365; 96375; 99284; J1885; J2930

== ENCOUNTER 2022-07-14 11:25 | Emergency (ER) | payer MEDICARE, MEDICAID, SELFPAY ==
[2022-07-14] VITALS (8 sets, daily range): BP systolic 123–149; BP diastolic 71–83; PULSE 66–94; RESP 18; TEMP 36.9; O2SAT 97–100; BMI 24.3
--- NOTE | 2022-07-14 12:12 | DI.US.S_ITS ---
PROCEDURE: US PELVIC COMPLETE INDICATIONS: RIGHT ADNEXAL PAIN TECHNIQUE: Real-time scanning was performed of the pelvic organs, with image documentation. Additional endovaginal scanning was necessary due to incomplete visualization of the adnexal and endometrial structures by transabdominal scanning. COMPARISON: None. FINDINGS: Uterus: Uterus is anteverted and normal in size at 8.2 x 5 x 5.3 cm. The myometrium is heterogeneous. The endometrium measures 22.5 mm combined thickness. No abnormal vascularity can be seen along the endometrial stripe. Ovaries: The right ovary measures 3.2 x 3.6 x 2.6 cm, with a calculated ovarian volume of 15.7 cc. Within the right ovary, there is a complex cyst seen that measures up to 2.5 cm. Normal appearing arterial waveforms are confirmed to the right ovary. The left ovary measures 2.3 x 3.6 x 2.3 cm, with a calculated ovarian volume of 10 cc. More than 12 follicles can be seen in each ovary. No adnexal masses are seen. Other: No pathologic free abdominal or pelvic fluid. IMPRESSION: There is a 2.5 cm complex cyst seen involving the right ovary, which may represent a hemorrhagic cyst. If it would be clinically appropriate, a followup pelvic ultrasound could be considered in 6 weeks to assure resolution/ improvement. More than 12 follicles can be seen involving each ovary, which is consistent with polycystic ovarian syndrome. The endometrial stripe is heterogeneous and abnormally thickened at 22.5 mm. No abnormal vascularity can be seen along the endometrial stripe. We strive to produce accurate, complete, and clear reports of imaging services. To assist us in improving patient care, this report was composed using standard report templates and voice recognition software. Therefore, it may contain abnormal punctuation, insertions and/or omissions. Occasional wrong-word or sound-alike substitutions may occur. Though we review the report and make efforts to correct it, we do recommend that the report be read carefully in proper context to recognize any text inaccuracies. Dictated by: Mc Grimes M.D. on 07/14/2022 at 12:27 Approved by: Mc Grimes M.D. on 07/14/2022 at 12:30
[2022-07-14 12:19] LABS: Squamous Epithelial Cell Urine 10-30 /HPF (0-5/HPF)
[2022-07-14 12:20] LABS: Bacteria Urine Few (2-10); Culture Indicated Urine Cult Not Indicated; RBC Urine None Seen (0-5/HPF); WBC Urine 1-5/HPF (0-5/HPF)
[2022-07-14 12:29] LABS: Add Manual Diff / Slide Review NO; Basophils Absolute Auto 100 /uL (0-100); Basophils Percent Auto 0.6 % (0-2); Eosinophils Absolute Auto 0 /uL (0-450); Eosinophils Percent Auto 0.3 % (2-4); Hematocrit 40.6 % (36-46); Hemoglobin 13.5 g/dL (12.0-16.0); Lymphocytes Absolute Auto 1600 /uL (1100-4500); Lymphocytes Percent Auto 14.3 % (25-40); Mean Corpuscular HGB Conc 33.2 % (30-36); Mean Corpuscular Hemoglobin 29.5 PG (26-34); Monocytes Absolute Auto 700 /uL (0-900); Monocytes Percent Auto 6.5 % (3-14); Neutrophils Absolute Auto 8500 /uL (1500-7000); Neutrophils Percent Auto 78.3 % (50-75); Platelet Count 309 X10^3/uL (150-400); Red Blood Cell Count 4.56 X10^6/uL (4.0-5.2); Red Cell Distribution Width 14.4 % (11.6-14.8); White Blood Cell Count 10.9 X10^3/uL (4.5-11.0)
[2022-07-14 12:46] LABS: Alanine Aminotransferase 16 IU/L (<35); Albumin 4.5 g/dL (3.5-5.0); Albumin Globulin Ratio 1.6 (1.0-2.8); Alkaline Phosphatase 72 U/L (38-126); Aspartate Aminotransferase 23 IU/L (14-36); BUN Creatinine Ratio 15.8 (6-22); Bilirubin Total 0.2 mg/dL (0.2-1.3); Blood Urea Nitrogen 9 mg/dL (7-17); Calcium 9.3 mg/dL (8.4-10.2); Carbon Dioxide 24 mmol/L (22-32); Chloride 102 mmol/L (98-107); Estimated Glomerular Filt Rate > 60 mL/min (>60); Globulin 2.9 g/dL (1.7-4.1); Glucose 101 mg/dL (70-100); HEMOLYSIS < 15 (0-50); Lipase 42 U/L (23-300); Sodium 138 mmol/L (137-145); Total Protein 7.4 g/dL (6.3-8.2)
--- NOTE | 2022-07-14 13:32 | DI.CT.S_ITS ---
PROCEDURE: CT ABDOMEN PELVIS W CON INDICATIONS: RLQ pain TECHNIQUE: After the administration of IV contrast, axial sections were acquired from the lung bases to the pubic symphysis. Coronal and sagittal reformats were performed. For radiation dose reduction, the following was used: automated exposure control, adjustment of mA and/or kV according to patient size. COMPARISON: [facility], , US PELVIC COMPLETE, 07/14/2022, 12:46. FINDINGS: Image quality: Excellent. Lung bases: Unremarkable. Heart: No significant findings. ABDOMEN: Liver: No focal lesion. Gallbladder: Not distended. Biliary ducts: Unremarkable. Pancreas: Unremarkable. Spleen: Unremarkable. Adrenal Glands: No nodule. Kidneys and Ureters: No hydronephrosis. Small nonobstructing right kidney stone measuring 0.4 cm. Stomach and Bowel: Stomach, small bowel loops, and colon are unremarkable. The appendix is not distended. Peritoneum: No abnormal intraperitoneal fluid. No free air. Ventral Wall: No hernia. Abdominal Nodes: No retroperitoneal or mesenteric adenopathy by size criteria. Vessels: Aorta and inferior vena cava are normal in size. PELVIS: Pelvic Organs: Crenulated right ovarian cyst measuring 2 cm, (). Retroverted uterus. Bladder: Not distended. Pelvic Nodes: No enlarged lymph nodes. Miscellaneous: No inguinal hernias are seen. Bones: No suspicious lesion. IMPRESSION: 1. No acute inflammatory process is identified. The appendix is not distended. No free fluid. 2. Crenulated appearing right ovarian cyst measuring 2 cm. This could represent a hemorrhagic cyst or corpus luteum. Please see separately dictated pelvic ultrasound. Dictated by: Dandre Orosco M.D. on 07/14/2022 at 14:42 Approved by: Dandre Orosco M.D. on 07/14/2022 at 14:49
--- NOTE | 2022-07-14 13:38 | ED.ABDPAIN ---
HPI - Abdominal Pain <Ana Foreman PA-C - Last Filed: 07/14/22 15:34> General Chief Complaint: Abdominal Pain Stated Complaint: rt side groin pain Time Seen by Provider: 07/14/22 12:48 Source: patient Mode of arrival: Ambulatory History of Present Illness HPI narrative: 41-year-old female with past medical history multiple sclerosis presents to the ED with 3 days of right-sided groin pain. Patient also endorses some nausea. Patient denies fever, chills, chest pain, shortness of breath, vomiting, flank pain, dysuria, diarrhea, lightheadedness, dizziness, syncope. Patient does endorse some constipation, last bowel movement was earlier today. Patient states her LMP was June 05, 2022, she was suspicious that she might be , stopped taking all her medications 3 days ago. Patient endorses increased numbness in her bilateral hands, which feels like her MS symptom. Related Data Home Medications Medication Instructions Recorded Confirmed meclizine 25 mg tablet 25 mg PO TID PRN Vertigo 01/16/18 04/04/18 tamsulosin 0.4 mg capsule 0.4 mg PO BID 01/16/18 04/04/18 ranitidine HCl 75 mg tablet 75 mg PO DAILY PRN Indigestion 01/19/18 04/04/18 paroxetine HCl 10 mg tablet (Paxil) 10 mg PO DAILY 04/04/18 04/04/18 dextroamphetamine-amphetamine 5 mg 5 mg PO BID 06/20/19 06/20/19 tablet sertraline 100 mg tablet 150 mg PO DAILY 06/20/19 06/20/19 sumatriptan succinate 100 mg tablet 100 mg PO PRN PRN Migraine Headache 06/20/19 06/20/19 ocrelizumab 30 mg/mL intravenous mg IV 10/10/19 solution (Ocrevus) Previous Rx's Medication Instructions Recorded bisacodyl 10 mg rectal suppository 10 mg ME DAILY PRN Constipation #2 04/09/18 ea clonazepam 0.5 mg tablet 1 mg PO BEDTIME #30 tabs 04/09/18 docusate sodium 100 mg capsule 200 mg PO BID #30 caps 04/09/18 melatonin 3 mg tablet 6 mg PO BEDTIME #10 tabs 04/09/18 oxycodone-acetaminophen 5 mg-325 1 tab PO Q4-6H PRN pain #10 tabs 04/09/18 mg tablet (Percocet) sennosides 8.6 mg tablet (senna) 17.2 mg PO BID #30 tabs 04/09/18 zolpidem 5 mg tablet 10 mg PO BEDTIME PRN Sleep #10 tabs 04/09/18 divalproex 250 mg tablet,delayed 250 mg PO BID #60 tabs 06/10/18 release (Depakote) quetiapine 25 mg tablet (Seroquel) 12.5 mg PO BID #30 tabs 06/10/18 lorazepam 1 mg tablet (Ativan) 1 mg PO BID PRN anxiety #7 tabs 06/20/19 methylprednisolone 4 mg tablets in See Rx Instructions PO .COMPLEX 12/15/20 a dose pack (Medrol (Esteban)) #21 ea Allergies Allergy/AdvReac Type Severity Reaction Status Date / Time adhesive tape Allergy Mild Blister Verified 07/14/22 11:34 pomegranate [POMEGRANATE] Allergy Unknown Verified 07/14/22 11:34 Review of Systems <Ana Foreman PA-C - Last Filed: 07/14/22 15:34> Review of Systems ROS Unobtainable: All systems reviewed & are unremarkable except as noted in HPI and below Constitutional Constitutional: Denies chills, Denies fatigue, Denies fever(s), Denies frequent falls, Denies lethargy and Denies weakness Eyes Eyes: Denies change in vision, Denies eye discharge, Denies irritation and Denies loss of vision ENT Ears, Nose, Mouth, and Throat: Denies change in voice, Denies dizziness, Denies neck pain, Denies sore throat and Denies throat swelling Cardiovascular Cardiovascular: Denies chest pain, Denies irregular heart rhythm, Denies lightheadedness, Denies palpitations, Denies dyspnea, Denies dyspnea on exertion and Denies orthopnea Respiratory Respiratory: Denies cough, Denies dyspnea, Denies dyspnea on exertion and Denies wheezing Gastrointestinal Gastrointestinal: Reports abdominal pain, Denies change in bowel habits, Reports constipation, Denies diarrhea, Reports nausea and Denies vomiting Genitourinary Genitourinary: Denies hematuria, Denies flank pain, Denies urinary incontinence and Denies urinary urgency Musculoskeletal Musculoskeletal: Denies back pain, Denies muscle weakness, Denies neck pain, Denies numbness and Denies tingling Integumentary/Breasts Skin/Breast: Denies pruritus, Denies erythema, Denies rash and Denies wounds Neurologic Neurologic: Denies behavioral changes, Denies confusion, Denies dizziness, Denies frequent falls, Denies loss of vision, Denies numbness, Denies tingling and Denies weakness Psychiatric Psychiatric: Denies anxiety, Denies behavioral changes, Denies confusion, Denies depression, Denies homicidal ideation and Denies suicidal ideation Endocrine Endocrine: Denies fatigue, Denies flushing and Denies palpitations Hematologic/Lymphatic Hematologic/Lymphatic: Denies easy bruising Allergic/Immunologic Allergic/Immunologic: Denies urticaria, Denies throat swelling and Denies wheezing Patient History <Ana Foreman PA-C - Last Filed: 07/14/22 15:34> Medical History (Updated 07/14/22 @ 15:07 by Ana Foreman PA-C) Multiple sclerosis Surgical History No pertinent past surgical history Family History Mother Hypertension Alcoholism Father Heart abnormality Social History household members: children Smoking Status: Former smoker Smoking Status: Former smoker alcohol intake frequency: 0-2 drinks per day Substance Use Type: marijuana Exam <Ana Foreman PA-C - Last Filed: 07/14/22 15:34> Narrative Exam Narrative: Const General:?cooperative, healthy appearing and comfortable [facility] Head:?normal to inspection Ears:?hearing grossly normal bilaterally Nose:?external nose normal Face and sinus:?normal facial exam and sinuses nontender Mouth:?oral mucosae normal Throat:?posterior oropharynx normal Eyes General:?appearance normal, both eyes and all related structures Neck Neck:?normal visual inspection and no lymphadenopathy noted Resp Effort & Inspection:?normal respiratory effort Auscultation:?clear to auscultation bilaterally Cardio Rate:?regular rate Rhythm:?regular rhythm GI Abdomen is soft, nondistended. Abdomen is tender to palpation in the right lower quadrant. There is no CVA tenderness. Neuro General:?patient alert, patient awake and patient oriented x3; FROM of extremities Initial Vital Signs Initial Vital Signs: Vital Signs Temperature 98.5 F 07/14/22 11:34 Pulse Rate 94 H 07/14/22 11:34 Respiratory Rate 18 07/14/22 11:34 Blood Pressure 140/83 07/14/22 11:34 Pulse Oximetry 100 07/14/22 11:34 Oxygen Delivery Method 07/14/22 11:34 <Drew Herbert DO - Last Filed: 07/14/22 16:48> Initial Vital Signs Initial Vital Signs: Vital Signs Temperature 98.5 F 07/14/22 11:34 Pulse Rate 94 H 07/14/22 11:34 Respiratory Rate 18 07/14/22 11:34 Blood Pressure 140/83 07/14/22 11:34 Pulse Oximetry 100 07/14/22 11:34 Oxygen Delivery Method 07/14/22 11:34 Course <Ana Foreman PA-C - Last Filed: 07/14/22 15:34> Orders Ordered: ED Orders 07/14/22 11:50 Urine Microscopic Stat 07/14/22 12:12 US pelvic complete Stat 07/14/22 12:19 Complete Blood Count AUTO DIFF Stat Comprehensive Metabolic Panel Stat Lipase Stat 07/14/22 13:32 CT abdomen pelvis w con Stat Discontinued Medications Ketorolac Tromethamine (Ketorolac 30 Mg/Ml Vial) 15 mg IV NOW ONE Stop: 07/14/22 13:37 Last Admin: 07/14/22 13:49 Dose: 15 mg Documented By: JANETH Ondansetron HCl (Ondansetron 4 Mg/2 Ml Inj) 4 mg IV NOW ONE Stop: 07/14/22 13:37 Last Admin: 07/14/22 13:48 Dose: 4 mg Documented By: JANETH Vital Signs Vital signs: Vital Signs - 8 hr 07/14/22 11:34 07/14/22 12:42 07/14/22 13:22 Temperature 98.5 F Pulse Rate 94 H 86 Respiratory Rate 18 Blood Pressure 140/83 149/77 H Pulse Oximetry 100 100 Oxygen Delivery Method Room Air 07/14/22 13:22 07/14/22 13:30 07/14/22 13:30 Temperature Pulse Rate 75 79 Respiratory Rate Blood Pressure 123/71 Pulse Oximetry 99 98 Oxygen Delivery Method 07/14/22 14:00 07/14/22 14:01 07/14/22 14:01 Temperature Pulse Rate 66 66 Respiratory Rate Blood Pressure 136/72 Pulse Oximetry 98 98 Oxygen Delivery Method 07/14/22 14:30 07/14/22 15:00 Temperature Pulse Rate 89 70 Respiratory Rate Blood Pressure Pulse Oximetry 97 Oxygen Delivery Method <Drew Herbert DO - Last Filed: 07/14/22 16:48> Orders Ordered: ED Orders 07/14/22 11:50 Urine Microscopic Stat 07/14/22 12:12 US pelvic complete Stat 07/14/22 12:19 Complete Blood Count AUTO DIFF Stat Comprehensive Metabolic Panel Stat Lipase Stat 07/14/22 13:32 CT abdomen pelvis w con Stat Discontinued Medications Ketorolac Tromethamine (Ketorolac 30 Mg/Ml Vial) 15 mg IV NOW ONE Stop: 07/14/22 13:37 Last Admin: 07/14/22 13:49 Dose: 15 mg Documented By: JANETH Ondansetron HCl (Ondansetron 4 Mg/2 Ml Inj) 4 mg IV NOW ONE Stop: 07/14/22 13:37 Last Admin: 07/14/22 13:48 Dose: 4 mg Documented By: JANETH Vital Signs Vital signs: Vital Signs - 8 hr 07/14/22 11:34 07/14/22 12:42 07/14/22 13:22 Temperature 98.5 F Pulse Rate 94 H 86 Respiratory Rate 18 Blood Pressure 140/83 149/77 H Pulse Oximetry 100 100 Oxygen Delivery Method Room Air 07/14/22 13:22 07/14/22 13:30 07/14/22 13:30 Temperature Pulse Rate 75 79 Respiratory Rate Blood Pressure 123/71 Pulse Oximetry 99 98 Oxygen Delivery Method 07/14/22 14:00 07/14/22 14:01 07/14/22 14:01 Temperature Pulse Rate 66 66 Respiratory Rate Blood Pressure 136/72 Pulse Oximetry 98 98 Oxygen Delivery Method 07/14/22 14:30 07/14/22 15:00 Temperature Pulse Rate 89 70 Respiratory Rate Blood Pressure Pulse Oximetry 97 Oxygen Delivery Method MDM - Abdominal Pain <Ana Foreman PA-C - Last Filed: 07/14/22 15:34> Lab Data 07/14/22 12:19 07/14/22 12:19 Labs: Lab Results 07/14/22 07/14/22 07/14/22 Range/Units 11:50 12:19 12:19 WBC 10.9 (4.5-11.0) X10^3/uL RBC 4.56 (4.0-5.2) X10^6/uL Hgb 13.5 (12.0-16.0) g/dL Hct 40.6 (36-46) % MCV 89.0 (80-100) fL MCH 29.5 (26-34) PG MCHC 33.2 (30-36) % RDW 14.4 (11.6-14.8) % Plt Count 309 (150-400) X10^3/uL Neut % (Auto) 78.3 H (50-75) % Lymph % (Auto) 14.3 L (25-40) % [place] % (Auto) 6.5 (3-14) % Eos % (Auto) 0.3 L (2-4) % Baso % (Auto) 0.6 (0-2) % Neut # (Auto) 8500 H (6858-6257) /uL Lymph # (Auto) 1600 (7275-1817) /uL [place] # (Auto) 700 (0-900) /uL Eos # (Auto) 0 (0-450) /uL Baso # (Auto) 100 (0-100) /uL Sodium 138 (137-145) mmol/L Potassium 4.0 (3.4-5.1) mmol/L Chloride 102 (98-107) mmol/L Carbon Dioxide 24 (22-32) mmol/L BUN 9 (7-17) mg/dL Creatinine 0.57 (0.52-1.04) mg/dL Estimated GFR > 60 (>60) mL/min BUN/Creatinine Ratio 15.8 (6-22) Glucose 101 H (70-100) mg/dL Calcium 9.3 (8.4-10.2) mg/dL Total Bilirubin 0.2 (0.2-1.3) mg/dL AST 23 (14-36) IU/L ALT 16 (<35) IU/L Alkaline Phosphatase 72 (38-126) U/L Total Protein 7.4 (6.3-8.2) g/dL Albumin 4.5 (3.5-5.0) g/dL Globulin 2.9 (1.7-4.1) g/dL Albumin/Globulin Ratio 1.6 (1.0-2.8) Lipase 42 (23-300) U/L Urine RBC None seen (0-5/HPF) Urine WBC 1-5/hpf (0-5/HPF) Ur Squamous Epith Cells 10-30 /hpf H (0-5/HPF) Urine Bacteria Few (2-10) H (None) Ur Culture Indicated? Cult not indicated Point of care testing: Point of Care Testing Test Results Negative Urine Dip Bedside Urine Glucose Negative Bedside Urine Bilirubin - Negative Bedside Urine Ketone - Negative Urine Specific [place] 1.015 Bedside Urine Occult Blood +/- Bedside Urine pH 6 Bedside Urine Protein - Negative Bedside Urine Urobilinogen - Negative Bedside Urine Nitrite - Negative Bedside Urine Leukocytes - Negative Esterase MDM Narrative Medical decision making narrative: 41-year-old female with past medical history multiple sclerosis presents to the ED with 3 days of right-sided groin pain. Concern for versus ectopic versus ruptured ovarian cyst versus ovarian torsion versus appendicitis versus constipation versus other intra-abdominal pathology versus other. Will obtain UA, labs, ultrasound pelvic, CT abdomen pelvis. Will treat symptoms with Zofran, ketorolac. Will reassess. Pelvic ultrasound shows a 2.5 cm complex cyst involving the right ovary, which might represent a hemorrhagic cyst. CT also shows the right ovarian cyst. There is no free fluid. Appendix is not distended. No acute inflammatory process identified. Patient's symptoms likely due to the ovarian cyst. Discussed findings with patient. Referred to OBGYN Dr. Davis. Patient agrees to follow-up with OBGYN as soon as possible. ED return precautions were also discussed with patient. Patient verbalized understanding. Medical records reviewed: Yes <rDew Herbert DO - Last Filed: 07/14/22 16:48> Lab Data Labs: Lab Results 07/14/22 07/14/22 07/14/22 Range/Units 11:50 12:19 12:19 WBC 10.9 (4.5-11.0) X10^3/uL RBC 4.56 (4.0-5.2) X10^6/uL Hgb 13.5 (12.0-16.0) g/dL Hct 40.6 (36-46) % MCV 89.0 (80-100) fL MCH 29.5 (26-34) PG MCHC 33.2 (30-36) % RDW 14.4 (11.6-14.8) % Plt Count 309 (150-400) X10^3/uL Neut % (Auto) 78.3 H (50-75) % Lymph % (Auto) 14.3 L (25-40) % [place] % (Auto) 6.5 (3-14) % Eos % (Auto) 0.3 L (2-4) % Baso % (Auto) 0.6 (0-2) % Neut # (Auto) 8500 H (7865-4001) /uL Lymph # (Auto) 1600 (6560-0930) /uL [place] # (Auto) 700 (0-900) /uL Eos # (Auto) 0 (0-450) /uL Baso # (Auto) 100 (0-100) /uL Sodium 138 (137-145) mmol/L Potassium 4.0 (3.4-5.1) mmol/L Chloride 102 (98-107) mmol/L Carbon Dioxide 24 (22-32) mmol/L BUN 9 (7-17) mg/dL Creatinine 0.57 (0.52-1.04) mg/dL Estimated GFR > 60 (>60) mL/min BUN/Creatinine Ratio 15.8 (6-22) Glucose 101 H (70-100) mg/dL Calcium 9.3 (8.4-10.2) mg/dL Total Bilirubin 0.2 (0.2-1.3) mg/dL AST 23 (14-36) IU/L ALT 16 (<35) IU/L Alkaline Phosphatase 72 (38-126) U/L Total Protein 7.4 (6.3-8.2) g/dL Albumin 4.5 (3.5-5.0) g/dL Globulin 2.9 (1.7-4.1) g/dL Albumin/Globulin Ratio 1.6 (1.0-2.8) Lipase 42 (23-300) U/L Urine RBC None seen (0-5/HPF) Urine WBC 1-5/hpf (0-5/HPF) Ur Squamous Epith Cells 10-30 /hpf H (0-5/HPF) Urine Bacteria Few (2-10) H (None) Ur Culture Indicated? Cult not indicated Point of care testing: Point of Care Testing Test Results Negative Urine Dip Bedside Urine Glucose Negative Bedside Urine Bilirubin - Negative Bedside Urine Ketone - Negative Urine Specific [place] 1.015 Bedside Urine Occult Blood +/- Bedside Urine pH 6 Bedside Urine Protein - Negative Bedside Urine Urobilinogen - Negative Bedside Urine Nitrite - Negative Bedside Urine Leukocytes - Negative Esterase Discharge Plan Departure Patient Disposition: Home Clinical Impression: Ovarian cyst Instructions: DI for Ovarian Cyst Activity Restrictions/Additional Instructions: You were evaluated in the ED today for right-sided pelvic pain. Your CT an ultrasound did show a 2.5 cm complex cyst of the right ovary. Please follow-up with an OBGYN as soon as possible for further monitoring and treatment of the cyst. You may call Dr. Lauren Davis at [phone] for an appointment. You may take Tylenol, ibuprofen for your symptoms. If in the meanwhile, your symptoms worsen, you develop fever, chills and worsening abdominal pain, please return to the ED for further evaluation. Prescriptions: No Action quetiapine [Seroquel] 25 mg tablet 12.5 mg PO BID Qty: 30 0RF divalproex [Depakote] 250 mg tablet,delayed release (DR/EC) 250 mg PO BID Qty: 60 0RF methylprednisolone [Medrol (Esteban)] 4 mg tablets,dose pack See Rx Instructions .ROUTE .COMPLEX Qty: 21 0RF Rx Instructions: orally per package directions tamsulosin 0.4 mg capsule 0.4 mg PO BID meclizine 25 mg tablet 25 mg PO TID PRN (Reason: Vertigo) Label Comments: TK 1/2 TO 1 T PO UP TO Q 8 H PRF VERTIGO ranitidine HCl 75 mg Tablet 75 mg PO DAILY PRN (Reason: Indigestion) paroxetine HCl [Paxil] 10 mg Tablet 10 mg PO DAILY sennosides [senna] 8.6 mg Tablet 17.2 mg PO BID Qty: 30 0RF clonazepam 0.5 mg Tablet 1 mg PO BEDTIME Qty: 30 0RF melatonin 3 mg Tablet 6 mg PO BEDTIME Qty: 10 0RF bisacodyl 10 mg Suppository 10 mg ME DAILY PRN (Reason: Constipation) Qty: 2 0RF docusate sodium 100 mg Capsule 200 mg PO BID Qty: 30 0RF zolpidem 5 mg Tablet 10 mg PO BEDTIME PRN (Reason: Sleep) Qty: 10 0RF oxycodone-acetaminophen [Percocet] 5-325 mg tablet 1 tab PO Q4-6H PRN (Reason: pain) Qty: 10 0RF sumatriptan succinate 100 mg tablet 100 mg PO PRN PRN (Reason: Migraine Headache) sertraline 100 mg tablet 150 mg PO DAILY dextroamphetamine-amphetamine 5 mg tablet 5 mg PO BID Label Comments: TK 1 T PO BID lorazepam [Ativan] 1 mg tablet 1 mg PO BID PRN (Reason: anxiety) Qty: 7 0RF Ocrevus 30 mg/mL solution IV Referrals: Marleni Wise PA-C [Primary Care Provider] - Stand Alone Forms: Patient Portal/API <Drew Herbert, DO - Last Filed: 07/14/22 16:48> Cosign ED Attending Cosmakennaature Attestation: Dr Herbert Co-Sign Statement: I was available for consultation during this patient's emergency department visit. This chart is signed by myself for administrative purposes only. I did not have direct contact with this patient during this visit. They were seen independently by the APC.
[2022-07-14] MEDS: ONDANSETRON 4 MG/2 ML INJ IV (13:48)
[2022-07-14] MEDS: KETOROLAC 30 MG/ML VIAL 15 MG IV (13:49)
== END 2022-07-14 15:30 | disposition home or self-care (01) ==
PROVIDERS: Emergency Medicine; Emergency Provider Student in an Organized Health Care Education/Training Program; Family Provider Psychiatry & Neurology Neurology; PCP Physician Assistant
DX: N83.201 Unspecified ovarian cyst, right side (principal); R11.0 Nausea
CPT/HCPCS: 36415; 74177; 76830; 76856; 80053; 81003; 81015; 81025; 83690; 85025; 93976; 96374; 96375; 99284; J1885; J2405; Q9967

== ENCOUNTER 2023-05-27 09:51 | Inpatient (IN) | payer MEDICARE, MEDICAID, SELFPAY ==
[2023-05-27 09:54] VITALS: BP 130/77; PULSE 81; RESP 14; TEMP 36.1; O2SAT 99; BMI 26.6
--- NOTE | 2023-05-27 10:49 | ED.FEMALEGU ---
HPI - Female Genitourinary General Chief complaint: Urogenital-Female Stated complaint: ms relapse poss uti Time Seen by Provider: 05/27/23 10:48 Source: patient Mode of arrival: Ambulatory Limitations: no limitations History of Present Illness HPI Narrative: 42-year-old female with history of MS presents with concern for possible flare and/or UTI. Patient states over the past several weeks she has had increasing memory issues and symptoms consistent flare. She is presenting with her caregiver who has a list of symptoms as well sounds like she has had memory issues been more impulsive, irritable, some generalized weakness but is still ambulating. Has been able to ambulate to the bathroom. She has had some chills, no sweats. Denies any fevers. No chest pain or shortness of breath, no nausea or vomiting, no issues with bowel movements other than a week ago she took too many laxatives had diarrhea which has resolved. No urinary symptoms such as dysuria, urgency or frequency but she states she does not get any sensation typically. Patient states she has not been drinking much in the way of fluids. She did recently add topical estrogen although she would this prescribed some time earlier. Home medications include aspirin 81 mg, Amovig, acyclovir, baclofen, buspirone, D amphetamine, escitalopram, hydroxyzine, better, meclizine, pregabalin, Ocrevus, tamsulosin, Ubrelvy. No known drug allergies reported. Denies tobacco, denies alcohol does use marijuana, no other recreational drugs. Dr. Escalante is her PCP. Dr. Strickland is her neurologist. Related Data Home Medications Medication Instructions Recorded Confirmed meclizine 25 mg tablet 25 mg PO TID PRN Vertigo 01/16/18 05/27/23 tamsulosin 0.4 mg capsule 0.8 mg PO DAILY 01/16/18 05/27/23 dextroamphetamine-amphetamine 5 mg 5 mg PO BID PRN ADHD 06/20/19 05/27/23 tablet ocrelizumab 30 mg/mL intravenous See Rx Instructions .Route .COMPLEX 10/10/19 05/27/23 solution (Ocrevus) acyclovir 400 mg tablet 400 mg PO BID 05/27/23 05/27/23 aspirin 81 mg chewable tablet 1 tab PO DAILY 05/27/23 05/27/23 baclofen 10 mg tablet 15 mg PO TID 05/27/23 05/27/23 buspirone 10 mg tablet 10 mg PO 3XD 05/27/23 05/27/23 erenumab-aooe 140 mg/mL 140 mg SUBCUT QMONTH migraines 05/27/23 05/27/23 subcutaneous auto-injector (Aimovig Autoinjector) escitalopram oxalate 20 mg tablet 20 mg PO DAILY 05/27/23 05/27/23 mirabegron 50 mg tablet,extended 50 mg PO DAILY 05/27/23 05/27/23 release 24 hr (Myrbetriq) pregabalin 150 mg capsule 150 mg PO BID 05/27/23 05/27/23 ubrogepant 100 mg tablet (Ubrelvy) 100 mg PO PRN PRN Migraine Headache 05/27/23 05/27/23 Previous Rx's Medication Instructions Recorded bisacodyl 10 mg rectal suppository 10 mg WA DAILY PRN Constipation #2 04/09/18 ea docusate sodium 100 mg capsule 200 mg (2 x 100 mg) PO BID #30 caps 04/09/18 Allergies Allergy/AdvReac Type Severity Reaction Status Date / Time adhesive tape Allergy Mild Blister Verified 05/27/23 09:54 pomegranate [POMEGRANATE] Allergy Unknown Verified 05/27/23 09:54 Review of Systems Review of Systems ROS Unobtainable: All systems reviewed & are unremarkable except as noted in HPI and below Patient History Medical History (Updated 05/27/23 @ 16:27 by Mary Bal RN) Depression Aphasia Secundum atrial septal defect Stroke Encounter for screening for unspecified developmental delays Migraine Ataxia Anxiety Multiple sclerosis Surgical History No pertinent past surgical history Family History Mother Hypertension Alcoholism Father Heart abnormality alcohol intake frequency: holidays/special occasions only Substance Use Type: marijuana Exam Narrative Exam Narrative: GEN: well nourished, well appearing female, alert and oriented x 3, patient appears to be in mild distress. HEENT: Atraumatic, pupils are equal round reactive to light, extraocular movements are intact, nares are clear, there is no conjunctival pallor. No facial droop. HEART: Regular rate and rhythm without murmur, clicks, rubs. No carotid bruits, pulses are equal in upper and lower extremities LUNGS:Lungs clear to auscultation, no wheezes, rales, crackles, chest moves symmetrically ABD:bowel sounds normal, soft, non-tender, no guarding, rebound, rigidity, no masses noted, no hepatosplenomegaly :No CVA tenderness MSCL: Non-tender, no muscle atrophy, muscles strength 5/5 upper and lower extremities, full range of motion, ambulates to bathroom independently with a cane. NEURO:CN 2-12 intact, sensation normal, normal speech. SKIN: No acute change. Initial Vital Signs Initial Vital Signs: Vital Signs Temperature 97.0 F L 05/27/23 09:54 Pulse Rate 81 05/27/23 09:54 Respiratory Rate 14 05/27/23 09:54 Blood Pressure 130/77 05/27/23 09:54 Pulse Oximetry 99 05/27/23 09:54 Oxygen Delivery Method Room Air 05/27/23 09:54 Course Orders Ordered: ED Orders 05/27/23 11:01 XR chest 1V Stat 05/27/23 11:36 Covid-19 + FLU A/B + RSV - PCR Stat 05/27/23 11:49 CBC Auto Diff [Complete Blood Count AUTO DIFF] Stat CMP [Comprehensive Metabolic Panel] Stat Acetaminophen (Acetaminophen 325 Mg Tablet) 650 mg PO Q6H PRN PRN Reason: Fever/Mild Pain (1-3) Acyclovir (Acyclovir 400 Mg Tablet) 400 mg PO BID SRINIVAS Aspirin (Aspirin 81 Mg Chew Tab) 81 mg PO DAILY SRINIVAS Baclofen (Baclofen 10 Mg Tablet) 15 mg PO TID SRINIVAS Bisacodyl (Bisacodyl 10 Mg Supp) 10 mg WA DAILY PRN PRN Reason: Constipation Buspirone HCl (Buspirone 5 Mg Tablet) 10 mg PO TID SRINIVAS Docusate Sodium (Docusate 100 Mg Capsule) 200 mg PO BID SRINIVAS Enoxaparin Sodium (Enoxaparin 40 Mg/0.4 Ml Syringe) 40 mg SUBCUT DAILY SRINIVAS Escitalopram Oxalate (Escitalopram 10 Mg Tablet) 20 mg PO DAILY SRINIVAS Sodium Chloride (Normal Saline 0.9%) 250 mls @ 21 mls/hr IV Q24H PRN PRN Reason: Flush Methylprednisolone 1,000 mg/ (Sodium Chloride) 250 mls @ 250 mls/hr IV Q24H [facility] Stop: 05/31/23 09:01 Meclizine HCl (Meclizine Hcl 12.5 Mg Tablet) 25 mg PO TID PRN PRN Reason: Vertigo Melatonin (Melatonin 3 Mg Tablet) 6 mg PO BEDTIME PRN PRN Reason: Insomnia Naloxone HCl (Naloxone 0.4 Mg/Ml Vial) 0.2 mg IV Q2MIN PRN PRN Reason: Opiate Reversal Mirabegron [ Myrbetriq] 50 Mg Tablet Er 24 Hr 50 mg PO DAILY SRINIVAS Ubrogepant [Ubrelvy] (100 Mg Tablet) 100 mg PO PRN PRN PRN Reason: Migraine Headache Ondansetron HCl (Ondansetron 4 Mg/2 Ml Inj) 4 mg IV Q4HR PRN PRN Reason: Nausea And Vomiting Polyethylene Glycol (Polyethylene Glycol 3350 17 Gm Powd.Pack) 17 gm PO DAILY PRN PRN Reason: Constipation Pregabalin (Pregabalin 75 Mg Capsule) 150 mg PO BID SRINIVAS Sennosides (Sennosides 8.6 Mg Tablet) 8.6 mg PO BID PRN PRN Reason: Constipation Tamsulosin HCl (Tamsulosin 0.4 Mg Capsule) 0.8 mg PO DAILY SRINIVAS Discontinued Medications Sodium Chloride (Normal Saline 0.9%) 1,000 mls @ 1,000 mls/hr IV BOLUS ONE Stop: 05/27/23 12:00 Last Infusion: 05/27/23 14:42 Dose: Infused Documented By: Admin: 05/27/23 11:42 Dose: 1,000 mls/hr Documented By: ROMEL Methylprednisolone 1,000 mg/ (Sodium Chloride) 250 mls @ 250 mls/hr IV NOW ONE Stop: 05/27/23 15:05 Last Infusion: 05/27/23 17:25 Dose: Infused Documented By: Admin: 05/27/23 15:46 Dose: 250 mls/hr Documented By: ELIDA Vital Signs Vital signs: Vital Signs - 8 hr 05/27/23 13:31 Pulse Rate 77 Respiratory Rate 18 Blood Pressure 130/72 Pulse Oximetry 99 Oxygen Delivery Method Room Air MDM - Female Genitourinary Lab Data 05/27/23 11:49 05/27/23 11:49 Labs: Lab Results 05/27/23 05/27/23 Range/Units 11:36 11:49 WBC 11.7 H (4.5-11.0) X10^3/uL RBC 4.31 (4.0-5.2) X10^6/uL Hgb 12.3 (12.0-16.0) g/dL Hct 37.6 (36-46) % MCV 87.4 (80-100) fL MCH 28.5 (26-34) PG MCHC 32.6 (30-36) % RDW 14.3 (11.6-14.8) % Plt Count 386 (150-400) X10^3/uL Neut % (Auto) 81.6 H (50-75) % Lymph % (Auto) 12.3 L (25-40) % [place] % (Auto) 4.9 (3-14) % Eos % (Auto) 0.5 L (2-4) % Baso % (Auto) 0.7 (0-2) % Neut # (Auto) 9600 H (1173-6384) /uL Lymph # (Auto) 1400 (5079-1568) /uL [place] # (Auto) 600 (0-900) /uL Eos # (Auto) 100 (0-450) /uL Baso # (Auto) 100 (0-100) /uL Sodium 138 (137-145) mmol/L Potassium 4.0 (3.4-5.1) mmol/L Chloride 105 (98-107) mmol/L Carbon Dioxide 25 (22-32) mmol/L BUN 10 (7-17) mg/dL Creatinine 0.58 (0.52-1.04) mg/dL Estimated GFR > 60 (>60) mL/min BUN/Creatinine Ratio 17.2 (6-22) Glucose 91 (70-100) mg/dL Calcium 9.6 (8.4-10.2) mg/dL Total Bilirubin 0.3 (0.2-1.3) mg/dL AST 21 (14-36) IU/L ALT 14 (<35) IU/L Alkaline Phosphatase 89 (38-126) U/L Total Protein 7.1 (6.3-8.2) g/dL Albumin 4.1 (3.5-5.0) g/dL Globulin 3.0 (1.7-4.1) g/dL Albumin/Globulin Ratio 1.4 (1.0-2.8) SARS-CoV-2 (PCR) Negative (Negative) Influenza A (RT-PCR) Flu a negative (NEGATIVE) Influenza B (RT-PCR) Flu b negative (NEGATIVE) RSV (PCR) Negative (Negative) Point of Care Testing Test Results Negative Urine Dip Bedside Urine Glucose Negative Bedside Urine Bilirubin - Negative Bedside Urine Ketone - Negative Urine Specific [place] 1.005 Bedside Urine Occult Blood - Negative Bedside Urine pH 6.0 Bedside Urine Protein - Negative Bedside Urine Urobilinogen - Negative Bedside Urine Nitrite - Negative Bedside Urine Leukocytes - Negative Esterase Imaging Data Chest x-ray: Radiologist's Impression: [address] [address] XRay Report Signed Patient: Adilene Pierce MR#: [id number] : 1980 Acct:[id number] Age/Sex: 42 / F Date of Service: 05/27/23 Loc: ED Accession Number: [id number] Procedure: XR chest 1V Ordering Provider: Vanessa Gipson D.O. PROCEDURE: XR CHEST 1V INDICATIONS: ? MS flare, chills, multiple symptoms TECHNIQUE: One view of the chest was acquired. COMPARISON: None. FINDINGS: Surgical changes and devices: None. Lungs and pleura: Lungs are clear. No pleural effusions or pneumothorax. Mediastinum: Mediastinal contours appear normal. Heart size is normal. Bones and chest wall: No suspicious bony lesions. Overlying soft tissues appear unremarkable. IMPRESSION: No acute cardiopulmonary abnormality is seen. Dictated by: Christal Caballero M.D. on 05/27/2023 at 11:49 Approved by: Christal Caballero M.D. on 05/27/2023 at 11:49 [facility] Narrative Medical decision making narrative: Patient with history of MS, patient has visits in the past requiring large doses of Solu-Medrol. Has had 1 visit where she had psychiatric issues. She has had what family and she suspects as a flare of her MS. She is ambulated in the department without significant issues but notes memory changes some weakness, as well as behavioral changes. There was concern about possible UTI she has had some chills patient's urine is negative lab work does not show any acute change chest x-ray is negative. Spoke with Dr. Strickland his patient's personal neurologist. Suspect MS exacerbation wanted urinalysis chest x-ray and workup to evaluate for any other source does recommend 1 g IV Solu-Medrol daily x5 days. He does ask the patient specifically to be admitted and not to go home with repeat visits. We discussed we do not have Neurology and house he is happy to discussed case over the phone. Spoke with Dr. García he accepts for observation. Read recommendations from neurology. Discharge Plan Departure Patient Disposition: Admitted as Observation Clinical Impression: Exacerbation of multiple sclerosis Admit Date/Time: 05/27/23 15:09 Admit Provider: Shawn García
--- NOTE | 2023-05-27 11:01 | DI.RAD.S_ITS ---
PROCEDURE: XR CHEST 1V INDICATIONS: ? MS flare, chills, multiple symptoms TECHNIQUE: One view of the chest was acquired. COMPARISON: None. FINDINGS: Surgical changes and devices: None. Lungs and pleura: Lungs are clear. No pleural effusions or pneumothorax. Mediastinum: Mediastinal contours appear normal. Heart size is normal. Bones and chest wall: No suspicious bony lesions. Overlying soft tissues appear unremarkable. IMPRESSION: No acute cardiopulmonary abnormality is seen. Dictated by: Christal Caballero M.D. on 05/27/2023 at 11:49 Approved by: Christal Caballero M.D. on 05/27/2023 at 11:49
[2023-05-27] MEDS: SODIUM CHLORIDE 0.9% 1,000 ML 1000 ML IV (11:42)
[2023-05-27 12:03] LABS: Add Manual Diff / Slide Review NO; Basophils Absolute Auto 100 /uL (0-100); Basophils Percent Auto 0.7 % (0-2); Eosinophils Absolute Auto 100 /uL (0-450); Eosinophils Percent Auto 0.5 % (2-4); Hematocrit 37.6 % (36-46); Hemoglobin 12.3 g/dL (12.0-16.0); Lymphocytes Absolute Auto 1400 /uL (1100-4500); Lymphocytes Percent Auto 12.3 % (25-40); Mean Corpuscular HGB Conc 32.6 % (30-36); Mean Corpuscular Hemoglobin 28.5 PG (26-34); Mean Corpuscular Volume 87.4 fL (80-100); Monocytes Absolute Auto 600 /uL (0-900); Monocytes Percent Auto 4.9 % (3-14); Neutrophils Absolute Auto 9600 /uL (1500-7000); Neutrophils Percent Auto 81.6 % (50-75); Platelet Count 386 X10^3/uL (150-400); Red Blood Cell Count 4.31 X10^6/uL (4.0-5.2); Red Cell Distribution Width 14.3 % (11.6-14.8); White Blood Cell Count 11.7 X10^3/uL (4.5-11.0)
[2023-05-27 12:16] LABS: Alanine Aminotransferase 14 IU/L (<35); Albumin 4.1 g/dL (3.5-5.0); Albumin Globulin Ratio 1.4 (1.0-2.8); Alkaline Phosphatase 89 U/L (38-126); Aspartate Aminotransferase 21 IU/L (14-36); BUN Creatinine Ratio 17.2 (6-22); Bilirubin Total 0.3 mg/dL (0.2-1.3); Blood Urea Nitrogen 10 mg/dL (7-17); Calcium 9.6 mg/dL (8.4-10.2); Carbon Dioxide 25 mmol/L (22-32); Chloride 105 mmol/L (98-107); Estimated Glomerular Filt Rate > 60 mL/min (>60); Glucose 91 mg/dL (70-100); HEMOLYSIS < 15 (0-50); Sodium 138 mmol/L (137-145); Total Protein 7.1 g/dL (6.3-8.2)
[2023-05-27 12:40] LABS: Influenza A - CEPHEID Flu A NEGATIVE (NEGATIVE); Influenza B - CEPHEID Flu B NEGATIVE (NEGATIVE); Respiratory Syncytial Virus Negative (Negative)
[2023-05-27 12:52] LABS: COVID-19 CEPHEID 4-PLEX PCR Negative (Negative)
[2023-05-27 13:31] VITALS: BP 130/72; PULSE 77; RESP 18; O2SAT 99
--- NOTE | 2023-05-27 15:00 | PC.NURSE ---
pharmacy aware of methylprednisolone order. pharmacy is making medication and will bring when done.
[2023-05-27 15:33] VITALS: BP 138/76; PULSE 98; RESP 16; O2SAT 98
[2023-05-27 15:40] VITALS: BP 129/73; PULSE 80; TEMP 36.6; O2SAT 96
[2023-05-27 15:46] VITALS: BMI 26.6
[2023-05-27] MEDS: methylPREDNISolone 1,000 MG in SODIUM CHLORIDE 0.9% 250 ML 250 MG IV (15:46)
[2023-05-27 16:06] LABS: Magnesium 2.2 mg/dL (1.6-2.3)
--- NOTE | 2023-05-27 16:08 | P.HP_ITS ---
History of Present Illness History of Present Illness Date Patient Seen: 05/27/23 Chief complaint: ms relapse poss uti Narrative: Adilene Pierce is a 42yo F with PMH of MS and frequent flares followed by Dr. Strickland neurology who presents with acute MS flare. Patient is on twice yearly Ocrevus infusions which help manage her MS well, but per her neurologist she needs it 3x yearly because it runs out and her symptoms return. Therefore she has needed steroids intermittently between doses of Ocrevus to help with MS flares. Apparently per family she has shown symptoms of worsening MS including memory loss, worsening weakness, and impulsiveness. The ED called Dr. Strickland who wanted her admitted for 1g solumedrol x5 days. He would also like a repeat MRI which she is due for to see if she has worsening MS lesions in brain, cervical and thoracic spine. Patient requesting anxiolytic for MRI and medication for insomnia tonight. [facility] Medical History (Updated 05/27/23 @ 16:27 by Mary Bal RN) Depression Aphasia Secundum atrial septal defect Stroke Encounter for screening for unspecified developmental delays Migraine Ataxia Anxiety Multiple sclerosis Surgical History No pertinent past surgical history Family History Mother Hypertension Alcoholism Father Heart abnormality Social History household members: children Smoking Status: Former smoker Meds Home Medications and Allergies Home Medications Medication Instructions Recorded Confirmed Type meclizine 25 mg tablet 25 mg PO TID PRN Vertigo 01/16/18 05/27/23 History tamsulosin 0.4 mg capsule 0.8 mg PO DAILY 01/16/18 05/27/23 History bisacodyl 10 mg rectal suppository 10 mg UT DAILY PRN Constipation #2 04/09/18 05/27/23 Rx ea docusate sodium 100 mg capsule 200 mg (2 x 100 mg) PO BID #30 caps 04/09/18 05/27/23 Rx dextroamphetamine-amphetamine 5 mg 5 mg PO BID PRN ADHD /08/0405/27/23 History tablet ocrelizumab 30 mg/mL intravenous See Rx Instructions .Route .COMPLEX 10/10/19 05/27/23 History solution (Ocrevus) acyclovir 400 mg tablet 400 mg PO BID 05/27/23 05/27/23 History aspirin 81 mg chewable tablet 1 tab PO DAILY 05/27/23 05/27/23 History baclofen 10 mg tablet 15 mg PO TID 05/27/23 05/27/23 History buspirone 10 mg tablet 10 mg PO 3XD 05/27/23 05/27/23 History erenumab-aooe 140 mg/mL 140 mg SUBCUT QMONTH migraines 05/27/23 05/27/23 History subcutaneous auto-injector (Aimovig Autoinjector) escitalopram oxalate 20 mg tablet 20 mg PO DAILY 05/27/23 05/27/23 History mirabegron 50 mg tablet,extended 50 mg PO DAILY 05/27/23 05/27/23 History release 24 hr (Myrbetriq) pregabalin 150 mg capsule 150 mg PO BID 05/27/23 05/27/23 History ubrogepant 100 mg tablet (Ubrelvy) 100 mg PO PRN PRN Migraine Headache 05/27/23 05/27/23 History Allergies Allergy/AdvReac Type Severity Reaction Status Date / Time adhesive tape Allergy Mild Blister Verified 05/27/23 09:54 pomegranate [POMEGRANATE] Allergy Unknown Verified 05/27/23 09:54 Review of Systems Review of Systems Narrative: All other systems reviewed with the patient and are negative unless otherwise stated. Exam Vital Signs (past 8 hours): - 05/27/23 09:54 05/27/23 13:31 05/27/23 15:33 Temperature 97.0 F L Pulse Rate 81 77 98 H Respiratory Rate 14 18 16 Blood Pressure 130/77 130/72 138/76 Pulse Oximetry 99 99 98 Oxygen Delivery Method Room Air Room Air Room Air Oxygen Delivery Method Room Air Narrative Exam Narrative: GEN: no acute distress HEENT: moist mucous membranes, PERRL NECK: trachea midline, no JVD CV: regular rate and rhythm, no murmurs PULM: clear bilaterally ABD: soft, nontender, nondistended, no organomegaly EXT: warm and well perfused with no edema NEURO: awake, alert, oriented, no focal deficits Objective Labs 05/27/23 11:49 05/27/23 11:49 Labs: Laboratory Results - last 24 hr 05/27/23 05/27/23 11:36 11:49 WBC 11.7 H RBC 4.31 Hgb 12.3 Hct 37.6 MCV 87.4 MCH 28.5 MCHC 32.6 RDW 14.3 Plt Count 386 Neut % (Auto) 81.6 H Lymph % (Auto) 12.3 L [place] % (Auto) 4.9 Eos % (Auto) 0.5 L Baso % (Auto) 0.7 Neut # (Auto) 9600 H Lymph # (Auto) 1400 [place] # (Auto) 600 Eos # (Auto) 100 Baso # (Auto) 100 Sodium 138 Potassium 4.0 Chloride 105 Carbon Dioxide 25 BUN 10 Creatinine 0.58 Estimated GFR > 60 BUN/Creatinine Ratio 17.2 Glucose 91 Calcium 9.6 Total Bilirubin 0.3 AST 21 ALT 14 Alkaline Phosphatase 89 Total Protein 7.1 Albumin 4.1 Globulin 3.0 Albumin/Globulin Ratio 1.4 SARS-CoV-2 (PCR) Negative Influenza A (RT-PCR) Flu a negative Influenza B (RT-PCR) Flu b negative RSV (PCR) Negative Assessment & Plan Assessment & Plan narrative: # multiple sclerosis flare -patient has had multiple flares in past -per Dr. Strickland neurology given 1g solumedrol x5 days and repeat MRI -MR brain, cervical and thoracic ordered w/wo contrast per neurology -continue home meclizine, lyrica, and baclofen -ativan PRN for the MRI # anxiety -continue buspar -valium for acute anxiety # insomnia -ambien nightly Code status is full code. DVT prophylaxis with lovenox. Proxy is mother Luiza. I have reviewed home meds and used all available resources to reconcile the home meds. Case discussed with ED physician/APC and patient will be admitted to the hospitalist service for further workup and management. This patient will be admitted as obs and will require less than 2 midnights of hospital time to treat MR flare.
--- NOTE | 2023-05-27 17:26 | PC.NURSE ---
Pt to room 210 via w/c by ER and was able to transfer to bed with sba. S.O. Michael is at the bedside. Pt oriented to room, call light, bed controls, and tv controls. IV methylprednisolone infused as ordered. SCD's on and running. Bed alarm on for safety. Pt agrees to call for assistance as needed and to not get up without help.
--- NOTE | 2023-05-27 17:59 | DI.MRI.S_ITS ---
PROCEDURE: MR HEAD/BRAIN WO/W CON INDICATIONS: MS flare TECHNIQUE: Noncontrast sagittal and axial FLAIR, axial and coronal T2 fast spin echo, axial VIBE, axial gradient echo, axial diffusion and ADC through the brain. After the administration of contrast, axial and coronal and sagittal VIBE with fat saturation through the brain. COMPARISON: [facility], MR, MR MS BRAIN WITH/WITHOUT CONTRAST, 12/18/2021, 9:54. [facility], MR, MR HEAD/BRAIN WO/W CON, 06/08/2018, 19:36. FINDINGS: Image quality: Excellent. CSF spaces: Ventricles are normal in size and shape. Basal cisterns are patent. No extra-axial fluid collections. Brain: Numerous foci of periventricular white matter T2/FLAIR hyperintensity are present, consistent with multiple sclerosis. On contrast enhanced images, there are no enhancing lesions identified. Overall, the MS plaque burden is similar. No intracranial bleeds or mass effects. Jones-white matter interface appears intact. Diffusion weighted images show no acute ischemic insults. Brainstem appears normal. Normal intravascular flow voids are present. Skull and face: Calvarial marrow signal is normal. Orbits appear normal. Sinuses: Sinuses and mastoids are clear. IMPRESSION: 1. Numerous T2/FLAIR hyperintense lesions in periventricular white matter consistent with MS plaques. Overall the plaque burden is similar to the last exam. No enhancing lesions are identified. Dictated by: Meghan Crisostomo M.D. on 05/27/2023 at 20:07 Approved by: Meghan Crisostomo M.D. on 05/28/2023 at 9:01
--- NOTE | 2023-05-27 17:59 | DI.MRI.S_ITS ---
PROCEDURE: MR THORACIC SPINE WO/W CON INDICATIONS: MS flare TECHNIQUE: Noncontrast sagittal T1 spin echo and T2 fast spin echo, sagittal STIR, axial T1 and T2 fast spin echo through the thoracic spine. After the administration of contrast, axial and sagittal T1 spin echo with fat saturation through the thoracic spine. COMPARISON: MR, MR THORACIC SPINE WITH/WITHOUT CONTRAST, 05/06/2019, 15:42. [facility], MR, MR CERVICAL SPINE WITH/WITHOUT CONTRAST, 12/18/2021, 9:54. [facility], MR, MR THORACIC SPINE WITH/WITHOUT CONTRAST, 12/05/2019, 12:26. [facility], MR, MR THORACIC SPINE WITH/WITHOUT CONTRAST, 12/18/2021, 9:54. [facility], MR, MR THORACIC SPINE WO/W CON, 06/08/2018, 20:20. FINDINGS: Image quality: Excellent. Alignment and curvature: There is normal bony alignment. Marrow: Marrow is of normal overall signal. No acute vertebral body compression fractures. Spinal cord: Visualized spinal cord is of normal signal and size, without abnormal enhancement. Paraspinous soft tissues: No paravertebral masses or abnormal enhancement. Miscellaneous: Central canal and foramina appear widely patent at all scanned levels. Mild degenerative disc disease is noted. IMPRESSION: No demyelinating lesions in thoracic cord. Dictated by: Meghan Crisostomo M.D. on 05/27/2023 at 20:18 Approved by: Meghan Crisostomo M.D. on 05/28/2023 at 9:10
--- NOTE | 2023-05-27 17:59 | DI.MRI.S_ITS ---
PROCEDURE: MR CERVICAL SPINE WO/W CON INDICATIONS: MS flare TECHNIQUE: Noncontrast sagittal T1 spin echo and T2 fast spin echo, sagittal STIR, sagittal PD fast spin echo, foraminal oblique sagittal T2 fast spin echo, axial gradient echo or T2 fast spin echo through the cervical spine. After the administration of contrast, sagittal and axial T1 spin echo with fat saturation through the cervical spine. COMPARISON: [facility], , MR CERVICAL SPINE WITH/WITHOUT CONTRAST, 12/05/2019, 12:26. [facility], MR, MR MS BRAIN WITH/WITHOUT CONTRAST, 12/18/2021, 9:54. [facility], MR, MR LUMBAR SPINE WITH/WITHOUT CONTRAST, 12/18/2021, 9:54. [facility], MR, MR CERVICAL SPINE WITH/WITHOUT CONTRAST, 12/18/2021, 9:54. [facility], MR, MR THORACIC SPINE WITH/WITHOUT CONTRAST, 12/18/2021, 9:54. [facility], MR, MR MS BRAIN WITH/WITHOUT CONTRAST, 12/25/2020, 12:45. [facility], MR, MR CERVICAL SPINE WITH/WITHOUT CONTRAST, 12/25/2020, 12:45. [facility], MR, MR CERVICAL SPINE WO/W CON, 06/08/2018, 19:58. FINDINGS: Image quality: Excellent. Alignment and curvature: There is normal bony alignment. Marrow: Marrow demonstrates normal overall signal. Spinal cord: Visualized spinal cord is normal in size, without white matter lesions. No suspicious intramedullary enhancement. No cerebellar tonsillar herniation. Paraspinous soft tissues: No paravertebral masses or suspicious enhancement. Intervertebral discs: There is loss of disc height and posterior disc extrusion at C5-C6 and C6-C7 causing moderate central canal stenosis. IMPRESSION: 1. No demyelinating lesions identified in cervical cord. 2. Degenerative disc disease with posterior disc extrusion at C5-C6 and C6-C7 causing moderate central canal stenosis. Dictated by: Meghan Crisostomo M.D. on 05/27/2023 at 20:17 Approved by: Meghan Crisostomo M.D. on 05/28/2023 at 9:07
[2023-05-27] MEDS: LORazepam 0.5 MG TABLET PO (18:14)
[2023-05-27 20:00] VITALS: BP 130/74; PULSE 74; RESP 16; TEMP 35.8; O2SAT 94
[2023-05-27] MEDS: PREGABALIN 75 MG CAPSULE 150 MG PO (20:49)
[2023-05-27] MEDS: ZOLPIDEM 5 MG TABLET PO (20:49)
[2023-05-27] MEDS: DOCUSATE 100 MG CAPSULE 200 MG PO (20:49)
[2023-05-27] MEDS: ACYCLOVIR 400 MG TABLET PO (20:49)
[2023-05-27] MEDS: BUSPIRONE 5 MG TABLET 10 MG PO (20:49)
[2023-05-27] MEDS: BACLOFEN 10 MG TABLET 15 MG PO (20:50)
[2023-05-27 23:20] LABS: Appearance Urine UA CLEAR; Bilirubin Urine UA NEGATIVE (NEGATIVE); Color Urine UA YELLOW; Glucose Urine UA NEGATIVE (Negative); Ketones Urine UA NEGATIVE (NEGATIVE); Leukocyte Esterase Urine UA NEGATIVE (NEGATIVE); Nitrite Urine UA NEGATIVE (Negative); Occult Blood Urine UA NEGATIVE (Negative); Protein Urine UA NEGATIVE (Negative); Specific Gravity Urine UA 1.015 (1.000-1.035); Urobilinogen Urine UA 0.2 E.U./dL (0.2)
[2023-05-27 23:21] LABS: Bacteria Urine Many (>30); Culture Indicated Urine Cult Not Indicated; RBC Urine None Seen (0-5/HPF); Squamous Epithelial Cell Urine 1-5 /HPF (0-5/HPF); WBC Urine None Seen (0-5/HPF); pH Urine UA 7.5 (4.5-8.0)
[2023-05-28 02:00] VITALS: BP 128/76; BP 130/74; PULSE 82; PULSE 86; RESP 16; TEMP 35.8; TEMP 36.7; O2SAT 94
[2023-05-28] MEDS: ACETAMINOPHEN 325 MG TABLET 650 MG PO (04:03)
[2023-05-28] MEDS: diazePAM 5 MG TABLET PO ×3 (04:04→21:25)
[2023-05-28 07:12] LABS: Add Manual Diff / Slide Review NO; Basophils Absolute Auto 0 /uL (0-100); Basophils Percent Auto 0.2 % (0-2); Eosinophils Absolute Auto 0 /uL (0-450); Hematocrit 38.3 % (36-46); Hemoglobin 12.6 g/dL (12.0-16.0); Lymphocytes Absolute Auto 800 /uL (1100-4500); Lymphocytes Percent Auto 5.5 % (25-40); Mean Corpuscular HGB Conc 32.9 % (30-36); Mean Corpuscular Hemoglobin 28.4 PG (26-34); Mean Corpuscular Volume 86.5 fL (80-100); Monocytes Absolute Auto 100 /uL (0-900); Monocytes Percent Auto 0.8 % (3-14); Neutrophils Absolute Auto 13300 /uL (1500-7000); Neutrophils Percent Auto 93.5 % (50-75); Platelet Count 399 X10^3/uL (150-400); Red Blood Cell Count 4.43 X10^6/uL (4.0-5.2); Red Cell Distribution Width 14.5 % (11.6-14.8); White Blood Cell Count 14.3 X10^3/uL (4.5-11.0)
[2023-05-28 07:29] LABS: Blood Urea Nitrogen 11 mg/dL (7-17); Calcium 9.7 mg/dL (8.4-10.2); Carbon Dioxide 20 mmol/L (22-32); Chloride 105 mmol/L (98-107); Estimated Glomerular Filt Rate > 60 mL/min (>60); Glucose 144 mg/dL (70-100); HEMOLYSIS < 15 (0-50); Potassium 4.1 mmol/L (3.4-5.1); Sodium 135 mmol/L (137-145)
[2023-05-28 08:00] VITALS: BP 133/79; PULSE 83; RESP 16; TEMP 36.6; O2SAT 94
[2023-05-28] MEDS: ENOXAPARIN 40 MG/0.4 ML SYRINGE SUBCUT (08:22)
[2023-05-28] MEDS: BUSPIRONE 5 MG TABLET 10 MG PO ×2 (08:23→15:55)
[2023-05-28] MEDS: BACLOFEN 10 MG TABLET 15 MG PO ×3 (08:23→21:14)
[2023-05-28] MEDS: ACYCLOVIR 400 MG TABLET PO ×2 (08:23→21:15)
[2023-05-28] MEDS: ASPIRIN 81 MG CHEW TAB PO (08:23)
[2023-05-28] MEDS: ESCITALOPRAM 10 MG TABLET 20 MG PO (08:23)
[2023-05-28] MEDS: PREGABALIN 75 MG CAPSULE 150 MG PO ×2 (08:23→21:15)
[2023-05-28] MEDS: TAMSULOSIN 0.4 MG CAPSULE 0.8 MG PO (08:23)
[2023-05-28] MEDS: methylPREDNISolone 1,000 MG in SODIUM CHLORIDE 0.9% 250 ML 250 MG IV (09:28)
[2023-05-28] MEDS: OXYCODONE IR 5 MG TABLET PO ×2 (13:51→21:15)
--- NOTE | 2023-05-28 13:55 | PM.PN.1 ---
Subjective Subjective Interval history: Patient still having some anxiety and low back pain now. Requesting medications for this. MRI brain showed unchanged MS plaques and none in cervical or thoracic spine. Spoke with Dr. Strickland who recommended she complete 3 days of IV steroids. Exam Vital Signs (past 8 hours): - 05/28/23 08:00 Temperature 97.8 F Pulse Rate 83 Respiratory Rate 16 Blood Pressure 133/79 Pulse Oximetry 94 Oxygen Delivery Method Room Air Oxygen Flow Rate 0 Narrative Exam Narrative: GEN: anxious HEENT: moist mucous membranes, PERRL NECK: trachea midline, no JVD CV: regular rate and rhythm, no murmurs PULM: clear bilaterally ABD: soft, nontender, nondistended, no organomegaly EXT: warm and well perfused with no edema NEURO: awake, alert, oriented, no focal deficits Objective Labs 05/28/23 06:15 05/28/23 06:15 Labs: Laboratory Results - last 24 hr 05/27/23 05/27/23 05/28/23 15:45 21:00 06:15 WBC 14.3 H RBC 4.43 Hgb 12.6 Hct 38.3 MCV 86.5 MCH 28.4 MCHC 32.9 RDW 14.5 Plt Count 399 Neut % (Auto) 93.5 H Lymph % (Auto) 5.5 L [place] % (Auto) 0.8 L Eos % (Auto) 0.0 L Baso % (Auto) 0.2 Neut # (Auto) 31565 H Lymph # (Auto) 800 L [place] # (Auto) 100 Eos # (Auto) 0 Baso # (Auto) 0 Sodium 135 L Potassium 4.1 Chloride 105 Carbon Dioxide 20 L BUN 11 Creatinine 0.50 L Estimated GFR > 60 BUN/Creatinine Ratio 22.0 Glucose 144 H Calcium 9.7 Magnesium 2.2 Urine Color Yellow Urine Appearance Clear Urine pH 7.5 Ur Specific [place] 1.015 Urine Protein Negative Urine Glucose (UA) Negative Urine Ketones Negative Urine Occult Blood Negative Urine Nitrate Negative Urine Bilirubin Negative Urine Urobilinogen 0.2 Ur Leukocyte Esterase Negative Urine RBC None seen Urine WBC None seen Ur Squamous Epith Cells 1-5 /hpf D Urine Bacteria Many (>30) H Ur Culture Indicated? Cult not indicated PFSH Medical History (Updated 05/27/23 @ 16:27 by Mary Bal RN) Depression Aphasia Secundum atrial septal defect Stroke Encounter for screening for unspecified developmental delays Migraine Ataxia Anxiety Multiple sclerosis Surgical History No pertinent past surgical history Family History Mother Hypertension Alcoholism Father Heart abnormality Social History household members: significant other and children Smoking Status: Former smoker Assessment & Plan Assessment & Plan narrative: # multiple sclerosis flare -patient has had multiple flares in past -repeat MRI brain showed unchanged MS plaques with none new, and none of cervical or thoracic spine -per Dr. Strickland neurology give 1g solumedrol x3 days -continue home meclizine, lyrica, and baclofen # anxiety -continue buspar -valium for acute anxiety # insomnia -ambien nightly Code status is full code. DVT prophylaxis with lovenox. Proxy is mother Luiza. I have reviewed home meds and used all available resources to reconcile the home meds. Dispo: Discharge home on 05/29 after 3rd dose of IV steroids. Quality VTE Deep Vein Thrombosis/Pulmonary Embolism Present on Admission: No
[2023-05-28 20:00] VITALS: BP 137/85; PULSE 81; RESP 16; TEMP 36.4; O2SAT 95
[2023-05-28] MEDS: DOCUSATE 100 MG CAPSULE 200 MG PO (21:15)
[2023-05-28] MEDS: ONDANSETRON 4 MG/2 ML INJ IV (21:16)
[2023-05-28] MEDS: BISACODYL 10 MG SUPP PR (21:20)
[2023-05-28] MEDS: ZOLPIDEM 5 MG TABLET PO (21:25)
[2023-05-28] MEDS: MIRABEGRON 50 MG 50 EACH PO (21:26)
[2023-05-29 02:00] VITALS: BP 132/66; PULSE 74; RESP 17; TEMP 37; O2SAT 95
[2023-05-29 06:22] LABS: Add Manual Diff / Slide Review NO; Basophils Absolute Auto 0 /uL (0-100); Basophils Percent Auto 0.1 % (0-2); Eosinophils Absolute Auto 0 /uL (0-450); Hemoglobin 12.3 g/dL (12.0-16.0); Lymphocytes Absolute Auto 1500 /uL (1100-4500); Lymphocytes Percent Auto 6.2 % (25-40); Mean Corpuscular HGB Conc 32.3 % (30-36); Mean Corpuscular Hemoglobin 28.2 PG (26-34); Mean Corpuscular Volume 87.4 fL (80-100); Monocytes Absolute Auto 1500 /uL (0-900); Monocytes Percent Auto 6.3 % (3-14); Neutrophils Absolute Auto 21500 /uL (1500-7000); Neutrophils Percent Auto 87.4 % (50-75); Platelet Count 434 X10^3/uL (150-400); Red Blood Cell Count 4.35 X10^6/uL (4.0-5.2); Red Cell Distribution Width 14.8 % (11.6-14.8); White Blood Cell Count 24.6 X10^3/uL (4.5-11.0)
[2023-05-29 06:26] LABS: Blood Urea Nitrogen 13 mg/dL (7-17); Calcium 9.9 mg/dL (8.4-10.2); Carbon Dioxide 24 mmol/L (22-32); Chloride 104 mmol/L (98-107); Estimated Glomerular Filt Rate > 60 mL/min (>60); Glucose 134 mg/dL (70-100); HEMOLYSIS < 15 (0-50); Potassium 4.1 mmol/L (3.4-5.1); Sodium 137 mmol/L (137-145)
[2023-05-29 08:00] VITALS: BP 115/74; PULSE 71; RESP 16; TEMP 36.4; O2SAT 97
--- NOTE | 2023-05-29 08:59 | CM.DANOTE ---
Addendum entered and electronically signed by RUFUS Agudelo 05/29/23 10:48: Plan has been updated to keeping pt one more day for additional steroids. Pt will d/c home tomorrow, 05/30/23. Original Note: Initial DCP Assessment Visit Reviewed EMR and team rounds for pt's medical status and updates. Met with pt at bedside to introduce self and role. Pt found to be somnolent, yet oriented and able to express her needs. Her fiance is also present in the room, and states he will be the one to transport pt back home once medically cleared for d/c. Payor: [facility] PCP: Marleni Brazrob Pt is a 42 year-old F with a hx of MS and frequent flares presented to the ED on 05/27/23 with an acute MS flare. She is followed OP by her Neurologist, Dr. Strickland who manages her flares 3x yearly with Ocrevus infusions. Pt/family report that her symptoms have been worsening recently demonstrated by memory loss, impulsivity, and weakness. The ED consulted with Dr. Strickland who recommended placing her inpt in an OBS bed with the plan to receive 3-days of IV Ocrevus infusions. Pt was also found to have a UTI and was started on IV ABO's. DCP will follow and assist with any further evolving d/c needs. No anticipated home d/c needs are identified at this time. Discharge Planning/Care Management CM Discharge Assessment Start: 05/29/23 08:48 Freq: Status: Active Protocol: Document 05/29/23 08:49 DPL (Rec: 05/29/23 08:59 DPL [id number]) Discharge Planning Assessment Assigned Water Pump Servicer RUFUS Del Real Advance Directives? No History Provided By Patient,Medical Record Has Patient been admitted in last 30 No days? Prior Living Arrangements Apartment/Condo Household Members significant other,children Type of transporation used prior to Drives own vehicle admit Independent with ADL's Yes Is patient alert and oriented? Yes Comment No anticipated home d/c needs identified at this time. Barriers to Discharge No Discharge Plan Home Transportation Arrangement Pt's fiance will transport her home. Referrals Initiated None needed Whiteboard Updated in Patient Room with Yes name and ext. # of Water Pump Servicer Review Status In Process Please Provide Date Initial DC 05/29/23 Assessment Was Performed
[2023-05-29] MEDS: ENOXAPARIN 40 MG/0.4 ML SYRINGE SUBCUT (09:18)
[2023-05-29] MEDS: PREGABALIN 75 MG CAPSULE 150 MG PO ×2 (09:19→20:28)
[2023-05-29] MEDS: ACETAMINOPHEN 325 MG TABLET 650 MG PO ×2 (09:19→20:28)
[2023-05-29] MEDS: BACLOFEN 10 MG TABLET 15 MG PO ×3 (09:19→20:29)
[2023-05-29] MEDS: BUSPIRONE 5 MG TABLET 10 MG PO ×2 (09:20→15:39)
[2023-05-29] MEDS: DOCUSATE 100 MG CAPSULE 200 MG PO ×2 (09:20→20:28)
[2023-05-29] MEDS: ASPIRIN 81 MG CHEW TAB PO (09:21)
[2023-05-29] MEDS: OXYCODONE IR 5 MG TABLET PO ×2 (09:22→20:28)
[2023-05-29] MEDS: methylPREDNISolone 1,000 MG in SODIUM CHLORIDE 0.9% 250 ML 250 MG IV (09:22)
[2023-05-29] MEDS: TAMSULOSIN 0.4 MG CAPSULE 0.8 MG PO (09:30)
[2023-05-29] MEDS: ACYCLOVIR 400 MG TABLET PO ×2 (09:30→20:29)
[2023-05-29] MEDS: ESCITALOPRAM 10 MG TABLET 20 MG PO (09:30)
--- NOTE | 2023-05-29 09:41 | P.DS_ITS ---
History of Present Illness History of Present Illness Chief complaint: ms relapse poss uti Narrative: Adilene Pierce is a 42yo F with PMH of MS and frequent flares followed by Dr. Strickland neurology who presents with acute MS flare. Patient is on twice yearly Ocrevus infusions which help manage her MS well, but per her neurologist she needs it 3x yearly because it runs out and her symptoms return. Therefore she has needed steroids intermittently between doses of Ocrevus to help with MS flares. Apparently per family she has shown symptoms of worsening MS including memory loss, worsening weakness, and impulsiveness. The ED called Dr. Strickland who wanted her admitted for 1g solumedrol x5 days. He would also like a repeat MRI which she is due for to see if she has worsening MS lesions in brain, cervical and thoracic spine. Patient requesting anxiolytic for MRI and medication for insomnia tonight. Discharge Providers Provider Date of admission: 05/27/23 15:09 Discharge Date: 05/29/23 Primary care physician: Marleni Wise PA-C Discharge provider: Shawn García, Exam Vital Signs (past 8 hours): - 05/29/23 02:00 05/29/23 08:00 Temperature 98.6 F 97.6 F Pulse Rate 74 71 Respiratory Rate 17 16 Blood Pressure 132/66 115/74 Pulse Oximetry 95 97 Oxygen Flow Rate 0 Oxygen Delivery Method Room Air Oxygen Flow Rate 0 Objective Labs 05/29/23 05:39 05/29/23 05:39 Labs: Laboratory Results - last 24 hr 05/29/23 05:39 WBC 24.6 H D RBC 4.35 Hgb 12.3 Hct 38.0 MCV 87.4 MCH 28.2 MCHC 32.3 RDW 14.8 Plt Count 434 H Neut % (Auto) 87.4 H Lymph % (Auto) 6.2 L [place] % (Auto) 6.3 Eos % (Auto) 0.0 L Baso % (Auto) 0.1 Neut # (Auto) 14146 H Lymph # (Auto) 1500 [place] # (Auto) 1500 H Eos # (Auto) 0 Baso # (Auto) 0 Sodium 137 Potassium 4.1 Chloride 104 Carbon Dioxide 24 BUN 13 Creatinine 0.62 Estimated GFR > 60 BUN/Creatinine Ratio 21.0 Glucose 134 H Calcium 9.9 PFSH Medical History (Updated 05/27/23 @ 16:27 by Mary Bal RN) Depression Aphasia Secundum atrial septal defect Stroke Encounter for screening for unspecified developmental delays Migraine Ataxia Anxiety Multiple sclerosis Surgical History No pertinent past surgical history Family History Mother Hypertension Alcoholism Father Heart abnormality Social History household members: significant other and children Smoking Status: Former smoker Discharge Plan Discharge Plan Patient Disposition: Home Provider Discharge Comment: You were admitted for an MS flare and received 3 days of IV steroids. Repeat MRI's did not show any worsening MS. Dr. García Discharge orders & Medications Prescriptions: Continued tamsulosin 0.4 mg capsule 0.8 mg PO DAILY meclizine 25 mg tablet 25 mg PO TID PRN (Reason: Vertigo) Patient Comments: TK 1/2 TO 1 T PO UP TO Q 8 H PRF VERTIGO bisacodyl 10 mg Suppository 10 mg IA DAILY PRN (Reason: Constipation) Qty: 2 0RF docusate sodium 100 mg Capsule 200 mg PO BID Qty: 30 0RF dextroamphetamine-amphetamine 5 mg tablet 5 mg PO BID PRN (Reason: ADHD) Patient Comments: TK 1 T PO BID Ocrevus 30 mg/mL solution See Rx Instructions .ROUTE .COMPLEX Rx Instructions: 30mg/ml - infusion [id number]. unsure of when her next dose is due Myrbetriq 50 mg tablet extended release 24 hr 50 mg PO DAILY acyclovir 400 mg tablet 400 mg PO BID Aimovig Autoinjector 140 mg/mL auto-injector 140 mg SUBCUT QMONTH Patient Comments: [NO ORIGINAL SIG] Rx Instructions: has not had it yet this month. Usually takes around the 8th of each month aspirin 81 mg tablet,chewable 1 tab PO DAILY baclofen 10 mg tablet 15 mg PO TID buspirone 10 mg tablet 10 mg PO 3XD escitalopram oxalate 20 mg tablet 20 mg PO DAILY pregabalin 150 mg capsule 150 mg PO BID Ubrelvy 100 mg Tablet 100 mg PO PRN PRN (Reason: Migraine Headache) Follow up/Referrals: Marleni Wise PA-C [Primary Care Provider] - 2 Weeks Visit Report/Discharge Packet Stand Alone Forms: Patient Portal/API, Stroke Signs & Symptoms Discharge Data Primary Care Provider: Marleni Wise Attending Provider: Shawn García Admit Date/Time: 05/27/23 15:09 Quality VTE Deep Vein Thrombosis/Pulmonary Embolism Present on Admission: No
[2023-05-29] MEDS: LORazepam 0.5 MG TABLET PO (10:06)
--- NOTE | 2023-05-29 10:25 | PT.IIE ---
Surgical History (Last Reviewed 05/27/23 @ 11:08 by Vanessa Gipson DO) No pertinent past surgical history Medical History (Last Updated 05/27/23 @ 16:27 by Mary Bal, ADEBAYO) Anxiety Aphasia Ataxia Depression Encounter for screening for unspecified developmental delays Migraine Multiple sclerosis Secundum atrial septal defect Stroke Physical Therapy Inpatient Evaluation/Re-Eval M1 PT/OT-IP Prior Functional Status Start: 05/29/23 11:35 Freq: NEEDED Status: Active Protocol: Document 05/29/23 10:25 AB (Rec: 05/29/23 11:52 AB [id number]) Medical Review Prior Functional Status Medical History Reviewed Yes Communication able to make needs known Mobility and Gait pt staetd that she was modified independent with all mobilities and ambulation without AD indoors but uses a SPC outdoors and occasionally her 4WW when she has to do her laundry Social History Household Members significant other,children Living Arrangements Apartment/Condo Number of Floors (Floors) One Floor Number of Stairs To Enter/Railing? no steps to [place] Home Environment Standard Height Toilet,Tub/ Shower Home Equipment Front Wheel Walker,Four Wheel Walker,Straight Cane,Manual Wheelchair,Tub Transfer Bench, Hand Held Shower,Grab Bars Near Toilet,Grab Bars In Shower Additional Social History Comment pt's significant other is her caregiver and provides 24/7 assist to pt M2 PT-IP Current Condition Start: 05/29/23 11:35 Freq: NEEDED Status: Active Protocol: Document 05/29/23 10:25 AB (Rec: 05/29/23 11:52 AB [id number]) Physical Therapy Current Condition Current Condition Evaluation Date 05/29/23 Treatment Diagnosis MS exacerbation; difficulty in walking Onset Date 05/27/23 M3 PT-IP Subjective Start: 05/29/23 11:35 Freq: NEEDED Status: Active Protocol: Document 05/29/23 10:25 AB (Rec: 05/29/23 11:52 AB [id number]) Subjective Physical Therapy Visit Type Type Initial Evaluation Visit Start Time 10:25 Visit Stop Time 11:07 Total Visit Minutes 42 Number of DISPLAY DEPARTMENT MANAGER Visits 0 Physical Therapy Visit Comments Patient Comments pt is agreeable to do PT M4 PT-IP Mobility and Gait Start: 05/29/23 11:35 Freq: NEEDED Status: Active Protocol: Document 05/29/23 10:25 AB (Rec: 05/29/23 11:52 AB [id number]) PT-Bed Mobility Assessment Supine to Sit Supine to Sit Standby Assistance PT-Transfer Assessment Sit to and From Stand Sit to and from Stand Contact Guard Assistance,1 Person Assistance,Use of Upper Extremities Equipment Transfer Assistive Device Gait Belt,Front Wheeled Walker Orthotic/Prosthetic Devices or Brace: No Transfers Transfer Destination Chair Transfer Technique ambulated Transfer Ability Level of Assist Contact Guard Assistance,1 Person Assistance,Use of Upper Extremities Comments Mobility Comments pt supine in bed and agreeable to do PT. obtained PLOF and home set up. BP: 124/75. pt completed supine to sit SBA . able to sit on EOB SBA. completed sit to stand CGA and ambulated in room ~ 25 ft using FWW CGA. pt sat on the chair. c/o fatigue. Assessed ambulation using SPC and pt completed ~ 10 ft x 2 min A and cues. educated pt on proper use of SPC. pt sat on the chair but requested to just go back to bed. completed sit to stand from the chair CGA and step transfer to bed using SPC CGA to min A. informed pt regarding use FWW at this time for safety and pt agreed. positioned pt on the bed. call light and table placed within reach. Gait Assessment Gait Gait Assistance Required: Contact Guard Assist,Minimum Assistance Distance (Feet) 25 Able to Maintain Weight Bearing Status Yes During Gait Assistive Devices Assistive Device Gait Belt,Straight Cane,Front Wheeled Walker Orthotic/Prosthetic Devices or Brace: No Gait Deviations General Gait Pattern Ataxic,Decreased Stride Length ,Decreased Feet Clearance,Step -to Gait Factors Limiting Gait Function Factors Limiting Gait Function Decreased Activity Tolerance, Decreased Sensation,Decreased Strength,Incoordination,Poor Balance,Poor Safety Awareness PT-Balance Assessment Sitting Balance and Reactions Static Sitting Balance Ability Good Dynamic Sitting Balance Ability Good Standing Balance and Reactions Static Standing Balance Ability Fair Dynamic Standing Balance Ability Fair Device Used FWW M5 PT-IP Objective Assessments Start: 05/29/23 11:35 Freq: NEEDED Status: Active Protocol: Document 05/29/23 10:25 AB (Rec: 05/29/23 11:52 AB [id number]) Orientation Orientation/Cognition Level of Alertness Alert Orientation Name,Place,Situation Language Function Ability No Deficits Noted Safety Awareness Understands Safety Issues Memory Description No Deficits Noted Gross Range of Motion Lower Extremity ROM Assessment Within Functional Limits Strength Lower Extremity Strength Assessment Right Impaired Hip 3+/5 Knee 4-/5 Sensation Assessment Sensation Gross Sensation Right UE Impaired,Left UE Impaired,Right LE Impaired, Left LE Impaired Sensation Description Numbness,Tingling Comments Sensation Comments numbness/tingling due to MS Muscle Tone Muscle Tone WNL Yes M6 PT-IP Treatment Start: 05/29/23 11:35 Freq: NEEDED Status: Active Protocol: Document 05/29/23 10:25 AB (Rec: 05/29/23 11:52 AB [id number]) Physical Therapy Treatment Education Education Provided Safety M7 PT-IP Assessment and Plan Start: 05/29/23 11:35 Freq: NEEDED Status: Active Protocol: Document 05/29/23 10:25 AB (Rec: 05/29/23 11:52 AB [email or web address]) PT Summary Assessment and Plan Potential Rehabilitation Potential Fair Status of Condition at Evaluation Evolving Summary Impairments Pain,ROM,Strength,Balance, Coordination,Sensation,Tone, Cognition,Bed Mobility, Transfers,Gait,Activity Tolerance Assessment Summary pt is a 42 y/o F who presented to the ED due to memory issues and concerns about MS flare up. Pt admitted for MS exacerbation. pt requiring CGA with transfers and ambulation using FWW but has decrease actvity tolerance affecting independence. Assessed ambulation usign SPC and pt requiring min A. Recommending use of FWW at this time and pt agreed. pt also will be using her manual w/c for long distance mobility at this time due to easy fatigueability. pt has her significant other as her caregiver and can provide pt with 24/ assist. pt will benefit from HHPT. will continue to assess progress. Goals Bed Mobility Goal Independent Transfer Goal Independent,Front Wheeled Walker Gait Goal Independent,Front Wheel Walker Gait Distance 250 Other Goals improve transfers and ambulation using LRAD/without AD >300 ft SBA Days to Meet Goals 10 Frequency of Treatment Frequency Of Treatment Once a Day Treatment Plan Physical Therapy Treatment Plan Bed Mobility Training,Transfer Training,Gait Training, Therapeutic Exercise,Balance Retraining,Discharge Planning, Hot or Cold Pack,Neuromuscular Re-ed,Coordination Retraining Precautions Other Precautions falls Recommendations To Nursing Amount of Assist Needed 1 Person Assist Discharge Recommendations PT Discharge Recommendations Home with 24/7 Assist Available,Home Health Transportation Needs at Discharge Private Vehicle
[2023-05-29] MEDS: LACTULOSE 20 GM/30 ML SOLUTION PO (11:08)
--- NOTE | 2023-05-29 11:25 | OT.IPNOTE ---
Went to talk to pt for OT eval. Pt states has no needs and has someone at home to assist her at all times. Able to give pt information for DME as down the road may need a BSC and information on energy conservation. NO charge. Discharge OT eval orders.
[2023-05-29 12:00] VITALS: BP 112/68; PULSE 76; RESP 16; TEMP 36.3; O2SAT 99
--- NOTE | 2023-05-29 14:29 | PM.PN.1 ---
Subjective Subjective Interval history: Patient not feeling well today, is more weak and hasn't had a BM in 1 week. She doesn't think she can go home yet. Exam Vital Signs (past 8 hours): - 05/29/23 08:00 05/29/23 12:00 Temperature 97.6 F 97.4 F L Pulse Rate 71 76 Respiratory Rate 16 16 Blood Pressure 115/74 112/68 Pulse Oximetry 97 99 Oxygen Delivery Method Room Air Oxygen Flow Rate 0 Narrative Exam Narrative: GEN: anxious HEENT: moist mucous membranes, PERRL NECK: trachea midline, no JVD CV: regular rate and rhythm, no murmurs PULM: clear bilaterally ABD: soft, nontender, nondistended, no organomegaly EXT: warm and well perfused with no edema NEURO: awake, alert, oriented, no focal deficits Objective Labs 05/29/23 05:39 05/29/23 05:39 Labs: Laboratory Results - last 24 hr 05/29/23 05:39 WBC 24.6 H D RBC 4.35 Hgb 12.3 Hct 38.0 MCV 87.4 MCH 28.2 MCHC 32.3 RDW 14.8 Plt Count 434 H Neut % (Auto) 87.4 H Lymph % (Auto) 6.2 L [place] % (Auto) 6.3 Eos % (Auto) 0.0 L Baso % (Auto) 0.1 Neut # (Auto) 03754 H Lymph # (Auto) 1500 [place] # (Auto) 1500 H Eos # (Auto) 0 Baso # (Auto) 0 Sodium 137 Potassium 4.1 Chloride 104 Carbon Dioxide 24 BUN 13 Creatinine 0.62 Estimated GFR > 60 BUN/Creatinine Ratio 21.0 Glucose 134 H Calcium 9.9 PFSH Medical History (Updated 05/27/23 @ 16:27 by Mary Bal, ADEBAYO) Depression Aphasia Secundum atrial septal defect Stroke Encounter for screening for unspecified developmental delays Migraine Ataxia Anxiety Multiple sclerosis Surgical History No pertinent past surgical history Family History Mother Hypertension Alcoholism Father Heart abnormality Social History household members: significant other and children Smoking Status: Former smoker Assessment & Plan Assessment & Plan narrative: # multiple sclerosis flare -patient has had multiple flares in past -repeat MRI brain showed unchanged MS plaques with none new, and none of cervical or thoracic spine -per Dr. Strickland neurology give 1g solumedrol x5 days -continue home meclizine, lyrica, and baclofen -PT/OT evals # constipation -only small BM with suppository on 05/28, no BM prior in a week -start lactulose BID # anxiety -continue buspar -valium for acute anxiety # insomnia -ambien nightly Code status is full code. DVT prophylaxis with lovenox. Proxy is mother Luiza. I have reviewed home meds and used all available resources to reconcile the home meds. Dispo: Discharge home in next 1-2 days depending on improvement with steroids. Quality VTE Deep Vein Thrombosis/Pulmonary Embolism Present on Admission: No
--- NOTE | 2023-05-29 15:43 | PC.NURSE ---
Pt A/O Med as per orders w/ Oxy. & Ativan w/ fair relief. SBA to BR Lactolose given as per orders w/ minimal results at this timd. New IV/SL placed by Glendy FIORE Receiving IV steroids. Call light w/in reach, Pt calls appropriately for needs. Continue w/plan of care
[2023-05-29 18:00] VITALS: BP 139/87; PULSE 73; RESP 16; TEMP 36.3; O2SAT 95
[2023-05-29] MEDS: MIRABEGRON 50 MG 50 EACH PO (20:28)
[2023-05-29] MEDS: diazePAM 5 MG TABLET PO (20:29)
[2023-05-29] MEDS: ZOLPIDEM 5 MG TABLET PO (20:29)
[2023-05-29 20:36] VITALS: BP 132/86; PULSE 74; RESP 16; TEMP 36.5; O2SAT 96
[2023-05-30 05:50] LABS: Add Manual Diff / Slide Review NO; Basophils Absolute Auto 0 /uL (0-100); Basophils Percent Auto 0.2 % (0-2); Eosinophils Absolute Auto 0 /uL (0-450); Hematocrit 36.3 % (36-46); Hemoglobin 11.8 g/dL (12.0-16.0); Lymphocytes Absolute Auto 2000 /uL (1100-4500); Lymphocytes Percent Auto 11.4 % (25-40); Mean Corpuscular HGB Conc 32.4 % (30-36); Mean Corpuscular Hemoglobin 28.2 PG (26-34); Mean Corpuscular Volume 87.2 fL (80-100); Monocytes Absolute Auto 1300 /uL (0-900); Monocytes Percent Auto 7.5 % (3-14); Neutrophils Absolute Auto 14100 /uL (1500-7000); Neutrophils Percent Auto 80.9 % (50-75); Platelet Count 377 X10^3/uL (150-400); Red Blood Cell Count 4.16 X10^6/uL (4.0-5.2); Red Cell Distribution Width 14.6 % (11.6-14.8); White Blood Cell Count 17.5 X10^3/uL (4.5-11.0)
[2023-05-30 05:59] LABS: Blood Urea Nitrogen 13 mg/dL (7-17); Calcium 9.2 mg/dL (8.4-10.2); Carbon Dioxide 24 mmol/L (22-32); Chloride 104 mmol/L (98-107); Estimated Glomerular Filt Rate > 60 mL/min (>60); Glucose 117 mg/dL (70-100); HEMOLYSIS < 15 (0-50); Potassium 4.2 mmol/L (3.4-5.1); Sodium 134 mmol/L (137-145)
[2023-05-30 06:46] VITALS: BP 122/84; PULSE 64; RESP 17; TEMP 36.7; O2SAT 95
[2023-05-30] MEDS: PREGABALIN 75 MG CAPSULE 150 MG PO ×2 (08:58→20:57)
[2023-05-30] MEDS: BACLOFEN 10 MG TABLET 15 MG PO ×3 (08:58→20:57)
[2023-05-30] MEDS: BUSPIRONE 5 MG TABLET 10 MG PO ×2 (08:59→15:20)
[2023-05-30] MEDS: ENOXAPARIN 40 MG/0.4 ML SYRINGE SUBCUT (08:59)
[2023-05-30] MEDS: DOCUSATE 100 MG CAPSULE 200 MG PO ×2 (08:59→20:57)
[2023-05-30] MEDS: ASPIRIN 81 MG CHEW TAB PO (08:59)
[2023-05-30] MEDS: TAMSULOSIN 0.4 MG CAPSULE 0.8 MG PO (08:59)
[2023-05-30] MEDS: ESCITALOPRAM 10 MG TABLET 20 MG PO (09:00)
[2023-05-30] MEDS: ACYCLOVIR 400 MG TABLET PO ×2 (09:00→20:56)
[2023-05-30] MEDS: MECLIZINE HCL 12.5 MG TABLET 25 MG PO (09:03)
[2023-05-30 09:18] VITALS: BP 127/75; PULSE 84; RESP 16; TEMP 35.9; O2SAT 100
--- NOTE | 2023-05-30 10:56 | CM.DPC ---
DCP Cont. Reviewed EMR and team rounds for status updates. Pt changed from OBS to INPT status, per UR. Per Hospitalist, pt will require an additional day of IV steroids, d/c likely tomorrow. Monitor closely. Her fiance will transport once medically ready.
--- NOTE | 2023-05-30 10:57 | PT.IPTN ---
Physical Therapy Treatment Note M2 PT-IP Current Condition Start: 05/29/23 11:35 Freq: NEEDED Status: Active Protocol: Document 05/29/23 10:25 AB (Rec: 05/29/23 11:52 AB [id number]) Physical Therapy Current Condition Current Condition Evaluation Date 05/29/23 Treatment Diagnosis MS exacerbation; difficulty in walking Onset Date 05/27/23 M3 PT-IP Subjective Start: 05/29/23 11:35 Freq: NEEDED Status: Active Protocol: Document 05/30/23 11:10 TS (Rec: 05/30/23 11:29 TS [id number]) Subjective Physical Therapy Visit Type Type Treatment Note Visit Start Time 10:57 Visit Stop Time 11:10 Total Visit Minutes 13 Notes Spouse present Number of ELECTRICAL ELECTRONICS TECHNICIAN Visits 1 Physical Therapy Visit Comments Patient Comments Pt is agreeable to PT. M4 PT-IP Mobility and Gait Start: 05/29/23 11:35 Freq: NEEDED Status: Active Protocol: Document 05/30/23 11:10 TS (Rec: 05/30/23 11:29 TS [id number]) PT-Bed Mobility Assessment Supine to Sit Supine to Sit Independent Sit to Supine Sit to Supine Independent Scooting Scooting to Edge of Bed Independent Scooting Up and Down in Bed Independent PT-Transfer Assessment Sit to and From Stand Sit to and from Stand Standby Assistance,Use of Upper Extremities Equipment Transfer Assistive Device Gait Belt,Front Wheeled Walker Orthotic/Prosthetic Devices or Brace: No Comments Mobility Comments Supine to sit Ind with BUE support for uprighting trunk. Sit to stand with FWW SBA, pt is slightly unsteady and requires increased effort to stand. She ambulated in room ~ 25' SBA with FWW, requires multiple standing rest breaks due to fatigue. Sit to supine into bed Ind with no cues. Pt was left in bed, spouse in room. Gait Assessment Gait Gait Assistance Required: Standby Assistance Distance (Feet) 25 Able to Maintain Weight Bearing Status Yes During Gait Assistive Devices Assistive Device Gait Belt,Straight Cane,Front Wheeled Walker Orthotic/Prosthetic Devices or Brace: No Gait Deviations General Gait Pattern Ataxic,Decreased Stride Length ,Decreased Feet Clearance,Step -to Gait Factors Limiting Gait Function Factors Limiting Gait Function Decreased Activity Tolerance, Decreased Sensation,Decreased Strength,Incoordination,Poor Balance,Poor Safety Awareness Comments Gait Comments See mobility comments PT-Balance Assessment Sitting Balance and Reactions Static Sitting Balance Ability Good Dynamic Sitting Balance Ability Good Standing Balance and Reactions Static Standing Balance Ability Fair Dynamic Standing Balance Ability Fair Device Used FWW M5 PT-IP Objective Assessments Start: 05/29/23 11:35 Freq: NEEDED Status: Active Protocol: Document 05/29/23 10:25 AB (Rec: 05/29/23 11:52 AB [id number]) Orientation Orientation/Cognition Level of Alertness Alert Orientation Name,Place,Situation Language Function Ability No Deficits Noted Safety Awareness Understands Safety Issues Memory Description No Deficits Noted Gross Range of Motion Lower Extremity ROM Assessment Within Functional Limits Strength Lower Extremity Strength Assessment Right Impaired Hip 3+/5 Knee 4-/5 Sensation Assessment Sensation Gross Sensation Right UE Impaired,Left UE Impaired,Right LE Impaired, Left LE Impaired Sensation Description Numbness,Tingling Comments Sensation Comments numbness/tingling due to MS Muscle Tone Muscle Tone WNL Yes M6 PT-IP Treatment Start: 05/29/23 11:35 Freq: NEEDED Status: Active Protocol: Document 05/30/23 11:10 TS (Rec: 05/30/23 11:29 TS [id number]) Physical Therapy Treatment Education Education Provided Safety M7 PT-IP Assessment and Plan Start: 05/29/23 11:35 Freq: NEEDED Status: Active Protocol: Document 05/30/23 11:10 TS (Rec: 05/30/23 11:29 TS [id number]) PT Summary Assessment and Plan Potential Rehabilitation Potential Fair Summary Impairments Pain,ROM,Strength,Balance, Coordination,Sensation,Tone, Cognition,Bed Mobility, Transfers,Gait,Activity Tolerance Progress Towards Goals Slow Progress due to Medical Issues,Slow Progress due to Activity Tolerance Assessment Summary Adilene is making slow progress with her mobility. She Ind for all bed mobility from a flat bed. She is SBA for sit to stands with FWW, is slightly unsteady coming into standing and requires increased effort. She continues to ambulate short distances in room with FWW SBA , she fatigues quickly requiring multiple standing rest breaks. PT continues to recommend home with 24/7 care. Pt's spouse is her caregiver and provides 24/7 care. Pt may benefit from HHPT if not able to get to outpatient PT appointments. Goals Bed Mobility Goal Independent Transfer Goal Independent,Front Wheeled Walker Gait Goal Independent,Front Wheel Walker Gait Distance 250 Other Goals improve transfers and ambulation using LRAD/without AD >300 ft SBA Days to Meet Goals 10 Frequency of Treatment Frequency Of Treatment Once a Day Treatment Plan Physical Therapy Treatment Plan Bed Mobility Training,Transfer Training,Gait Training, Therapeutic Exercise,Balance Retraining,Discharge Planning, Hot or Cold Pack,Neuromuscular Re-ed,Coordination Retraining Precautions Other Precautions falls Recommendations To Nursing Amount of Assist Needed Standby Assistance Discharge Recommendations PT Discharge Recommendations Home with 08/12 Assist Available,Home Health, Outpatient PT Transportation Needs at Discharge Private Vehicle
[2023-05-30] MEDS: methylPREDNISolone 1,000 MG in SODIUM CHLORIDE 0.9% 250 ML 250 MG IV (11:11)
[2023-05-30] MEDS: LORazepam 0.5 MG TABLET PO (11:18)
--- NOTE | 2023-05-30 11:33 | P.PN_ITS ---
Subjective Subjective Interval history: She still feels weak. She did have a bowel movement and constipation is improved. She denies any dyspnea, fevers or cough. Her urine dip was notable only for blood. Culture was not indicated. Antibiotics have been stopped. Her neurologist recommended 5 days of IV steroids. Exam Vital Signs (past 8 hours): - 05/30/23 06:46 05/30/23 09:18 Temperature 98.1 F 96.6 F L Pulse Rate 64 84 Respiratory Rate 17 16 Blood Pressure 122/84 127/75 Pulse Oximetry 95 100 Oxygen Delivery Method Room Air Oxygen Flow Rate 0 Narrative Exam Narrative: NAD, fluent speech, no distress. Lungs are clear, normal effort. Heart is regular, no murmur. Abdomen is nondistended. Extremities are free of edema. Skin is free of rash or lesions. Speech is normal. Gaze is conjugate, EOMI. No facial droop. Objective Labs 05/30/23 05:22 05/30/23 05:22 Labs: Laboratory Results - last 24 hr 05/30/23 05:22 WBC 17.5 H RBC 4.16 Hgb 11.8 L Hct 36.3 MCV 87.2 MCH 28.2 MCHC 32.4 RDW 14.6 Plt Count 377 Neut % (Auto) 80.9 H Lymph % (Auto) 11.4 L [place] % (Auto) 7.5 Eos % (Auto) 0.0 L Baso % (Auto) 0.2 Neut # (Auto) 55372 H Lymph # (Auto) 2000 [place] # (Auto) 1300 H Eos # (Auto) 0 Baso # (Auto) 0 Sodium 134 L Potassium 4.2 Chloride 104 Carbon Dioxide 24 BUN 13 Creatinine 0.59 Estimated GFR > 60 BUN/Creatinine Ratio 22.0 Glucose 117 H Calcium 9.2 [facility] Medical History (Updated 05/27/23 @ 16:27 by Mary Bal RN) Depression Aphasia Secundum atrial septal defect Stroke Encounter for screening for unspecified developmental delays Migraine Ataxia Anxiety Multiple sclerosis Surgical History No pertinent past surgical history Family History Mother Hypertension Alcoholism Father Heart abnormality Social History household members: significant other and children Smoking Status: Former smoker Assessment & Plan Assessment & Plan narrative: 1. Multiple sclerosis flare, POA and improving. -patient has had multiple flares in past -repeat MRI brain showed unchanged MS plaques with none new, and none of cervical or thoracic spine -per Dr. Strickland neurology give 1g solumedrol x5 days (Today is day 4/5). -continue home meclizine, lyrica, and baclofen -PT/OT evals 2. Constipation, POA and improved. -only small BM with suppository on 05/28, no BM prior in a week -start lactulose BID 3. Anxiety, POA and stable. -continue buspar -valium for acute anxiety 4. Insomnia, POA and active. -Ambien nightly Code status is full code. DVT prophylaxis with lovenox. Proxy is mother Luiza. Quality VTE Deep Vein Thrombosis/Pulmonary Embolism Present on Admission: No
[2023-05-30 12:00] VITALS: RESP 16
[2023-05-30] MEDS: OXYCODONE IR 5 MG TABLET PO (17:47)
[2023-05-30] MEDS: ACETAMINOPHEN 325 MG TABLET 650 MG PO (17:48)
[2023-05-30 18:00] VITALS: RESP 20
--- NOTE | 2023-05-30 18:08 | PC.NURSE ---
Addendum entered by Lauren Zazueta R.N. 05/30/23 18:12: Call light w/in reach, Pt calls appropriately for need. Continue w/ plan of care Original Note: Pt SBA - 1PA to BR. Recieved IVPB steriod as per orders. SL intact/patent. Med w/ Oxy & tylenol for discomfort in back as per orders w/ fair relief. Call light w/in reach, pt calls apprpriately foern
[2023-05-30 18:15] VITALS: BP 136/80; PULSE 86; RESP 16; TEMP 36.2; O2SAT 96
[2023-05-30] MEDS: MIRABEGRON 50 MG 50 EACH PO (20:58)
[2023-05-30] MEDS: ZOLPIDEM 5 MG TABLET PO (20:58)
[2023-05-31] VITALS: BP 143/83; PULSE 73; RESP 16; TEMP 36.2; O2SAT 93
[2023-05-31] MEDS: OXYCODONE IR 5 MG TABLET PO ×3 (00:13→11:02)
[2023-05-31 05:37] LABS: Add Manual Diff / Slide Review NO; Basophils Absolute Auto 0 /uL (0-100); Basophils Percent Auto 0.1 % (0-2); Eosinophils Absolute Auto 0 /uL (0-450); Lymphocytes Absolute Auto 1800 /uL (1100-4500); Lymphocytes Percent Auto 10.5 % (25-40); Mean Corpuscular HGB Conc 32.5 % (30-36); Mean Corpuscular Volume 86.2 fL (80-100); Monocytes Absolute Auto 1200 /uL (0-900); Monocytes Percent Auto 7.3 % (3-14); Neutrophils Absolute Auto 13700 /uL (1500-7000); Neutrophils Percent Auto 82.1 % (50-75); Platelet Count 392 X10^3/uL (150-400); Red Blood Cell Count 4.29 X10^6/uL (4.0-5.2); Red Cell Distribution Width 14.6 % (11.6-14.8); White Blood Cell Count 16.7 X10^3/uL (4.5-11.0)
[2023-05-31 05:52] LABS: BUN Creatinine Ratio 26.8 (6-22); Blood Urea Nitrogen 15 mg/dL (7-17); Calcium 9.4 mg/dL (8.4-10.2); Carbon Dioxide 24 mmol/L (22-32); Chloride 103 mmol/L (98-107); Estimated Glomerular Filt Rate > 60 mL/min (>60); Glucose 112 mg/dL (70-100); HEMOLYSIS < 15 (0-50); Potassium 3.8 mmol/L (3.4-5.1); Sodium 134 mmol/L (137-145)
[2023-05-31 06:00] VITALS: BP 149/83; PULSE 60; RESP 16; TEMP 36.3; O2SAT 96
[2023-05-31 08:19] VITALS: BP 135/85; PULSE 65; RESP 20; TEMP 36.3; O2SAT 96
[2023-05-31] MEDS: ONDANSETRON 4 MG/2 ML INJ IV (08:54)
[2023-05-31] MEDS: ASPIRIN 81 MG CHEW TAB PO (09:13)
[2023-05-31] MEDS: ACYCLOVIR 400 MG TABLET PO (09:13)
[2023-05-31] MEDS: BACLOFEN 10 MG TABLET 15 MG PO (09:13)
[2023-05-31] MEDS: DOCUSATE 100 MG CAPSULE 200 MG PO (09:17)
[2023-05-31] MEDS: ENOXAPARIN 40 MG/0.4 ML SYRINGE SUBCUT (09:17)
[2023-05-31] MEDS: ESCITALOPRAM 10 MG TABLET 20 MG PO (09:18)
[2023-05-31] MEDS: TAMSULOSIN 0.4 MG CAPSULE 0.8 MG PO (09:19)
[2023-05-31] MEDS: PREGABALIN 75 MG CAPSULE 150 MG PO (09:19)
[2023-05-31] MEDS: MECLIZINE HCL 12.5 MG TABLET 25 MG PO (09:19)
[2023-05-31] MEDS: ACETAMINOPHEN 325 MG TABLET 650 MG PO (09:20)
[2023-05-31 09:27] LABS: Appearance Urine UA CLEAR; Bilirubin Urine UA NEGATIVE (NEGATIVE); Color Urine UA YELLOW; Glucose Urine UA NEGATIVE (Negative); Ketones Urine UA NEGATIVE (NEGATIVE); Leukocyte Esterase Urine UA NEGATIVE (NEGATIVE); Nitrite Urine UA POSITIVE (Negative); Occult Blood Urine UA NEGATIVE (Negative); Protein Urine UA NEGATIVE (Negative); Urobilinogen Urine UA 0.2 E.U./dL (0.2)
[2023-05-31 10:00] LABS: RBC Urine 0-1/HPF (0-5/HPF)
[2023-05-31 10:01] LABS: Bacteria Urine Many (>30); Culture Indicated Urine Specimen Cultured; Squamous Epithelial Cell Urine 5-10 /HPF (0-5/HPF); WBC Urine 1-5/HPF (0-5/HPF)
[2023-05-31] MEDS: methylPREDNISolone 1,000 MG in SODIUM CHLORIDE 0.9% 250 ML 250 MG IV (11:02)
[2023-05-31] MEDS: LORazepam 0.5 MG TABLET PO (11:02)
--- NOTE | 2023-05-31 12:16 | PT.IPTN ---
Physical Therapy Treatment Note M2 PT-IP Current Condition Start: 05/29/23 11:35 Freq: NEEDED Status: Active Protocol: Document 05/29/23 10:25 AB (Rec: 05/29/23 11:52 AB [id number]) Physical Therapy Current Condition Current Condition Evaluation Date 05/29/23 Treatment Diagnosis MS exacerbation; difficulty in walking Onset Date 05/27/23 M3 PT-IP Subjective Start: 05/29/23 11:35 Freq: NEEDED Status: Active Protocol: Document 05/31/23 11:44 MB (Rec: 05/31/23 12:16 MB [id number]) Subjective Physical Therapy Visit Type Type Treatment Note Visit Start Time 11:44 Visit Stop Time 12:07 Total Visit Minutes 23 Number of LOADING MANAGER Visits 0 Physical Therapy Visit Comments Patient Comments Pt is agreeable to PT. Her mom and ion are nearby. M4 PT-IP Mobility and Gait Start: 05/29/23 11:35 Freq: NEEDED Status: Active Protocol: Document 05/31/23 11:44 MB (Rec: 05/31/23 12:16 MB [id number]) PT-Bed Mobility Assessment Supine to Sit Supine to Sit Independent,Head of Bed Elevated,Bedrails Scooting Scooting to Edge of Bed Independent Scooting Up and Down in Bed Independent PT-Transfer Assessment Sit to and From Stand Sit to and from Stand Standby Assistance,1 Person Assistance,Use of Upper Extremities Equipment Transfer Assistive Device Gait Belt,Front Wheeled Walker Orthotic/Prosthetic Devices or Brace: No Transfer Ability Level of Assist Standby Assistance,1 Person Assistance,Use of Upper Extremities Comments Mobility Comments Ion nearby who is her caregiver and she asks him to help with many things: donning pants and pulling the back of her shoes on Gait Assessment Gait Gait Assistance Required: Standby Assistance,1 Person Assist Distance (Feet) 100 Able to Maintain Weight Bearing Status Yes During Gait Assistive Devices Assistive Device Gait Belt,Front Wheeled Walker Orthotic/Prosthetic Devices or Brace: No Gait Deviations General Gait Pattern Ataxic,Decreased Stride Length ,Decreased Feet Clearance Factors Limiting Gait Function Factors Limiting Gait Function Decreased Activity Tolerance, Decreased Strength,Pain PT-Balance Assessment Sitting Balance and Reactions Static Sitting Balance Ability Good Dynamic Sitting Balance Ability Good Standing Balance and Reactions Static Standing Balance Ability Fair Dynamic Standing Balance Ability Fair Device Used FWW M5 PT-IP Objective Assessments Start: 05/29/23 11:35 Freq: NEEDED Status: Active Protocol: Document 05/29/23 10:25 AB (Rec: 05/29/23 11:52 AB [id number]) Orientation Orientation/Cognition Level of Alertness Alert Orientation Name,Place,Situation Language Function Ability No Deficits Noted Safety Awareness Understands Safety Issues Memory Description No Deficits Noted Gross Range of Motion Lower Extremity ROM Assessment Within Functional Limits Strength Lower Extremity Strength Assessment Right Impaired Hip 3+/5 Knee 4-/5 Sensation Assessment Sensation Gross Sensation Right UE Impaired,Left UE Impaired,Right LE Impaired, Left LE Impaired Sensation Description Numbness,Tingling Comments Sensation Comments numbness/tingling due to MS Muscle Tone Muscle Tone WNL Yes M6 PT-IP Treatment Start: 05/29/23 11:35 Freq: NEEDED Status: Active Protocol: Document 05/31/23 11:44 MB (Rec: 05/31/23 12:16 MB [id number]) Physical Therapy Treatment Education Education Provided Safety M7 PT-IP Assessment and Plan Start: 05/29/23 11:35 Freq: NEEDED Status: Active Protocol: Document 05/31/23 11:44 MB (Rec: 05/31/23 12:16 MB [id number]) PT Summary Assessment and Plan Potential Rehabilitation Potential Fair Status of Condition at Evaluation Evolving Summary Impairments Pain,Strength,Balance, Coordination,Bed Mobility, Transfers,Gait,Activity Tolerance Progress Towards Goals Progressing Toward Goals Assessment Summary Pt is moving better today. She gait trains with RW. Her fiance is nearby and pulls w/c behind so that PT can guard pt and manage IV pole. Pain and neuromuscular changes from disease process are presenting factors today. Goals Bed Mobility Goal Independent Transfer Goal Independent,Front Wheeled Walker Gait Goal Independent,Front Wheel Walker Gait Distance 250 Other Goals improve transfers and ambulation using LRAD/without AD >300 ft SBA Days to Meet Goals 10 Frequency of Treatment Frequency Of Treatment Once a Day Treatment Plan Physical Therapy Treatment Plan Bed Mobility Training,Transfer Training,Gait Training, Therapeutic Exercise,Balance Retraining,Discharge Planning, Hot or Cold Pack,Neuromuscular Re-ed,Coordination Retraining Precautions Other Precautions falls Recommendations To Nursing Amount of Assist Needed 1 Person Assist Discharge Recommendations PT Discharge Recommendations Home with 08/12 Assist Available,Home Health Transportation Needs at Discharge Private Vehicle
--- NOTE | 2023-05-31 13:12 | PM.DS.1 ---
History of Present Illness History of Present Illness Chief complaint: ms relapse poss uti Narrative: Adilene Pierce is a 42yo F with PMH of MS and frequent flares followed by Dr. Strickland neurology who presents with acute MS flare. Patient is on twice yearly Ocrevus infusions which help manage her MS well, but per her neurologist she needs it 3x yearly because it runs out and her symptoms return. Therefore she has needed steroids intermittently between doses of Ocrevus to help with MS flares. Apparently per family she has shown symptoms of worsening MS including memory loss, worsening weakness, and impulsiveness. The ED called Dr. Strickland who wanted her admitted for 1g solumedrol x5 days. He would also like a repeat MRI which she is due for to see if she has worsening MS lesions in brain, cervical and thoracic spine. Patient requesting anxiolytic for MRI and medication for insomnia tonight. Discharge Providers Provider Date of admission: 05/27/23 15:09 Discharge Date: 05/31/23 Primary care physician: Marleni Wise PA-C Consults: 05/29/23 10:10 Consult to Physical Therapy Evaluate & Treat Comment: Physician Instructions: Evaluate and Treat 05/29/23 10:11 Consult to Occupational Therapy Evaluate & Treat Comment: Physician Instructions: Evaluate and treat Discharge provider: Hakan Shaw MD Summary Hospital Course Discharge Diagnosis: 1. MS exacerbation, present on admission and improving. 2. Constipation, present on admission and improving. 3. Anxiety, present on admission stable. 4. Insomnia, present on admission stable. Hospital Course: The patient was admitted with MS exacerbation. The case was discussed with her primary neurologist and 5 days of Solu-Medrol at 1 g a day was recommended. Initially there was concern for urinary tract infection, cultures were negative. Ultimately the patient improved and after her 5th dose will be discharged home. She is asked to follow up with Dr. Strickland by phone tomorrow to see what else he recommends at this point if anything. Status at Discharge Cognitive/behavioral status at discharge: oriented Functional status at discharge: uses cane/walker Overall status at discharge: patient is back to baseline Time Spent with Patient Time spent: Greater than 30 minutes Exam Vital Signs (past 8 hours): - 05/31/23 06:00 05/31/23 08:19 Temperature 97.4 F L 97.4 F L Pulse Rate 60 65 Respiratory Rate 16 20 Blood Pressure 149/83 H 135/85 Pulse Oximetry 96 96 Oxygen Flow Rate 0 0 Oxygen Delivery Method Room Air Oxygen Flow Rate 0 Narrative Exam Narrative: NAD, fluent speech, no distress. Lungs: normal effort. Abdomen is non-distended. Extremities are free of edema. Skin is free of rash or lesions. Speech is normal. Gaze is conjugate, EOMI. No facial droop. Objective Imaging MRI - head: Radiologist's impression: 1. Numerous T2/FLAIR hyperintense lesions in periventricular white matter consistent with MS plaques. Overall the plaque burden is similar to the last exam. No enhancing lesions are identified. MRI Spine: Radiologist's impression: 1. No demyelinating lesions identified in cervical cord. 2. Degenerative disc disease with posterior disc extrusion at C5-C6 and C6-C7 causing moderate central canal stenosis. 3. No demyelinating lesions in thoracic cord. Labs 05/31/23 05:10 05/31/23 05:10 Labs: Laboratory Results - last 24 hr 05/31/23 05/31/23 05:10 08:23 WBC 16.7 H RBC 4.29 Hgb 12.0 Hct 37.0 MCV 86.2 MCH 28.0 MCHC 32.5 RDW 14.6 Plt Count 392 Neut % (Auto) 82.1 H Lymph % (Auto) 10.5 L [place] % (Auto) 7.3 Eos % (Auto) 0.0 L Baso % (Auto) 0.1 Neut # (Auto) 75186 H Lymph # (Auto) 1800 [place] # (Auto) 1200 H Eos # (Auto) 0 Baso # (Auto) 0 Sodium 134 L Potassium 3.8 Chloride 103 Carbon Dioxide 24 BUN 15 Creatinine 0.56 Estimated GFR > 60 BUN/Creatinine Ratio 26.8 H Glucose 112 H Calcium 9.4 Urine Color Yellow Urine Appearance Clear Urine pH 7.0 Ur Specific [place] 1.010 Urine Protein Negative Urine Glucose (UA) Negative Urine Ketones Negative Urine Occult Blood Negative Urine Nitrate Positive H Urine Bilirubin Negative Urine Urobilinogen 0.2 Ur Leukocyte Esterase Negative Urine RBC 0-1/hpf Urine WBC 1-5/hpf Ur Squamous Epith Cells 5-10 /hpf H Urine Bacteria Many (>30) H Ur Culture Indicated? Specimen cultured [facility] Medical History (Updated 05/27/23 @ 16:27 by Mary Bal RN) Depression Aphasia Secundum atrial septal defect Stroke Encounter for screening for unspecified developmental delays Migraine Ataxia Anxiety Multiple sclerosis Surgical History No pertinent past surgical history Family History Mother Hypertension Alcoholism Father Heart abnormality Social History household members: significant other and children Smoking Status: Former smoker Discharge Assessment & Plan Assessment and Plan Assessment: 1. MS exacerbation, present on admission and improving. 2. Constipation, present on admission and improving. 3. Anxiety, present on admission stable. 4. Insomnia, present on admission stable. Plan of Treatment: Discharged home with a small supply of pain and anxiety medications per her request. She will contact Dr. Lowry office tomorrow for further instructions. Discharge Plan Discharge Plan Patient Disposition: Home Provider Discharge Comment: You were admitted for an MS flare and received 3 days of IV steroids. Repeat MRI's did not show any worsening MS. Call Dr Strickland Thursday for further instructions. Discharge orders & Medications Prescriptions: New lorazepam 0.5 mg Tablet 0.5 mg PO PRN PRN (Reason: MRI) Qty: 20 0RF oxycodone 5 mg Tablet 5 mg PO Q4HR PRN (Reason: Pain, Moderate (4-6)) Qty: 20 0RF Continued tamsulosin 0.4 mg capsule 0.8 mg PO DAILY meclizine 25 mg tablet 25 mg PO TID PRN (Reason: Vertigo) Patient Comments: TK 1/2 TO 1 T PO UP TO Q 8 H PRF VERTIGO bisacodyl 10 mg Suppository 10 mg LA DAILY PRN (Reason: Constipation) Qty: 2 0RF docusate sodium 100 mg Capsule 200 mg PO BID Qty: 30 0RF dextroamphetamine-amphetamine 5 mg tablet 5 mg PO BID PRN (Reason: ADHD) Patient Comments: TK 1 T PO BID Ocrevus 30 mg/mL solution See Rx Instructions .ROUTE .COMPLEX Rx Instructions: 30mg/ml - infusion [id number]. unsure of when her next dose is due Myrbetriq 50 mg tablet extended release 24 hr 50 mg PO DAILY acyclovir 400 mg tablet 400 mg PO BID Aimovig Autoinjector 140 mg/mL auto-injector 140 mg SUBCUT QMONTH Patient Comments: [NO ORIGINAL SIG] Rx Instructions: has not had it yet this month. Usually takes around the 8th of each month aspirin 81 mg tablet,chewable 1 tab PO DAILY baclofen 10 mg tablet 15 mg PO TID buspirone 10 mg tablet 10 mg PO 3XD escitalopram oxalate 20 mg tablet 20 mg PO DAILY pregabalin 150 mg capsule 150 mg PO BID Ubrelvy 100 mg Tablet 100 mg PO PRN PRN (Reason: Migraine Headache) Follow up/Referrals: Marleni Wise PA-C [Primary Care Provider] - 2 Weeks Visit Report/Discharge Packet Stand Alone Forms: Patient Portal/API Discharge Data Primary Care Provider: Marleni Wise Attending Provider: Shawn García Admit Date/Time: 05/27/23 15:09 Quality VTE Deep Vein Thrombosis/Pulmonary Embolism Present on Admission: No
== END 2023-05-31 14:02 | disposition home or self-care (01) | DRG 60 ==
LOC: ED 10:48 → AC 15:09
PROVIDERS: Internal Medicine; Admitting Provider Student in an Organized Health Care Education/Training Program; Emergency Provider Emergency Medicine; Family Provider Psychiatry & Neurology Neurology; PCP Physician Assistant; Referring Provider Emergency Medicine; Visit Provider Student in an Organized Health Care Education/Training Program
DX: G35 Multiple sclerosis (principal); F41.9 Anxiety disorder, unspecified; G47.00 Insomnia, unspecified; M54.50 Low back pain, unspecified; K59.00 Constipation, unspecified; G43.909 Migraine, unspecified, not intractable, without status migrainosus; Z87.891 Personal history of nicotine dependence
CPT/HCPCS: 0241U; 36415; 70553; 71045; 72156; 72157; 80048; 80053; 81001; 81003; 81025; 83735; 85025; 87077; 87086; 87186; 97116; 97162; 97530; 99284; G0378; A9579; J1650; J2405; J2930